=== PATIENT | female | born 1970 | race Caucasian/White ===

== ENCOUNTER → 2017-10-18 16:33 | Outpatient (CLI) | payer OTHER, SELFPAY ==
[2017-10-18 17:54] LABS: Absolute Lymphocyte Count 1.34 X10^3/ul (0.83-4.51); Absolute Neutrophil Count 4.6 X10^3/uL (2.0-7.7); Basophil# 0.02 X10^3/uL; Basophil% 0.3 % (0-1); Eosinophil# 0.04 X10^3/uL; Eosinophils% 0.6 % (0-5); Hematocrit 38.7 % (37-47); Hemoglobin 12.6 g/dl (12.0-15.0); Lymphocyte # 1.34 X10^3/ul (4.0); Lymphocyte % 19.9 % (19-41); Mean Corp Hgb Conc 32.6 g/gl (32-36); Mean Corpuscular Hgb 29.9 pg (27.0-32.0); Mean Corpuscular Volume 91.9 fL (81-99); Mean Platelet Vol. 10.9 fl (6.2-12.0); Monocyte# 0.73 X10^3/uL; Monocyte% 10.8 % (0-10); Neutrophil % 68.3 % (47-70); Platelet Count 289 K/mm3 (150-450); RBC Distribution Width CV 12.8 % (11.6-14.6); Red Blood Count 4.21 M/mm3 (4.2-5.4); White Blood Count 6.7 K/mm3 (4.4-11.0)
[2017-10-18 18:05] LABS: POSITIVE COUNT NO; POSITIVE DIFFERENTIAL NO; POSITIVE MORPHOLOGY NO
[2017-10-18 18:07] LABS: Vitamin B12 267 pg/mL (211-911); Vitamin D,25 Hydroxy 15.4 ng/mL (29.95-100.01)
[2017-10-18 18:17] LABS: Erythrocyte Sedimentation Rate 44 mm/hr (0-20)
[2017-10-18 18:44] LABS: AST(SGOT) 28 U/L (15-37); Alanine Aminotransfer ALT/SGPT 51 U/L (13-56); Albumin, Serum 3.3 g/dL (3.2-5.0); Alkaline Phosphatase 86 U/L (45-117); Anion Gap 13 (5-15); BUN 9 mg/dL (7-18); Calcium,Total 8.9 mg/dL (8.5-10.1); Chloride 106 mmol/L (98-107); EST Glomerular Filtration Rate 71 mL/min (>60); Est Glom Filt Rate - Afr Amer 85 mL/min (>60); Ferritin 88 ng/mL (8-252); Glucose 89 mg/dL (74-106); Iron 61 ug/dL (50-170); Iron Binding Capacity,Total 243 ug/dL (250-450); PERCENT IRON SATURATION 25.1 % (15.0-55.0); Potassium 3.9 mmol/L (3.5-5.1); Protein, Total 8.3 g/dL (6.4-8.2); Sodium Level 142 mmol/L (136-145); Thyroid Stim Hormone (TSH) 2.49 uIU/mL (0.358-3.74)
[2017-10-20 11:17] LABS: Transferrin 197 mg/dL (200-370)
== END ==
PROVIDERS: Family Provider Family Medicine; PCP Family Medicine
DX: D89.9 Disorder involving the immune mechanism, unspecified (principal); K50.818 Crohn's disease of both small and large intestine with other complication
CPT/HCPCS: 36415; 80048; 80076; 82306; 82607; 82728; 83540; 83550; 84443; 84466; 85025; 85652; 86140

== ENCOUNTER → 2017-10-19 16:37 | Outpatient (CLI) | payer OTHER, SELFPAY ==
[2017-10-27 11:08] LABS: Calprotectin, Stool 255 ug/g (0-120)
== END ==
PROVIDERS: Family Provider Family Medicine; PCP Family Medicine
DX: R19.7 Diarrhea, unspecified (principal)
CPT/HCPCS: 83993; 87493; 87506

== ENCOUNTER → 2018-01-18 16:02 | Outpatient (CLI) | payer OTHER, SELFPAY ==
--- NOTE | 2018-01-18 16:10 | BD_ITS ---
STUDY: DUAL ENERGY X-RAY ABSORPTIOMETRY / DXA REASON FOR EXAM: Female, 47 years old. History of Crohn's disease. He is on steroid medication. No loss of height. TECHNIQUE: Bone Mineral Density (BMD) measurements of lumbar spine and bilateral hips were obtained. COMPARISON: None. FINDINGS: Lumbar Spine (L1-L4): g/cm2 (1.001) / T-score (-1.5) / Z-score (-1.2) Findings are suggestive of osteopenia with a moderate fracture risk. Left Femur Total: g/cm2 (0.822) / T-score (-1.5) / Z-score (-1.0) Left Femoral Neck: g/cm2 (0.846) / T-score (-1.4) / Z-score (-0.6) Right Femur Total: g/cm2 (0.810) / T-score (-1.6) / Z-score (-1.1) Right Femoral Neck: g/cm2 (0.845) / T-score (-1.4) / Z-score (-0.6) BD/Dexa Bone Density Study IMPRESSION: The patient is considered osteopenic as outlined below according to World Daniel Organization (WHO) criteria with a moderate fracture risk. Reference Information: The T-score is the number of standard deviations above or below the standard which is normal for young adults at their peak bone mineral density. The World Health Organization (WHO) interprets the T-scores as follows: Above -1 Normal bone density Between -1 and -2.5 Osteopenia Equal to / or below -2.5 Osteoporosis As a practical clinical guideline, osteopenia may be graded as follows: Mild -1 through -1.5 Moderate -1.6 through -2.0 Severe -2.1 through -2.4 The Z-score is the number of standard deviations above or below age-matched controls. A Z-score of less than -1.5 would be considered abnormal. References: 1. NIH Osteoporosis and Related Bone Diseases http://www.osteo.org 2. International Society for Clinical Densitometry http://www.iscd.org 3. National Osteoporosis Foundation http://www.nof.org Electronically Signed: Andrae Sharif MD at 8:02 EST Tel [phone], Service support ,
== END ==
PROVIDERS: Family Provider Family Medicine; PCP Family Medicine
DX: K50.10 Crohn's disease of large intestine without complications (principal); M85.80 Other specified disorders of bone density and structure, unspecified site
CPT/HCPCS: 77080

== ENCOUNTER → 2018-05-31 16:35 | Outpatient (CLI) | payer OTHER, SELFPAY ==
[2018-05-26 15:12] VITALS: BMI 22.9
[2018-05-31 18:03] LABS: Ferritin 11 ng/mL (8-252); Iron 25 ug/dL (50-170); Iron Binding Capacity,Total 342 ug/dL (250-450); PERCENT IRON SATURATION 7.3 % (15.0-55.0)
[2018-06-03 05:07] LABS: QNTFERON TB Mitogen Value > 10.00 IU/mL (.); QNTFERON TB Nil Value 0.03 IU/mL (.); QNTFERON TB1+ Ag Value 0.02 IU/mL (.); QNTFERON TB2+ Ag Value 0.02 IU/mL (.)
[2018-06-03 12:23] LABS: QNTIFERON TB Positive Criteria Negative (Negative); Transferrin 276 mg/dL (200-370)
== END ==
PROVIDERS: Family Provider Family Medicine; PCP Family Medicine
DX: K50.80 Crohn's disease of both small and large intestine without complications (principal); R19.7 Diarrhea, unspecified
CPT/HCPCS: 36415; 82728; 83540; 83550; 84466; 86480

== ENCOUNTER → 2018-06-21 16:24 | Outpatient (CLI) | payer OTHER, SELFPAY ==
[2018-05-26 15:12] VITALS: BMI 22.9
--- NOTE | 2018-06-21 16:32 | BI_ITS ---
MAMMOGRAPHY - BILATERAL SCREENING 3-D TOMOSYNTHESIS REASON FOR EXAM: Female, 47 years old. Bilateral Screening 3-D tomosynthesis PERTINENT HISTORY: No significant family history. TECHNIQUE: 2-D mammograms and 3-D Tomosynthesis of the breast (s) were performed. CAD was performed. COMPARISON: March 23, 2017. FINDINGS: The breast composition is heterogeneously dense that can obscure small breast masses. Scattered benign calcifications are seen. No dense spiculated masses or suspicious microcalcifications are identified. No architectural distortion is identified. There is no skin thickening or retraction. There has been no significant change since the prior study. BI/SCREEN MAMM (CAD) W/SAHRA BILAT IMPRESSION: No mammographic signs of malignancy. Routine yearly mammograms recommended. ASSESSMENT CATEGORY: BIRADS Category 1: Negative. A letter regarding these results will be sent to the patient by the facility within 30 days. FOLLOW UP RECOMMENDATION: Yearly follow up mammogram recommended. (A) Approximately 10% of breast cancers are not detected by mammography. A normal mammogram should not delay biopsy of a clinically suspicious abnormality. Electronically Signed: Juan Carlos Swann MD at 7:59 EDT , Service support ,
== END ==
PROVIDERS: Family Provider Family Medicine; PCP Family Medicine; Referring Provider Nurse Practitioner Women's Health; Visit Provider Nurse Practitioner Women's Health
DX: Z12.31 Encounter for screening mammogram for malignant neoplasm of breast (principal)
CPT/HCPCS: 77063; 77067

== ENCOUNTER → 2018-08-10 16:44 | Outpatient (CLI) | payer OTHER, SELFPAY ==
[2018-05-26 15:12] VITALS: BMI 22.9
[2018-08-10 18:29] LABS: Absolute Lymphocyte Count 1.07 X10^3/ul (0.83-4.51); Absolute Neutrophil Count 6.6 X10^3/uL (2.0-7.7); Basophil# 0.02 X10^3/uL; Basophil% 0.2 % (0-1); Eosinophil# 0.07 X10^3/uL; Eosinophils% 0.8 % (0-5); Hemoglobin 10.4 g/dl (12.0-15.0); Lymphocyte # 1.07 X10^3/ul (4.0); Lymphocyte % 12.7 % (19-41); Mean Corp Hgb Conc 31.5 g/gl (32-36); Mean Corpuscular Hgb 25.9 pg (27.0-32.0); Mean Corpuscular Volume 82.3 fL (81-99); Mean Platelet Vol. 9.9 fl (6.2-12.0); Monocyte# 0.65 X10^3/uL; Monocyte% 7.7 % (0-10); Neutrophil % 78.4 % (47-70); Platelet Count 349 K/mm3 (150-450); RBC Distribution Width CV 14.6 % (11.6-14.6); RBC Distribution Width SD 44.2 fl (35.1-43.9); Red Blood Count 4.01 M/mm3 (4.2-5.4); White Blood Count 8.4 K/mm3 (4.4-11.0)
[2018-08-10 18:32] LABS: POSITIVE COUNT NO; POSITIVE DIFFERENTIAL NO; POSITIVE MORPHOLOGY NO
[2018-08-10 18:41] LABS: AST(SGOT) 34 U/L (15-37); Alanine Aminotransfer ALT/SGPT 61 U/L (13-56); Albumin, Serum 2.8 g/dL (3.2-5.0); Alkaline Phosphatase 188 U/L (45-117); Bilirubin, Direct 0.11 mg/dL (0.00-0.30); Globulin 5.9 g/dL (2.2-4.2); Protein, Total 8.7 g/dL (6.4-8.2)
[2018-08-10 18:50] LABS: Vitamin D,25 Hydroxy 68.8 ng/mL (29.95-100.01)
== END ==
PROVIDERS: Family Provider Family Medicine; PCP Family Medicine
DX: R53.83 Other fatigue (principal); E55.9 Vitamin D deficiency, unspecified; D50.0 Iron deficiency anemia secondary to blood loss (chronic)
CPT/HCPCS: 36415; 80076; 82306; 85025; 87385

== ENCOUNTER → 2018-10-06 16:43 | Outpatient (CLI) | payer OTHER, SELFPAY ==
[2018-05-26 15:12] VITALS: BMI 22.9
[2018-10-06 18:12] LABS: Thyroid Stim Hormone (TSH) 2.12 uIU/mL (0.358-3.74)
== END ==
PROVIDERS: Family Provider Family Medicine; PCP Family Medicine
DX: K50.819 Crohn's disease of both small and large intestine with unspecified complications (principal)
CPT/HCPCS: 36415; 84443; 86140

== ENCOUNTER → 2018-10-07 16:21 | Outpatient (CLI) | payer OTHER, SELFPAY ==
[2018-05-26 15:12] VITALS: BMI 22.9
== END ==
PROVIDERS: Family Provider Family Medicine; PCP Family Medicine
DX: K50.819 Crohn's disease of both small and large intestine with unspecified complications (principal)

== ENCOUNTER → 2018-10-18 16:45 | Outpatient (CLI) | payer OTHER, SELFPAY ==
[2018-05-26 15:12] VITALS: BMI 22.9
== END ==
PROVIDERS: Family Provider Family Medicine; PCP Family Medicine
DX: K50.012 Crohn's disease of small intestine with intestinal obstruction (principal)
CPT/HCPCS: 87493; 87506

== ENCOUNTER → 2019-01-13 13:28 | Outpatient (CLI) | payer OTHER, SELFPAY ==
[2018-11-08 06:03] VITALS: BMI 18.6
== END ==
PROVIDERS: Family Provider Family Medicine; PCP Family Medicine
DX: K50.80 Crohn's disease of both small and large intestine without complications (principal)
CPT/HCPCS: 36415

== ENCOUNTER → 2019-01-17 09:22 | Outpatient (CLI) | payer OTHER, SELFPAY ==
[2018-11-08 06:03] VITALS: BMI 18.6
[2019-01-17 09:30] VITALS: BP 107/70; PULSE 98; RESP 16; TEMP 37.3; O2SAT 99; BMI 16.5
[2019-01-17 10:19] VITALS: BP 101/57; PULSE 90; RESP 16; TEMP 37.3; O2SAT 99
[2019-01-17 10:45] VITALS: BP 108/66; PULSE 86; RESP 18; TEMP 37.4; O2SAT 99
[2019-01-17 15:22] LABS: Absolute Lymphocyte Count 0.13 X10^3/uL (0.83-4.51); Basophil# 0.04 X10^3/uL; Basophil% 0.4 % (0-1); Eosinophil# 0.01 X10^3/uL; Eosinophils% 0.1 % (0-5); Hemoglobin 9.3 g/dL (12.0-15.0); Lymphocyte # 0.13 X10^3/ul (4.0); Lymphocyte % 1.4 % (19-41); Mean Corpuscular Hgb 25.7 pg (27.0-32.0); Mean Corpuscular Volume 85.6 fL (81-99); Mean Platelet Vol. 8.8 fl (6.2-12.0); Monocyte# 0.08 X10^3/uL; Monocyte% 0.9 % (0-10); NRBC Flagged by Analyzer 0 % (0-5); Neutrophil # 8.95 X10^3/uL (2.7-7.7); Neutrophil % 96.8 % (47-70); POSITIVE DIFFERENTIAL YES; POSITIVE MORPHOLOGY YES; Platelet Count 333 K/mm3 (150-450); RBC Distribution Width CV 16.8 % (11.6-14.6); Red Blood Count 3.62 M/mm3 (4.2-5.4); White Blood Count 9.3 K/mm3 (4.4-11.0)
[2019-01-17 15:47] LABS: Differential Indicated SCAN CRITERIA MET
[2019-01-17 16:12] LABS: Differential Comment SCANNED
== END ==
PROVIDERS: Family Provider Family Medicine; PCP Family Medicine
DX: D50.0 Iron deficiency anemia secondary to blood loss (chronic) (principal)
CPT/HCPCS: 96365; 36415; 85025; J1756; J7050; A4216

== ENCOUNTER → 2019-01-24 09:26 | Outpatient (CLI) | payer OTHER, SELFPAY ==
[2019-01-17 09:30] VITALS: BMI 16.5
[2019-01-24 09:39] VITALS: BP 107/59; PULSE 93; RESP 18; TEMP 37.1; O2SAT 99; BMI 16.6
[2019-01-24] MEDS: Hydrocortisone Sod Succinate 100 MG/2 ML Vial 50 MG IV (09:41)
[2019-01-24] MEDS: DiphenhydrAMINE 50 MG/ML Syringe IV (09:41)
[2019-01-24 10:54] VITALS: BP 116/64; PULSE 89; RESP 16; TEMP 36.6; O2SAT 100
== END ==
PROVIDERS: Family Provider Family Medicine; PCP Family Medicine
DX: D50.0 Iron deficiency anemia secondary to blood loss (chronic) (principal)
CPT/HCPCS: 96365; J1756; J7050; A4216

== ENCOUNTER → 2019-01-30 13:42 | Outpatient (CLI) | payer OTHER, SELFPAY ==
[2019-01-24 09:39] VITALS: BMI 16.6
[2019-01-30 15:24] LABS: Absolute Lymphocyte Count 0.75 X10^3/uL (0.83-4.51); Absolute Neutrophil Count 4.5 X10^3/uL (2.0-7.7); Basophil# 0.03 X10^3/uL; Basophil% 0.5 % (0-1); Eosinophil# 0.02 X10^3/uL; Eosinophils% 0.3 % (0-5); Hematocrit 31.3 % (37-47); Hemoglobin 9.2 g/dL (12.0-15.0); Lymphocyte # 0.75 X10^3/ul (4.0); Lymphocyte % 12.6 % (19-41); Mean Corp Hgb Conc 29.4 g/dL (32-36); Mean Corpuscular Hgb 26.4 pg (27.0-32.0); Mean Corpuscular Volume 89.9 fL (81-99); Mean Platelet Vol. 8.8 fl (6.2-12.0); Monocyte# 0.61 X10^3/uL; Monocyte% 10.3 % (0-10); NRBC Flagged by Analyzer 0 % (0-5); Neutrophil # 4.46 X10^3/uL (2.7-7.7); Neutrophil % 75.3 % (47-70); Platelet Count 487 K/mm3 (150-450); RBC Distribution Width CV 19.3 % (11.6-14.6); RBC Distribution Width SD 61.6 fl (35.1-43.9); Red Blood Count 3.48 M/mm3 (4.2-5.4); White Blood Count 5.9 K/mm3 (4.4-11.0)
[2019-01-30 16:15] LABS: AST(SGOT) 21 U/L (15-37); Alanine Aminotransfer ALT/SGPT 20 U/L (13-56); Albumin, Serum 2.3 g/dL (3.2-5.0); Alkaline Phosphatase 197 U/L (45-117); Anion Gap 7 (5-15); BUN 10 mg/dL (7-18); BUN/Creat Ratio 16.6 RATIO (10-20); Bilirubin, Direct 0.07 mg/dL (0.00-0.30); Calcium,Total 8.4 mg/dL (8.5-10.1); Chloride 108 mmol/L (98-107); EST Glomerular Filtration Rate 112 mL/min (>60); Est Glom Filt Rate - Afr Amer 135 mL/min (>60); Globulin 3.7 g/dL (2.2-4.2); Glucose 78 mg/dL (74-106); Potassium 4.4 mmol/L (3.5-5.1); Sodium Level 143 mmol/L (136-145)
== END ==
PROVIDERS: Family Provider Family Medicine; PCP Family Medicine
DX: K50.012 Crohn's disease of small intestine with intestinal obstruction (principal)
CPT/HCPCS: 36415; 80048; 80076; 85025

== ENCOUNTER → 2019-01-31 09:25 | Outpatient (CLI) | payer OTHER, SELFPAY ==
[2019-01-17 09:30] VITALS: BMI 16.5
[2019-01-24 09:39] VITALS: BMI 16.6
[2019-01-31 09:40] VITALS: BP 103/62; PULSE 98; RESP 16; TEMP 36.7; O2SAT 96; BMI 16.5
== END ==
PROVIDERS: Family Provider Family Medicine; PCP Family Medicine
DX: D50.0 Iron deficiency anemia secondary to blood loss (chronic) (principal)
CPT/HCPCS: 96365; J1756; J7050; A4216

== ENCOUNTER → 2019-02-07 09:27 | Outpatient (CLI) | payer OTHER, SELFPAY ==
[2019-01-17 09:30] VITALS: BMI 16.5
[2019-01-31 09:40] VITALS: BMI 16.5
[2019-02-07 09:35] VITALS: BP 108/69; PULSE 94; RESP 16; TEMP 36.5; O2SAT 98; BMI 16.5
[2019-02-07 10:47] VITALS: BP 117/73; PULSE 89; RESP 18; TEMP 36.9; O2SAT 100
== END ==
PROVIDERS: Family Provider Family Medicine; PCP Family Medicine
DX: D50.0 Iron deficiency anemia secondary to blood loss (chronic) (principal)
CPT/HCPCS: 96365; J1756; J7050; A4216

== ENCOUNTER → 2019-02-14 09:25 | Outpatient (CLI) | payer OTHER, SELFPAY ==
[2019-01-17 09:30] VITALS: BMI 16.5
[2019-02-07 09:35] VITALS: BMI 16.5
[2019-02-14 09:38] VITALS: BP 113/68; PULSE 98; RESP 16; TEMP 36.8; BMI 16.8
[2019-02-14 10:56] VITALS: BP 127/68; PULSE 90; RESP 16; TEMP 36.9; O2SAT 100
[2019-02-14 11:15] VITALS: BP 117/58; PULSE 86; RESP 16; TEMP 36.7
== END ==
PROVIDERS: Family Provider Family Medicine; PCP Family Medicine
DX: D50.0 Iron deficiency anemia secondary to blood loss (chronic) (principal)
CPT/HCPCS: 96365; J1756; J7050

== ENCOUNTER → 2019-02-16 13:18 | Outpatient (CLI) | payer OTHER, SELFPAY ==
[2019-02-14 09:38] VITALS: BMI 16.8
[2019-02-18 13:29] LABS: Calprotectin, Stool 1179 ug/g (0-120)
== END ==
PROVIDERS: Family Provider Family Medicine; PCP Family Medicine
DX: K50.80 Crohn's disease of both small and large intestine without complications (principal)
CPT/HCPCS: 83993

== ENCOUNTER → 2019-04-20 13:58 | Outpatient (CLI) | payer OTHER, SELFPAY ==
[2019-04-04 13:35] VITALS: BMI 16.8
[2019-04-20] MEDS: Zoledronic Acid 5 MG 100 ML 300 MG IV (14:31)
[2019-04-20 14:32] VITALS: BP 125/57; PULSE 83; RESP 16; TEMP 36.6; O2SAT 100; BMI 19.2
== END ==
PROVIDERS: PCP Family Medicine; Referring Provider Internal Medicine Endocrinology, Diabetes & Metabolism; Visit Provider Internal Medicine Endocrinology, Diabetes & Metabolism
DX: M85.80 Other specified disorders of bone density and structure, unspecified site (principal)
CPT/HCPCS: 96365; J7050; A4216; J3489

== ENCOUNTER → 2019-06-21 09:07 | Outpatient (CLI) | payer OTHER, SELFPAY ==
[2019-04-20 14:32] VITALS: BMI 19.2
[2019-06-21 09:46] LABS: Hematocrit 36.4 % (37-47); Hemoglobin 11.3 g/dL (12.0-15.0); Mean Corpuscular Hgb 29.1 pg (27.0-32.0); Mean Corpuscular Volume 93.8 fL (81-99); Mean Platelet Vol. 8.8 fl (6.2-12.0); Platelet Count 335 K/mm3 (150-450); RBC Distribution Width CV 13.2 % (11.6-14.6); RBC Distribution Width SD 45.4 fl (35.1-43.9); Red Blood Count 3.88 M/mm3 (4.2-5.4); White Blood Count 5.4 K/mm3 (4.4-11.0)
[2019-06-21 09:57] LABS: Prothrombin Time (Protime)PT. 12.8 SECONDS (11.7-14.9)
[2019-06-21 10:02] LABS: AST(SGOT) 25 U/L (15-37); Alanine Aminotransfer ALT/SGPT 44 U/L (13-56); Albumin, Serum 2.9 g/dL (3.2-5.0); Alkaline Phosphatase 165 U/L (45-117); Anion Gap 6 (5-15); BUN 9 mg/dL (7-18); BUN/Creat Ratio 11.3 RATIO (10-20); Bilirubin, Direct 0.22 mg/dL (0.00-0.30); Chloride 108 mmol/L (98-107); Creatinine, Serum 0.79 mg/dL (0.55-1.02); EST Glomerular Filtration Rate 81 mL/min (>60); Est Glom Filt Rate - Afr Amer 98 mL/min (>60); Globulin 4.5 g/dL (2.2-4.2); Glucose 81 mg/dL (74-106); Potassium 4.6 mmol/L (3.5-5.1); Protein, Total 7.4 g/dL (6.4-8.2); Sodium Level 139 mmol/L (136-145)
[2019-06-23 01:21] LABS: Calprotectin, Stool 2795 ug/g (0-120)
[2019-06-23 20:06] LABS: QNTFERON TB Mitogen Value > 10.00 IU/mL (.); QNTFERON TB Nil Value 0.04 IU/mL (.); QNTFERON TB1+ Ag Value 0.11 IU/mL (.); QNTFERON TB2+ Ag Value 0.05 IU/mL (.)
[2019-06-24 00:52] LABS: QNTIFERON TB Positive Criteria Negative (Negative)
== END ==
PROVIDERS: PCP Family Medicine
DX: K50.80 Crohn's disease of both small and large intestine without complications (principal)
CPT/HCPCS: 36415; 80048; 80076; 83993; 85027; 85610; 85730; 86140; 86480

== ENCOUNTER → 2019-08-02 13:59 | Outpatient (CLI) | payer OTHER, SELFPAY ==
[2019-04-20 14:32] VITALS: BMI 19.2
--- NOTE | 2019-08-02 14:00 | BI_ITS ---
MAMMOGRAPHY - BILATERAL SCREENING REASON FOR EXAM: Female, 48 years old. Routine annual screening examination. PERTINENT HISTORY: Sister with breast cancer. Aunt with breast cancer. TECHNIQUE: Digital bilateral breast sahra (3D mammographic acquisition) in the CC and MLO projections. 2-D mediolateral oblique (MLO) and craniocaudad (CC) views of both breasts were obtained. CAD: Full Field Digital Mammography with Computer Added Detection was performed. COMPARISON: Comparison is made with prior study dated June 21, 2018 and March 23, 2017.. FINDINGS: Breast Composition: The breasts are heterogeneously dense, which may obscure small masses. There are no dominant masses or suspicious calcifications. No other significant abnormalities are identified. There has been no significant change since the prior study. BI/SCREEN MAMM (CAD) W/SAHRA BILAT IMPRESSION: Stable bilateral screening mammogram. Yearly follow-up mammogram recommended. (A) ASSESSMENT CATEGORY: BIRADS Category 1: Negative. A letter regarding these results will be sent to the patient by the facility within 30 days. Approximately 10% of breast cancers are not detected by mammography. A normal mammogram should not delay biopsy of a clinically suspicious abnormality. [id number] Electronically Signed: Andrae Sharif, at 14:55 EDT , Service support ,
== END ==
PROVIDERS: PCP Family Medicine; Referring Provider Nurse Practitioner Women's Health; Visit Provider Nurse Practitioner Women's Health
DX: Z12.31 Encounter for screening mammogram for malignant neoplasm of breast (principal); Z80.3 Family history of malignant neoplasm of breast
CPT/HCPCS: 77063; 77067

== ENCOUNTER → 2019-08-18 12:04 | Outpatient (CLI) | payer OTHER, SELFPAY ==
[2019-08-16 15:46] VITALS: BMI 19.2
[2019-08-18 12:25] LABS: Absolute Lymphocyte Count 0.64 X10^3/uL (0.83-4.51); Absolute Neutrophil Count 6.2 X10^3/uL (2.0-7.7); Basophil# 0.03 X10^3/uL; Basophil% 0.4 % (0-1); Eosinophil# 0.08 X10^3/uL; Hematocrit 32.3 % (37-47); Hemoglobin 9.9 g/dL (12.0-15.0); Lymphocyte # 0.64 X10^3/ul (4.0); Lymphocyte % 8.2 % (19-41); Mean Corp Hgb Conc 30.7 g/dL (32-36); Mean Corpuscular Hgb 28.5 pg (27.0-32.0); Mean Corpuscular Volume 93.1 fL (81-99); Mean Platelet Vol. 8.7 fl (6.2-12.0); Monocyte# 0.76 X10^3/uL; Monocyte% 9.8 % (0-10); NRBC Flagged by Analyzer 0 % (0-5); Neutrophil # 6.24 X10^3/uL (2.7-7.7); Neutrophil % 80.2 % (47-70); Platelet Count 402 K/mm3 (150-450); RBC Distribution Width CV 14.3 % (11.6-14.6); RBC Distribution Width SD 47.9 fl (35.1-43.9); Red Blood Count 3.47 M/mm3 (4.2-5.4); White Blood Count 7.8 K/mm3 (4.4-11.0)
[2019-08-25 00:42] LABS: Calprotectin, Stool 2138 ug/g (0-120)
== END ==
PROVIDERS: PCP Family Medicine
DX: K50.80 Crohn's disease of both small and large intestine without complications (principal)
CPT/HCPCS: 36415; 83993; 85025; 86140

== ENCOUNTER → 2019-09-15 11:18 | Outpatient (CLI) | payer OTHER, SELFPAY ==
[2019-08-16 15:46] VITALS: BMI 19.2
== END ==
PROVIDERS: PCP Family Medicine
DX: Z11.59 Encounter for screening for other viral diseases (principal)
CPT/HCPCS: 87635; G2023; U0003

== ENCOUNTER → 2020-01-23 09:47 | Outpatient (CLI) | payer OTHER, SELFPAY ==
[2019-08-16 15:46] VITALS: BMI 19.2
--- NOTE | 2020-01-23 09:57 | BD_ITS ---
STUDY: DUAL ENERGY X-RAY ABSORPTIOMETRY / DXA REASON FOR EXAM: Female, 49 years old. Patient is 94.5# and 62 and quot; a loss of .5 and quot; per pat. Has taken steroids off and on for Frohn''s. Takes Vit D. Reclast x 1. Exercises moderately. Mom has osteo. TECHNIQUE: Bone Mineral Density (BMD) measurements of lumbar spine and bilateral hips were obtained. COMPARISON: Comparison is made with prior study dated 01/18/2018. FINDINGS: Lumbar Spine (L1-L4): g/cm2 (0.939) / T-score (-2.0) / Z-score (-1.5) Findings are suggestive of osteopenia with a moderate fracture risk. Left Femur Total: g/cm2 (0.770) / T-score (-1.9) / Z-score (-1.4) Left Femoral Neck: g/cm2 (0.820) / T-score (-1.6) / Z-score (-0.7) Right Femur Total: g/cm2 (0.775) / T-score (-1.8) / Z-score (-1.3) Right Femoral Neck: g/cm2 (0.816) / T-score (-1.6) / Z-score (-0.8) The T-Scores on the most recent prior examination were: Lumbar Spine (L1-L4): There has been worsening of bone density since the previous examination. Left Femur Total: which represents a worsening of 6.3%. Right Femur Total: which represents a worsening of 4.3%. BD/Dexa Bone Density Study IMPRESSION: The patient is considered osteopenic as outlined below according to World Daniel Organization (WHO) criteria with a moderate fracture risk. There has been worsening of bone density since the previous examination. Reference Information: The T-score is the number of standard deviations above or below the standard which is normal for young adults at their peak bone mineral density. The World Health Organization (WHO) interprets the T-scores as follows: Above -1 Normal bone density Between -1 and -2.5 Osteopenia Equal to / or below -2.5 Osteoporosis As a practical clinical guideline, osteopenia may be graded as follows: Mild -1 through -1.5 Moderate -1.6 through -2.0 Severe -2.1 through -2.4 The Z-score is the number of standard deviations above or below age-matched controls. A Z-score of less than -1.5 would be considered abnormal. References: 1. NIH Osteoporosis and Related Bone Diseases www osteo.org 2. International Society for Clinical Densitometry www iscd.org 3. National Osteoporosis Foundation www nof.org Electronically Signed: Andrae Sharif, at 16:22 EST , Service support ,
== END ==
PROVIDERS: PCP Family Medicine
DX: K50.818 Crohn's disease of both small and large intestine with other complication (principal)
CPT/HCPCS: 77080

== ENCOUNTER → 2020-02-06 16:30 | Outpatient (CLI) | payer OTHER, SELFPAY ==
[2019-08-16 15:46] VITALS: BMI 19.2
== END ==
PROVIDERS: PCP Family Medicine; Referring Provider Colon & Rectal Surgery; Visit Provider Colon & Rectal Surgery
DX: Z01.818 Encounter for other preprocedural examination (principal)
CPT/HCPCS: 87635; C9803; U0003

== ENCOUNTER → 2020-04-10 09:34 | Outpatient (CLI) | payer OTHER, SELFPAY ==
[2019-08-16 15:46] VITALS: BMI 19.2
--- NOTE | 2020-04-10 10:39 | RAD_ITS ---
STUDY: X-RAY - LUMBAR SPINE REASON FOR EXAM: Female, 49 years old. BACK PAIN TECHNIQUE: 3 view(s) of the lumbar spine were obtained. COMPARISON: None FINDINGS: Normal lumbar lordosis. There is a mild levoscoliosis of the lumbar spine. There is a normal alignment of the vertebrae. Normal vertebral bodies and endplates. There is multi-level degenerative disc disease with multi-level disc space narrowing. Phleboliths are seen in the pelvis. There is a 2.7 cm x 0.5 cm metallic cylinder overlying the symphysis pubis. RAD/Lumbar Spine 2 or 3 Views IMPRESSION: Degenerative changes of the spine, as detailed above. Electronically Signed: Andrae Sharif MD at 14:58 EST , Service support ,
== END ==
PROVIDERS: PCP Family Medicine
DX: M53.3 Sacrococcygeal disorders, not elsewhere classified (principal)
CPT/HCPCS: 72100

== ENCOUNTER 2020-06-03 10:26 | Outpatient (CLI) | payer OTHER, SELFPAY ==
[2020-05-27 09:10] VITALS: BMI 19.0
[2020-06-03 10:35] VITALS: BP 103/43; PULSE 77; RESP 16; TEMP 35.8; O2SAT 100; BMI 18.9
[2020-06-03] MEDS: 0.9% NaCl Peripheral Flush Adult/Peds IV (10:48)
[2020-06-03] MEDS: Zoledronic Acid 5 MG 100 ML 300 MG IV (10:49)
[2020-06-03 11:15] VITALS: BP 124/67; PULSE 72
== END 2020-06-03 12:00 | disposition home or self-care (01) ==
LOC: MEDOUTP 10:26
PROVIDERS: PCP Family Medicine; Referring Provider Internal Medicine Endocrinology, Diabetes & Metabolism; Visit Provider Internal Medicine Endocrinology, Diabetes & Metabolism
DX: M85.80 Other specified disorders of bone density and structure, unspecified site (principal)
CPT/HCPCS: 96365; A4216; J3489

== ENCOUNTER → 2020-06-26 14:15 | Outpatient (CLI) | payer OTHER, SELFPAY ==
[2020-06-03 10:35] VITALS: BMI 18.9
== END ==
PROVIDERS: PCP Family Medicine; Referring Provider Colon & Rectal Surgery; Visit Provider Colon & Rectal Surgery
DX: Z01.818 Encounter for other preprocedural examination (principal)
CPT/HCPCS: 87635; C9803; U0002

== ENCOUNTER → 2020-08-14 15:58 | Outpatient (CLI) | payer OTHER, SELFPAY ==
[2019-08-16 15:46] VITALS: BMI 19.2
--- NOTE | 2020-08-14 16:00 | BI_ITS ---
MAMMOGRAPHY - BILATERAL SCREENING REASON FOR EXAM: Female, 49 years old. Routine annual screening examination. PERTINENT HISTORY: Sister with breast cancer. Aunt with breast cancer. TECHNIQUE: Digital bilateral breast sahra (3D mammographic acquisition) in the CC and MLO projections. 2-D mediolateral oblique (MLO) and craniocaudad (CC) views of both breasts were obtained. CAD: Full Field Digital Mammography with Computer Added Detection was performed. COMPARISON: Comparison is made with prior study dated 08/02/2019 and 06/21/2018. FINDINGS: Breast Composition: The breasts are heterogeneously dense, which may obscure small masses. There are no dominant masses or suspicious calcifications. No other significant abnormalities are identified. There has been no significant change since the prior study. BI/SCRN MAMM (CAD)W/SAHRA BILAT IMPRESSION: Stable bilateral screening mammogram. Yearly follow-up mammogram recommended. (A) ASSESSMENT CATEGORY: BIRADS Category 1: Negative. A letter regarding these results will be sent to the patient by the facility within 30 days. Approximately 10% of breast cancers are not detected by mammography. A normal mammogram should not delay biopsy of a clinically suspicious abnormality. [id number] Electronically Signed: Andrae Sharif MD at 8:38 EDT , Service support ,
== END ==
PROVIDERS: PCP Family Medicine; Referring Provider Nurse Practitioner Women's Health; Visit Provider Nurse Practitioner Women's Health
DX: Z12.31 Encounter for screening mammogram for malignant neoplasm of breast (principal); Z80.3 Family history of malignant neoplasm of breast
CPT/HCPCS: 77063; 77067

== ENCOUNTER → 2020-08-20 16:04 | Outpatient (CLI) | payer OTHER, SELFPAY ==
[2020-08-20 15:34] VITALS: BMI 18.9
[2020-08-20 18:08] LABS: Follicle Stimulating Hormone 65.6 mIU/mL
[2020-08-25 10:18] LABS: HPV APTIMA, High Risk Negative (Negative)
== END ==
PROVIDERS: PCP Family Medicine; Referring Provider Nurse Practitioner Women's Health; Visit Provider Nurse Practitioner Women's Health
DX: N91.2 Amenorrhea, unspecified (principal); Z12.4 Encounter for screening for malignant neoplasm of cervix
CPT/HCPCS: 36415; 83001; 87624; 88175; G0145

== ENCOUNTER 2021-06-04 16:41 | Outpatient (CLI) | payer OTHER, SELFPAY ==
[2021-06-04 18:03] LABS: AST(SGOT) 32 U/L (15-37); Alanine Aminotransfer ALT/SGPT 51 U/L (13-56); Albumin, Serum 3.6 g/dL (3.2-5.0); Alkaline Phosphatase 107 U/L (45-117); Anion Gap 4 (5-15); BUN 11 mg/dL (7-18); BUN/Creat Ratio 14.8 RATIO (10-20); Calcium,Total 8.6 mg/dL (8.5-10.1); Chloride 110 mmol/L (98-107); Creatinine, Serum 0.74 mg/dL (0.55-1.02); EST Glomerular Filtration Rate 87 mL/min (>60); Est Glom Filt Rate - Afr Amer 106 mL/min (>60); Globulin 3.6 g/dL (2.2-4.2); Glucose 97 mg/dL (74-106); Potassium 3.7 mmol/L (3.5-5.1); Protein, Total 7.2 g/dL (6.4-8.2); Sodium Level 141 mmol/L (136-145)
[2021-06-04 18:20] LABS: Vitamin D,25 Hydroxy 31.4 ng/mL
== END 2021-06-04 23:59 | disposition home or self-care (01) ==
LOC: MTLAB 16:42
PROVIDERS: PCP Family Medicine; Referring Provider Internal Medicine Endocrinology, Diabetes & Metabolism; Visit Provider Internal Medicine Endocrinology, Diabetes & Metabolism
DX: M85.80 Other specified disorders of bone density and structure, unspecified site (principal); E55.9 Vitamin D deficiency, unspecified
CPT/HCPCS: 36415; 80053; 82306

== ENCOUNTER → 2021-06-16 | Outpatient (CLI) | payer OTHER, SELFPAY ==
[2021-06-16 15:12] VITALS: BP 120/65; PULSE 89; RESP 16; TEMP 37.1; O2SAT 97; BMI 21.9
[2021-06-16] MEDS: Zoledronic Acid 5 MG 100 ML 300 MG IV (15:23)
[2021-06-16] MEDS: 0.9% NaCl Peripheral Flush Adult/Peds IV (15:24)
[2021-06-16 15:49] VITALS: BP 106/65; PULSE 78; RESP 16; TEMP 37; O2SAT 98
== END | disposition home or self-care (01) ==
LOC: MEDOUTP 15:05
PROVIDERS: PCP Family Medicine; Referring Provider Internal Medicine Endocrinology, Diabetes & Metabolism; Visit Provider Internal Medicine Endocrinology, Diabetes & Metabolism
DX: M85.80 Other specified disorders of bone density and structure, unspecified site (principal)
CPT/HCPCS: 96365; A4216; J3489

== ENCOUNTER → 2021-10-30 | Outpatient (CLI) | payer OTHER, SELFPAY ==
--- NOTE | 2021-10-30 16:42 | BI_ITS ---
MAMMOGRAPHY - BILATERAL SCREENING REASON FOR EXAM: Female, 50 years old. Routine annual screening examination. PERTINENT HISTORY: Sister with breast cancer. Aunt with breast cancer. TECHNIQUE: Digital bilateral breast sahra (3D mammographic acquisition) in the CC and MLO projections. 2-D mediolateral oblique (MLO) and craniocaudad (CC) views of both breasts were obtained. CAD: Full Field Digital Mammography with Computer Added Detection was performed. COMPARISON: Comparison is made with prior study dated 08/14/2020 and 08/02/2019. FINDINGS: Breast Composition: The breasts are heterogeneously dense, which may obscure small masses. There are no dominant masses or suspicious calcifications. No other significant abnormalities are identified. There has been no significant change since the prior study. BI/SCRN MAMM (CAD)W/SAHRA BILAT IMPRESSION: Stable bilateral screening mammogram. Yearly follow-up mammogram recommended. (A) ASSESSMENT CATEGORY: BIRADS Category 1: Negative. A letter regarding these results will be sent to the patient by the facility within 30 days. Approximately 10% of breast cancers are not detected by mammography. A normal mammogram should not delay biopsy of a clinically suspicious abnormality. [id number] Electronically Signed: Andrae Sharif MD at 8:26 EDT ,
== END | disposition home or self-care (01) ==
LOC: OPBI 10-31 09:00
PROVIDERS: PCP Family Medicine; Visit Provider Nurse Practitioner Women's Health
DX: Z12.31 Encounter for screening mammogram for malignant neoplasm of breast (principal); Z80.3 Family history of malignant neoplasm of breast
CPT/HCPCS: 77063; 77067

== ENCOUNTER → 2021-11-04 | Outpatient (CLI) | payer OTHER, SELFPAY ==
[2021-11-04 18:32] LABS: Erythrocyte Sedimentation Rate 15 mm/hr (0-30)
[2021-11-04 18:35] LABS: Absolute Lymphocyte Count 1.12 X10^3/uL (0.83-4.51); Absolute Neutrophil Count 5.2 X10^3/uL (2.0-7.7); Basophil# 0.04 X10^3/uL; Basophil% 0.6 % (0-1); Eosinophil# 0.05 X10^3/uL; Eosinophils% 0.7 % (0-5); Hematocrit 40.1 % (37-47); Hemoglobin 13.5 g/dL (12.0-15.0); Lymphocyte # 1.12 X10^3/ul (0.83-4.51); Lymphocyte % 16.3 % (19-41); Mean Corp Hgb Conc 33.7 g/dL (32-36); Mean Corpuscular Volume 92.2 fL (81-99); Mean Platelet Vol. 10.9 fl (6.2-12.0); Monocyte# 0.49 X10^3/uL; Monocyte% 7.1 % (0-10); NRBC Flagged by Analyzer 0 % (0-5); Neutrophil # 5.18 X10^3/uL (2.7-7.7); Neutrophil % 75.2 % (47-70); Platelet Count 229 K/mm3 (150-450); RBC Distribution Width CV 12.4 % (11.6-14.6); RBC Distribution Width SD 42.4 fl (35.1-43.9); Red Blood Count 4.35 M/mm3 (4.2-5.4); White Blood Count 6.9 K/mm3 (4.4-11.0)
[2021-11-04 20:19] LABS: AST(SGOT) 42 U/L (15-37); Alanine Aminotransfer ALT/SGPT 58 U/L (13-56); Alkaline Phosphatase 127 U/L (45-117); Bilirubin, Direct 0.08 mg/dL (0.00-0.30); CRP 5.08 mg/L (0.0-3.0); Rheumatoid Factor < 10.0 IU/mL (<15)
== END | disposition home or self-care (01) ==
LOC: MTLAB 16:47
PROVIDERS: PCP Family Medicine
DX: K50.119 Crohn's disease of large intestine with unspecified complications (principal); Z93.2 Ileostomy status; Z90.49 Acquired absence of other specified parts of digestive tract
CPT/HCPCS: 36415; 80076; 85025; 85652; 86140; 86431

== ENCOUNTER → 2021-12-01 | Outpatient (CLI) | payer OTHER, SELFPAY ==
[2021-12-01 15:19] LABS: T4 Free Direct 0.84 ng/dL (0.76-1.46); Thyroid Stim Hormone (TSH) 1.64 uIU/mL (0.358-3.74)
== END | disposition home or self-care (01) ==
LOC: PAVLAB 14:10
PROVIDERS: Family Medicine; PCP Family Medicine; Referring Provider Nurse Practitioner Women's Health; Visit Provider Nurse Practitioner Women's Health
DX: E04.9 Nontoxic goiter, unspecified (principal)
CPT/HCPCS: 36415; 84439; 84443

== ENCOUNTER → 2021-12-08 | Outpatient (CLI) | payer OTHER, SELFPAY ==
--- NOTE | 2021-12-08 17:05 | US_ITS ---
STUDY: THYROID ULTRASOUND REASON FOR EXAM: Female, 50 years old. enlarged thyroid TECHNIQUE: Ultrasound evaluation of the thyroid was performed with real-time and static peck-scale imaging. COMPARISON: None. FINDINGS: RIGHT LOBE: The right lobe of the thyroid gland measures 4.1 x 1.4 x 1.3 cm. There is a homogeneous echotexture. There are multiple tiny nodules. The largest nodules are a cyst measuring 3 x 4 x 2 mm and a complex cyst measuring 6 x 5 x 3 mm. LEFT LOBE: The left lobe of the thyroid gland measures 3.2 x 1.1 x 1.4 cm. There is a homogeneous echotexture. There are multiple tiny nodules the largest is a complex cyst measuring 5 x 3 x 3 mm and a cyst measuring 3 x 2 x 1 mm ISTHMUS: The isthmus measures 2.3 mm . The regional lymph nodes are normal. US/Thyroid IMPRESSION: Multiple subcentimeter nodules most likely adenomatous changes. Six-month follow-up study recommended for further assessment Electronically Signed: Grant Phillips MD at 17:55 EDT ,
== END | disposition home or self-care (01) ==
LOC: US 17:04
PROVIDERS: PCP Family Medicine; Referring Provider Nurse Practitioner Women's Health; Visit Provider Nurse Practitioner Women's Health
DX: E04.9 Nontoxic goiter, unspecified (principal)
CPT/HCPCS: 76536

== ENCOUNTER 2022-07-06 16:01 | Outpatient (CLI) | payer OTHER, SELFPAY ==
[2022-07-06] MEDS: Zoledronic Acid 5 MG 100 ML 300 MG IV (16:08)
[2022-07-06 16:11] VITALS: BP 127/63; PULSE 76; RESP 16; TEMP 36.4; O2SAT 100; BMI 21.2
[2022-07-06] MEDS: 0.9% NaCl Peripheral Flush Adult/Peds IV (16:11)
[2022-07-06 16:37] VITALS: BP 119/61; PULSE 70; RESP 16; TEMP 36.1; O2SAT 99
== END 2022-07-06 16:02 | disposition home or self-care (01) ==
LOC: MEDOUTP 16:01
PROVIDERS: PCP Family Medicine; Referring Provider Internal Medicine Endocrinology, Diabetes & Metabolism; Visit Provider Internal Medicine Endocrinology, Diabetes & Metabolism
DX: M85.80 Other specified disorders of bone density and structure, unspecified site (principal)
CPT/HCPCS: 96365; A4216; J3489

== ENCOUNTER → 2022-10-08 | Outpatient (CLI) | payer OTHER, SELFPAY ==
--- NOTE | 2022-10-08 16:06 | BD_ITS ---
STUDY: DUAL ENERGY X-RAY ABSORPTIOMETRY / DXA REASON FOR EXAM: Female, 51 years old. 733.90OsteopeniaBONE DENSITY REASON FOR EXAM TECHNIQUE: Bone Mineral Density (BMD) measurements of lumbar spine and bilateral hips were obtained. COMPARISON: Comparison is made with prior study January 23, 2020. FINDINGS: Lumbar Spine (L1-L4): g/cm2 (0.823) / T-score (-2.0) / Z-score (-1.1) Findings are suggestive of osteopenia with a moderate fracture risk. Left Femur Total: g/cm2 (0.725) / T-score (-1.8) / Z-score (-1.2) Left Femoral Neck: g/cm2 (0.656) / T-score (-1.7) / Z-score (-0.8) Right Femur Total: g/cm2 (0.715) / T-score (-1.9) / Z-score (-1.2) Right Femoral Neck: g/cm2 (0.668) / T-score (-1.6) / Z-score (-0.6) The T-Scores on the most recent prior examination were: Lumbar Spine (L1-L4): There has been worsening of bone density since the previous examination. Left Femur Total: which represents an improvement of 1.9%. Right Femur Total: which represents no significant change. . BD/Dexa Bone Density Study IMPRESSION: The patient is considered osteopenic as outlined below according to World Daniel Organization (WHO) criteria with a moderate fracture risk. There has been worsening of bone density since the previous examination. Reference Information: The T-score is the number of standard deviations above or below the standard which is normal for young adults at their peak bone mineral density. The World Health Organization (WHO) interprets the T-scores as follows: Above -1 Normal bone density Between -1 and -2.5 Osteopenia Equal to / or below -2.5 Osteoporosis As a practical clinical guideline, osteopenia may be graded as follows: Mild -1 through -1.5 Moderate -1.6 through -2.0 Severe -2.1 through -2.4 The Z-score is the number of standard deviations above or below age-matched controls. A Z-score of less than -1.5 would be considered abnormal. References: 1. NIH Osteoporosis and Related Bone Diseases www osteo.org 2. International Society for Clinical Densitometry www iscd.org 3. National Osteoporosis Foundation www nof.org Electronically Signed: Andrae Sharif MD at 9:48 EDT ,
== END | disposition home or self-care (01) ==
PROVIDERS: PCP Family Medicine; Referring Provider Family Medicine; Visit Provider Family Medicine
DX: M85.80 Other specified disorders of bone density and structure, unspecified site (principal)
CPT/HCPCS: 77080

== ENCOUNTER → 2022-11-05 | Outpatient (CLI) | payer OTHER, SELFPAY ==
--- NOTE | 2022-11-05 16:37 | BI_ITS ---
MAMMOGRAPHY - BILATERAL SCREENING REASON FOR EXAM: Female, 51 years old. Routine annual screening examination. PERTINENT HISTORY: Sister with breast cancer. Aunt with breast cancer. TECHNIQUE: Digital bilateral breast sahra (3D mammographic acquisition) in the CC and MLO projections. 2-D mediolateral oblique (MLO) and craniocaudad (CC) views of both breasts were obtained. CAD: Full Field Digital Mammography with Computer Added Detection was performed. COMPARISON: Comparison is made with prior study October 30, 2021 and August 14, 2020. FINDINGS: Breast Composition: The breasts are heterogeneously dense, which may obscure small masses. There are no dominant masses or suspicious calcifications. No other significant abnormalities are identified. There has been no significant change since the prior study. BI/SCRN MAMM (CAD)W/SAHRA BILAT IMPRESSION: Stable bilateral screening mammogram. Yearly follow-up mammogram recommended. (A) ASSESSMENT CATEGORY: BIRADS Category 1: Negative. A letter regarding these results will be sent to the patient by the facility within 30 days. Approximately 10% of breast cancers are not detected by mammography. A normal mammogram should not delay biopsy of a clinically suspicious abnormality. [id number] Electronically Signed: Andrae Sharif MD at 8:46 EDT ,
== END | disposition home or self-care (01) ==
LOC: OPBI 11-06 07:28
PROVIDERS: PCP Family Medicine; Referring Provider Nurse Practitioner Women's Health; Visit Provider Nurse Practitioner Women's Health
DX: Z12.31 Encounter for screening mammogram for malignant neoplasm of breast (principal); Z80.3 Family history of malignant neoplasm of breast
CPT/HCPCS: 77063; 77067

== ENCOUNTER → 2022-12-14 | Outpatient (CLI) | payer OTHER, SELFPAY ==
[2022-12-14 09:42] LABS: Absolute Lymphocyte Count 0.96 X10^3/uL (0.83-4.51); Absolute Neutrophil Count 4.3 X10^3/uL (2.0-7.7); Basophil# 0.04 X10^3/uL; Basophil% 0.7 % (0-1); Eosinophil# 0.06 X10^3/uL; Hematocrit 42.2 % (37-47); Hemoglobin 13.4 g/dL (12.0-15.0); Lymphocyte # 0.96 X10^3/ul (0.83-4.51); Lymphocyte % 16.6 % (19-41); Mean Corp Hgb Conc 31.8 g/dL (32-36); Mean Corpuscular Hgb 30.2 pg (27.0-32.0); Mean Corpuscular Volume 95.3 fL (81-99); Mean Platelet Vol. 10.7 fl (6.2-12.0); Monocyte# 0.38 X10^3/uL; Monocyte% 6.6 % (0-10); NRBC Flagged by Analyzer 0 % (0-5); Neutrophil # 4.33 X10^3/uL (2.7-7.7); Neutrophil % 74.9 % (47-70); Platelet Count 236 K/mm3 (150-450); RBC Distribution Width CV 12.7 % (11.6-14.6); RBC Distribution Width SD 44.9 fl (35.1-43.9); Red Blood Count 4.43 M/mm3 (4.2-5.4); White Blood Count 5.8 K/mm3 (4.4-11.0)
[2022-12-14 10:11] LABS: Vitamin D,25 Hydroxy 38.8 ng/mL
[2022-12-14 10:26] LABS: AST(SGOT) 36 U/L (15-37); Alanine Aminotransfer ALT/SGPT 65 U/L (13-56); Albumin, Serum 3.8 g/dL (3.2-5.0); Alkaline Phosphatase 104 U/L (45-117); Anion Gap 6 (5-15); BUN 13 mg/dL (7-18); BUN/Creat Ratio 15.8 RATIO (10-20); Calcium,Total 9.3 mg/dL (8.5-10.1); Chloride 108 mmol/L (98-107); Creatinine, Serum 0.82 mg/dL (0.55-1.02); EST Glomerular Filtration Rate 77 mL/min (>60); Est Glom Filt Rate - Afr Amer 93 mL/min (>60); Glucose 97 mg/dL (74-106); Potassium 3.8 mmol/L (3.5-5.1); Protein, Total 7.8 g/dL (6.4-8.2); Sodium Level 141 mmol/L (136-145); T4 Free Direct 0.87 ng/dL (0.76-1.46); Thyroid Stim Hormone (TSH) 2.26 uIU/mL (0.358-3.74)
[2022-12-15 06:08] LABS: Thyroid Peroxidase AB 15 IU/mL (0-34)
== END | disposition home or self-care (01) ==
PROVIDERS: PCP Family Medicine; Referring Provider Nurse Practitioner Women's Health; Visit Provider Nurse Practitioner Women's Health
DX: Z13.29 Encounter for screening for other suspected endocrine disorder (principal); E04.1 Nontoxic single thyroid nodule; R74.8 Abnormal levels of other serum enzymes; Z13.21 Encounter for screening for nutritional disorder
CPT/HCPCS: 36415; 80053; 82306; 84439; 84443; 85025; 86376

== ENCOUNTER → 2023-01-01 | Outpatient (CLI) | payer OTHER, SELFPAY ==
--- NOTE | 2023-01-01 15:17 | US_ITS ---
STUDY: THYROID ULTRASOUND REASON FOR EXAM: Female, 52 years old. Enlarged thyroid TECHNIQUE: Ultrasound evaluation of the thyroid was performed with real-time and static peck-scale imaging. COMPARISON: 12/08/2021 FINDINGS: RIGHT LOBE: The right lobe of the thyroid gland measures 4.5 x 1.1 x 1.5 cm. There is a homogeneous echotexture. There is a stable 0.8 cm solid/cystic nodule LEFT LOBE: The left lobe of the thyroid gland measures 3.6 x 1.0 x 1.2 cm. There is a homogeneous echotexture. 2 separate stable solid and cystic 0.5 and 0.3 cm nodules. ISTHMUS: The isthmus measures 2.1 mm. The regional lymph nodes are normal. US/Thyroid IMPRESSION: Stable homogeneous thyroid gland with stable complex solid and cystic subcentimeter nodules. Nodules are benign, and need no specific follow-up. Nodules are mixed cystic and solid, anechoic, [id number], smoothly marginated and contains no echogenic foci. TI-RADS points: 1. TI-RADS category: TR1. Nodules are benign and no FNA or follow-up is necessary. Electronically Signed: Ivan Garrett MD at 10:09 EST ,
--- NOTE | 2023-01-01 15:17 | US_ITS ---
STUDY: ULTRASOUND OF THE FEMALE PELVIS - COMPLETE REASON FOR EXAM: Female, 52 years old. PMB LMP: Unknown. TECHNIQUE: Transabdominal TECHNICAL QUALITY: Limited. Examination limited by bowel gas. COMPARISON: None. FINDINGS: The uterus is anteverted and is in a midline position. The uterus measures 6.2 x 3.2 x 3.0 cm. Normal uterine cervix. The endometrium measures 1.8 mm in thickness, and is hyperechoic. There is no demonstrated endometrial mass. There is no demonstrated myometrial mass. I.U.D. - The patient does not have an I.U.D. Neither ovary visualized There is no fluid in the cul-de-sac. The pre void volume of the bladder was 198.8 ml. The post void volume of the bladder was 0 ml. Polycystic ovary disease: No. US/Pelvic (Non ) IMPRESSION: No suspicious sonographic findings, study limited due to overlying bowel gas and performed only transabdominally Electronically Signed: Ivan Garrett MD at 10:01 EST ,
== END | disposition home or self-care (01) ==
LOC: US 15:16
PROVIDERS: PCP Family Medicine; Referring Provider Nurse Practitioner Women's Health; Visit Provider Nurse Practitioner Women's Health
DX: N95.0 Postmenopausal bleeding (principal); E04.1 Nontoxic single thyroid nodule
CPT/HCPCS: 76536; 76856

== ENCOUNTER → 2023-03-18 | Outpatient (CLI) | payer OTHER, SELFPAY ==
--- OUTSIDE RECORDS SUMMARY | 2023-03-18 16:46 | XMS RPT_ITS | CCD ---
Author Name Unknown Address [address] [place] [address] Organization [facility] Care Team Providers Care Advisory Software Engineer Name Role Phone Helen Guzman Primary Care Provider Nerissa Linton MD Primary Care Provider Helen Guzman MD Primary Care Provider Helen Guzman MD Primary Care Provider LI, NA Attending Unavailable HELEN GUZMAN S Referring Unavailable HELEN GUZMAN S Primary Care Unavailable LI, NA Attending Unavailable RASHAD HELEN S Primary Care Unavailable LI, NA Referring Unavailable RASHAD, HELEN S Primary Care Unavailable LI, NA Referring Unavailable LI, NA Attending Unavailable HELEN GUZMAN S Primary Care Unavailable RASHAD, HELEN S Primary Care Unavailable LI, NA Referring Unavailable LI, NA Attending Unavailable Allergies Allergy Classification Reported Allergen(s) Allergy Type Date of Onset Reaction(s) Facility (4 sources) ferumoxytol Drug Allergy 01-10-2019 [facility] Work Phone: Medications Current Medications Medication Drug Class(es) Dates Sig (Normalized) Sig (Original) calcium carbonate 500 mg oral tablet (4 sources) Start: 06-03-2020 calcium carbonate 1250 (500 Ca) MG tablet Take by mouth. 0 06/03/2020 Active Cholecalciferol (4 sources) Vitamin D Cholecalciferol (VITAMIN D3 PO) Take by mouth daily. 0 Active Completed/Discontinued Medications Medication Drug Class(es) Dates Sig (Normalized) Sig (Original) Barium Sulfate (VOLUMEN/NEULUMEX ) 0.1 % 1,350 mL (1 source) Start: 11-10-2021 End: 11-10-2021 Barium Sulfate (VOLUMEN/NEULUMEX) 0.1 % 1,350 mL calcium chloride 0.0014 meq/ml / potassium chloride 0.004 meq/ml / sodium chloride 0.103 meq/ml / sodium lactate 0.028 meq/ml injectable solution (2 sources) Start: 03-24-2022 End: 03-25-2022 Lactated ringers IV solution 1,000 mL DULoxetine 20 mg delayed release oral capsule (1 source) Serotonin and Norepinephrine Reuptake Inhibitor Start: 02-27-2021 End: 10-29-2021 DULox[address] Particles capsule DR 20mg/day for 2 weeks, 20mg every other day for 2 weeks, 20mg every 3 days for 2 weeks then stop. 30 capsule 0 02/27/2021 10/29/2021 Discontinued iohexol (OMNIPAQUE) 350 MG/ML injection 1-171 mL (1 source) Start: 11-10-2021 End: 11-10-2021 iohexol (OMNIPAQUE) 350 MG/ML injection 1-171 mL 10 ml sodium chloride 9 mg/ml injection (1 source) Start: 11-10-2021 End: 11-10-2021 sodium chloride (PF) 0.9 % injection 1-100 mL Problems Active Problems Problem Classification Problem Date Documented Da te Episodic/Chronic Other gastrointestinal disorders (3 sources) Ileostomy present; Translations: [Encounter for attention to ileostomy] Onset: 07-17-2008 07-17-2008 Chronic Other gastrointestinal disorders (2 sources) Ileostomy status; Translations: [Ileostomy status] Onset: 11-10-2021 Chronic Other gastrointestinal disorders (1 source) Constipation; Translations: [Constipation, unspecified] 07-31-2005 Episodic Other liver diseases (4 sources) Focal nodular hyperplasia of liver; Translations: [Other specified diseases of liver] Onset: 10-13-2019 10-13-2019 Chronic Other liver diseases (1 source) Elevated liver enzymes level; Translations: [Abnormal levels of other serum enzymes] Episodic Other screening for suspected conditions (not mental disorders or infectious disease) (4 sources) Abnormal cytological findings in specimens from other organs, systems and tissues; Translations: [Other abnormal Papanicolaou smear of cervix and cervical HPV] Onset: 06-17-2005 06-17-2005 Episodic Regional enteritis and ulcerative colitis (20 sources) Crohn's disease; Translations: [Crohn's disease, unspecified, without complications] Onset: 04-25-2007 Resolved: 01-17-2020 Chronic Residual codes; unclassified (1 source) History of liver excision; Translations: [Acquired absence of other specified parts of digestive tract] Episodic Past or Other Problems Problem Classification Problem Date Documented Date Episodic/Chronic Anal and rectal conditions (5 sources) Anal fissure; Translations: [Anal fissure, unspecified] Onset: 01-31-2008 01-31-2008 Episodic Deficiency and other anemia (16 sources) Iron deficiency anemia; Translations: [Iron deficiency anemia, unspecified] Onset: 05-14-2013 Resolved: 04-04-2020 01-05-2019 Episodic Other aftercare (4 sources) Patient encounter status; Translations: [Encounter for therapeutic drug level monitoring] Onset: 11-02-2013 11-02-2013 Episodic Other bone disease and musculoskeletal deformities (4 sources) Osteopenia; Translations: [Other specified disorders of bone density and structure, unspecified site] Onset: 10-27-2017 10-28-2017 Episodic Other female genital disorders (1 source) Cervical intraepithelial neoplasia grade 2; Translations: [Moderate cervical dysplasia] Onset: 11-03-2006 11-03-2006 Episodic Other liver diseases (4 sources) Alkaline phosphatase raised; Translations: [Abnormal levels of other serum enzymes] Onset: 10-13-2019 10-13-2019 Episodic Other liver diseases (2 sources) Abnormal levels of other serum enzymes; Translations: [Abnormal levels of other serum enzymes] Onset: 10-29-2021 Episodic Residual codes; unclassified (6 sources) History of total colectomy; Translations: [Acquired absence of other specified parts of digestive tract] Onset: 04-04-2020 Episodic Residual codes; unclassified (2 sources) Acquired absence of other specified parts of digestive tract; Translations: [Acquired absence of other specified parts of digestive tract] Onset: 11-10-2021 Episodic Results Test Name Value Interpretation Reference Range Facil ity Vital Signs Date Time Vital Sign Value Performing Clinician Calin teresa 11-10-2021 12:39-0400 Diastolic blood pressure 54 mm[Hg] Nataliia Rodriguez MD, PhD Work Phone: [facility] 11-10-2021 12:39-0400 Heart rate 75 /min Nataliia Rodriguez MD, PhD Work Phone: [facility] 11-10-2021 12:39-0400 Systolic blood pressure 110 mm[Hg] Nataliia Rodriguez MD, PhD Work Phone: [facility] 10-29-2021 16:00-0400 Body height 157.5 cm Nataliia Rodriguez MD, PhD Work Phone: [facility] 10-29-2021 16:00-0400 Body mass index (BMI) [Ratio] 21.29 kg/m2 Nataliia Rodriguez MD, PhD Work Phone: [facility] 10-29-2021 16:00-0400 Body temperature 97.2 [degF] Nataliia Rodriguez MD, PhD Work Phone: [facility] 10-29-2021 16:00-0400 Body weight 52.8 kg Nataliia Rodriguez MD, PhD Work Phone: [facility] 10-29-2021 16:00-0400 Diastolic blood pressure 52 mm[Hg] Nataliia Rodriguez MD, PhD Work Phone: [facility] 10-29-2021 16:00-0400 Heart rate 86 /min Nataliia Rodriguez MD, PhD Work Phone: [facility] 10-29-2021 16:00-0400 SaO2% (BldA) [Mass fraction] 98 % Nataliia Rodriguez MD, PhD Work Phone: [facility] 10-29-2021 16:00-0400 Systolic blood pressure 103 mm[Hg] Nataliia Rodriguez MD, PhD Work Phone: [facility] Encounters Encounter Date Encounter Type Care Provider Facility Start: 03-24-2022 ambulatory [facility] Facility: [facility] Start: 03-24-2022 End: 03-24-2022 Subsequent hospital visit by physician Nataliia Rodriguez MD, PhD Work Phone: [facility] Procedures Date Procedure Procedure Detail Performing Clinician Start: 03-24-2022 PUSH ENTEROSCOPY Nataliia Rodriguez MD, PhD Work Phone: Start: 03-24-2022 ILEOSCOPY Nataliia Rodriguez MD, PhD Work Phone: Start: 11-10-2021 Creatinine blood Nataliia Rodriguez MD, PhD Work Phone: Start: 03-10-2016 Mammography Marly Fabiola dumont Work Phone: Start: 04-20-2013 Lipid 1996 panel - S soledad or Plasma Nataliia Rodriguez MD, PhD Work Phone: Start: 10-26-2012 Colonoscopy Marly Fabiola dumont Work Phone: Plan of Treatment Date Care Activity Detail Author Start: 10-18-2024 Tetanus vaccination TETANUS [facility] Start: 12-19-2021 Zoster vaccine hzv live for subcutaneous use ZOSTER (SHINGLES) VACCINE (2 of 2) [facility] Start: 11-10-2021 Subsequent hospital visit by physician 11/10/2021 Hospital Encounter Computerized Tomography Scan Nataliia Rodriguez MD, PhD [address] [place] [address] [facility] Start: 10-30-2021 Influenza vaccination INFLUENZA VACCINE (#1) [facility] Start: 10-29-2021 End: 10-29-2022 C-reactive protein C REACTIVE PROTEIN Lab Routine Crohn's disease of large intestine with complication Ileostomy in place Status post total colectomy Expected: 10/29/2021, Expires: 10/29/2022 [facility] Immunizations Immunization Date Immunization Notes Care Provider Fa cility 10-24-2021 zoster vaccine, unspecified formulation Nataliia Rodriguez MD, PhD Work Phone: [facility] 11-29-2020 influenza virus vaccine, unspecified formulation Nataliia Rodriguez MD, PhD Work Phone: [facility] Payers Date Payer Category Payer Unknown [id number] 2020 Private Health Insurance [employer] JOE [id number] 2020-Present [address] [place] [id number] [id number] 2020 Private Health Insurance [id number] 2002 Unknown [employer] OW[employer] PPO [id number] 2002-2015 PPO [id number] 1968 Unknown [id number] 1968 Unknown [id number] 1968 Unknown [id number] 1968 Unknown [id number] 1968 Unknown [id number] Social History Date Type Detail Facility Start: 12-24-2005 End: 04-19-2013 Tobacco smoking status NHIS Never smoker [facility] Start: 12-24-2005 End: 03-24-2022 Alcohol intake Current drinker of alcohol (finding) [facility] Start: 1970 Sex Assigned At Not on file [facility] Start: 04-19-2013 Tobacco use and exposure Smokeless tobacco non-user [facility] Start: 10-29-2021 End: 03-24-2022 Alcohol intake [facility] Start: 06-07-2020 History SDOH Alcohol Comment once or twice a year per [facility] Start: 03-14-2022 End: 03-24-2022 Exposure to SARS-CoV-2 (event) Unable to assess [facility] Clinical Notes 06-22-2006 to 03-24-2022 Nursing Notes - Edenilson Reid RN - 03/24/2022 9:04 AM ESTNursing Notes - Edenilson Reid RN - 03/24/2022 9:04 AM Gregoria Rodriguez MD, PhD - 03/24/2022 8:45 AM EST06/22/2006 1:36 PM EDT Note Date & Type Note Facility 03-24-2022 Note Formatting of this n ote might be different from the original. Vital signs and patient assessments documented per anesthesia. [facility] 03-24-2022 Miscellaneous Notes Vital signs and patient assessments documented per anesthesia. documented in this encounter [facility] 03-24-2022 History and physical note ENDOSCOPIC PREPROCEDURE HISTORY AND PHYSICAL HISTORY OF PRESENT ILLNESS: Gabi Bustos is a 51 y.o. female seen in the pre-procedure area at [facility]. The indication for endoscopic evaluation includes: Abnormal CT scan, gastrointestinal tract Crohn's disease of both small and large intestine with other complication PAST MEDICAL HISTORY: Past Medical History: Diagnosis Date Anemia Crohn's disease Liver mass Skin tag of anus SURGICAL HISTORY: Past Surgical History: Procedure Laterality Date PROCTECTOMY PERINEAL APPROACH N/A 07/02/2020 Laterality: N/A; Surgeon: Steve Parikh MD; Location: [facility] MAIN OR COLECTOMY TOTAL W/ ILEOSTOMY OR ILEOPROCTOSTOMY LAPAROSCOPIC N/A 02/13/2020 Laterality: N/A; Surgeon: Steve Parikh MD; Location: [facility] MAIN OR COLECTOMY TOTAL W/ ILEOSTOMY OR ILEOPROCTOSTOMY LAPAROSCOPIC N/A 02/13/2020 Laterality: N/A; Surgeon: Steve Parikh MD; Location: [facility] MAIN OR COLONOSCOPY DIAGNOSTIC N/A 09/20/2019 Laterality: N/A; Surgeon: Alejandro Soria MD; Location: [facility] ENDOSCOPY COLONOSCOPY W/ DILATION N/A 12/05/2018 Laterality: N/A; Surgeon: Steve Parikh MD; Location: [facility] ENDOSCOPY RESECTION LIVER TOTAL RIGHT LOBE OPEN Right 03/14/2018 Laterality: Right; Surgeon: Wilfrido Earl MD; [facility]AGNOSTIC N/A 11/22/2017 Laterality: N/A; Surgeon: Nataliia Rodriguez MD, PhD; Location: [facility] [place] COLONOSCOPY DIAGNOSTIC N/A 12/21/2016 Laterality: N/A; Surgeon: Nataliia Rodriguez MD,PhD; Location: [facility] ENDOSCOPY COLONOSCOPY W/ BX N/A 10/16/2014 Laterality: N/A; Surgeon: NAI Aleman; Location: [facility] ENDOSCOPY COLONOSCOPY W/ ULTRASOUND N/A 10/16/2013 Laterality: N/A; Surgeon: Juan Henderson MD,PhD; Location: [facility] [place] REMOVAL COLON/ILEOSTOMY Right 2006 COLONOSCOPY widely patent ileocolonic anastomosis ILEOSTOMY OR JEJUNOSTOMY 05/2008 ileostomy 01/2009 reversal SMALL BOWEL RESECTION WISDOM TEETH EXTRACTION MEDICATIONS: Current Outpatient Medications Medication Instructions calcium carbonate 1250 (500 Ca) MG tablet Oral Cholecalciferol (VITAMIN D3 PO) Oral, DAILY Current Outpatient Medications: calcium carbonate 1250 (500 Ca) MG tablet, Take by mouth., Disp: , Rfl: Cholecalciferol (VITAMIN D3 PO), Take by mouth daily., Disp: , Rfl: Current Facility-Administered Medications: Lactated ringers IV solution, , Intravenous, Continuous, Nataliia Rodriguez MD, PhD, Last Rate: 20 mL/hr at 03/24/22 0817, New Bag at 03/24/22 0817 lidocaine 1% buffered in sodium bicarbonate 1-8.4 % injection SOSY 1 mL, 1 mL, Intradermal, PRN, Nataliia Rodriguez MD, PhD Facility-Administered Medications Ordered in Other Encounters: lidocaine 1% (PF) (XYLOCAINE MPF) 1 % injection, , , PRN, Grant Day MD, 3 mL at 02/13/20 0717 ALLERGIES: Allergies Allergen Reactions Ferumoxytol FOCUSED REVIEW OF SYSTEMS: Negative for nausea, vomiting, abdominal pain and diarrhea VITAL SIGNS: There were no vitals filed for this visit. PREPROCEDURE PHYSICAL EXAM: AIRWAY: normal, Mallampati: Class IV (soft palate is not visible at all) HEART: Regular and No murmur PULMONARY: Lungs clear to auscultation bilaterally ABDOMEN: Soft, nontender, nondistended ileostomy present ASSESSMENT: Gabi Bustos is a 51 y.o. female is ready for the planned procedure. ASA Class: ASA 2 - Patient with mild systemic disease with no functional limitations PLAN: Will plan to proceed with PUSH ENTEROSCOPY using Monitored Anesthesia Care. Nataliia Rodriguez MD, PhD [facility] 03-24-2022 History and physical note ENDOSCOPIC PREPROCEDURE HISTORY AND PHYSICAL HISTORY OF PRESENT ILLNESS: Gabi Bustos is a 51 y.o. female seen in the pre-procedure area at [facility]. The indication for endoscopic evaluation includes: Abnormal CT scan, gastrointestinal tract Crohn's disease of both small and large intestine with other complication PAST MEDICAL HISTORY: Past Medical History: Diagnosis Date Anemia Crohn's disease Liver mass Skin tag of anus SURGICAL HISTORY: Past Surgical History: Procedure Laterality Date PROCTECTOMY PERINEAL APPROACH N/A 07/02/2020 Laterality: N/A; Surgeon: Steve Parikh MD; Location: [facility] COLECTOMY TOTAL W/ ILEOSTOMY OR ILEOPROCTOSTOMY LAPAROSCOPIC N/A 02/13/2020 Laterality: N/A; Surgeon: Steve Parikh MD; Location: [facility] MAIN OR COLECTOMY TOTAL W/ ILEOSTOMY OR ILEOPROCTOSTOMY LAPAROSCOPIC N/A 02/13/2020 Laterality: N/A; Surgeon: Steve Parikh MD; Location: [facility] MA[facility] OR COLONOSCOPY DIAGNOSTIC N/A 09/20/2019 Laterality: N/A; Surgeon: Alejandro Soria MD; Location: [facility] COLONOSCOPY W/ DILATION N/A 12/05/2018 Laterality: N/A; Surgeon: Steve Parikh MD; Location: [facility] END[facility]COPY RESECTION LIVER TOTAL RIGHT LOBE OPEN Right 03/14/2018 Laterality: Right; Surgeon: Wilfrido Earl MD; [facility] COL[facility] DIAGNOSTIC N/A 11/22/2017 Laterality: N/A; Surgeon: Nataliia Rodriguez MD, PhD; Location: [facility] [place] COLONOSCOPY DIAGNOSTIC N/A 12/21/2016 Laterality: N/A; Surgeon: Nataliia Rodriguez MD,PhD; Location: [facility] END[facility]COPY COLONOSCOPY W/ BX N/A 10/16/2014 Laterality: N/A; Surgeon: NAI Aleman; Location: [facility] END[facility]COPY COLONOSCOPY W/ ULTRASOUND N/A 10/16/2013 Laterality: N/A; Surgeon: Juan Henedrson MD,PhD; Location: [facility] [place] REMOVAL COLON/ILEOSTOMY Right 2006 COLONOSCOPY widely patent ileocolonic anastomosis ILEOSTOMY OR JEJUNOSTOMY 05/2008 ileostomy 01/2009 reversal SMALL BOWEL RESECTION WISDOM TEETH EXTRACTION MEDICATIONS: Current Outpatient Medications Medication Instructions calcium carbonate 1250 (500 Ca) MG tablet Oral Cholecalciferol (VITAMIN D3 PO) Oral, DAILY Current Outpatient Medications: calcium carbonate 1250 (500 Ca) MG tablet, Take by mouth., Disp: , Rfl: Cholecalciferol (VITAMIN D3 PO), Take by mouth daily., Disp: , Rfl: Current Facility-Administered Medications: Lactated ringers IV solution, , Intravenous, Continuous, Nataliia Rodriguez MD, PhD, Last Rate: 20 mL/hr at 03/24/22 0817, New Bag at 03/24/22 0817 lidocaine 1% buffered in sodium bicarbonate 1-8.4 % injection SOSY 1 mL, 1 mL, Intradermal, PRN, Nataliia Rodriguez MD, PhD Facility-Administered Medications Ordered in Other Encounters: lidocaine 1% (PF) (XYLOCAINE MPF) 1 % injection, , , PRN, Grant Day MD, 3 mL at 02/13/20 0717 ALLERGIES: Allergies Allergen Reactions Ferumoxytol FOCUSED REVIEW OF SYSTEMS: Negative for nausea, vomiting, abdominal pain and diarrhea VITAL SIGNS: There were no vitals filed for this visit. PREPROCEDURE PHYSICAL EXAM: AIRWAY: normal, Mallampati: Class IV (soft palate is not visible at all) HEART: Regular and No murmur PULMONARY: Lungs clear to auscultation bilaterally ABDOMEN: Soft, nontender, nondistended ileostomy present ASSESSMENT: Gabi Bustos is a 51 y.o. female is ready for the planned procedure. ASA Class: ASA 2 - Patient with mild systemic disease with no functional limitations PLAN: Will plan to proceed with PUSH ENTEROSCOPY using Monitored Anesthesia Care. Nataliia Rodriguez MD, PhD documented in this encounter [facility] 03-24-2022 Nurse Note 1000- Notified Dr. Luz of hypotension. Dr. Luz will put In orders. 1020- Dr. Luz stated patient stable to go home with current vital signs. Vital signs stable. 1027 Discharge report given to and reviewed with patient and . All questions answered. Patient was alert x4 upon discharge. Patient denied needing assistance with getting dressed. Patient escorted to lobby where family assumed responsibility. documented in this encounter [facility] 03-24-2022 Nurse Surgical operation note 1000- Notified Dr. Luz of hypotension. Dr. Luz will put In orders. [facility] 03-24-2022 Nurse Surgical operation note 1020- Dr. Luz stated patient stable to go home with current vital signs. Vital signs stable. [facility] 03-24-2022 Nurse Surgical operation note 1027 Discharge report given to and reviewed with patient and . All questions answered. Patient was alert x4 upon discharge. Patient denied needing assistance with getting dressed. Patient escorted to lobby where family assumed responsibility. [facility] 10-29-2021 History of Present illness Narrative [facility] Division of Gastroenterology, Hepatology, and Nutrition Hepatology Clinic Patient Visit -Referring Provider for today's consult: Helen Guzman MD -Primary Care Provider: Helen Guzman HISTORY OF PRESENT ILLNESS: Gabi Bustos is a 50 y.o. female who presents to the [facility] today 10/29/2021 for follow up. she was last seen by me on 09/25/2020 for Crohn's disease. Since last visit, she was seen by Dr. Parikh on 02/13/2021 showed a nearly healed perineal wound. Denies any symptoms. Weight has been stable. She tolerates well with food. PAST MEDICAL, SURGICAL, FAMILY, SOCIAL HISTORY, & ALLERGIES: This has been updated in the patient's medical chart and I have personally reviewed it. MEDICATIONS: Current Outpatient Medications Medication Sig calcium carbonate 1250 (500 Ca) MG tablet Take by mouth. Cholecalciferol (VITAMIN D3 PO) Take by mouth daily. DULoxetine [address] Particles capsule DR 20mg/day for 2 weeks, 20mg every other day for 2 weeks, 20mg every 3 days for 2 weeks then stop. REVIEW OF SYSTEMS ROS See HPI PHYSICAL EXAM: BP 103/52 (BP Location: Left arm, BP Position: Sitting) Pulse 86 Temp 97.2 F (36.2 C) Ht 1.575 m (5' 2 ) Wt 52.8 kg (116 lb 6.4 oz) SpO2 98% BMI 21.29 kg/m Smoking Status Never Smoker Body mass index is 21.29 kg/m . General appearance: Alert, cooperative, no distress Head: Normocephalic without obvious abnormality Eyes: Conjunctivae/corneas clear. No evidence of jaundice Lungs: Clear to auscultation bilaterally Heart: Regular rate and rhythm Abdomen: Bowel sounds normal. Soft, non-tender. No masses, no organomegaly, + ostomy Extremities: No lower extremity edema, no cyanosis. No palmar erythema Skin: No lower extremity skin lesions. No spider angiomas or telangiectasias LABORATORY/IMAGING EVALUATION: I reviewed the following: Lab Results Component Value Date SODIUM 133 07/03/2020 POTASSIUM 5.2 (H) 07/03/2020 CHLORIDE 107 07/03/2020 CO2 21 (L) 07/03/2020 BUN 9 07/03/2020 CREATSERUM 0.69 07/03/2020 Lab Results Component Value Date WBC 10.15 07/03/2020 HGB 10.1 (L) 07/03/2020 HCT 31.9 (L) 07/03/2020 PLATELET 156 07/03/2020 MCV 91.4 07/03/2020 Lab Results Component Value Date ALT 55 (H) 06/07/2020 AST 40 06/07/2020 GGT 87 (H) 06/15/2018 ALKPHOS 255 (H) 06/07/2020 BILITOTAL 0.5 06/07/2020 BILIDIRECT 0.1 04/03/2020 Computed MELD-Na score unavailable. Necessary lab results were not found in the last year. Computed MELD score unavailable. Necessary lab results were not found in the last year. Computed FIB-4 Calculation unavailable. Necessary lab results were not found in the last year. ASSESSMENT AND PLAN: Gabi Bustos is a 50 y.o. female who was seen in the [facility] on 10/29/2021 for below medical conditions. Assessment: # Crohn's ileocolitis Dx 2000, S/p remote ileocectomy, S/p total proctocolectomy in 02/13/20 due to failed medical therapy, s/p proctectomy in 06/2020 History of anal stricture, s/p balloon dilation in 08/2019 (no symptomatic benefit) Current therapy: none Previous therapy: infliximab (2013, changed to inflectra in 06/2017, start to have recurrent symptoms, secondary failure and discontinued in 06/2018),Humira (secondary failure), Imuran (intolerant), budesonide, (minimally effective), ethotrexate 12.5mg/wk PO (12/2018, not tolerating well with hair loss), Stelera (06/2018-09/2019 primary failure despite Q4 weeks injection), vedolizumab (2 doses only in 09/2019 and decide for surgery) Last colonoscopy; 08/2019 active Crohn's colitis predominantly left colon and the rectum MR pelvis 08/2019: no definitive fistula or abscess, multiple sinus tracks extending to the perirectal fat Health maintenance DEXA 12/2019 (worsening osteopenia), vit D insufficiency supplements TB: negative 09/2019 HBV immune Skin exam [employer] exam: 07/2019 Vaccination: had pneumovax, no shingle vaccine # Hx of atypical FNH s/p partial hepatectomy in 2018 # Elevated alk phos since hepatectomy 148-210, GGT 87 # Iron deficiency anemia, improved S/p IV iron, Not able to tolerate oral iron Improved Hb 11.7, ferritin 39 # joint pain, right metaphalangeal joint Plan: - check CBC, LFT, ESR, CRP - check RF for joint pain, if persistent joint pain, may follow up with PCP or refer to rheumatology - CTE evaluate for small bowel Crohn's. Based on the results and clinical course, will decide on ileoscopy and VCE - continue observe off medications FOLLOW-UP Follow up in 12 months. Encourage to call me if any recurrent GI symptoms Nataliia Rodriguez MD, PhD Aircraft Assembler-Clinical Medicine Gastroenterology, Hepatology and Nutrition [facility] documented in this encounter [facility] 06-22-2006 History of Present illness Narrative Documentation of Informed Consent Patient referred by Dr. Yung Santoro M.D. for consideration for IRB #[id number], Crohn's Disease Database. The database was explained/reviewed with the patient and Mother. All risks, benefits and alternatives of the database were explained/reviewed with the patient. Database related follow-up was discussed. Patient was given a copy of the consent form to read. All the patient's study related questions were answered. The patient expressed understanding of database, and stated would like to participate. Patient signed consent form. A copy of the consent form was given to the patient. The original copy of the consent form will be kept on file in the Department of Colorectal Surgery. Database specific education was given, and this included: data collection of medical/surgical information and quality of surveys. The patient voiced understanding of all information. Marly Cordova Crohn's Database Clinical Research Administrative Assistantdocumented in this encounter [facility] Crohn's disease of large intestine with complication- Primary Regional enteritis of large intestine Ileostomy in place Ileostomy status Status post total colectomy Elevated liver enzymes Nonspecific elevation of levels of transaminase or lactic acid dehydrogenase (LDH) H/O resection of liver Personal history of surgery to other organs [facility] Crohn's disease of large intestine with complication Regional enteritis of large intestine Ileostomy in place Ileostomy status Status post total colectomy [facility] Diagnosis Abnormal CT scan, gastrointestinal tract Nonspecific (abnormal) findings on radiological and other examination of gastrointestinal tract Crohn's disease of both small and large intestine with other complication [facility] Diagnosis Crohn's disease of both small and large intestine with other complication documented in this encounter [facility] Advance Directives No Advanced Directives Records FoundDocuments on File Type Date Recorded Patient Survey Methodologist Expl anation Advance Directive(s) Documents on File Type Date Recorded Patient Survey Methodologist Expl anation HealthCare Power of Supervisor Inspection 03/14/2012 Advance Directives/Living Will 03/14/2012 12:00 AM Date Received = Date Executed Latest Code Status on File Code Status Date Activated Date Inactivated Comments Full Code 02/13/2020 7:29 PM Full Code 03/14/2018 5:33 PM 02/13/2020 7:29 PM Latest Code Status on File Code Status Date Activated Date Inactivated Comments Full Code 02/13/2020 7:29 PM Code Status History Code Status Date Activated Date Inactivated Comments Full Code 03/14/2018 5:33 PM 02/13/2020 7:29 PM Reason for Referral Specialty Diagnoses / Procedures Referred By Bj hernandez Referred To Contact Diagnoses Crohn's disease of large intestine with complication Ileostomy in place Status post total colectomy Procedures CT ENTEROGRAPHY CHG CT SCAN,ABDOMENT AND PELVIS,W CONTRAST Nataliia Rodriguez MD, PhD [address] [place] [address] [address] [place] [address] Referral ID Status Reason Start Date Expiration Date V isits Requested Visits Authorized [id number] New Request 10/29/2021 11/23/2022 1 1 Referral ID Status Reason Start Date Expiration Date Visits Re quested Visits Authorized [id number] Closed 10/29/2021 11/23/2022 1 1 Specialty Diagnoses / Procedures Referred By Bj t Referred To Contact Diagnoses Abnormal CT scan, gastrointestinal tract Crohn's disease of both small and large intestine with other complication Procedures PUSH ENTEROSCOPY AZ ENDOSCOPY UPPER SMALL INTESTINE Nataliia Rodriguez MD, PhD [address] [place] [address] Referral ID Status Reason Start Date Expiration Date Visits Re quested Visits Authorized [id number] Closed 11/14/2021 12/09/2022 1 1 Specialty Diagnoses / Procedures Referred By Contac t Referred To Contact Diagnoses Crohn's disease of both small and large intestine with other complication Procedures ILEOSCOPY AZ ENTEROSC >2ND PRTN W/ILEUM W/WO COLLJ SPEC SPX Nataliia Rodriguez MD, PhD [address] [place] [address] Referral ID Status Reason Start Date Expiration Date Visits Re quested Visits Authorized [id number] Closed 11/15/2021 2022 1 1 Summary Purpose Family History No Family History Records Found Additional Source Comments Source Comments (unrecognize d section and content) In the event this informatio n is protected by the Federal Confidentiality of Alcohol and Drug Abuse Patient Records regulations: The Federal rules restrict any use of the information to criminally investigate or prosecute any alcohol or drug abuse patient.[facility] Reason for Visit (unrecogniz ed section and content) Specialty Diagnoses / Procedures Referred By Bj hernandez Referred To Contact Diagnoses Crohn's disease of large intestine with complication Ileostomy in place Status post total colectomy Procedures CT ENTEROGRAPHY CHG CT SCAN,ABDOMENT AND PELVIS,W CONTRAST Nataliia Rodriguez MD, PhD [address] [place] [address] Referral ID Status Reason Start Date Expiration Date Visits Re quested Visits Authorized [id number] Closed 10/29/2021 11/23/2022 1 1 Specialty Diagnoses / Procedures Referred By Contac t Referred To Contact Diagnoses Abnormal CT scan, gastrointestinal tract Crohn's disease of both small and large intestine with other complication Procedures PUSH ENTEROSCOPY AZ ENDOSCOPY UPPER SMALL INTESTINE Nataliia Rodriguez MD, PhD [address] [place] [address] Referral ID Status Reason Start Date Expiration Date Visits Re quested Visits Authorized [id number] Closed 11/14/2021 12/09/2022 1 1 Specialty Diagnoses / Procedures Referred By Contac t Referred To Contact Diagnoses Crohn's disease of both small and large intestine with other complication Procedures ILEOSCOPY AZ ENTEROSC >2ND PRTN W/ILEUM W/WO COLLJ SPEC SPX Nataliia Rodriguez MD, PhD [address] [place] [address] Referral ID Status Reason Start Date Expiration Date Visits Re quested Visits Authorized [id number] Closed 11/15/2021 2022 1 1 Care Teams (unrecognized sec tion and content) Advisory Software Engineer Relationship Specialty Start Date End Date Helen Guzman MD [address] [place] [phone] PCP - General Family Medicine 04/12/13 Advisory Software Engineer Relationship Specialty Start Date End Date Helen Guzman MD [address] [place] [phone] PCP - General Family Medicine 04/12/13 Advisory Software Engineer Relationship Specialty Start Date End Date Helen Guzman MD [address] [place] [address] PCP - General Family Medicine 04/12/13 INFORMATION SOURCE (unrecogn ized section and content) FOR RECORDS PERTAINING TO PATIENTS WHO ARE OR HAVE BEEN ENROLLED IN A CHEMICAL DEPENDENCY/SUBSTANCEABUSE PROGRAM, SOME INFORMATION MAY BE OMITTED. This clinical summary was aggregated from multiple sources. Caution should be exercised in using it in the provision of clinical care. This summary normalizes information from multiple sources, and as a consequence, information in this document may materially change the coding, format and clinical context of patient data. In addition, data may be omitted in some cases. CLINICAL DECISIONS SHOULD BE BASED ON THE PRIMARY CLINICAL RECORDS. [employer] provides no warranty or guarantee of the accuracy or completeness of information in this document.
[2023-03-18 17:50] LABS: Absolute Lymphocyte Count 1.32 X10^3/uL (0.83-4.51); Basophil# 0.04 X10^3/uL; Basophil% 0.7 % (0-1); Eosinophil# 0.05 X10^3/uL; Eosinophils% 0.9 % (0-5); Hematocrit 40.7 % (37-47); Lymphocyte # 1.32 X10^3/ul (0.83-4.51); Lymphocyte % 22.7 % (19-41); Mean Corp Hgb Conc 31.9 g/dL (32-36); Mean Corpuscular Hgb 29.8 pg (27.0-32.0); Mean Corpuscular Volume 93.3 fL (81-99); Mean Platelet Vol. 11.3 fl (6.2-12.0); Monocyte# 0.42 X10^3/uL; Monocyte% 7.2 % (0-10); NRBC Flagged by Analyzer 0 % (0-5); Neutrophil # 3.96 X10^3/uL (2.7-7.7); Neutrophil % 68.2 % (47-70); Platelet Count 230 K/mm3 (150-450); RBC Distribution Width CV 12.7 % (11.6-14.6); RBC Distribution Width SD 43.8 fl (35.1-43.9); Red Blood Count 4.36 M/mm3 (4.2-5.4); White Blood Count 5.8 K/mm3 (4.4-11.0)
[2023-03-18 18:10] LABS: Erythrocyte Sedimentation Rate 3 mm/hr (0-30)
[2023-03-18 18:20] LABS: Vitamin B12 634 pg/mL (211-911)
[2023-03-18 18:36] LABS: AST(SGOT) 45 U/L (15-37); Alanine Aminotransfer ALT/SGPT 55 U/L (13-56); Alkaline Phosphatase 97 U/L (45-117); Bilirubin, Direct 0.12 mg/dL (0.00-0.30); CRP < 2.90 mg/L (0.0-3.0); Ferritin 56 ng/mL (8-252); Globulin 3.7 g/dL (2.2-4.2); Iron 86 ug/dL (50-170); Iron Binding Capacity,Total 348 ug/dL (250-450); PERCENT IRON SATURATION 24.7 % (15.0-55.0); Protein, Total 7.7 g/dL (6.4-8.2)
[2023-03-20 05:08] LABS: Transferrin 261 mg/dL (192-364)
== END | disposition home or self-care (01) ==
LOC: MTLAB 16:42
PROVIDERS: PCP Family Medicine
DX: K50.818 Crohn's disease of both small and large intestine with other complication (principal); R74.8 Abnormal levels of other serum enzymes
CPT/HCPCS: 36415; 80076; 82607; 82728; 83540; 83550; 84466; 85025; 85652; 86140

== ENCOUNTER 2023-07-22 16:01 | Outpatient (CLI) | payer OTHER, SELFPAY ==
[2023-07-22 16:08] VITALS: BP 95/58; PULSE 77; RESP 16; TEMP 36.3; O2SAT 97; BMI 21.0
[2023-07-22] MEDS: Zoledronic Acid 5 MG 100 ML 300 MG IV (16:18)
[2023-07-22 16:40] VITALS: BP 101/51; PULSE 71; RESP 16; TEMP 36.4; O2SAT 98
== END 2023-07-22 23:59 | disposition home or self-care (01) ==
LOC: MEDOUTP 16:01
PROVIDERS: PCP Family Medicine; Referring Provider Internal Medicine Endocrinology, Diabetes & Metabolism; Visit Provider Internal Medicine Endocrinology, Diabetes & Metabolism
DX: M85.80 Other specified disorders of bone density and structure, unspecified site (principal)
CPT/HCPCS: 96365; A4216; J3489

== ENCOUNTER 2023-10-02 12:28 | Emergency (ER) | payer OTHER, SELFPAY ==
[2023-10-02 12:29] VITALS: BP 132/61; PULSE 86; RESP 19; TEMP 36.3; O2SAT 99; BMI 21.8
--- NOTE | 2023-10-02 13:14 | CT_ITS ---
INDICATION: Trauma EXAMINATION: CT FACIAL BONES - CT Maxillofacial W/O Contrast Injection TECHNIQUE: Helically acquired images were obtained of the facial bones. A radiation dose optimization technique was used for this scan. The protocol utilizes one or more of the following dose reduction techniques: automated exposure control, adjustment of mA and/or kV according to patient size,and/or use of iterative reconstruction technique. IV Contrast dosage and agent: None. RADIATION DOSAGE (If Supplied By Facility): CTDIvol = ( 29.38 ) mGy, DLP = ( 554.80 ) mGycm COMPARISON: No relevant prior comparison study available FINDINGS: SOFT TISSUES: There is a 2.1 x 2.0 x 0.8 cm subcutaneous hematoma in the right cheek with adjacent soft tissue stranding. The left facial soft tissues are within normal limits. VISUALIZED PARANASAL SINUSES: Clear. VISUALIZED MASTOID AIR CELLS: Clear. FACIAL BONES, MANDIBLE AND TMJs: No displaced facial bone fracture. No lytic or blastic abnormality. VISUALIZED DENTITION: No periodontal osseous erosion. ORBITAL CONTENTS: Both globes, extraocular muscles and retrobulbar fat appear unremarkable. CT/Sinus/Facial Bone IMPRESSION: 2.1 x 2.0 x 0.8 cm subcutaneous hematoma in the right cheek with adjacent soft tissue stranding. No facial fracture. Clear sinuses. Electronically Signed: Silviano Rahman MD at 15:03 EDT ,
--- NOTE | 2023-10-02 13:15 | EX.ED.GENINJ ---
HPI History of Present Illness Chief Complaint: Head Injury Narrative Narrative: 52-year-old female who denies significant past medical history presents with injury to her right cheek and face that she sustained status post mechanical fall. She states prior to arrival she was walking along white papers, and fell forward. She hit her face on the cement. She was unable to catch her fall and denies other injury. Since then, she has had pain and swelling of her right cheek. She does not take any blood thinners. There was no loss of consciousness. She states she does not have a headache or see stars. No neck pain. She presents because of pain and swelling of her right cheek. [facility] Medical History Osteopenia determined by x-ray Crohns disease Home Medications ?Medication ?Instructions ?Recorded ?Last Taken ?Type cholecalciferol (vitamin D3) 50 50 mcg PO DAILY 06/16/21 Unknown History mcg (2,000 unit) capsule (Vitamin D3) calcium carbonate (Calcium 600) 600 mg PO BID 05/17/23 Unknown History zoledronic acid 5 mg/100 mL in 1 ea .Route ONCE #100 mL 05/17/23 Unknown Rx mannitol 5 %-water intravenous piggybck oxycodone 5 mg tablet 5 mg PO Q6H PRN pain 3 days #12 10/02/23 Unknown Rx tabs Allergy/AdvReac Type Severity Reaction Status Date / Time No Known Allergies Allergy Verified 10/02/23 12:29 Family History Father Heart disease Aunt Breast cancer, Onset Age: 60 Sister Breast cancer, Onset Age: 50 Grandmother Diabetes Surgical History History of resection of rectum History of creation of ostomy History of colectomy History of surgery of liver H/O LEEP H/O resection of large bowel Social History Smoking Status: Never smoker alcohol intake: current details: social substance use type: does not use caffeine: Yes what type of physical activity do you participate in: walking frequency: daily seatbelt use: always do you feel safe at home: Yes additional social history: [facility] Patient works at [employer] ROS Narrative HEENT: No sore throat. No neck pain. No loss of vision. No rhinorrhea. Positive swelling right cheek. Tenderness to palpation. Cardiovascular: No chest pain. No palpitations. No pedal edema. Respiratory: No cough, no shortness of breath. Abdominal: No abdominal pain. No nausea. No vomiting. Genitourinary: No dysuria. No hematuria. Musculoskeletal: No myalgias. No arthralgias. Neurologic: No headaches. No dizziness. No lightheadedness. No loss of consciousness. Skin: No rash. No change in color. Psychiatric: No depression. No anxiety. EXAM Physical Exam Narrative Exam Narrative: GCS 15. ABCs intact. HEENT examination shows PERRL, EOMI. No entrapment. Neck is soft and supple with no vertebral point tenderness or bony step-off. Full range of motion without pain. Positive tenderness and swelling of right cheek. No crepitance. Midface stable. No nasal septal hematoma. Airway patent. Small abrasion on side of right nares, no active bleeding. Cardiovascular examination regular rate and rhythm. Lungs are clear to auscultation bilaterally. Abdomen soft nontender with normoactive bowel sounds. Neurological examination shows her to be awake, alert, oriented x 3. Nonfocal, nonlateralizing. Moves all extremities. Const Vital Signs: 10/02/23 12:29 10/02/23 12:53 Temperature 97.3 F L Temperature Source Temporal Pulse Rate 86 Respiratory Rate 19 H Respiratory Effort Normal Blood Pressure 132/61 H Blood Pressure Mean 84 Pulse Ox 99 Oxygen Delivery Method Room Air MDM MDM MDM Narrative Medical decision making narrative: Concern and in the differential diagnosis, but not limited to is for right cheek hematoma versus facial fracture versus closed head injury. I do not feel that she needs a CT of the brain to look for intracranial hemorrhage based on her normal neurological examination and no loss of consciousness. She does not take blood thinners. Additionally, I do not feel that she needs imaging of her cervical spine as she has full range of motion without pain. However, to look for fracture CT of the facial bones will be obtained. She was given 5 mg of oxycodone for analgesia. She already has an ice pack. I reviewed the radiology report of the facial CT and there is a 2.1 x 2.0 x 0.8 cm subcutaneous hematoma in the right cheek with adjacent soft tissue stranding. There is no facial fracture and sinuses are clear. This point in time, upon repeat examination, she is starting to develop bruising under her right eye and ecchymosis. Regarding the small abrasion to her right nares externally, patient her tetanus immunization is up-to-date within the last 5 years. While she prefers tire-vcc-izllhgm medications I did write her a prescription for 12 oxycodone tablets. She can take for breakthrough pain. She was also given the number to the plastic surgeon because of the facial trauma although there is no fracture. I feel she can be discharged to follow-up. Return instructions to the emergency department were reviewed. Disposition is discharged home in stable condition. History & Record Review Discussion w/independent historian: Patient and Family Radiography Diagnostic Testing: Clinical Impression(s) from Imaging Studies Facial/Sinus 10/02/23 13:14 IMPRESSION: 2.1 x 2.0 x 0.8 cm subcutaneous hematoma in the right cheek with adjacent soft tissue stranding. No facial fracture. Clear sinuses. Electronically Signed: Silviano Rahman MD at 15:03 EDT Reading Location ID and State: [facility] [place] Tel , Service support , Discharge Plan Triage Chief Complaint: Head Injury ED Provider: Joseph Petty Dx/Rx/DC Orders Clinical Impression: Traumatic hematoma of face, Fall Instructions: ED Facial Contusion, ED Head Injury (Adult), ED Hematoma Prescriptions: New oxycodone 5 mg tablet 5 mg PO Q6H PRN (Reason: pain) 3 Days Qty: 12 0RF No Action calcium carbonate [Calcium 600] 600 mg calcium (1,500 mg) tablet 600 mg PO BID zoledronic vjzx-phxypywl-ymwet 5 mg/100 mL piggyback 1 ea .Route ONCE Qty: 100 0RF Rx Instructions: infuse over 20 minutes cholecalciferol (vitamin D3) [Vitamin D3] 50 mcg (2,000 unit) Capsule 50 mcg PO DAILY Primary Care Provider: Helen Guzman Referrals: Helen Guzman MD [Primary Care Provider] - 3-5 Days if not improving Jean Gan MD [Med Staff - Active Staff] - As Needed Print Language: Yakut Disposition Disposition: Home, Self Care
[2023-10-02] MEDS: oxyCODONE 5 MG Tablet PO (13:32)
[2023-10-02 15:42] VITALS: BP 113/66; PULSE 66; RESP 16; TEMP 36.6; O2SAT 99
== END 2023-10-02 15:43 | disposition home or self-care (01) ==
PROVIDERS: Emergency Provider Emergency Medicine; PCP Family Medicine; Visit Provider Emergency Medicine
DX: S00.83XA Contusion of other part of head, initial encounter (principal); S00.31XA Abrasion of nose, initial encounter; W19.XXXA Unspecified fall, initial encounter
CPT/HCPCS: 70486; 99282

== ENCOUNTER → 2023-12-21 | Outpatient (CLI) | payer OTHER, SELFPAY ==
--- NOTE | 2023-12-21 16:05 | BI_ITS ---
MAMMOGRAPHY - BILATERAL SCREENING REASON FOR EXAM: Female, 53 years old. Routine annual screening examination. PERTINENT HISTORY: Sister with breast cancer. Aunt with breast cancer. TECHNIQUE: Digital bilateral breast sahra (3D mammographic acquisition) in the CC and MLO projections. 2-D mediolateral oblique (MLO) and craniocaudad (CC) views of both breasts were obtained. CAD: Full Field Digital Mammography with Computer Added Detection was performed. COMPARISON: Comparison is made with prior study of November 05, 2022 and October 30, 2021. FINDINGS: Breast Composition: The breasts are heterogeneously dense, which may obscure small masses. There are no dominant masses or suspicious calcifications. No other significant abnormalities are identified. There has been no significant change since the prior study. BI/SCRN MAMM (CAD)W/SAHRA BILAT IMPRESSION: Stable bilateral screening mammogram. Yearly follow-up mammogram recommended. (A) ASSESSMENT CATEGORY: BIRADS Category 1: Negative. A letter regarding these results will be sent to the patient by the facility within 30 days. Approximately 10% of breast cancers are not detected by mammography. A normal mammogram should not delay biopsy of a clinically suspicious abnormality. [id number] Electronically Signed: Andrae Sharif MD at 10:14 EDT ,
== END | disposition home or self-care (01) ==
LOC: OPBI 16:05
PROVIDERS: PCP Family Medicine; Referring Provider Nurse Practitioner Women's Health; Visit Provider Nurse Practitioner Women's Health
DX: Z12.31 Encounter for screening mammogram for malignant neoplasm of breast (principal); Z80.3 Family history of malignant neoplasm of breast
CPT/HCPCS: 77063; 77067

== ENCOUNTER → 2024-01-19 | Outpatient (CLI) | payer OTHER, SELFPAY ==
[2024-01-19 17:14] LABS: Vitamin D,25 Hydroxy 26.1 ng/mL
== END | disposition home or self-care (01) ==
LOC: BWCLAB 16:08
PROVIDERS: PCP Family Medicine; Referring Provider Nurse Practitioner Women's Health; Visit Provider Nurse Practitioner Women's Health
DX: Z13.79 Encounter for other screening for genetic and chromosomal anomalies (principal); Z80.3 Family history of malignant neoplasm of breast
CPT/HCPCS: 36415; 82306

== ENCOUNTER → 2024-05-04 | Outpatient (CLI) | payer OTHER, SELFPAY ==
[2024-05-09 13:08] LABS: Vitamin D 1,25-Dihydroxy 21.7 pg/mL (24.8-81.5)
== END | disposition home or self-care (01) ==
LOC: LAB 14:33
PROVIDERS: PCP Family Medicine; Referring Provider Nurse Practitioner Women's Health; Visit Provider Nurse Practitioner Women's Health
DX: Z13.21 Encounter for screening for nutritional disorder (principal)
CPT/HCPCS: 36415; 82652

== ENCOUNTER → 2024-06-07 | Outpatient (CLI) | payer OTHER, SELFPAY ==
[2024-06-07 10:25] LABS: Hematocrit 42.8 % (37-47); Hemoglobin 13.7 g/dL (12.0-15.0); Mean Corpuscular Hgb 29.4 pg (27.0-32.0); Mean Corpuscular Volume 91.8 fL (81-99); Mean Platelet Vol. 11.5 fl (6.2-12.0); Platelet Count 172 K/mm3 (150-450); RBC Distribution Width CV 12.8 % (11.6-14.6); RBC Distribution Width SD 42.5 fl (35.1-43.9); Red Blood Count 4.66 M/mm3 (4.2-5.4)
[2024-06-07 16:23] LABS: AST(SGOT) 34 U/L (<=31); Alanine Aminotransfer ALT/SGPT 40 U/L (<=34); Albumin, Serum 4.4 g/dL (3.5-5.0); Alkaline Phosphatase 112 U/L (35-104); Anion Gap 13 (5-15); BUN 20 mg/dL (4-19); BUN/Creat Ratio 30.9 RATIO (10-20); Bilirubin, Direct 0.12 mg/dL (0.00-0.30); Calcium,Total 9.8 mg/dL (7.6-11.0); Carbon Dioxide 21.1 mmol/L (21.0-32.0); Chloride 107 mmol/L (98-108); Creatinine, Serum 0.66 mg/dL (0.70-1.20); EST Glomerular Filtration Rate 104 (>60); Ferritin 53 ng/mL (22-378); Globulin 3.1 g/dL (2.2-4.2); Glucose 80 mg/dL (70-99); Potassium 4.3 mmol/L (3.3-5.1); Protein, Total 7.4 g/dL (5.9-8.4); Sodium Level 141 mmol/L (133-145); Total Bilirubin 0.25 mg/dL (0.00-1.30); Vitamin B12 533 pg/mL (180-914)
[2024-06-07 16:53] LABS: CRP 3.79 mg/L (0.0-3.0)
[2024-06-07 17:06] LABS: Iron 66 ug/dL (50-170); Iron Binding Capacity,Total 294 ug/dL (250-450); Iron Binding Capacity,Unsat 228 ug/dL (228-428)
== END | disposition home or self-care (01) ==
LOC: MTLAB 07:13
PROVIDERS: PCP Family Medicine
DX: E55.9 Vitamin D deficiency, unspecified (principal); K50.818 Crohn's disease of both small and large intestine with other complication; Z90.49 Acquired absence of other specified parts of digestive tract
CPT/HCPCS: 36415; 80048; 80076; 82607; 82728; 83540; 83550; 84443; 85027; 86140

== ENCOUNTER → 2024-07-17 | Outpatient (CLI) | payer OTHER, SELFPAY ==
[2024-07-17 11:16] LABS: AST(SGOT) 30 U/L (<=31); Alanine Aminotransfer ALT/SGPT 30 U/L (<=34); Albumin, Serum 4.2 g/dL (3.5-5.0); Alkaline Phosphatase 112 U/L (35-104); Bilirubin, Direct 0.08 mg/dL (0.00-0.30); CRP 4.75 mg/L (0.0-3.0); Globulin 2.8 g/dL (2.2-4.2)
[2024-07-19 08:09] LABS: Calprotectin, Stool 53 ug/g (0-120)
== END | disposition home or self-care (01) ==
LOC: MTLAB 07:28
PROVIDERS: PCP Family Medicine
DX: K50.818 Crohn's disease of both small and large intestine with other complication (principal)
CPT/HCPCS: 80076; 83993; 86140

== ENCOUNTER → 2024-08-21 | Outpatient (CLI) | payer OTHER, SELFPAY ==
[2024-08-21 12:54] LABS: Hematocrit 41.6 % (37-47); Hemoglobin 13.9 g/dL (12.0-15.0); Mean Corp Hgb Conc 33.4 g/dL (32-36); Mean Corpuscular Hgb 30.5 pg (27.0-32.0); Mean Corpuscular Volume 91.4 fL (81-99); Mean Platelet Vol. 11.9 fl (6.2-12.0); Platelet Count 200 K/mm3 (150-450); RBC Distribution Width CV 12.4 % (11.6-14.6); RBC Distribution Width SD 41.4 fl (35.1-43.9); Red Blood Count 4.55 M/mm3 (4.2-5.4); White Blood Count 5.1 K/mm3 (4.4-11.0)
[2024-08-21 14:06] LABS: AST(SGOT) 37 U/L (<=31); Alanine Aminotransfer ALT/SGPT 32 U/L (<=34); Albumin, Serum 4.5 g/dL (3.5-5.0); Alkaline Phosphatase 93 U/L (35-104); Globulin 3.1 g/dL (2.2-4.2); Protein, Total 7.6 g/dL (5.9-8.4); Total Bilirubin 0.46 mg/dL (0.00-1.30)
[2024-08-21 14:18] LABS: CRP 8.99 mg/L (0.0-3.0)
[2024-08-21 14:34] LABS: Vitamin D,25 Hydroxy 49.1 ng/mL (30-100)
== END | disposition home or self-care (01) ==
LOC: MTLAB 10:58
PROVIDERS: PCP Internal Medicine
DX: K50.818 Crohn's disease of both small and large intestine with other complication (principal); R74.8 Abnormal levels of other serum enzymes; Z90.49 Acquired absence of other specified parts of digestive tract; R93.3 Abnormal findings on diagnostic imaging of other parts of digestive tract; R79.82 Elevated C-reactive protein (CRP); E55.9 Vitamin D deficiency, unspecified
CPT/HCPCS: 36415; 80076; 82306; 85027; 86140

== ENCOUNTER 2024-09-24 08:11 | Emergency (ER) | payer OTHER, SELFPAY ==
[2024-09-24 08:11] VITALS: BP 96/70; PULSE 90; RESP 18; TEMP 36.1; O2SAT 100; BMI 20.7
--- NOTE | 2024-09-24 09:17 | ED.VIS.GI ---
HPI HPI - GI History of Present Illness Chief Complaint: Abd Pain Informant: patient Abdominal Pain/Flank Pain Onset: Yesterday Context: Sudden Onset Timing: Continuous Quality: Aching, Cramping and Sharp Location: LLQ and - (Periumbilical) Worsened by: Nothing Relieved by: - (Bath) Nausea/Vomiting/Emesis GI Symptom: Positive for Nausea; Negative for Vomiting Diarrhea/Melena/Hematochezia GI Symptom: Negative for Diarrhea, Melena or Hematochezia Associated Symptoms Associated Symptoms: Negative for Dysuria, Frequency or Hematuria Narrative Narrative: Patient presents with possible bowel obstruction. Patient states she feels like her stoma may have a blockage. Patient states she started having some abdominal pain yesterday. Patient states it began rather suddenly. Patient describes her pain as cramping, aching, and sharp. Patient states it is worse of the left lower abdomen and periumbilical area. Patient admits to some nausea but denies any vomiting. Patient states she took a bath yesterday and it helped. Patient states it became worse later. Patient denies any diarrhea, melena, or hematochezia. Patient denies any dysuria, frequency, or hematuria. [facility] Medical History Osteopenia determined by x-ray Crohns disease Medical History no medical history Home Medications ?Medication ?Instructions ?Recorded ?Last Taken ?Type cholecalciferol (vitamin D3) 50 50 mcg PO DAILY 06/16/21 Unknown History mcg (2,000 unit) capsule (Vitamin D3) calcium carbonate (Calcium 600) 600 mg PO BID 05/17/23 Unknown History zoledronic acid 5 mg/100 mL in 1 ea .Route ONCE #100 mL 05/17/23 Unknown Rx mannitol 5 %-water intravenous piggybck clobetasol 0.05 % topical ointment 1 applic topical .COMPLEX #15 grams 12/21/23 Unknown Rx estradiol 0.01% (0.1 mg/gram) See Rx Instructions vaginal 01/19/24 Unknown Rx vaginal cream .COMPLEX #42.5 grams Allergy/AdvReac Type Severity Reaction Status Date / Time No Known Allergies Allergy Verified 09/24/24 08:11 Family History Father Heart disease Aunt Breast cancer, Onset Age: 60 Sister Breast cancer, Onset Age: 50 Grandmother Diabetes Surgical History History of resection of rectum History of creation of ostomy History of colectomy History of surgery of liver H/O LEEP H/O resection of large bowel Social History Smoking Status: Never smoker alcohol intake: current details: social substance use type: does not use caffeine: Yes what type of physical activity do you participate in: walking frequency: daily seatbelt use: always do you feel safe at home: Yes additional social history: [facility] Patient works at [employer] ED Constitutional Constitutional ED: Denies chills or fever(s) Eyes Eyes: Denies blurry vision or change in vision ENT ENT ED: Denies rhinorrhea or sore throat Cardiovascular Cardiovascular: Denies chest pain or palpitations Respiratory/Chest Respiratory/Chest: Denies cough or dyspnea Gastrointestinal Gastrointestinal: Reports abdominal pain and nausea; Denies diarrhea, melena or vomiting Genitourinary Genitourinary ED: Denies dysuria or hematuria Musculoskeletal Musculoskeletal: Reports back pain; Denies neck pain Integumentary Denies abscess or rash Neurologic Neurologic: Reports headache(s); Denies weakness Allergic/Immunologic Allergic/Immunologic ED: Denies mouth swelling or urticaria EXAM Physical Exam Const Vital Signs: 09/24/24 08:11 09/24/24 10:11 09/24/24 12:18 Temperature 97 F L Temperature Source Temporal Pulse Rate 90 78 Respiratory Rate 18 16 Blood Pressure 96/70 101/66 93/56 L Blood Pressure Mean 78 77 68 Pulse Ox 100 100 98 Oxygen Delivery Method Room Air Room Air 09/24/24 14:00 09/24/24 14:55 Temperature 97 F L Temperature Source Pulse Rate 77 86 Respiratory Rate 18 Blood Pressure 101/73 97/63 Blood Pressure Mean 82 74 Pulse Ox 100 98 Oxygen Delivery Method Room Air Positive well nourished and well developed Constitutional Narrative: BMI is 20.8. General Appearance ED: well developed and NAD HEENT Reports moist mucous membranes Neck supple and no JVD Resp normal respiratory effort and clear to auscultation bilaterally Cardio regular rate and regular rhythm GI Palpation: soft and tender LLQ, LUQ, periumbilical and suprapubic; Negative for guarding or rebound tenderness present Back/Spine no CVA tenderness Neuro CN's II-XII intact bilaterally, moves all extremities and no sensory deficits noted Sensorium / Orientation: alert Motor Exam: strength 5/5 throughout Psych mental status grossly normal MDM MDM MDM Narrative Medical decision making narrative: Differential diagnosis includes bowel obstruction, perforation, diverticulitis, colitis, electrolyte abnormality, urinary tract infection, pancreatitis, sepsis, and dehydration. CT scan of the abdomen and pelvis will be obtained to assess for bowel obstruction, perforation, diverticulitis, and colitis. CBC will be obtained to assess for leukocytosis and anemia. Comprehensive metabolic profile will be obtained to assess for hepatic function, renal function, and electrolyte abnormality. Lipase will be obtained to assess for pancreatitis. Serum lactate will be obtained to assess for sepsis. Urinalysis will be obtained to assess for urinary tract infection and hematuria. History & Record Review Additional record(s) reviewed:: Prior ED visit and Prior labs Lab Data Attestation: I reviewed the patient's lab results. Lab results narrative: CBC was reviewed and was essentially within normal limits. Comprehensive metabolic profile was reviewed. BUN was slightly elevated at 25. Anion gap is slightly elevated at 16. The remainder was essentially within normal limits. Lipase was reviewed and was normal at 63. Serum lactate was reviewed and was normal at 1.1. Urinalysis was reviewed. There is no evidence of urinary tract infection or hematuria. Labs: Laboratory Results - last 24 hr 09/24/24 09/24/24 09/24/24 08:35 10:13 12:35 WBC 7.0 RBC 5.09 Hgb 15.4 H Hct 45.3 MCV 89.0 MCH 30.3 MCHC 34.0 RDW Std Deviation 39.9 RDW Coeff of Hafsa 12.2 Plt Count 217 MPV 11.6 Immature Gran % (Auto) 0.300 Neut % (Auto) 85.2 H Lymph % (Auto) 8.5 L Wilcox % (Auto) 5.5 Eos % (Auto) 0.1 Baso % (Auto) 0.4 Absolute Neuts (auto) 5.9 Absolute Lymphs (auto) 0.59 L Nucleated RBC % 0 Sodium 136 Potassium 5.1 Chloride 99 Carbon Dioxide 20.4 L Anion Gap 16 H BUN 25 H Creatinine 0.97 Estim Creat Clear Calc 51.83 Est GFR (MDRD) Non-Af 69 BUN/Creatinine Ratio 26.1 H Glucose 108 H Lactic Acid 1.1 Calcium 10.5 Total Bilirubin 0.58 AST 40 H ALT 35 Alkaline Phosphatase 99 Total Protein 8.0 Albumin 4.8 Globulin 3.2 Albumin/Globulin Ratio 1.5 Lipase 63 Urine Color Straw Urine Clarity Clear Urine pH 6.0 Ur Specific Winston 1.010 Urine Protein 30 H Urine Glucose (UA) Normal Urine Ketones 5 H Urine Occult Blood Negative Urine Nitrite Negative Urine Bilirubin Negative Urine Urobilinogen Normal Ur Leukocyte Esterase Negative Urine RBC 0 SEEN Urine WBC 0 SEEN Ur Squamous Epith Cells 0 SEEN Urine Bacteria 0 SEEN Urine Mucus 0 SEEN Radiography Diagnostic Testing: Clinical Impression(s) from Imaging Studies Abdomen/Pelvis CT 09/24/24 09:48 IMPRESSION: Small-bowel obstruction. Reading Location: [facility] KUB X-Ray 09/24/24 14:40 IMPRESSION: Orogastric tube as above. Reading Location: [facility] CT scan of the abdomen pelvis was obtained. There is evidence of a small bowel obstruction with a transition point in the mid abdomen. There is no free air or free fluid. This was interpreted by the radiologist was also independently reviewed by myself. KUB was obtained. There is. On my independent interpretation, the orogastric tube is noted to be in the distal stomach. There is no pulmonary infiltrate. There are dilated loops of small bowel. Radiologist also interpreted the x-ray and agrees. Treatment and Re-Evaluation :: Patient was given IV fluids, morphine, and Zofran. Case was discussed with Dr. Washington from general surgery. She recommended placing NG tube. She recommended transferring the patient to a higher level of care due to her history of Crohn's and prior ostomy. Patient had her ostomy performed at [facility]. Patient preferred to go back there. Case was discussed with transfer line. Patient was accepted to be transferred to the emergency department. Patient will be transferred there. Patient and family understand and are agreeable with the plan. All questions were answered. Discharge Plan Triage Chief Complaint: Abd Pain ED Provider: Jared Page Dx/Rx/DC Orders Clinical Impression: Small bowel obstruction, Crohns disease, Nausea Prescriptions: No Action calcium carbonate [Calcium 600] 600 mg calcium (1,500 mg) tablet 600 mg PO BID zoledronic eyof-rvdqtzon-vjznd 5 mg/100 mL piggyback 1 ea .Route ONCE Qty: 100 0RF Rx Instructions: infuse over 20 minutes clobetasol 0.05 % ointment 1 applic topical .COMPLEX Qty: 15 2RF Rx Instructions: 1 applic topical apply bid X 2 weeks, daily X 2 weeks then prn. Small amount and massge in; estradiol 0.01 % (0.1 mg/gram) cream See Rx Instructions vaginal .COMPLEX Qty: 42.5 2RF Rx Instructions: small amount as directed vaginal every other day X 4 weeks then twice a week; cholecalciferol (vitamin D3) [Vitamin D3] 50 mcg (2,000 unit) Capsule 50 mcg PO DAILY Primary Care Provider: Brandi Boogie Referrals: Brandi Boogie MD [Primary Care Provider] - Print Language: Mosotho Disposition Disposition: Acute Care Hospital Discharge Location: [facility]
--- OUTSIDE RECORDS SUMMARY | 2024-09-24 09:32 | XMS RPT_ITS | CCD ---
Author Organization [facility]iniSy[facility] Care Team Providers Care Cryogenics Repairer Name Role Phone Helen Guzman Primary Care Provider Nerissa Linton MD Primary Care Provider Dr. Helen Guzman Primary Care Provider Dr. Helen Gzuman Referring Provider Dr. Alexandro Llanos Attending Provider Helen Guzman MD Primary Care Provider Dr. Helen Guzman Primary Care Provider Dr. Helen Guzman Referring Provider Marilia TAX COMPLIANCE MANAGER, TAX COMPLIANCE MANAGER-C Marilee Attending Provider Helen Guzman MD Primary Care Provider Dr. Helen Guzman Primary Care Provider Dr. Helen Guzman Referring Provider Dr. Alexandro Llanos Attending Provider Dr. Helen Guzman Primary Care Provider Dr. Helen Guzman Referring Provider Marilia TAX COMPLIANCE MANAGER, TAX COMPLIANCE MANAGER-C Marilee Attending Provider Dr. Helen Guzman Primary Care Provider Dr. Helen Guzman Referring Provider Marilia TAX COMPLIANCE MANAGER, TAX COMPLIANCE MANAGER-C Marilee Attending Provider Dr. Helen Guzman MD Primary Care Provider Jolliff MD, Dr. Helen S Referring Provider Marilia TAX COMPLIANCE MANAGER-C, Marilee Attending Provider [place] TAX COMPLIANCE MANAGER-C, Marilee Referring Provider Dr. Helen Guzman MD Primary Care Provider [place] TAX COMPLIANCE MANAGER-C, Marilee Attending Provider [place] TAX COMPLIANCE MANAGER-C, Marilee Referring Provider LI, NA Attending Provider [phone] LI, NA Referring Provider Helen Guzman MD Primary Care Provider LI, NA Referring Unavailable JOLLIFF, HELEN S Primary Care Unavailable LI, NA Attending Unavailable LI, NA Attending Unavailable SELF, SELF Referring Unavailable JOLLIFF, HELEN S Primary Care Unavailable Dr. Brandi Boogie MD Primary Care Provider [place] TAX COMPLIANCE MANAGER, Marilee Attending Unavailable Jolliff, Helen S Referring Unavailable Jolliff, Helen S Primary Care Unavailable Jolliff, Helen S Referring Unavailable Jolliff, Helen S Primary Care Unavailable [place] TAX COMPLIANCE MANAGER, Marilee Attending Unavailable Reodica, Joseph Attending Unavailable Jolliff, Helen S Primary Care Unavailable Jolliff, Helen S Primary Care Unavailable BACK, DIPTI Attending Unavailable BACK, DIPTI Referring Unavailable Jolliff, Helen S Primary Care Unavailable BACK, DIPTI Attending Unavailable BACK, DIPTI Referring Unavailable BACK, DIPTI Attending Unavailable BACK, DIPTI Referring Unavailable Brandi Boogie Primary Care Unavailable Marilia TAX COMPLIANCE MANAGER, Marilee Referring Unavailable Jolliff, Helen S Primary Care Unavailable Marilia TAX COMPLIANCE MANAGER, Marilee Attending Unavailable [place] TAX COMPLIANCE MANAGER, Marilee Referring Unavailable Jolliff, Helen S Primary Care Unavailable [place] TAX COMPLIANCE MANAGER, Marilee Attending Unavailable Marilia TAX COMPLIANCE MANAGER, Marilee Referring Unavailable Jolliff, Helen S Primary Care Unavailable [place] TAX COMPLIANCE MANAGER, Marilee Attending Unavailable Allergies Allergy Classification Reported Allergen(s) Allergy Type Date of Onset Reaction(s) Facility (4 sources) ferumoxytol Drug Allergy 01-10-[address] [facility] Work Phone: (1 source) ferumoxytol Drug Allergy 01-10-[address] [facility] Work Phone: Medications Current Medications Medication Drug Class(es) Dates Sig (Normalized) Sig (Original) calcium carbonate 1500 mg oral tablet (20 sources) Start: 05-17-2023 take 1 tablet by mouth twice daily Calcium Carbonate (Calcium 600) 600 mg calcium (1,500 mg) tablet Active 600 mg PO TWICE A DAY May 17, 2023 12:00am Start: 06-03-2020 calcium carbon ate 1250 (500 Ca) MG tablet Take by mouth. 06/03/2020 Active Start: 06-03-2020 End: 05-17-2023 take 1 tablet by mouth once daily Calcium Carbonate 500 MG tablet Discontinued 500 mg PO DAILY June 03, 2020 12:00am May 17, 2023 3:58pm cholecalciferol 0.05 mg oral capsule (19 sources) Vitamin D Start: 06-16-2021 take 1 capsule by mouth once daily Cholecalciferol (Vitamin D3) (Vitamin D3) 50 mcg (2,000 unit) Capsule Active 50 ug PO DAILY June 16, 2021 12:00am Start: 05-26-2018 take 53613 [IU] by m outh every week Cholecalciferol (Vitamin D3) Active 62335 UNIT PO EVERY WEEK May 26, 2018 3:10pm Cholecalciferol (VITAMIN D3 PO) Take by mouth daily. 0 Active Clobetasol (3 sources) Corticosteroid Start: 12-21-2023 Clobetasol 0.0 5 % ointment Active 1 NMA TOPICAL .COMPLEX 15 December 21, 2023 12:00am 1 applic topical apply bid X 2 weeks, daily X 2 weeks then prn. Small amount and massge in; Start: 12-21-2023 Clobetasol 0.0 5 % ointment Active 1 NMA TOPICAL .COMPLEX December 21, 2023 12:00am 1 applic topical apply bid X 2 weeks, daily X 2 weeks then prn. Small amount and massge in; ergocalciferol 1.25 mg oral capsule (1 source) Provitamin D2 Compound Start: 05-27-2024 take 1 capsule by mouth every week Ergocalciferol 1.25 MG (92263 UT) capsule Indications: Vitamin D insufficiency Take 1 capsule by mouth once a week. 12 capsule 05/27/2024 Active estradiol 0.1 mg/ml vaginal cream (3 sources) Estrogen Start: 01-19-2024 Estradiol 0.01 % (0.1 mg/gram) cream Active 0 VAGINAL .COMPLEX 42.5 2 January 19, 2024 1:00am small amount as directed vaginal every other day X 4 weeks then twice a week; Completed/Discontinued Medications Medication Drug Class(es) Dates Sig (Normalized) Sig (Original) Barium Sulfate (VOLUMEN/NEULUMEX ) 0.1 % 1,350 mL (1 source) Start: 11-10-2021 End: 11-10-2021 Barium Sulfate (VOLUMEN/NEULUMEX) 0.1 % 1,350 mL Breeza Beverage For Neutral Abdominal/Pelvic Imaging 1,500 mL (1 source) Start: 07-02-2024 End: 07-02-2024 take 1 dose by mouth once 1,500 mL, Oral, ONCE, 1 dose, On 07/02/24 at 0815, CT Procedure calcium chloride 0.0014 meq/ml / potassium chloride 0.004 meq/ml / sodium chloride 0.103 meq/ml / sodium lactate 0.028 meq/ml injectable solution (2 sources) Start: 03-24-2022 End: 03-25-2022 Lactated ringers IV solution 1,000 mL DULoxetine 20 mg delayed release oral capsule (2 sources) Serotonin and Norepinephrine Reuptake Inhibitor Start: 08-20-2020 End: 10-29-2021 DULoxetine [address] Particles capsule DR 20mg/day for 2 weeks, 20mg every other day for 2 weeks, 20mg every 3 days for 2 weeks then stop. 30 capsule 0 02/27/2021 10/29/2021 Discontinued Levonorgestrel-Et hinyl Estrad (20 sources) Progestin, Estrogen, Progestin-containing Intrauterine Device Start: 06-26-2019 End: 12-20-2019 take 1 tablet by mouth once daily Levonorgestrel-Eth inyl Estrad (Jolessa) 0.15 mg-30 mcg (91) tablets,dose pack,3 month Discontinued 1 {tbl} PO DAILY 91 June 26, 2019 3:11pm December 20, 2019 8:56am Start: 06-26-2019 End: 12-20-2019 take 1 tablet by mouth once daily Levonorgestrel-Ethinyl Estrad (Jolessa) 0.15 mg-30 mcg (91) tablets,dose pack,3 month Discontinued 1 {tbl} PO DAILY June 26, 2019 3:11pm December 20, 2019 8:56am Start: 06-26-2019 End: 12-20-2019 take 1 tablet by mouth once daily Levonorgestrel-Ethinyl Estrad (Jolessa) 0.15 mg-30 mcg (91) tablets,dose pack,3 month Discontinued 1 TABLET PO DAILY June 26, 2019 2:11pm December 20, 2019 7:56am Start: 06-26-2019 End: 12-20-2019 take 1 tablet by mouth once daily Levonorgestrel-Ethinyl Estrad (Jolessa) 0.15 mg-30 mcg (91) tablets,dose pack,3 month Discontinued 1 TABLET PO DAILY June 26, 2019 3:11pm December 20, 2019 8:56am Start: 11-08-2018 End: 06-26-2019 take 1 tablet by mouth once daily Levonorgestrel-Ethinyl Estrad (Jolessa) 0.15 mg-30 mcg (91) tablets,dose pack,3 month Discontinued 1 TABLET PO DAILY November 08, 2018 8:13am June 26, 2019 3:12pm Start: 11-08-2018 End: 06-26-2019 take 1 tablet by mouth once daily Levonorgestrel-Ethinyl Estrad (Jolessa) 0.15 mg-30 mcg (91) tablets,dose pack,3 month Discontinued 1 {tbl} PO DAILY November 08, 2018 12:00am June 26, 2019 3:12pm Start: 11-08-2018 End: 06-26-2019 take 1 tablet by mouth once daily Levonorgestrel-Ethinyl Estrad (Jolessa) 0.15 mg-30 mcg (91) tablets,dose pack,3 month Discontinued 1 TABLET PO DAILY November 07, 2018 11:00pm June 26, 2019 2:12pm Start: 11-08-2018 End: 06-26-2019 take 1 tablet by mouth once daily Levonorgestrel-Ethinyl Estrad (Jolessa) 0.15 mg-30 mcg (91) tablets,dose pack,3 month Discontinued 1 TABLET PO DAILY November 08, 2018 12:00am June 26, 2019 3:12pm Start: 05-26-2018 End: 11-08-2018 take 1 tablet by mouth once daily Levonorgestrel-Ethinyl Estrad (Introvale ) 0.15 mg-30 mcg (91) tablets,dose pack,3 month Discontinued 1 {tbl} PO daily 84 4 May 26, 2018 3:30pm November 08, 2018 8:12am Start: 05-26-2018 End: 11-08-2018 take 1 tablet by mouth once daily Levonorgestrel-Ethinyl Estrad (Introvale ) 0.15 mg-30 mcg (91) tablets,dose pack,3 month Discontinued 1 {tbl} PO daily 84 May 26, 2018 3:30pm November 08, 2018 8:12am Start: 05-26-2018 End: 11-08-2018 take 1 tablet by mouth once daily Levonorgestrel-Ethinyl Estrad (Introvale ) 0.15 mg-30 mcg (91) tablets,dose pack,3 month Discontinued 1 TABLET PO daily 84 May 26, 2018 2:30pm November 08, 2018 7:12am Start: 05-26-2018 End: 11-08-2018 take 1 tablet by mouth once daily Levonorgestrel-Ethinyl Estrad (Introvale ) 0.15 mg-30 mcg (91) tablets,dose pack,3 month Discontinued 1 TABLET PO daily 84 May 26, 2018 3:30pm November 08, 2018 8:12am Start: 04-13-2018 End: 05-26-2018 take 1 tablet by mouth once daily Levonorgestrel-Ethinyl Estrad (Introvale ) 0.15 mg-30 mcg tablets,dose pack,3 month Discontinued 1 {tbl} PO daily 84 4 April 13, 2018 1:05pm May 26, 2018 3:31pm Start: 04-13-2018 End: 05-26-2018 take 1 tablet by mouth once daily Levonorgestrel-Ethinyl Estrad (Introvale ) 0.15 mg-30 mcg tablets,dose pack,3 month Discontinued 1 {tbl} PO daily 84 April 13, 2018 1:05pm May 26, 2018 3:31pm Start: 04-13-2018 End: 05-26-2018 take 1 tablet by mouth once daily Levonorgestrel-Ethinyl Estrad (Introvale ) 0.15 mg-30 mcg tablets,dose pack,3 month Discontinued 1 TABLET PO daily April 13, 2018 12:05pm May 26, 2018 2:31pm Start: 04-13-2018 End: 05-26-2018 take 1 tablet by mouth once daily Levonorgestrel-Ethinyl Estrad (Introvale ) 0.15 mg-30 mcg tablets,dose pack,3 month Discontinued 1 TABLET PO daily April 13, 2018 1:05pm May 26, 2018 3:31pm Start: 03-17-2017 End: 04-13-2018 take 1 tablet by mouth once daily Levonorgestrel-Ethinyl Estrad (Introvale ) 0.15 mg-30 mcg tablets,dose pack,3 month Discontinued 1 TABLET PO daily March 17, 2017 4:52pm April 13, 2018 1:06pm Start: 03-17-2017 End: 04-13-2018 take 1 tablet by mouth once daily Levonorgestrel-Ethinyl Estrad (Introvale ) 0.15 mg-30 mcg tablets,dose pack,3 month Discontinued 1 {tbl} PO daily March 17, 2017 1:00am April 13, 2018 1:06pm Start: 03-17-2017 End: 04-13-2018 take 1 tablet by mouth once daily Levonorgestrel-Ethinyl Estrad (Introvale ) 0.15 mg-30 mcg tablets,dose pack,3 month Discontinued 1 {tbl} PO daily March 17, 2017 1:00am April 13, 2018 1:06pm Start: 03-17-2017 End: 04-13-2018 take 1 tablet by mouth once daily Levonorgestrel-Ethinyl Estrad (Introvale ) 0.15 mg-30 mcg tablets,dose pack,3 month Discontinued 1 TABLET PO daily March 17, 2017 12:00am April 13, 2018 12:06pm Start: 03-17-2017 End: 04-13-2018 take 1 tablet by mouth once daily Levonorgestrel-Ethinyl Estrad (Introvale ) 0.15 mg-30 mcg tablets,dose pack,3 month Discontinued 1 TABLET PO daily March 17, 2017 1:00am April 13, 2018 1:06pm fluconazole 150 mg oral tablet (16 sources) Azole Antifungal Start: 02-18-2021 End: 05-20-2021 Fluconazole 150 mg tablet Discontinued 150 mg PO .COMPLEX 2 0 February 18, 2021 1:00am May 20, 2021 2:42pm 150 mg PO take one po now and repeat in 3 days inFLIXimab 100 mg injection (15 sources) Tumor Necrosis Factor Mei Start: 06-19-2014 End: 11-08-2018 Infliximab 100 MG/10 ML recon soln Discontinued IV June 19, 2014 12:00am November 08, 2018 8:12am Start: 06-19-2014 End: 11-08-2018 Infliximab Discontinued IV A pri2014 11:00pm November 08, 2018 7:12am iohexol (OMNIPAQUE) 350 MG/M L injection 1-171 mL (2 sources) Start: 07-02-2024 End: 07-02-2024 1-171 mL, Intravenous, ONCE, 1 dose, On 07/02/24 at 0930, Extravasation Risk, CT Procedure Start: 11-10-2021 End: 11-10-2021 iohexol (OMNIPAQUE) 350 MG/M L injection 1-171 mL methotrexate 2.5 mg oral tablet (15 sources) Folate Analog Metabolic Inhibitor Start: 04-04-2019 End: 08-16-2019 take 5 tablets by mouth every week Methotrexate Sodium 2.5 mg tablet Discontinued 12.5 mg PO EVERY WEEK April 04, 2019 1:00am August 16, 2019 3:42pm Start: 04-04-2019 End: 08-16-2019 take 12.5 mg by mouth every week Methotrexate Sodium Discontinued 12.5 MG PO EVERY WEEK April 04, 2019 12:00am August 16, 2019 2:42pm nystatin 100 unt/mg topical ointment (20 sources) Polyene Antifungal Start: 09-20-2017 End: 05-26-2018 Nystatin 100,000 unit/gram ointment Discontinued 1 NMA TOPICAL TWICE A DAY 13 05September 20, 2017 12:00am May 26, 2018 3:10pm Start: 09-20-2017 End: 05-26-2018 Nystatin Discontinued 1 APPL IC TOPICAL TWICE A DAY September 19, 2017 11:00pm May 26, 2018 2:10pm Start: 03-17-2017 End: 09-20-2017 Nystatin 100,000 unit/gram c ream Discontinued 1 NMA TOPICAL TWICE A DAY as needed for yeast 15 March 17, 2017 1:00am September 20, 2017 8:08am Start: 03-17-2017 End: 09-20-2017 Nystatin Discontinued 1 APPL IC TOPICAL TWICE A DAY 15 March 17, 2017 12:00am September 20, 2017 7:08am oxyCODONE hydrochloride 5 mg oral tablet (3 sources) Opioid Agonist Start: 10-02-2023 End: 12-21-2023 take 1 tablet by mouth every six hours as needed for pain Oxycodone 5 mg tablet Discontinued 5 mg PO EVERY 6 HOURS as needed for pain 12 3 0 October 02, 2023 December 21, 2023 3:22pm Traumatic hematoma of face Contusion of other part of head, initial encounter 20 ml sodium chloride 9 mg/ml injection (2 sources) Start: 07-02-2024 End: 07-02-2024 1-100 mL, Intravenous, ONCE NEEDED, 1 dose, Starting on 07/02/24 at 0919, Until 07/02/24 at 0923, Flush, CT Procedure Start: 11-10-2021 End: 11-10-2021 sodium chloride (PF) 0.9 % i njection 1-100 mL traZODone hydrochloride 50 mg oral tablet (15 sources) Serotonin Reuptake Inhibitor Start: 05-27-2020 End: 08-20-2020 take 1 tablet by mouth once daily Trazodone 50 mg tablet Discontinued 50 mg PO DAILY May 27, 2020 12:00am August 20, 2020 3:35pm 0.5 ml ustekinumab 90 mg/ml injection (15 sources) Interleukin-12 Antagonist, Interleukin-23 Antagonist Start: 01-17-2019 End: 04-04-2019 Ustekinumab 45 MG/0.5 ML solution Discontinued 45 mg SQ January 17, 2019 1:00am April 04, 2019 2:02pm Q 6 WEEKS PT UNSURE OF DOSE 100 ml zoledronic acid 0.05 mg/ml injection (20 sources) Bisphosphonate Start: 05-27-2020 End: 05-17-2023 Zoledronic Voyb-Oaysrizq-Pxbf r 5 mg/100 mL piggyback Discontinued 1 NMA .Route ONCE 100 0 June 05, 2021 10:37am May 28, 2022 4:28pm infuse over 20 minutes Start: 04-06-2019 End: 08-16-2019 Zoledronic Obfh-Zpomluyj-Rmy er 5 mg/100 mL piggyback Discontinued 5 mg .Route ONCE 100 0 April 06, 2019 1:00am August 16, 2019 3:43pm infuse over 20 minutes Problems Active Problems Problem Classification Problem Date Documented Da te Episodic/Chronic E Codes: Fall (3 sources) Fall; Translations: [Unspecified fall, initial encounter] 10-10-2023 Episodic Menopausal disorders (20 sources) Atrophic vaginitis; Translations: [Postmenopausal atrophic vaginitis] Onset: 01-19-2024 12-14-2022 Chronic Comment on above: estradiol cream US, failed EMB due t o stenosis considering HRT Nutritional deficiencies (1 source) Vitamin D deficiency, unspecified; Translations: [Vitamin D deficiency, unspecified] Onset: 06-13-2024 Chronic Other bone disease and musculoskeletal deformities (9 sources) X-ray evidence of poor mineralization; Translations: [Other specified disorders of bone density and structure, unspecified site] 05-27-2020 Episodic Other bone disease and musculoskeletal deformities (3 sources) Other specified disorders of bone density and structure, unspecified site; Translations: [Disorder of bone and cartilage, unspecified] Episodic Other bone disease and musculoskeletal deformities (11 sources) Osteopenia; Translations: [Other specified disorders of bone density and structure, unspecified site] Onset: 10-27-2017 10-28-2017 Episodic Other female genital disorders (5 sources) Stenosis of cervix; Translations: [Stricture and stenosis of cervix uteri] 12-30-2022 Episodic Other female genital disorders (2 sources) Stricture and stenosis of cervix uteri; Translations: [Stricture and stenosis of cervix] 12-30-2022 Episodic Other gastrointestinal disorders (5 sources) Ileostomy present; Translations: [Encounter for attention to ileostomy] Onset: 07-17-2008 07-17-2008 Chronic Other gastrointestinal disorders (2 sources) Ileostomy status; Translations: [Ileostomy status] Onset: 07-02-2024 Chronic Other gastrointestinal disorders (1 source) Constipation; Translations: [Constipation, unspecified] 07-31-2005 Episodic Other liver diseases (5 sources) Focal nodular hyperplasia of liver; Translations: [Other specified diseases of liver] Onset: 10-13-2019 10-13-2019 Chronic Other liver diseases (3 sources) Elevated liver enzymes level; Translations: [Abnormal levels of other serum enzymes] Episodic Other liver diseases (7 sources) Alkaline phosphatase raised; Translations: [Abnormal levels of other serum enzymes] Onset: 10-13-2019 10-13-2019 Episodic Other liver diseases (5 sources) Abnormal levels of other serum enzymes; Translations: [Other nonspecific abnormal serum enzyme levels] Onset: 07-02-2024 12-14-2022 Episodic Other lower respiratory disease (15 sources) Chronic cough; Translations: [Chronic cough] 11-08-2018 Episodic Other skin disorders (5 sources) Lichen sclerosus et atrophicus; Translations: [Lichen sclerosus et atrophicus] Onset: 01-19-2024 12-21-2023 Chronic Comment on above: clobetesol Regional enteritis and ulcerative colitis (20 sources) Crohn's disease; Translations: [Crohn's disease, unspecified, without complications] Onset: 04-25-2007 Resolved: 03-18-2023 Chronic Residual codes; unclassified (15 sources) History of excision of intestinal structure; Translations: [Acquired absence of other specified parts of digestive tract] 11-08-2018 Episodic Comment on above: 3 total related to c rohns Residual codes; unclassified (15 sources) H/O: major abdominal surgery; Translations: [Other specified postprocedural states] 11-08-2018 Episodic Residual codes; unclassified (15 sources) History of loop electrosurgical excision procedure; Translations: [Other specified postprocedural states] 11-08-2018 Episodic Residual codes; unclassified (8 sources) History of total colectomy; Translations: [Acquired absence of other specified parts of digestive tract] Onset: 04-04-2020 Episodic Residual codes; unclassified (3 sources) History of liver excision; Translations: [Acquired absence of other specified parts of digestive tract] Episodic Residual codes; unclassified (4 sources) Family history of malignant neoplasm of breast in first degree relative; Translations: [Family history of malignant neoplasm of breast] 02-07-2024 Episodic Comment on above: age 58. Unknown gene tics. She will confirm with sister. Negative empower genetic screen but lifetime risk >20% and should do yrly mammogram and MRI alternating Residual codes; unclassified (2 sources) Acquired absence of other specified parts of digestive tract; Translations: [Acquired absence of other specified parts of digestive tract] Onset: 07-02-2024 Episodic Superficial injury; contusion (3 sources) Hematoma of face; Translations: [Contusion of other part of head, initial encounter] 10-10-2023 Episodic Thyroid disorders (20 sources) Goiter; Translations: [Nontoxic goiter, unspecified] Chronic Past or Other Problems Problem Classification Problem Date Documented Date Episodic/Chronic Anal and rectal conditions (6 sources) Anal fissure; Translations: [Anal fissure, unspecified] Onset: 01-31-2008 01-31-2008 Episodic Deficiency and other anemia (20 sources) Iron deficiency anemia; Translations: [Iron deficiency anemia, unspecified] Onset: 05-14-2013 Resolved: 04-04-2020 01-05-2019 Episodic Other aftercare (5 sources) Patient encounter status; Translations: [Encounter for therapeutic drug level monitoring] Onset: 11-02-2013 Resolved: 03-18-2023 11-02-2013 Episodic Other female genital disorders (1 source) Cervical intraepithelial neoplasia grade 2; Translations: [Moderate cervical dysplasia] Onset: 11-03-2006 11-03-2006 Episodic Other injuries and conditions due to external causes (1 source) Unspecified injury of head, initial encounter; Translations: [Unspecified injury of head, initial encounter] Onset: 10-20-2023 Episodic Other screening for suspected conditions (not mental disorders or infectious disease) (8 sources) Abnormal cytological findings in specimens from other organs, systems and tissues; Translations: [Other abnormal Papanicolaou smear of cervix and cervical HPV] Onset: 06-17-2005 06-17-2005 Episodic Residual codes; unclassified (1 source) Family history of malignant neoplasm of breast; Translations: [Family history of malignant neoplasm of breast] Onset: 02-17-2024 Episodic Unclassified (1 source) History of total colectomy 07-02-2024 Results Test Name Value Interpretation Reference Range Facility Bilirubin directon 5 Bilirubin.direct [Mass/Vol] 0.20 mg/dL 0.00-0.30 [facility] Bilirubin, totalon 5 Bilirubin [Mass/Vol] 0.46 mg/dL 0.00-1.30 [facility] CBC-Complete Blood Cnt No Di ffon 08-21-2024 Erythrocyte distribution width (RBC) [Ratio] 12.4 % Normal 11.6-14.6 [facility] Comment on above: Performed By: #### L 506.1001, L500.3400, L501.6710, L100.0500 #### [facility] [address] [place], [address] Hematocrit (Bld) [Volume fraction] 41.6 % Normal 37-47 [facility] Comment on above: Performed By: #### L 506.1001, L500.3400, L501.6710, L100.0500 #### [facility] [address] [place], [address] Hemoglobin (Bld) [Mass/Vol] 13.9 g/dL Normal 12.0-15.0 [facility] Comment on above: Performed By: #### L 506.1001, L500.3400, L501.6710, L100.0500 #### [facility] [address] [place], [address] MCH (RBC) [Entitic mass] 30.5 pg Normal 27.0-32.0 [facility] Comment on above: Performed By: #### L 506.1001, L500.3400, L501.6710, L100.0500 #### [facility] [address] [place], [address] MCHC (RBC) [Mass/Vol] 33.4 g/dL Normal 32-36 [facility] Comment on above: Performed By: #### L 506.1001, L500.3400, L501.6710, L100.0500 #### [facility] [address] [place], [address] MCV (RBC) [Entitic vol] 91.4 fL Normal 81-99 [facility] Comment on above: Performed By: #### L 506.1001, L500.3400, L501.6710, L100.0500 #### [facility] [address] [place], [address] Platelet mean volume (Bld) [Entitic vol] 11.9 fL Normal 6.2-12.0 [facility] Comment on above: Performed By: #### L 506.1001, L500.3400, L501.6710, L100.0500 #### [facility] [address] [place], [address] Platelets (Bld) [#/Vol] 200 10*3/uL Normal 150-450 [facility] Comment on above: Performed By: #### L 506.1001, L500.3400, L501.6710, L100.0500 #### [facility] [address] [place], [address] RBC (Bld) [#/Vol] 4.55 10*6/uL Normal 4.2-5.4 [facility] Comment on above: Performed By: #### L 506.1001, L500.3400, L501.6710, L100.0500 #### [facility] [address] [place], [address] RDW SD 41.4 fl Normal 35.1-43.9 [facility] Comment on above: Performed By: #### L 506.1001, L500.3400, L501.6710, L100.0500 #### [facility] [address] [place], [address] WBC (Bld) [#/Vol] 5.1 10*3/uL Normal 4.4-11.0 [facility] Comment on above: Performed By: #### L 506.1001, L500.3400, L501.6710, L100.0500 #### [facility] [address] [place], [address] CRPon 08-21-2024 C-REACTIVE PROT 8.99 mg/L High 0.0-3.0 [facility] Comment on above: Performed By: #### L 506.1001, L500.3400, L501.6710, L100.0500 #### [facility] [address] [place], [address] Erythrocyte distribution wid th ratioon 08-21-2024 Erythrocyte distribution width (RBC) [Ratio] 12.4 % 11.6-14.6 [facility] Erythrocyte distribution wid th standard deviationon 08-21-2024 Erythrocyte distribution width (RBC) [Ratio] 41.4 fl 35.1-43.9 [facility] Hematocrit Auto (Bld) [Volum e fraction]on 08-21-2024 Hematocrit (Bld) [Volume fraction] 41.6 % 37-47 [facility] Hemoglobin measurementon Hemoglobin (Bld) [Mass/Vol] 13.9 g/dL 12.0-15.0 [facility] Laboratory - Chemistry and C hemistry - challengeon 08-21-2024 AST [Catalytic activity/Vol] 37 U/L High <32 [facility] Liver Profileon 08-21-2024 Albumin [Mass/Vol] 4.5 g/dL Normal 3.5-5.0 [facility] Comment on above: Order Comment: CRP Performed By: #### L 506.1001, L500.3400, L501.6710, L100.0500 #### [facility] [address] [place], [address] ALK PHOS 93 U/L Normal 35-104 [facility] Comment on above: Order Comment: CRP Performed By: #### L 506.1001, L500.3400, L501.6710, L100.0500 #### [facility] [address] [place], [address] ALT [Catalytic activity/Vol] 32 U/L Normal <=34 [facility] Comment on above: Order Comment: CRP Performed By: #### L 506.1001, L500.3400, L501.6710, L100.0500 #### [facility] [address] [place], [address] AST [Catalytic activity/Vol] 37 U/L High <=31 [facility] Comment on above: Order Comment: CRP Performed By: #### L 506.1001, L500.3400, L501.6710, L100.0500 #### [facility] [address] [place], [address] Bilirubin [Mass/Vol] 0.46 mg/dL Normal 0.00-1.30 [facility] Comment on above: Order Comment: CRP Performed By: #### L 506.1001, L500.3400, L501.6710, L100.0500 #### [facility] [address] [place], [address] Bilirubin.direct [Mass/Vol] 0.20 mg/dL Normal 0.00-0.30 [facility] Comment on above: Order Comment: CRP Performed By: #### L 506.1001, L500.3400, L501.6710, L100.0500 #### [facility] [address] [place], [address] Globulin (S) [Mass/Vol] 3.1 g/dL Normal 2.2-4.2 [facility] Comment on above: Order Comment: CRP Performed By: #### L 506.1001, L500.3400, L501.6710, L100.0500 #### [facility] [address] [place], [address] T PROT 7.6 g/dL Normal 5.9-8.4 [facility] Comment on above: Order Comment: CRP Performed By: #### L 506.1001, L500.3400, L501.6710, L100.0500 #### [facility] [address] [place], [place], [id number] MCV (mean corpuscular volume ) determinationon 08-21-2024 MCV (RBC) [Entitic vol] 91.4 fL 81-99 [facility] Mean corpuscular hemoglobin (MCH) determinationon 08-21-2024 MCH (RBC) [Entitic mass] 30.5 pg 27.0-32.0 [facility] Mean corpuscular hemoglobin concentration (MCHC) determinationon 08-21-2024 MCHC (RBC) [Mass/Vol] 33.4 g/dL 32-36 [facility] Mean platelet volume determi nationon 08-21-2024 Platelet mean volume (Bld) [Entitic vol] 11.9 fL 6.2-12.0 [facility] Platelet counton 08-21-2024 Platelets (Bld) [#/Vol] 200 10*3/uL 150-450 [facility] RBC Auto (Bld) [#/Vol]on RBC (Bld) [#/Vol] 4.55 10*6/uL 4.2-5.4 [facility] Serum globulin measurementon 08-21-2024 Globulin (S) [Mass/Vol] 3.1 g/dL 2.2-4.2 [facility] Serum or plasma C reactive p rotein measurement (mass/volume)on 08-21-2024 CRP [Mass/Vol] 8.99 mg/L High 0.0-3.0 [facility] Serum or plasma alanine soares otransferase (ALT) measurementon 08-21-2024 ALT [Catalytic activity/Vol] 32 U/L <35 [facility] Serum or plasma albumin sandra urement (mass/volume)on 08-21-2024 Albumin [Mass/Vol] 4.5 g/dL 3.5-5.0 [facility] Serum or plasma alkaline yoli sphatase measurementon 08-21-2024 ALP [Catalytic activity/Vol] 93 U/L 35-104 [facility] Total proteinon 08-21-2024 Protein [Mass/Vol] 7.6 g/dL 5.9-8.4 [facility] Vitamin D,25 Hydroxyon 08-21 Vitamin D 25-OH 49.1 ng/mL Normal 30-100 [facility] Comment on above: Result Comment: Venus min D Status Deficiency: <20 ng/mL (50nmol/L) Insufficiency: 20-30 ng/mL (50-75 nmol/L) Sufficiency: 30-100 ng/mL (75-250 nmol/L) Toxicity: >100 ng/mL (>250 nmol/L) Performed By: #### L 506.1001, L500.3400, L501.6710, L100.0500 #### [facility] [address] [place], [place], [id number] White blood cell (WBC) count on 08-21-2024 WBC (Bld) [#/Vol] 5.1 10*3/uL 4.4-11.0 [facility] Calprotectin, Stoolon [address] 53 ug/g Normal 0-120 [facility] Comment on above: Result Comment: Conc entration Interpretation Follow-Up < 5 - 50 ug/g Normal None >50 -120 ug/g Borderline Re-evaluate in 4-6 weeks >120 ug/g Abnormal Repeat as clinically indicated Performed at: - [facility] [id number] Urban Planner: Christina Gaines MD, Phone: [phone] Performed By: #### L 500.3400, L7000.0700, L501.6710 ####[facility] [address] [place], [place], [id number] Bilirubin directon 5 Bilirubin.direct [Mass/Vol] 0.08 mg/dL 0.00-0.30 [facility] Bilirubin, totalon 5 Bilirubin [Mass/Vol] 0.20 mg/dL 0.00-1.30 [facility] CRPon 07-17-2024 C-REACTIVE PROT 4.75 mg/L High 0.0-3.0 [facility] Comment on above: Performed By: #### L 500.3400, L7000.0700, L501.6710 ####[facility] [address] [place], [address] Calprotectin stoolon 025 Calprotectin stool 53 ug/g 0-120 [facility] Comment on above: Concentration Interp retation Follow-Up< 5 - 50 ug/g Normal None>50 -120 ug/g Borderline Re-evaluate in 4-6 weeks >120 ug/g Abnormal Repeat as clinically indicatedPerformed at: - [facility] [address] [id number] Director: Christina Gaines MD, Phone: [phone] Laboratory - Chemistry and C hemistry - challengeon 07-17-2024 AST [Catalytic activity/Vol] 30 U/L <32 [facility] Liver Profileon 07-17-2024 Albumin [Mass/Vol] 4.2 g/dL Normal 3.5-5.0 [facility] Comment on above: Performed By: #### L 500.3400, L7000.0700, L501.6710 ####[facility] [address] [place], [address] ALK PHOS 112 U/L High 35-104 [facility] Comment on above: Performed By: #### L 500.3400, L7000.0700, L501.6710 ####[facility] [address] [place], [address] ALT [Catalytic activity/Vol] 30 U/L Normal <=34 [facility] Comment on above: Performed By: #### L 500.3400, L7000.0700, L501.6710 ####[facility] [address] [place], [address] AST [Catalytic activity/Vol] 30 U/L Normal <=31 [facility] Comment on above: Performed By: #### L 500.3400, L7000.0700, L501.6710 ####[facility] [address] [place], [address] Bilirubin [Mass/Vol] 0.20 mg/dL Normal 0.00-1.30 [facility] Comment on above: Performed By: #### L 500.3400, L7000.0700, L501.6710 ####[facility] [address] [place], [address] Bilirubin.direct [Mass/Vol] 0.08 mg/dL Normal 0.00-0.30 [facility] Comment on above: Performed By: #### L 500.3400, L7000.0700, L501.6710 ####[facility] [address] [place], [address] Globulin (S) [Mass/Vol] 2.8 g/dL Normal 2.2-4.2 [facility] Comment on above: Performed By: #### L 500.3400, L7000.0700, L501.6710 ####[facility] [address] [place], [address] T PROT 7.0 g/dL Normal 5.9-8.4 [facility] Comment on above: Performed By: #### L 500.3400, L7000.0700, L501.6710 ####[facility] [address] [place], [address] Serum globulin measurementon 07-17-2024 Globulin (S) [Mass/Vol] 2.8 g/dL 2.2-4.2 [facility] Serum or plasma C reactive p rotein measurement (mass/volume)on 07-17-2024 CRP [Mass/Vol] 4.75 mg/L High 0.0-3.0 [facility] Serum or plasma alanine soares otransferase (ALT) measurementon 07-17-2024 ALT [Catalytic activity/Vol] 30 U/L <35 [facility] Serum or plasma albumin sandra urement (mass/volume)on 07-17-2024 Albumin [Mass/Vol] 4.2 g/dL 3.5-5.0 [facility] Serum or plasma alkaline yoli sphatase measurementon 07-17-2024 ALP [Catalytic activity/Vol] 112 U/L High 35-104 [facility] Total proteinon 07-17-2024 Protein [Mass/Vol] 7.0 g/dL 5.9-8.4 [facility] [address] ENTEROGRAPHYon 07-06-2024 CT ENTEROGRAPHY EXAM: CT ENTEROGRAPH Y, (CT Abdomen/Pelvis with Contrast), 07/02/2024 09:32 AM COMPARISON: CT enterography dated November 10, 2021 CLINICAL INDICATIONS: history of Crohn's s/p colectomy and ileostomy, elevated CRP; hx of H s/p hepatectomy, elevated liver enzymes K50.818:Crohn's disease of both small and large intestine with other complication Z90.49:Status post total colectomy Z93.2:Ileostomy in place R74.8:Elevated alkaline phosphatase level R74.8:Elevated liver enzymes Z90.49:H/O resection of liver TECHNIQUE: CT Enterography was performed with intravenous contrast and negative oral contrast. CONTRAST: iohexol (OMNIPAQUE) 350 MG/ML injection 1-171 mL; Route of Administration: Intravenous; Dose: 70 mL. FINDINGS: Lung Bases: Visualized lung bases reveal no definite focal abnormalities in the lower lobes. Some atelectatic changes are seen. No pleural or pericardial effusion. Thickening along the GE junction and the distal esophagus. No hiatal hernia Liver: Liver is stable in size and morphology. Post right hepatectomy status. Compensatory hypertrophy of the left hepatic lobe.. Mild hepatic steatosis. No suspicious enhancing focal liver lesions. Portal vein and its branches are patent. No intrahepatic biliary ductal dilatation. No perihepatic ascites Gallbladder: Gallbladder is surgically absent Bile Ducts: Normal in caliber. Spleen: Spleen is normal in size and CT density. No suspicious focal splenic lesions. Splenic vascular pedicle is patent with no perisplenic fluid or collections. Pancreas: Pancreas shows no discrete focal lesions or ductal dilatation. There are no peripancreatic inflammatory changes or fluid collections. Adrenals: Both adrenal glands are unremarkable Kidneys: Kidneys show symmetric enhancement with no calculus or hydronephrosis. Extrarenal pelvises are seen bilaterally. There are no suspicious solid or cystic focal lesions noted within the kidneys. No perinephric or retroperitoneal fluid collections. The ureters are nondilated Gastrointestinal: Stomach is distended with negative contrast and shows no focal abnormalities. Thickening along the GE junction and the distal esophagus with no obvious hiatal hernia. Small bowel loops are nonobstructed. Interbowel adhesions between the small bowel loops in the central and lower abdomen likely postoperative. Post total proctocolectomy status with a right lower quadrant ileostomy. The bowel is normal in caliber with no wall thickening, abnormal mural enhancement, adjacent mesenteric fat stranding, or engorgement of the mesenteric vessels. No sinus tract, fistula, or fluid collection. No intraperitoneal collections or abscess Peritoneum/retroperito neum: No ascites. No loculated fluid collections in the abdomen or pelvis. Iliopsoas muscles are symmetric Lymph nodes: No enlarged or morphologically abnormal lymph nodes in the abdomen or pelvis.. Vasculature: The abdominal aorta is normal in course and caliber. Patent celiac and superior mesenteric arteries. Patent portal, splenic, and superior mesenteric veins. Renal veins and IVC are patent. Scattered atherosclerotic calcifications Bladder: Urinary bladder is distended with no gross mass or calculus. Bladder wall thickness is within normal limits. Distal ureters are nondilated. Pelvic Organs: Uterus shows no definite focal abnormalities. No adnexal mass lesions. No pelvic free fluid. Multiple punctate phleboliths in the pelvis. Air pockets in the vagina. Mild widening of the levator hiatus. No enlarged pelvic or inguinal nodes. Body Wall: Midline ventral wall scar is identified. Some peristomal hernia containing fat. Bones: Degenerative changes in the visualized spine and the pelvic bones. No aggressive lytic or sclerotic lesions IMPRESSION: 1. Post total proctocolectomy status with a right lower quadrant ileostomy. Bowel adhesions between the small bowel loops in the central and lower abdomen likely postoperative. No clear areas of wall thickening or abnormal mucosal enhancement to suggest active inflammation. 2. No intraperitoneal collections or abscess. No mesenteric inflammation 3. Prior right hepatectomy status with compensatory hypertrophy of the left lobe. Mild hepatic steatosis. No suspicious focal liver lesions. Portal vein is patent Normal [facility] Anion gap in Serum or Plasma on 06-07-2024 Anion gap [Moles/Vol] 13 mmol/L 5-15 [facility] BUN/creatinine ratioon 06-07 Urea nitrogen/Creatinine [Mass ratio] 30.9 mg/mg High 10-20 [facility] Basic Metabolic Profile (BMP )on 06-07-2024 BUN/CRE 30.9 RATIO High 10-20 [facility] Comment on above: Performed By: #### L 501.6710, L501.9520, L503.0106, L100.0500, L500.3400, L500.2500, L503.6550, L503.6030 #### [facility] [address] [place], [address] Calcium [Mass/Vol] 9.8 mg/dL Normal 7.6-11.0 [facility] Comment on above: Performed By: #### L 501.6710, L501.9520, L503.0106, L100.0500, L500.3400, L500.2500, L503.6550, L503.6030 #### [facility] [address] [place], [address] Chloride [Moles/Vol] 107 mmol/L Normal 98-108 [facility] Comment on above: Performed By: #### L 501.6710, L501.9520, L503.0106, L100.0500, L500.3400, L500.2500, L503.6550, L503.6030 #### [facility] [address] [place], [address] CO2 [Moles/Vol] 21.1 mmol/L Normal 21.0-32.0 [facility] Comment on above: Performed By: #### L 501.6710, L501.9520, L503.0106, L100.0500, L500.3400, L500.2500, L503.6550, L503.6030 #### [facility] [address] [place], [address] Creatinine [Mass/Vol] 0.66 mg/dL Low 0.70-1.20 [facility] Comment on above: Performed By: #### L 501.6710, L501.9520, L503.0106, L100.0500, L500.3400, L500.2500, L503.6550, L503.6030 #### [facility] [address] [place], [address] GAP 13 Normal 5-15 [facility] Comment on above: Performed By: #### L 501.6710, L501.9520, L503.0106, L100.0500, L500.3400, L500.2500, L503.6550, L503.6030 #### [facility] [address] [place], [address] GFR/1.73 sq M.predicted among non-blacks MDRD (S/P/Bld) [Vol rate/Area] 104 mL/min/{1.73_m2} Normal >60 [facility] Comment on above: Result Comment: mL/m in/1.73m2 CKD-EPI Creatinine Equation (2020) Performed By: #### L 501.6710, L501.9520, L503.0106, L100.0500, L500.3400, L500.2500, L503.6550, L503.6030 #### [facility] [address] [place], [address] Glucose [Mass/Vol] 80 mg/dL Normal 70-99 [facility] Comment on above: Performed By: #### L 501.6710, L501.9520, L503.0106, L100.0500, L500.3400, L500.2500, L503.6550, L503.6030 #### [facility] [address] [place], [address] Potassium [Moles/Vol] 4.3 mmol/L Normal 3.3-5.1 [facility] Comment on above: Performed By: #### L 501.6710, L501.9520, L503.0106, L100.0500, L500.3400, L500.2500, L503.6550, L503.6030 #### [facility] [address] [place], [address] Sodium [Moles/Vol] 141 mmol/L Normal 133-145 [facility] Comment on above: Performed By: #### L 501.6710, L501.9520, L503.0106, L100.0500, L500.3400, L500.2500, L503.6550, L503.6030 #### [facility] [address] [place], [address] Urea nitrogen [Mass/Vol] 20 mg/dL High 4-19 [facility] Comment on above: Performed By: #### L 501.6710, L501.9520, L503.0106, L100.0500, L500.3400, L500.2500, L503.6550, L503.6030 #### [facility] [address] [place], [address] Bilirubin directon 5 Bilirubin.direct [Mass/Vol] 0.12 mg/dL 0.00-0.30 [facility] Bilirubin, totalon 5 Bilirubin [Mass/Vol] 0.25 mg/dL 0.00-1.30 [facility] CBC-Complete Blood Cnt No Di ffon 06-07-2024 Erythrocyte distribution width (RBC) [Ratio] 12.8 % Normal 11.6-14.6 [facility] Comment on above: Performed By: #### L 501.6710, L501.9520, L503.0106, L100.0500, L500.3400, L500.2500, L503.6550, L503.6030 #### [facility] [address] [place], [address] Hematocrit (Bld) [Volume fraction] 42.8 % Normal 37-47 [facility] Comment on above: Performed By: #### L 501.6710, L501.9520, L503.0106, L100.0500, L500.3400, L500.2500, L503.6550, L503.6030 #### [facility] [address] [place], [address] Hemoglobin (Bld) [Mass/Vol] 13.7 g/dL Normal 12.0-15.0 [facility] Comment on above: Performed By: #### L 501.6710, L501.9520, L503.0106, L100.0500, L500.3400, L500.2500, L503.6550, L503.6030 #### [facility] [address] [place], [address] MCH (RBC) [Entitic mass] 29.4 pg Normal 27.0-32.0 [facility] Comment on above: Performed By: #### L 501.6710, L501.9520, L503.0106, L100.0500, L500.3400, L500.2500, L503.6550, L503.6030 #### [facility] [address] [place], [address] MCHC (RBC) [Mass/Vol] 32.0 g/dL Normal 32-36 [facility] Comment on above: Performed By: #### L 501.6710, L501.9520, L503.0106, L100.0500, L500.3400, L500.2500, L503.6550, L503.6030 #### [facility] [address] [place], [address] MCV (RBC) [Entitic vol] 91.8 fL Normal 81-99 [facility] Comment on above: Performed By: #### L 501.6710, L501.9520, L503.0106, L100.0500, L500.3400, L500.2500, L503.6550, L503.6030 #### [facility] [address] [place], [address] Platelet mean volume (Bld) [Entitic vol] 11.5 fL Normal 6.2-12.0 [facility] Comment on above: Performed By: #### L 501.6710, L501.9520, L503.0106, L100.0500, L500.3400, L500.2500, L503.6550, L503.6030 #### [facility] [address] [place], [address] Platelets (Bld) [#/Vol] 172 10*3/uL Normal 150-450 [facility] Comment on above: Performed By: #### L 501.6710, L501.9520, L503.0106, L100.0500, L500.3400, L500.2500, L503.6550, L503.6030 #### [facility] [address] [place], [address] RBC (Bld) [#/Vol] 4.66 10*6/uL Normal 4.2-5.4 [facility] Comment on above: Performed By: #### L 501.6710, L501.9520, L503.0106, L100.0500, L500.3400, L500.2500, L503.6550, L503.6030 #### [facility] [address] [place], [address] RDW SD 42.5 fl Normal 35.1-43.9 [facility] Comment on above: Performed By: #### L 501.6710, L501.9520, L503.0106, L100.0500, L500.3400, L500.2500, L503.6550, L503.6030 #### [facility] [address] [place], [place], [address] WBC (Bld) [#/Vol] 5.0 10*3/uL Normal 4.4-11.0 [facility] Comment on above: Performed By: #### L 501.6710, L501.9520, L503.0106, L100.0500, L500.3400, L500.2500, L503.6550, L503.6030 #### [facility] [address] [place], [address] CRPon 06-07-2024 C-REACTIVE PROT 3.79 mg/L High 0.0-3.0 [facility] Comment on above: Performed By: #### L 501.6710, L501.9520, L503.0106, L100.0500, L500.3400, L500.2500, L503.6550, L503.6030 ####[facility] [address] [place], [place], [id number] CRP [Mass/Vol]on 06-07-2024 C-Reactive Protein Extended Range 3.79 mg/L High 0.0-3.0 [facility] Calculated total iron bindin g capacityon 06-07-2024 Total Iron Binding Capacity 294 ug/dL 250-450 [facility] Carbon dioxide, total [Moles /volume] in Central venous bloodon 06-07-2024 CO2 [Moles/Vol] 21.1 mmol/L 21.0-32.0 [facility] Chloride assayon 06-07-2024 Chloride [Moles/Vol] 107 mmol/L 98-108 [facility] Erythrocyte distribution wid th (RBC) [Ratio]on 06-07-2024 Erythrocyte distribution width (RBC) [Entitic vol] 42.5 fL 35.1-43.9 [facility] Erythrocyte distribution wid th ratioon 06-07-2024 Erythrocyte distribution width (RBC) [Ratio] 12.8 % 11.6-14.6 [facility] Erythrocyte distribution wid th standard deviationon 06-07-2024 Erythrocyte distribution width (RBC) [Ratio] 42.5 fl 35.1-43.9 [facility] Ferritinon 06-07-2024 Ferritin [Mass/Vol] 53 ng/mL Normal 22-378 [facility] Comment on above: Performed By: #### L 501.6710, L501.9520, L503.0106, L100.0500, L500.3400, L500.2500, L503.6550, L503.6030 ####[facility] [address] [place], [address] GFR/1.73 sq M.predicted familia g non-blacks MDRD (S/P/Bld) [Vol rate/Area]on 06-07-2024 Estimated GFR (MDRD) Non-Af Amer 104 >60 [facility] Comment on above: mL/min/1.73m2 CKD-EP I Creatinine Equation (2020) Glomerular filtration rate ( GFR) estimation/1.73 sq m using serum, plasma, or whole bon 06-07-2024 GFR/1.73 sq M.predicted among non-blacks MDRD (S/P/Bld) [Vol rate/Area] 104 mL/min/{1.73_m2} >60 [facility] Comment on above: mL/min/1.73m2 CKD-EP I Creatinine Equation (2020) Hematocrit Auto (Bld) [Volum e fraction]on 06-07-2024 Hematocrit (Bld) [Volume fraction] 42.8 % 37-47 [facility] Hemoglobin measurementon Hemoglobin (Bld) [Mass/Vol] 13.7 g/dL 12.0-15.0 [facility] Iron (Unsp spec) [Mass/Mass] on 06-07-2024 Iron [Mass/Vol] 66 ug/dL 50-170 [facility] Iron measurement (mass/mass) on 06-07-2024 Iron (Unsp spec) [Mass/Mass] 66 ug/dL 50-170 [facility] Iron saturation [Mass fracti on]on 06-07-2024 Iron Saturation 23.0 % 13-59 [facility] Iron+Iron Binding Capacityon 06-07-2024 Iron [Mass/Vol] 66 ug/dL Normal 50-170 [facility] Comment on above: Performed By: #### L 501.6710, L501.9520, L503.0106, L100.0500, L500.3400, L500.2500, L503.6550, L503.6030 ####[facility] [address] [place], [address] IRON SATURATION 23.0 Normal 13-59 [facility] Comment on above: Performed By: #### L 501.6710, L501.9520, L503.0106, L100.0500, L500.3400, L500.2500, L503.6550, L503.6030 ####[facility] [address] [place], [address] TIBC 294 ug/dL Normal 250-450 [facility] Comment on above: Performed By: #### L 501.6710, L501.9520, L503.0106, L100.0500, L500.3400, L500.2500, L503.6550, L503.6030 ####[facility] [address] [place], [address] UIBC 228 ug/dL Normal 228-428 [facility] Comment on above: Performed By: #### L 501.6710, L501.9520, L503.0106, L100.0500, L500.3400, L500.2500, L503.6550, L503.6030 ####[facility] [address] [place], [address] Laboratory - Chemistry and C hemistry - challengeon 06-07-2024 AST [Catalytic activity/Vol] 34 U/L High <32 [facility] Liver Profileon 06-07-2024 Albumin [Mass/Vol] 4.4 g/dL Normal 3.5-5.0 [facility] Comment on above: Performed By: #### L 501.6710, L501.9520, L503.0106, L100.0500, L500.3400, L500.2500, L503.6550, L503.6030 ####[facility] [address] [place], [address] ALK PHOS 112 U/L High 35-104 [facility] Comment on above: Performed By: #### L 501.6710, L501.9520, L503.0106, L100.0500, L500.3400, L500.2500, L503.6550, L503.6030 ####[facility] [address] [place], [address] ALT [Catalytic activity/Vol] 40 U/L High <=34 [facility] Comment on above: Performed By: #### L 501.6710, L501.9520, L503.0106, L100.0500, L500.3400, L500.2500, L503.6550, L503.6030 ####[facility] [address] [place], [address] AST [Catalytic activity/Vol] 34 U/L High <=31 [facility] Comment on above: Performed By: #### L 501.6710, L501.9520, L503.0106, L100.0500, L500.3400, L500.2500, L503.6550, L503.6030 ####[facility] [address] [place], [address] Bilirubin [Mass/Vol] 0.25 mg/dL Normal 0.00-1.30 [facility] Comment on above: Performed By: #### L 501.6710, L501.9520, L503.0106, L100.0500, L500.3400, L500.2500, L503.6550, L503.6030 ####[facility] [address] [place], [address] Bilirubin.direct [Mass/Vol] 0.12 mg/dL Normal 0.00-0.30 [facility] Comment on above: Performed By: #### L 501.6710, L501.9520, L503.0106, L100.0500, L500.3400, L500.2500, L503.6550, L503.6030 ####[facility] [address] [place], [address] Globulin (S) [Mass/Vol] 3.1 g/dL Normal 2.2-4.2 [facility] Comment on above: Performed By: #### L 501.6710, L501.9520, L503.0106, L100.0500, L500.3400, L500.2500, L503.6550, L503.6030 ####[facility] [address] [place], [address] T PROT 7.4 g/dL Normal 5.9-8.4 [facility] Comment on above: Performed By: #### L 501.6710, L501.9520, L503.0106, L100.0500, L500.3400, L500.2500, L503.6550, L503.6030 ####[facility] [address] [place], [address] MCV (mean corpuscular volume ) determinationon 06-07-2024 MCV (RBC) [Entitic vol] 91.8 fL 81-99 [facility] Mean corpuscular hemoglobin (MCH) determinationon 06-07-2024 MCH (RBC) [Entitic mass] 29.4 pg 27.0-32.0 [facility] Mean corpuscular hemoglobin concentration (MCHC) determinationon 06-07-2024 MCHC (RBC) [Mass/Vol] 32.0 g/dL 32-36 [facility] Mean platelet volume determi nationon 06-07-2024 Platelet mean volume (Bld) [Entitic vol] 11.5 fL 6.2-12.0 [facility] No Panel Informationon 06-07 Unsaturated Iron Binding Capacity 228 ug/dL 228-428 [facility] Platelet counton 06-07-2024 Platelets (Bld) [#/Vol] 172 10*3/uL 150-450 [facility] Potassium (Unsp spec) [Mass/ Vol]on 06-07-2024 Potassium [Moles/Vol] 4.3 mmol/L 3.3-5.1 [facility] Potassium measurement (mass/ volume)on 06-07-2024 Potassium (Unsp spec) [Mass/Vol] 4.3 mmol/L 3.3-5.1 [facility] RBC Auto (Bld) [#/Vol]on RBC (Bld) [#/Vol] 4.66 10*6/uL 4.2-5.4 [facility] Serum creatinine measurement (mass/volume)on 06-07-2024 Creatinine [Mass/Vol] 0.66 mg/dL Low 0.70-1.20 [facility] Serum globulin measurementon 06-07-2024 Globulin (S) [Mass/Vol] 3.1 g/dL 2.2-4.2 [facility] Serum glucose measurement (m ass/volume)on 06-07-2024 Glucose [Mass/Vol] 80 mg/dL 70-99 [facility] Serum or plasma C reactive p rotein measurement (mass/volume)on 06-07-2024 CRP [Mass/Vol] 3.79 mg/L High 0.0-3.0 [facility] Serum or plasma alanine soares otransferase (ALT) measurementon 06-07-2024 ALT [Catalytic activity/Vol] 40 U/L High <35 [facility] Serum or plasma albumin sandra urement (mass/volume)on 06-07-2024 Albumin [Mass/Vol] 4.4 g/dL 3.5-5.0 [facility] Serum or plasma alkaline yoli sphatase measurementon 06-07-2024 ALP [Catalytic activity/Vol] 112 U/L High 35-104 [facility] Serum or plasma calcium sandra urement (mass/volume)on 06-07-2024 Calcium [Mass/Vol] 9.8 mg/dL 7.6-11.0 [facility] Serum or plasma ferritin melisa surement (mass/volume)on 06-07-2024 Ferritin [Mass/Vol] 53 ng/mL 22-378 [facility] Serum or plasma iron saturat ion measurement (mass fraction)on 06-07-2024 Iron saturation [Mass fraction] 23.0 % 13-59 [facility] Serum or plasma urea nitroge n measurement (mass/volume)on 06-07-2024 Urea nitrogen [Mass/Vol] 20 mg/dL High 4-19 [facility] Sodium levelon 06-07-2024 Sodium [Moles/Vol] 141 mmol/L 133-145 [facility] TSH DL <= 0.005 mIU/L Qnon 0 06-07-2024 Thyroid Stimulating Hormone (TSH) 2.700 uIU/mL 0.300-4.200 [facility] TSH Qn 2.700 uIU/mL 0.300-4.200 [facility] Thyroid Stim Hormone (TSH)on 06-07-2024 TSH 2.700 uIU/mL Normal 0.300-4.200 [facility] Comment on above: Performed By: #### L 501.6710, L501.9520, L503.0106, L100.0500, L500.3400, L500.2500, L503.6550, L503.6030 ####[facility] [address] [place], [place], [id number] Total proteinon 06-07-2024 Protein [Mass/Vol] 7.4 g/dL 5.9-8.4 [facility] Vitamin B12on 06-07-2024 Cobalamin (Vitamin B12) [Mass/Vol] 533 pg/mL Normal 180-914 [facility] Comment on above: Performed By: #### L 501.6710, L501.9520, L503.0106, L100.0500, L500.3400, L500.2500, L503.6550, L503.6030 ####[facility] [address] [place], [place], [phone] Vitamin B12 ser/plason 06-07 Cobalamin (Vitamin B12) [Mass/Vol] 533 pg/mL 180-914 [facility] White blood cell (WBC) count on 06-07-2024 WBC (Bld) [#/Vol] 5.0 10*3/uL 4.4-11.0 [facility] Vitamin D 1,25-Dihydroxyon 0 05-09-2024 VIT D 1,25 DIHY 21.7 pg/mL Abnormal 24.8-81.5 [facility] Comment on above: Order Comment: Comme nts: follow up from 12/2023 Result Comment: Perf ormed at: [employer] [facility] [address] [id number] Urban Planner: Christina Gaines MD, Phone: [phone] Performed By: #### L 3300.0960 #### [facility] [address] [place], [place], [address] 1,25-dihydroxyvitamin D3 [Ma ss/Vol]Ordered By: Marilee Capellan on 05-04-2024 Vitamin D 1,25-Dihydroxy 21.7 pg/mL Low 24.8-81.5 [facility] Comment on above: Performed at: [employer] [address] [id number] Director: Christina Gaines MD, Phone: [phone] Serum or plasma calcitriol m easurement (mass/volume)Ordered By: Marilee Capellan on 05-04-2024 1,25-dihydroxyvitamin D3 [Mass/Vol] 21.7 pg/mL Low 24.8-81.5 [facility] Comment on above: Performed at: [employer] [facility] [employer] [address] [id number] Director: Christina Gaines MD, Phone: [phone] [id number] DOrdered By: Janett Capellan on 01-19-2024 Vitamin D 25-Hydroxy 26.1 ng/mL [facility] Comment on above: Vitamin D 25(OH) Sta tus Range Deficiency <20 ng/mL (50nmol/L) Insufficiency 20 - 30 ng/mL (50 - 75 nmol/L) Sufficiency 30 - 100 ng/mL (75 - 250 nmol/L) Toxicity >100 ng/mL (>250 nmol/L) Miscellaneous procedureOrder ed By: Marilee Capellan on 01-19-2024 Miscellaneous Test Comment SEE SCANNED REPORT [facility] NATERAon 01-19-2024 NATURA SEE SCANNED REPORT Normal [facility] Comment on above: Order Comment: Comme nts: [facility] Performed By: #### L 900.0098, L506.1000 ####[facility] [address] 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 Chief Complaint: 4 Week Med check Migration Agent Required: No Is patient in pain?: No Allergies No Known Allergies Allergy (Verified 01/19/24 15:43) Medications ???Medication ???Instructions ???Recorded ???Confirmed ???Type cholecalciferol (vitamin D3) 50 50 mcg PO DAILY 06/16/21 01/19/24 History mcg (2,000 unit) capsule (Vitamin D3) calcium carbonate (Calcium 600) 600 mg PO BID 05/17/23 01/19/24 History zoledronic acid 5 mg/100 mL in 1 ea .Route ONCE #100 mL 05/17/23 01/19/24 Rx mannitol 5 %-water intravenous piggybck clobetasol 0.05 % topical ointment 1 applic topical .COMPLEX #15 grams 12/21/23 01/19/24 Rx estradiol 0.01% (0.1 mg/gram) See Rx Instructions vaginal 01/19/24 01/19/24 Rx vaginal cream .COMPLEX #42.5 grams Is last menstrual period known: No Post menopausal: Yes Patient : No : No PFSH Medical History Osteopenia determined by x-ray Crohns disease Surgical History History of resection of rectum History of creation of ostomy History of colectomy History of surgery of liver H/O LEEP H/O resection of large bowel Family History Father Heart disease Aunt Breast cancer, Onset Age: 60 Sister Breast cancer, Onset Age: 50 Grandmother Diabetes Social History Smoking Status: Never smoker alcohol intake: current details: social substance use type: does not use caffeine: Yes what type of physical activity do you participate in: walking frequency: daily seatbelt use: always do you feel safe at home: Yes additional social history: [facility] Patient works at [employer] Details: GABI MCNULTY is a 53 year old who presents for follow up start of clobetesol for lichen sclerosis. States no longer having itching. Still feels dry. She still is not sure she wants to try HRT for hot flashes. She does want to proceed with empower genetic test History 2 Elective abortions Hx Para 2 Spontaneous abortions Hx # Term Pregnancies Ectopic pregnancies Hx # Pregnancies Multiple births # of living children Past Pregnancies Del. Date Name GA/Weeks Outcome Route Bth Weight [facility] F[facility] 1990 [place] Unknown 1995 [facility] ROS Const Constitutional: Reports system reviewed and no additional complaints, except as documented Eyes Eyes: Reports system reviewed and no additional complaints, except as documented GI GI: Denies abdominal pain or change in bowel habits : Reports as per HPI Exam Const General: cooperative and no acute distress Nutritional Appearance: well nourished Orientation: oriented x3 External Female Exam: other (pale, regression of minora/clitoral sutherland. No silver whitening) Speculum Exam - Vagina: vagina atrophic Coding Level of Care Code Off vis,est,level 3 Diagnoses Lichen sclerosus L90.0 Atrophic vaginitis N95.2 Climacteric N95.1 Family history of breast cancer in sister Z80.3 Assessment and Plan Assessment and Plan (1) Lichen sclerosus: Status: Acute Comment: clobetesol (2) Atrophic vaginitis: Status: Acute Comment: estradiol cream (3) Climacteric: Status: Acute Comment: considering HRT (4) Family history of breast cancer in sister: Status: Acute Comment: age 58. Unknown genetics. She will confirm with sister. Pending empower genetic screen Orders: Orders Vitamin D,25 Hydroxy Today Z13.21 - Encounter for screening for nutritional disorder Medications: New estradiol 0.01%(0.1mg/gram) small amount as directed vaginal every other day X 4 weeks then twice a week; 42.5 grams 2RF Plan Continue small amount clobetesol daily X 2 weeks then prn for symptoms Estradiol cream as directed Empower genetic test Will call if wishes to proceed with HRT. 01/19/24 1601 Date Marilee Capellan NP TAX COMPLIANCE MANAGER-C Cosigner Signature: Date (if applicable) CC: Normal [facility] Vitamin D,25 Hydroxyon 01-18 Vitamin D 25-OH 26.1 ng/mL Normal [facility] Comment on above: Result Comment: Venus min D 25(OH) Status Range Deficiency <20 ng/mL (50nmol/L) Insufficiency 20 - 30 ng/mL (50 - 75 nmol/L) Sufficiency 30 - 100 ng/mL (75 - 250 nmol/L) Toxicity >100 ng/mL (>250 nmol/L) Performed By: #### L 900.0098, L506.1000 ####[facility] [address] [place], [address] [employer] Office Visit Reporton 12-21-2023 Soundscriber Mechanic Office Visit Report [facility] [address] [place] [address], [address] [place] [address] OFFICE VISIT Date of Service: 12/21/23 MR#: [id number] Acct: [id number] Name: GABI MCNULTY Rep #: [id number] : 1970 Provider: AWA rudolph Age/Sex: 53/F Location: [facility] Status: Signed with Addenda ADDENDUM by AWA Capellan on 12/21/23 at 1604 Assessment and Plan Assessment and Plan (1) Family history of breast cancer in sister: Status: Acute Comment: age 58. Unknown genetics. She will confirm with sister. Considering empower (2) Atrophic vaginitis: Status: Acute Comment: consider estradiol cream next visit (3) Lichen sclerosus: Status: Acute Comment: clobetesol (4) Climacteric: Status: Acute Comment: considering HRT Medications: New clobetasol 0.05% 1 applic topical apply bid X 2 weeks, daily X 2 weeks then prn. 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) Chief Complaint: Annual Migration Agent Required: No Is patient in pain?: No Allergies No Known Allergies Allergy (Verified 12/21/23 15:22) Medications ???Medication ???Instructions ???Recorded ???Confirmed ???Type cholecalciferol (vitamin D3) 50 50 mcg PO DAILY 06/16/21 12/21/23 History mcg (2,000 unit) capsule (Vitamin D3) calcium carbonate (Calcium 600) 600 mg PO BID 05/17/23 12/21/23 History zoledronic acid 5 mg/100 mL in 1 ea .Route ONCE #100 mL 05/17/23 12/21/23 Rx mannitol 5 %-water intravenous piggybck clobetasol 0.05 % topical ointment 1 applic topical .COMPLEX #15 grams 12/21/23 12/21/23 Rx Is last menstrual period known: No Post menopausal: Yes Patient : No : No PFSH Medical History Osteopenia determined by x-ray Crohns disease Surgical History History of resection of rectum History of creation of ostomy History of colectomy History of surgery of liver H/O LEEP H/O resection of large bowel Family History Father Heart disease Aunt Breast cancer, Onset Age: 60 Sister Breast cancer, Onset Age: 50 Grandmother Diabetes Social History Smoking Status: Never smoker alcohol intake: current details: social substance use type: does not use caffeine: Yes what type of physical activity do you participate in: walking frequency: daily seatbelt use: always do you feel safe at home: Yes additional social history: [facility] Patient works at [employer] History 2 Elective abortions Hx Para 2 Spontaneous abortions Hx # Term Pregnancies Ectopic pregnancies Hx # Pregnancies Multiple births # of living children Past Pregnancies Del. Date Name GA/Weeks Outcome Route Bth Weight Infant Gen Labor Lgth Anesthesia Del Locatn Provider FOB Unknown 1990 [place] Unknown 1995 [facility] Encounter for routine gynecological examination Details: GABI MCNULTY is a 53 year old who presents for annual exam. Off and on vaginal itching. Noting hot flashes and sleep disturbance. No vaginal bleeding. Last PAP: 2020 History of abnormal PAP: no Last mammogram: 10/2022 History of abnormal mammogram: no Colon cancer screening: na Other preventative health care screenings: Megan Female Reproductive History Questions: metorrhagia: No, sexually active: Yes, dyspareunia: Yes and PCB: No Menopausal Symptoms: Yes night sweats ROS Const Constitutional: Reports fatigue and night sweats; Denies weight gain or weight loss Cardio Card: Denies chest pain Resp Resp: Denies cough or dyspnea on exertion GI GI: Denies abdominal pain, bloating, change in stool character, constipation or vomiting : Reports as per HPI and vaginal pruritus; Denies difficulty voiding, pelvic pain, urinary frequency, urinary incontinence, urinary urgency or vaginal discharge Psych Psych: Reports as per HPI Exam Const General: cooperative, healthy appearing, no acute distress and well developed Orientation: alert, oriented to person and oriented to place HENWY Head: normal to inspection Neck Neck: normal visual inspection Thyroid: thyroid normal Lymphatic: no lymphadenopathy noted Chest Breast inspection: normal inspection of the breasts and normal inspection of the axillae Gina (more content not included)... Normal [facility] SCRN MAMM (CAD)W/SAHRA BILATo n 12-21-2023 SCRN MAMM (CAD)W/SAHRA BILAT [facility] Imaging Services [address] [place] [address] SCRN MAMM (CAD)W/SAHRA BILAT MR#: [id number] Acct: [id number] Name: GABI MCNULTY Rep #: [id number] : 1970 F 53 From: Andrae holt MD PCP: Dr. Helen Guzman MD Status: REG [facility] Study: SCRN MAMM (CAD)W/SAHRA BILAT Date of Exam: 11/30 04/24 Exam# [id number] Ordering Dr: Marilee Capellan TAX COMPLIANCE MANAGER TAX COMPLIANCE MANAGER -[id number] MAMMOGRAPHY - BILATERAL SCREENING REASON FOR EXAM: Female, 53 years old. Routine annual screening examination. PERTINENT HISTORY: Sister with breast cancer. Aunt with breast cancer. TECHNIQUE: Digital bilateral breast sahra (3D mammographic acquisition) in the CC and MLO projections. 2-D mediolateral oblique (MLO) and craniocaudad (CC) views of both breasts were obtained. CAD: Full Field Digital Mammography with Computer Added Detection was performed. COMPARISON: Comparison is made with prior study of November 05, 2022 and October 30, 2021. FINDINGS: Breast Composition: The breasts are heterogeneously dense, which may obscure small masses. There are no dominant masses or suspicious calcifications. No other significant abnormalities are identified. There has been no significant change since the prior study. BI/SCRN MAMM (CAD)W/SAHRA BILAT IMPRESSION: Stable bilateral screening mammogram. Yearly follow-up mammogram recommended. (A) ASSESSMENT CATEGORY: BIRADS Category 1: Negative. A letter regarding these results will be sent to the patient by the facility within 30 days. Approximately 10% of breast cancers are not detected by mammography. A normal mammogram should not delay biopsy of a clinically suspicious abnormality. [id number] Electronically Signed: Andrae Sharif MD at 10:14 EDT Reading Location ID and State: [facility] [place] , Service support , CC: AWA Capellan; Dr. Helen Guzman MD Supervisor Ovens: Signed Normal [facility] Emergency Department Summary on 10-02-2023 Emergency Department Summary [facility] Medical Records Department [address] [place] [address] Emergency Department Summary 10/02/23 MR#: [id number] Acct: [id number] Name: GABI MCNULTY Rep #: [id number] : 1970 52 From: Joseph Petty MD PCP: Dr. Helen Guzman MD Status:REG ER Location: ED HPI History of Present Illness Chief Complaint: Head Injury Narrative Narrative: 52-year-old female who denies significant past medical history presents with injury to her right cheek and face that she sustained status post mechanical fall. She states prior to arrival she was walking along white papers, and fell forward. She hit her face on the cement. She was unable to catch her fall and denies other injury. Since then, she has had pain and swelling of her right cheek. She does not take any blood thinners. There was no loss of consciousness. She states she does not have a headache or see stars. No neck pain. She presents because of pain and swelling of her right cheek. [facility] Medical History Osteopenia determined by x-ray Crohns disease Home Medications ???Medication ???Instructions ???Recorded ???Last Taken ???Type cholecalciferol (vitamin D3) 50 50 mcg PO DAILY 06/16/21 Unknown History mcg (2,000 unit) capsule (Vitamin D3) calcium carbonate (Calcium 600) 600 mg PO BID 05/17/23 Unknown History zoledronic acid 5 mg/100 mL in 1 ea .Route ONCE #100 mL 05/17/23 Unknown Rx mannitol 5 %-water intravenous piggybck oxycodone 5 mg tablet 5 mg PO Q6H PRN pain 3 days #12 10/02/23 Unknown Rx tabs Allergy/AdvReac Type Severity Reaction Status Date / Time No Known Allergies Allergy Verified 10/02/23 12:29 Family History Father Heart disease Aunt Breast cancer, Onset Age: 60 Sister Breast cancer, Onset Age: 50 Grandmother Diabetes Surgical History History of resection of rectum History of creation of ostomy History of colectomy History of surgery of liver H/O LEEP H/O resection of large bowel Social History Smoking Status: Never smoker alcohol intake: current details: social substance use type: does not use caffeine: Yes what type of physical activity do you participate in: walking frequency: daily seatbelt use: always do you feel safe at home: Yes additional social history: [facility] Patient works at [employer] ROS ED ROS Narrative HEENT: No sore throat. No neck pain. No loss of vision. No rhinorrhea. Positive swelling right cheek. Tenderness to palpation. Cardiovascular: No chest pain. No palpitations. No pedal edema. Respiratory: No cough, no shortness of breath. Abdominal: No abdominal pain. No nausea. No vomiting. Genitourinary: No dysuria. No hematuria. Musculoskeletal: No myalgias. No arthralgias. Neurologic: No headaches. No dizziness. No lightheadedness. No loss of consciousness. Skin: No rash. No change in color. Psychiatric: No depression. No anxiety. EXAM Physical Exam Narrative Exam Narrative: GCS 15. ABCs intact. HEENT examination shows PERRL, EOMI. No entrapment. Neck is soft and supple with no vertebral point tenderness or bony step-off. Full range of motion without pain. Positive tenderness and swelling of right cheek. No crepitance. Midface stable. No nasal septal hematoma. Airway patent. Small abrasion on side of right nares, no active bleeding. Cardiovascular examination regular rate and rhythm. Lungs are clear to auscultation bilaterally. Abdomen soft nontender with normoactive bowel sounds. Neurological examination shows her to be awake, alert, oriented x 3. Nonfocal, nonlateralizing. Moves all extremities. Const Vital Signs: 10/02/23 12:29 10/02/23 12:53 Temperature 97.3 F L Temperature Source Temporal Pulse Rate 86 Respiratory Rate 19 H Respiratory Effort Normal Blood Pressure 132/61 H Blood Pressure Mean 84 Pulse Ox 99 Oxygen Delivery Method Room Air MDM MDM MDM Narrative Medical decision making narrative: Concern and in the differential diagnosis, but not limited to is for right cheek hematoma versus facial fracture versus closed head injury. I do not feel that she needs a CT of the brain to look for intracranial hemorrhage based on her normal neurological examination and no loss of consciousness. She does not take blood thinners. Additionally, I do not feel that she needs imaging of her cervical spine as she has full range of motion without pain. However, to look for fracture CT of the facial bones will be obtained. She was given 5 mg of oxycodone for analgesia. She already has an ice pack. I reviewed the radiology report of the facial CT (more content not included)... Normal [facility] Sinus/Facial Boneon 10-02-19 Sinus/Facial Bone [facility] Imaging Services [address] [place], [place] [address] Sinus/Facial Bone MR#: [id number] Acct: [id number] Name: GABI MCNULTY Rep #: [id number] : 1970 F 52 From: Silviano Rahman MD PCP: Dr. Helen Guzman MD Status: REG Study: Sinus/Facial Bone Date of Exam: 10/02/23 Exam# [id number] Ordering Dr: Joseph Petty [place] [id number] INDICATION: Trauma EXAMINATION: CT FACIAL BONES - CT Maxillofacial W/O Contrast Injection TECHNIQUE: Helically acquired images were obtained of the facial bones. A radiation dose optimization technique was used for this scan. The protocol utilizes one or more of the following dose reduction techniques: automated exposure control, adjustment of mA and/or kV according to patient size,and/or use of iterative reconstruction technique. IV Contrast dosage and agent: None. RADIATION DOSAGE (If Supplied By Facility): CTDIvol = ( 29.38 ) mGy, DLP = ( 554.80 ) mGycm COMPARISON: No relevant prior comparison study available FINDINGS: SOFT TISSUES: There is a 2.1 x 2.0 x 0.8 cm subcutaneous hematoma in the right cheek with adjacent soft tissue stranding. The left facial soft tissues are within normal limits. VISUALIZED PARANASAL SINUSES: Clear. VISUALIZED MASTOID AIR CELLS: Clear. FACIAL BONES, MANDIBLE AND TMJs: No displaced facial bone fracture. No lytic or blastic abnormality. VISUALIZED DENTITION: No periodontal osseous erosion. ORBITAL CONTENTS: Both globes, extraocular muscles and retrobulbar fat appear unremarkable. CT/Sinus/Facial Bone IMPRESSION: 2.1 x 2.0 x 0.8 cm subcutaneous hematoma in the right cheek with adjacent soft tissue stranding. No facial fracture. Clear sinuses. Electronically Signed: Silviano Rahman MD at 15:03 EDT , CC: Dr. Joseph Petty MD; Dr. Helen Guzman MD Supervisor Ovens: Signed Normal [facility] Absolute lymphocyte counton 03-18-2023 Lymphocytes Auto (Unsp spec) [#/Vol] 1.32 10*3/uL 0.83-4.51 [facility] Automated lymphocyte count a s percentage of total leukocyteson 03-18-2023 Lymphocytes/100 WBC Auto (Unsp spec) 22.7 % 19-41 [facility] Basophil percentageon 2023 Basophils/100 WBC (Bld) 0.7 % 0-1 [facility] Bilirubin [Mass/Vol] 0.40 mg/dL 0.20-1.00 [facility] Comment on above: For patients on eltr ombopag therapy, use of Dimension [place] TBIL is not recommended. Eosinophils/100 WBC (Bld) 0.9 % 0-5 [facility] Hemoglobin (Bld) [Mass/Vol] 13.0 g/dL 12.0-15.0 [facility] Monocytes/100 WBC (Bld) 7.2 % 0-10 [facility] Neutrophils (Bld) [#/Vol] 4.0 10*3/uL 2.0-7.7 [facility] Neutrophils/100 WBC (Bld) 68.2 % 47-70 [facility] Protein [Mass/Vol] 7.7 g/dL 6.4-8.2 [facility] WBC (Bld) [#/Vol] 5.8 10*3/uL 4.4-11.0 [facility] Determination of erythrocyte mean corpuscular volume (MCV)on 03-18-2023 MCV (RBC) [Entitic vol] 93.3 fL 81-99 [facility] Direct bilirubinon Bilirubin.direct [Mass/Vol] 0.12 mg/dL 0.00-0.30 [facility] Erythrocyte distribution wid th ratioon 03-18-2023 Erythrocyte distribution width (RBC) [Ratio] 12.7 % 11.6-14.6 [facility] Erythrocyte distribution wid th standard deviationon 03-18-2023 Erythrocyte distribution width (RBC) [Entitic vol] 43.8 fL 35.1-43.9 [facility] Erythrocyte sedimentation ra dolores 03-18-2023 ESR (Bld) [Velocity] 3 mm/h 0-30 [facility] Hematocrit Auto (Bld) [Volum e fraction]on 03-18-2023 Hematocrit (Bld) [Volume fraction] 40.7 % 37-47 [facility] Immature granulocytes/100 WB C Auto (Bld)on 03-18-2023 Immature granulocytes/100 WBC (Bld) 0.300 % 0.0-0.9 [facility] Comment on above: IG% - Immature Granu locytes (promyelocytes, myelocytes and metamyelocytes) > 1% indicates that a LEFT SHIFT is Present. Iron measurement (mass/mass) on 03-18-2023 Iron (Unsp spec) [Mass/Mass] 86 ug/dL 50-170 [facility] Laboratory - Chemistry and C hemistry - challengeon 03-18-2023 ALP [Catalytic activity/Vol] 97 U/L 45-117 [facility] ALT [Catalytic activity/Vol] 55 U/L 13-56 [facility] Cobalamin (Vitamin B12) [Mass/Vol] 634 pg/mL 211-911 [facility] Ferritin [Mass/Vol] 56 ng/mL 8-252 [facility] Globulin (S) [Mass/Vol] 3.7 g/dL 2.2-4.2 [facility] Transferrin [Mass/Vol] 261 mg/dL 192-364 [facility] Comment on above: Performed at: [address] [id number] Director: Parker Ortiz PhD, Phone: [phone] Laboratory - Hematology and Cell countson 03-18-2023 MCH (RBC) [Entitic mass] 29.8 pg 27.0-32.0 [facility] MCHC (RBC) [Mass/Vol] 31.9 g/dL 32-36 [facility] Nucleated RBC/100 WBC (Bld) [Ratio] 0 % 0-5 [facility] Platelets (Bld) [#/Vol] 230 10*3/uL 150-450 [facility] No Panel Informationon 03-18 C-Reactive Protein Extended Range < 2.90 mg/L 0.0-3.0 [facility] Comment on above: C-Reactive Protein ( CRP) provides useful information for thediagnosis, therapy and monitoring of inflammatory processesand associated diseases. For the evaluation of Relative Riskfor Cardiovascular Disease, a High Sensitivity CRP (HSCRP)should be ordered. Total Iron Binding Capacity 348 ug/dL 250-450 [facility] Platelet mean volume Haroon-Ec ker (Bld) [Entitic vol]on 03-18-2023 Platelet mean volume (Bld) [Entitic vol] 11.3 fL 6.2-12.0 [facility] RBC Auto (Bld) [#/Vol]on RBC (Bld) [#/Vol] 4.36 10*6/uL 4.2-5.4 [facility] Serum or plasma iron saturat ion measurement (mass fraction)on 03-18-2023 Iron saturation [Mass fraction] 24.7 % 15.0-55.0 [facility] Thin prep Papanicolaou smear with manual screeningon 03-18-2023 Thin prep Papanicolaou smear with manual screening 4.0 g/dL 3.2-5.0 [facility] Thin prep Papanicolaou smear with manual screening 45 U/L 15-37 [facility] Absolute lymphocyte countOrd ered By: Marilee Capellan on 12-14-2022 Lymphocytes Auto (Unsp spec) [#/Vol] 0.96 10*3/uL 0.83-4.51 [facility] Basophil percentageOrdered B y: Marilee Capellan on 12-14-2022 Basophils/100 WBC (Bld) 0.7 % 0-1 [facility] Bilirubin [Mass/Vol] 0.40 mg/dL 0.20-1.00 [facility] Comment on above: For patients on eltr ombopag therapy, use of Dimension [place] TBIL is not recommended. Chloride [Moles/Vol] 108 mmol/L 98-107 [facility] Eosinophils/100 WBC (Bld) 1.0 % 0-5 [facility] Glucose [Mass/Vol] 97 mg/dL 74-106 [facility] Neutrophils (Bld) [#/Vol] 4.3 10*3/uL 2.0-7.7 [facility] Neutrophils/100 WBC (Bld) 74.9 % 47-70 [facility] Potassium [Moles/Vol] 3.8 mmol/L 3.5-5.1 [facility] Protein [Mass/Vol] 7.8 g/dL 6.4-8.2 [facility] Sodium [Moles/Vol] 141 mmol/L 136-145 [facility] WBC (Bld) [#/Vol] 5.8 10*3/uL 4.4-11.0 [facility] Blood erythrocytes count (nu mber/volume)Ordered By: Marilee Capellan on 12-14-2022 RBC (Bld) [#/Vol] 4.43 10*6/uL 4.2-5.4 [facility] Blood hemoglobin measurement (mass/volume)Ordered By: Marilee Capellan on 12-14-2022 Hemoglobin (Bld) [Mass/Vol] 13.4 g/dL 12.0-15.0 [facility] Blood lymphocytes/100 leukoc ytesOrdered By: Marilee Capellan on 12-14-2022 Lymphocytes/100 WBC (Bld) 16.6 % 19-41 [facility] Blood monocytes/100 leukocyt esOrdered By: Marilee Capellan on 12-14-2022 Monocytes/100 WBC (Bld) 6.6 % 0-10 [facility] Blood platelet mean volumeOr dered By: Marilee Capellan on 12-14-2022 Platelet mean volume (Bld) [Entitic vol] 10.7 fL 6.2-12.0 [facility] Determination of erythrocyte mean corpuscular volume (MCV)Ordered By: Marilee Capellan on 12-14-2022 MCV (RBC) [Entitic vol] 95.3 fL 81-99 [facility] Hematocrit Auto (Bld) [Volum e fraction]Ordered By: Marilee Capellan on 12-14-2022 Hematocrit (Bld) [Volume fraction] 42.2 % 37-47 [facility] Laboratory - Chemistry and C hemistry - challengeOrdered By: Marilee Capellan on 12-14-2022 ALP [Catalytic activity/Vol] 104 U/L 45-117 [facility] ALT [Catalytic activity/Vol] 65 U/L 13-56 [facility] CO2 [Moles/Vol] 27.0 mmol/L 21.0-32.0 [facility] Free T4 [Mass/Vol] 0.87 ng/dL 0.76-1.46 [facility] Globulin (S) [Mass/Vol] 4.0 g/dL 2.2-4.2 [facility] Urea nitrogen/Creatinine [Mass ratio] 15.8 mg/mg 10-20 [facility] Laboratory - Hematology and Cell countsOrdered By: Marilee Capellan on 12-14-2022 Erythrocyte distribution width (RBC) [Entitic vol] 44.9 fL 35.1-43.9 [facility] Erythrocyte distribution width (RBC) [Ratio] 12.7 % 11.6-14.6 [facility] Immature granulocytes/100 WBC (Bld) 0.200 % 0.0-0.9 [facility] Comment on above: IG% - Immature Granu locytes (promyelocytes, myelocytes and metamyelocytes) > 1% indicates that a LEFT SHIFT is Present. MCH (RBC) [Entitic mass] 30.2 pg 27.0-32.0 [facility] Nucleated RBC/100 WBC (Bld) [Ratio] 0 % 0-5 [facility] MCHC Auto (RBC) [Mass/Vol]Or dered By: Marilee Capellan on 12-14-2022 MCHC (RBC) [Mass/Vol] 31.8 g/dL 32-36 [facility] No Panel InformationOrdered By: Marilee Capellan on 12-14-2022 Estimated GFR (MDRD) Amer 93 mL/min >60 [facility] Comment on above: GFR Calc Estimated GFR (MDRD) Non-Af Amer 77 mL/min >60 [facility] Comment on above: Non- GFR Calc Thyroid Stimulating Hormone (TSH) 2.26 uIU/mL 0.358-3.74 [facility] Vitamin D 25-Hydroxy 38.8 ng/mL [facility] Comment on above: Vitamin D 25(OH) Sta tus Range Deficiency <20 ng/mL (50nmol/L) Insufficiency 20 - 30 ng/mL (50 - 75 nmol/L) Sufficiency 30 - 100 ng/mL (75 - 250 nmol/L) Toxicity >100 ng/mL (>250 nmol/L) Platelets bldOrdered By: Hazel Alaniss on 12-14-2022 Platelets (Bld) [#/Vol] 236 10*3/uL 150-450 [facility] Serum or plasma albumin sandra urement (mass/volume)Ordered By: Marilee Capellan on 12-14-2022 Albumin [Mass/Vol] 3.8 g/dL 3.2-5.0 [facility] Serum or plasma albumin/glob ulin mass ratioOrdered By: Marileerobbi Capellan on 12-14-2022 Albumin/Globulin [Mass ratio] 1.0 {ratio} 0.9-2.4 [facility] Serum or plasma calcium sandra urement (mass/volume)Ordered By: Marilee Capellan on 12-14-2022 Calcium [Mass/Vol] 9.3 mg/dL 8.5-10.1 [facility] Serum or plasma creatinine m easurement (mass/volume)Ordered By: Marilee Capellan on 12-14-2022 Creatinine [Mass/Vol] 0.82 mg/dL 0.55-1.02 [facility] Comment on above: The validity of the calculated GFR & GFRAA in patients over 70 years has not been determined. Clinical correlation is essential. Serum or plasma thyroperoxid ase antibody assay (units/volume)Ordered By: Marilee Capellan on 12-14-2022 TPO Ab Qn 15 [IU]/mL 0-34 [facility] Comment on above: Performed at: [address] [id number] Director: Parker Ortiz PhD, Phone: [phone] Serum or plasma urea nitroge n measurement (mass/volume)Ordered By: Marilee Capellan on 12-14-2022 Urea nitrogen [Mass/Vol] 13 mg/dL 7-18 [facility] Thin prep Papanicolaou smear with manual screeningOrdered By: Marilee Capellan on 12-14-2022 Thin prep Papanicolaou smear with manual screening 36 U/L 15-37 [facility] Thin prep Papanicolaou smear with manual screening 6 5-15 [facility] ILEOSCOPYon 03-24-2022 [facility] Patient Name: Gabi Mcnulty Procedure Date: 03/24/2022 9:07 AM Date of : 1970 Admit Type: Outpatient Age: 51 Room: Endo 2 Gender: Female Note Status: Finalized Attending MD: Nataliia Rodriguez MD, PhD, [id number] Procedure: Ileoscopy Attending Participation: I personally performed the entire procedure. Indications: History of total proctocolectomy, Inflammatory bowel disease Providers: Nataliia Rodriguez MD, PhD (Doctor), Bishop Reid RN (Nurse), Reba Francis, [employer] ([employer]) Referring MD: Nataliia Rodriguez MD, PhD Complications: No immediate complications. Medicines: Monitored Anesthesia Care Requesting Provider: Procedure: Pre-Anesthesia Assessment: - Prior to the procedure, a History and Physical was performed, and patient medications and allergies were reviewed. The patient's tolerance of previous anesthesia was also reviewed. The risks and benefits of the procedure and the sedation options and risks were discussed with the patient. All questions were answered, and informed consent was obtained. Prior Anticoagulants: The patient has taken no anticoagulant or antiplatelet agents. ASA Grade Assessment: II - A patient with mild systemic disease. After reviewing the risks and benefits, the patient was deemed in satisfactory condition to undergo the procedure. After I obtained informed consent, the scope was passed under direct vision. Throughout the procedure, the patient's blood pressure, pulse, and oxygen saturations were monitored continuously. The pediatric colonoscope was introduced through the ileostomy and advanced to 40 cm into the ileum. The ileoscopy was performed without difficulty. The patient tolerated the procedure well. The quality of the bowel preparation was good. 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 The terminal ileum contained a single 5 mm diverticulum. The remainder of the exam in the terminal ileum was normal. Biopsies were taken with a cold forceps in the distal ileum for histology. Impression: - Ileal diverticulum. - Biopsies were taken with a cold forceps for histology in the distal ileum. - No evidence of active Crohns' disease. Recommendation: - The patient will be observed post-procedure, until all discharge criteria are met. - Resume previous diet. - Continue present medications. - Await pathology results. - Return to my office as previously scheduled. - The findings and recommendations were discussed with the patient's family. 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 All rights reserved. The codes documented in this report are preliminary and upon recording clerk review may be revised to meet current compliance requirements. MD Nataliia Brower MD, PhD 03/24/2022 9:59:46 AM This report has been signed electronically. Number of Addenda: 0 Note Initiated On: 03/24/2022 9:07 AM Estimated Blood Loss: Estimated blood loss was minimal. LAB, [facility] Radiology Study observation (narrative) [facility] PUSH ENTEROSCOPYon 3 [facility] Patient Name: Gabi Mcnulty Procedure Date: 03/24/2022 9:09 AM Date of : 1970 Admit Type: Outpatient Age: 51 Room: Endo 2 Gender: Female Note Status: Finalized Attending MD: Nataliia Rodriguez MD, PhD, [id number] Procedure: Small bowel enteroscopy Attending Participation: I personally performed the entire procedure. Indications: Abnormal abdominal CT, Disease activity assessment of Crohn's disease of the small bowel and colon Providers: Nataliia Rodriguez MD, PhD (Doctor), Bishop Reid RN (Nurse), Reba Francis, [employer] ([employer]) Referring MD: Nataliia Rodriguez MD, PhD Medicines: Monitored Anesthesia Care Requesting Provider: Procedure: Pre-Anesthesia Assessment: - Prior to the procedure, a History and Physical was performed, and patient medications and allergies were reviewed. The patient's tolerance of previous anesthesia was also reviewed. The risks and benefits of the procedure and the sedation options and risks were discussed with the patient. All questions were answered, and informed consent was obtained. Prior Anticoagulants: The patient has taken no anticoagulant or antiplatelet agents. ASA Grade Assessment: II - A patient with mild systemic disease. After reviewing the risks and benefits, the patient was deemed in satisfactory condition to undergo the procedure. After obtaining informed consent, the endoscope was passed under direct vision. Throughout the procedure, the patient's blood pressure, pulse, and oxygen saturations were monitored continuously. The pediatric colonoscope was introduced through the mouth and advanced to the mid jejunum at least 50cm post pylorus. The small bowel enteroscopy was accomplished without difficulty. The patient tolerated the procedure well. Findings: There was no evidence of significant pathology in the mid-jejunum. Biopsies were taken with a cold forceps for histology. There was no evidence of significant pathology in the entire examined duodenum. Bilious fluid was found in the gastric body. Striped mildly erythematous mucosa was found in the gastric antrum. Biopsies were taken with a cold forceps for histology. Patulous pylorus was noted. The exam of the stomach was otherwise normal. The Z-line was regular and was found 40 cm from the incisors. The examined esophagus was normal. Impression: - The examined portion of the jejunum was normal. Biopsied. - Normal examined duodenum. - Bilious gastric fluid, possible bile reflux gastritis. - Erythematous mucosa in the antrum. Biopsied. - Z-line regular, 40 cm from the incisors. - Normal esophagus. - No evidence of active Crohn's disease. Recommendation: - The patient will be observed post-procedure, until all discharge criteria are met. - Resume previous diet. - Continue present medications. - Return to my office as previously scheduled. - The findings and recommendations were discussed with the patient's family. Procedure Code(s): --- Professional --- 16393, Small intestinal endoscopy, enteroscopy beyond second portion of duodenum, not including ileum; with biopsy, single or multiple Diagnosis Code(s): --- Professional --- K31.89, Other diseases of stomach and duodenum K50.80, Crohn's disease of both small and large intestine without complications R93.3, Abnormal findings on diagnostic imaging of other parts of digestive tract CPT copyright 2020 [employer]. All rights reserved. The codes documented in this report are preliminary and upon recording clerk review may be revised to meet current compliance requirements. MD Nataliia Brower MD, PhD 03/24/2022 9:56:10 AM This report has been signed electronically. Number of Addenda: 0 Note Initiated On: 1/ (more content not included)... LAB, [facility] Radiology Study observation (narrative) [facility] Laboratory - Chemistry and C hemistry - challengeon 12-01-2021 Free T4 [Mass/Vol] 0.84 ng/dL 0.76-1.46 [facility] Work Phone: No Panel Informationon 12-01 Thyroid Stimulating Hormone (TSH) 1.64 uIU/mL 0.358-3.74 [facility] Work Phone: CREAT/GFRon 11-10-2021 Creatinine [Mass/Vol] 0.62 mg/dL 0.50 - 1.20 mg/dL [facility] GFR/1.73 sq M.predicted among non-blacks MDRD (S/P/Bld) [Vol rate/Area] mL/min/{1.73_m2} >=60 mL/min/1.73m2 [facility] Comment on above: Reported eGFR equati on is based on the CKD-EPI 2009 equation. Interpretation and review of laboratory results Normal [facility] Test performed at address of the patient encounter. [facility] Absolute lymphocyte counton 11-04-2021 Lymphocytes Auto (Unsp spec) [#/Vol] 1.12 10*3/uL 0.83-4.51 [facility] Work Phone: Basophil percentageon 2021 Basophils/100 WBC (Bld) 0.6 % 0-1 [facility] Work Phone: Bilirubin [Mass/Vol] 0.50 mg/dL 0.20-1.00 [facility] Work Phone: Comment on above: For patients on eltr ombopag therapy, use of Dimension [place] TBIL is not recommended. Eosinophils/100 WBC (Bld) 0.7 % 0-5 [facility] Work Phone: Neutrophils (Bld) [#/Vol] 5.2 10*3/uL 2.0-7.7 [facility] Work Phone: Neutrophils/100 WBC (Bld) 75.2 % 47-70 [facility] Work Phone: Protein [Mass/Vol] 8.0 g/dL 6.4-8.2 [facility] Work Phone: WBC (Bld) [#/Vol] 6.9 10*3/uL 4.4-11.0 [facility] Work Phone: Blood erythrocytes count (nu mber/volume)on 11-04-2021 RBC (Bld) [#/Vol] 4.35 10*6/uL 4.2-5.4 [facility] Work Phone: Blood hemoglobin measurement (mass/volume)on 11-04-2021 Hemoglobin (Bld) [Mass/Vol] 13.5 g/dL 12.0-15.0 [facility] Work Phone: Blood lymphocytes/100 leukoc yteson 11-04-2021 Lymphocytes/100 WBC (Bld) 16.3 % 19-41 [facility] Work Phone: Blood monocytes/100 leukocyt eson 11-04-2021 Monocytes/100 WBC (Bld) 7.1 % 0-10 [facility] Work Phone: Blood platelet mean volumeon 11-04-2021 Platelet mean volume (Bld) [Entitic vol] 10.9 fL 6.2-12.0 [facility] Work Phone: Determination of erythrocyte mean corpuscular volume (MCV)on 11-04-2021 MCV (RBC) [Entitic vol] 92.2 fL 81-99 [facility] Work Phone: Direct bilirubinon 2 Bilirubin.direct [Mass/Vol] 0.08 mg/dL 0.00-0.30 [facility] Work Phone: Erythrocyte sedimentation ra dolores 11-04-2021 ESR (Bld) [Velocity] 15 mm/h 0-30 [facility] Work Phone: Hematocrit Auto (Bld) [Volum e fraction]on 11-04-2021 Hematocrit (Bld) [Volume fraction] 40.1 % 37-47 [facility] Work Phone: Laboratory - Chemistry and C hemistry - challengeon 11-04-2021 ALP [Catalytic activity/Vol] 127 U/L 45-117 [facility] Work Phone: ALT [Catalytic activity/Vol] 58 U/L 13-56 [facility] Work Phone: Globulin (S) [Mass/Vol] 4.0 g/dL 2.2-4.2 [facility] Work Phone: Laboratory - Hematology and Cell countson 11-04-2021 Erythrocyte distribution width (RBC) [Entitic vol] 42.4 fL 35.1-43.9 [facility] Work Phone: Erythrocyte distribution width (RBC) [Ratio] 12.4 % 11.6-14.6 [facility] Work Phone: Immature granulocytes/100 WBC (Bld) 0.100 % 0.0-0.9 [facility] Work Phone: Comment on above: IG% - Immature Granu locytes (promyelocytes, myelocytes and metamyelocytes) > 1% indicates that a LEFT SHIFT is Present. MCH (RBC) [Entitic mass] 31.0 pg 27.0-32.0 [facility] Work Phone: Nucleated RBC/100 WBC (Bld) [Ratio] 0 % 0-5 [facility] Work Phone: MCHC Auto (RBC) [Mass/Vol]on 11-04-2021 MCHC (RBC) [Mass/Vol] 33.7 g/dL 32-36 [facility] Work Phone: Platelets bldon 11-04-2021 Platelets (Bld) [#/Vol] 229 10*3/uL 150-450 [facility] Work Phone: Serum or plasma C reactive p rotein measurement (mass/volume)on 11-04-2021 CRP [Mass/Vol] 5.08 mg/L 0.0-3.0 [facility] Work Phone: Comment on above: C-Reactive Protein ( CRP) provides useful information for thediagnosis, therapy and monitoring of inflammatory processesand associated diseases. For the evaluation of Relative Riskfor Cardiovascular Disease, a High Sensitivity CRP (HSCRP)should be ordered. Serum or plasma albumin sandra urement (mass/volume)on 11-04-2021 Albumin [Mass/Vol] 4.0 g/dL 3.2-5.0 [facility] Work Phone: Serum rheumatoid factor dete ctionon 11-04-2021 Rheumatoid factor Ql (S) < 10.0 IU/mL <15 [facility] Work Phone: Thin prep Papanicolaou smear with manual screeningon 11-04-2021 Thin prep Papanicolaou smear with manual screening 42 U/L 15-37 [facility] Work Phone: Basophil percentageon 2021 Bilirubin [Mass/Vol] 0.30 mg/dL 0.20-1.00 [facility] Work Phone: Comment on above: For patients on eltr ombopag therapy, use of Dimension [place] TBIL is not recommended. Chloride [Moles/Vol] 110 mmol/L 98-107 [facility] Work Phone: Glucose [Mass/Vol] 97 mg/dL 74-106 [facility] Work Phone: Potassium [Moles/Vol] 3.7 mmol/L 3.5-5.1 [facility] Work Phone: Protein [Mass/Vol] 7.2 g/dL 6.4-8.2 [facility] Work Phone: Sodium [Moles/Vol] 141 mmol/L 136-145 [facility] Work Phone: Laboratory - Chemistry and C hemistry - challengeon 06-04-2021 ALP [Catalytic activity/Vol] 107 U/L 45-117 [facility] Work Phone: ALT [Catalytic activity/Vol] 51 U/L 13-56 [facility] Work Phone: CO2 [Moles/Vol] 27.0 mmol/L 21.0-32.0 [facility] Work Phone: Globulin (S) [Mass/Vol] 3.6 g/dL 2.2-4.2 [facility] Work Phone: Urea nitrogen/Creatinine [Mass ratio] 14.8 mg/mg 10-20 [facility] Work Phone: No Panel Informationon 06-04 Estimated GFR (MDRD) Amer 106 mL/min >60 [facility] Work Phone: Comment on above: GFR Calc Estimated GFR (MDRD) Non-Af Amer 87 mL/min >60 [facility] Work Phone: Comment on above: Non- GFR Calc Vitamin D 25-Hydroxy 31.4 ng/mL [facility] Work Phone: Comment on above: Vitamin D 25(OH) Sta tus Range Deficiency <20 ng/mL (50nmol/L) Insufficiency 20 - 30 ng/mL (50 - 75 nmol/L) Sufficiency 30 - 100 ng/mL (75 - 250 nmol/L) Toxicity >100 ng/mL (>250 nmol/L) Serum or plasma albumin sandra urement (mass/volume)on 06-04-2021 Albumin [Mass/Vol] 3.6 g/dL 3.2-5.0 [facility] Work Phone: Serum or plasma albumin/glob ulin mass ratioon 06-04-2021 Albumin/Globulin [Mass ratio] 1.0 {ratio} 0.9-2.4 [facility] Work Phone: Serum or plasma calcium sandra urement (mass/volume)on 06-04-2021 Calcium [Mass/Vol] 8.6 mg/dL 8.5-10.1 [facility] Work Phone: Serum or plasma creatinine m easurement (mass/volume)on 06-04-2021 Creatinine [Mass/Vol] 0.74 mg/dL 0.55-1.02 [facility] Work Phone: Comment on above: The validity of the calculated GFR & GFRAA in patients over 70 years has not been determined. Clinical correlation is essential. Serum or plasma urea nitroge n measurement (mass/volume)on 06-04-2021 Urea nitrogen [Mass/Vol] 11 mg/dL 7-18 [facility] Work Phone: Thin prep Papanicolaou smear with manual screeningon 06-04-2021 Thin prep Papanicolaou smear with manual screening 32 U/L 15-37 [facility] Work Phone: Thin prep Papanicolaou smear with manual screening 4 5-15 [facility] Work Phone: Vital Signs Date Time Vital Sign Value Performing Clinician Faci lity 07-02-2024 08:12-0400 Body height 157.5 cm Nataliia Rodriguez MD Work Phone: [facility] 07-02-2024 08:12-0400 Body mass index (BMI) [Ratio] 22.86 kg/m2 Nataliia Rodriguez MD Work Phone: [facility] 07-02-2024 08:12-0400 Body weight 56.7 kg Nataliia Rodriguez MD Work Phone: [facility] 07-02-2024 08:12-0400 Diastolic blood pressure 61 mm[Hg] Nataliia Rodriguez MD Work Phone: [facility] 07-02-2024 08:12-0400 Systolic blood pressure 112 mm[Hg] Natailia Rodirguez MD Work Phone: [facility] 01-19-2024 15:46-0500 Body height 157.[address] Helen Guzman MD Work Phone: 3(500)570-179216 [address] 01-19-2024 15:43-0500 Body mass index (BMI) [Ratio] 22.6 kg/m2 Dr. Helen Guzman MD Work Phone: 5(051)249-279508 [place] [address] 01-19-2024 15:43-0500 Body weight 56.[address] Helen Guzman MD Work Phone: 9(487)716-881725 [place] [address] 01-19-2024 15:43-0500 Diastolic blood pressure 71 mm[Hg] Dr. Helen Guzman MD Work Phone: 1(088)216-343616 [address] 01-19-2024 15:43-0500 Systolic blood pressure 107 mm[Hg] Dr. Helen Guzamn MD Work Phone: 2(810)224-831325 [place] [address] 12-30-2022 13:06-0400 Body height 157.[address] Helen Guzman Work Phone: 0(076)370-402216 [address] 12-30-2022 13:06-0400 Body mass index (BMI) [Ratio] 21.8 kg/m2 Dr. Helen Guzman Work Phone: 0(940)419-692116 [address] 12-30-2022 13:06-0400 Body weight 54.[address] Helen Guzman Work Phone: 4(468)583-658425 [place] [address] 12-30-2022 13:06-0400 Diastolic blood pressure 80 mm[Hg] Dr. Helen Guzman Work Phone: 9(444)085-933716 [address] 12-30-2022 13:06-0400 Systolic blood pressure 126 mm[Hg] Dr. Helen Guzman Work Phone: 7(095)358-795108 [place] [address] 12-14-2022 08:53-0400 Body height 157.[address] Helen Guzman Work Phone: 8(683)765-831325 [place] [address] 12-14-2022 08:48-0400 Body mass index (BMI) [Ratio] 22.1 kg/m2 Dr. Helen Guzman Work Phone: 5(458)924-941308 [place] [address] 12-14-2022 08:48-0400 Body weight 55.[address] Helen Guzman Work Phone: [facility] 12-14-2022 08:48-0400 Diastolic blood pressure 68 mm[Hg] Dr. Helen Guzman Work Phone: [facility] 12-14-2022 08:48-0400 Systolic blood pressure 110 mm[Hg] Dr. Helen Guzman Work Phone: [facility] 10-08-2022 16:04-0400 Body height 157.48 cm [facility] 07-06-2022 16:37-0400 Body temperature 97 [degF] Dr. Helen Guzman Work Phone: [facility] 07-06-2022 16:37-0400 Diastolic blood pressure 61 mm[Hg] Dr. Helen Guzman Work Phone: [facility] 07-06-2022 16:37-0400 Heart rate 70 /min Dr. Helen Guzman Work Phone: [facility] 07-06-2022 16:37-0400 Respiratory rate 16 /min Dr. Helen Guzman Work Phone: [facility] 07-06-2022 16:37-0400 SaO2% (BldA) [Mass fraction] 99 % Dr. Helen Guzman Work Phone: [facility] 07-06-2022 16:37-0400 Systolic blood pressure 119 mm[Hg] Dr. Helen Guzman Work Phone: [facility] 07-06-2022 16:11-0400 Body height 157.[address] Helen Guzman Work Phone: [facility] 07-06-2022 16:11-0400 Body mass index (BMI) [Ratio] 21.2 kg/m2 Dr. Helen Guzman Work Phone: [facility] 07-06-2022 16:11-0400 Body weight 52.[address] Helen Guzman Work Phone: [facility] 05-28-2022 16:04-0400 Body mass index (BMI) [Ratio] 21.2 kg/m2 Dr. Helen Guzman Work Phone: [facility] 05-28-2022 16:04-0400 Body temperature 98.2 [degF] Dr. Helen Guzman Work Phone: [facility] 05-28-2022 16:04-0400 Body weight 52.[address] Helen Guzman Work Phone: [facility] 05-28-2022 16:04-0400 Diastolic blood pressure 68 mm[Hg] Dr. Helen Guzman Work Phone: [facility] 05-28-2022 16:04-0400 Heart rate 71 /min Dr. Helen Guzman Work Phone: [facility] 05-28-2022 16:04-0400 Respiratory rate 18 /min Dr. Helen Guzman Work Phone: [facility] 05-28-2022 16:04-0400 SaO2% (BldA) [Mass fraction] 98 % Dr. Helen Guzman Work Phone: [facility] 05-28-2022 16:04-0400 Systolic blood pressure 106 mm[Hg] Dr. Helen Guzman Work Phone: [facility] 12-01-2021 13:43-0400 Body height 157.[address] Helen Guzman Work Phone: [facility] Work Phone: 12-01-2021 13:43-0400 Body mass index (BMI) [Ratio] 21.9 kg/m2 Dr. Helen Guzman Work Phone: [facility] Work Phone: 12-01-2021 13:43-0400 Body weight 54.[address] Helen Guzman Work Phone: [facility] Work Phone: 12-01-2021 13:43-0400 Diastolic blood pressure 77 mm[Hg] Dr. Helen Guzman Work Phone: [facility] Work Phone: 12-01-2021 13:43-0400 Systolic blood pressure 117 mm[Hg] Dr. Helen Guzman Work Phone: [facility] Work Phone: 11-10-2021 12:39-0400 Diastolic blood pressure 54 mm[Hg] Nataliia Rodriguez MD, PhD Work Phone: 5(375)675-453281 [place] [address] 11-10-2021 12:39-0400 Heart rate 75 /min Nataliia Rodriguez MD, PhD Work Phone: 8(870)417-469381 [place] [address] 11-10-2021 12:39-0400 Systolic blood pressure 110 mm[Hg] Nataliia Rodriguez MD, PhD Work Phone: 8(289)432-468981 [place] [address] 10-29-2021 16:00-0400 Body height 157.5 cm Nataliia Rodriguez MD, PhD Work Phone: 6(847)971-420081 [place] [address] 10-29-2021 16:00-0400 Body mass index (BMI) [Ratio] 21.29 kg/m2 Nataliia Rodriguez MD, PhD Work Phone: 1(701)252-133781 [place] [address] 10-29-2021 16:00-0400 Body temperature 97.2 [degF] Nataliia Rodriguez MD, PhD Work Phone: 6(940)819-613081 [place] [address] 10-29-2021 16:00-0400 Body weight 52.8 kg Nataliia Rodriguez MD, PhD Work Phone: 9(743)795-246581 [place] [address] 10-29-2021 16:00-0400 Diastolic blood pressure 52 mm[Hg] Nataliia Rodriguez MD, PhD Work Phone: 1(899)266-594781 [place] [address] 10-29-2021 16:00-0400 Heart rate 86 /min Nataliia Rodriguez MD, PhD Work Phone: 5(909)235-165181 [place] [address] 10-29-2021 16:00-0400 SaO2% (BldA) [Mass fraction] 98 % Nataliia Rodriguez MD, PhD Work Phone: [facility] 10-29-2021 16:00-0400 Systolic blood pressure 103 mm[Hg] Nataliia Rodriguez MD, PhD Work Phone: [facility] 06-16-2021 15:49-0400 Body temperature 98.6 [degF] Dr. Helen Guzman Work Phone: [facility] Work Phone: 06-16-2021 15:49-0400 Diastolic blood pressure 65 mm[Hg] Dr. Helen Guzman Work Phone: [facility] Work Phone: 06-16-2021 15:49-0400 Heart rate 78 /min Dr. Helen Guzman Work Phone: [facility] Work Phone: 06-16-2021 15:49-0400 Respiratory rate 16 /min Dr. Helen Guzman Work Phone: [facility] Work Phone: 06-16-2021 15:49-0400 SaO2% (BldA) [Mass fraction] 98 % Dr. Helen Guzman Work Phone: [facility] Work Phone: 06-16-2021 15:49-0400 Systolic blood pressure 106 mm[Hg] Dr. Helen Guzman Work Phone: [facility] Work Phone: 06-16-2021 15:12-0400 Body height 157.[address] Helen Guzman Work Phone: [facility] Work Phone: 06-16-2021 15:12-0400 Body mass index (BMI) [Ratio] 21.9 kg/m2 Dr. Helen Guzman Work Phone: [facility] Work Phone: 06-16-2021 15:12-0400 Body weight 54.[address] Helen Guzman Work Phone: [facility] Work Phone: 05-29-2021 16:07-0400 Body height 160.[address] Helen Guzman Work Phone: [facility] Work Phone: 05-29-2021 16:07-0400 Body mass index (BMI) [Ratio] 21.6 kg/m2 Dr. Helen Guzman Work Phone: [facility] Work Phone: 05-29-2021 16:07-0400 Body temperature 96.1 [degF] Dr. eHlen Guzman Work Phone: [facility] Work Phone: 05-29-2021 16:07-0400 Body weight 55.[address] Helen Guzman Work Phone: [facility] Work Phone: 05-29-2021 16:07-0400 Diastolic blood pressure 80 mm[Hg] Dr. Helen Guzman Work Phone: [facility] Work Phone: 05-29-2021 16:07-0400 Heart rate 65 /min Dr. Helen Guzman Work Phone: [facility] Work Phone: 05-29-2021 16:07-0400 Respiratory rate 16 /min Dr. Helen Guzman Work Phone: [facility] Work Phone: 05-29-2021 16:07-0400 SaO2% (BldA) [Mass fraction] 97 % Dr. Helen Guzman Work Phone: [facility] Work Phone: 05-29-2021 16:07-0400 Systolic blood pressure 112 mm[Hg] Dr. Helen Guzman Work Phone: [facility] Work Phone: Encounters Encounter Date Encounter Type Care Provider Facility Start: 08-21-2024 End: 08-21-[address] Helen Guzman MD Work Phone: -[facility] Start: 08-21-2024 End: 08-21-[address] Helen Guzman MD Work Phone: [facility] Work Phone: Start: 08-21-2024 End: 08-21-2024 ambulatory DIPTI BACK Facility:[facility] Start: 07-17-2024 End: 07-17-[address] Helen Guzman MD Work Phone: -[facility] Work Phone: Start: 07-17-2024 End: 07-17-2024 ambulatory Helen Guzman Facility:[facility] Start: 07-02-2024 ambulatory NA LI Facility:[facility] Start: 07-02-2024 End: 07-02-2024 Subsequent hospital visit by physician Nataliia Rodriguez MD Work Phone: [facility] [place] Comment on above: Arrived Start: 06-07-2024 End: 06-07-[address] Helen Guzman MD Work Phone: [facility] Work Phone: Start: 06-07-2024 End: 06-07-[address] Helen Guzman MD Work Phone: -[facility] Work Phone: Start: 06-07-2024 End: 06-07-2024 ambulatory Helen Guzman Facility:[facility] Start: 05-30-2024 ambulatory NA LI Facility:[facility] Start: 05-04-2024 End: 05-04-[address] Helen Guzman MD Work Phone: [facility] Work Phone: Start: 05-04-2024 End: 05-04-2024 Patient encounter procedure Marilee Capellan [employer]ANCE [employer]GER-C -Laboratory Work Phone: Start: 05-04-2024 End: 05-04-2024 ambulatory Marilee Marilia [employer] COMPLIANCE MANAGER Facility:[facility] Start: 01-19-2024 End: 01-19-2024 Patient encounter procedure Marilee Capellan [employer]PLIANCE MANAGER-C [facility] Work Phone: Start: 01-19-2024 End: 01-19-2024 ambulatory Helen Guzman Facility:[facility] Start: 01-19-2024 End: 01-19-2024 ambulatory Marilee Capellan TAX COMPLIANCE MANAGER Facility:[facility] Start: 12-21-2023 End: 12-21-2023 ambulatory Marilee [place] TAX COMPLIANCE MANAGER Facility:[facility] Start: 12-21-2023 End: 12-21-2023 ambulatory Marilee [place] TAX COMPLIANCE MANAGER Facility:[facility] Start: 10-02-2023 End: 10-02-2023 Emergency department patient visit Joseph Petty Facility:[facility] Start: 03-18-2023 End: 03-18-[address] Helen Guzman Work Phone: [facility] Work Phone: Start: 03-18-2023 End: 03-18-[address] Helen Guzman Work Phone: [facility] Work Phone: Start: 01-01-2023 End: 01-01-[address] Helen Guzman Work Phone: [facility] Work Phone: Start: 01-01-2023 End: 01-01-[address] Helen Guzman Work Phone: [facility] Work Phone: Start: 12-30-2022 End: 12-30-[address] Helen Guzman Work Phone: [facility] Work Phone: Start: 12-14-2022 End: 12-14-[address] Helen Guzman Work Phone: [facility] Work Phone: Start: 12-14-2022 End: 12-14-[address] Helen Guzman Work Phone: [facility] Work Phone: Start: 11-05-2022 End: 11-05-2022 ambulatory [facility] Work Phone: Start: 11-05-2022 End: 11-05-2022 Patient encounter procedure [facility]-Outpatient Breast Imaging Work Phone: Start: 10-08-2022 End: 10-08-2022 ambulatory [facility] Work Phone: Start: 10-08-2022 End: 10-08-2022 Patient encounter procedure [facility]-Outpatient Bone Densitometry Work Phone: Start: 07-06-2022 End: 07-06-[address] Helen Guzman Work Phone: [facility] Work Phone: Start: 07-06-2022 End: 07-06-[address] Helen Guzman Work Phone: [facility] Out Start: 05-28-2022 End: 05-28-[address] Helen Guzman Work Phone: [facility] Start: 03-24-2022 End: 03-24-2022 Subsequent hospital visit by physician Nataliia Rodrgiuez MD, PhD Work Phone: [facility] [place] Comment on above: Arrived Start: 12-08-2021 End: 12-08-[address] Helen Guzman Work Phone: [facility] Work Phone: Start: 12-08-2021 End: 12-08-[address] Helen Guzman Work Phone: [facility] Start: 12-01-2021 End: 12-01-[address] Helen Guzman Work Phone: [facility] Work Phone: Start: 12-01-2021 End: 12-01-[address] Helen Guzman Work Phone: [facility] Start: 11-10-2021 End: 11-10-2021 Subsequent hospital visit by physician Nataliia Rodriguez MD, PhD Work Phone: Imaging [facility] Outpatient [facility] Comment on above: Arrived Start: 11-04-2021 End: 11-04-2021 ambulatory [facility] Work Phone: Start: 11-04-2021 End: 11-04-2021 Patient encounter procedure [facility] Start: 10-30-2021 End: 10-30-2021 ambulatory [facility] Work Phone: Start: 10-30-2021 End: 10-30-2021 Patient encounter procedure [facility]-Outpatient Breast Imaging Start: 10-29-2021 End: 10-29-2021 Office outpatient visit 25 minutes aNtaliia Rodriguez MD, PhD Work Phone: Gastroenterology and Hepatology [facility] Comment on above: Crohn's disease of l arge intestine with complication (Primary Dx); Ileostomy in place; Status post total colectomy; Elevated liver enzymes; H/O resection of liver Start: 06-16-2021 End: 06-16-[address] Helen Guzman Work Phone: [facility] Start: 06-04-2021 End: 06-04-[address] Helen Guzman Work Phone: [facility] Start: 05-29-2021 End: 05-29-[address] Helen Guzman Work Phone: [facility] Start: 06-22-2006 End: 06-22-2006 Nursing evaluation of patient and report Marly ([facility]) ([facility] Work Phone: Colorectal Surgery Comment on above: REGIONAL ENTERITIS N OS (Primary Dx) Procedures Date Procedure Procedure Detail Performing Clinician Start: 08-21-2024 Vitamin D, 25-hydrox y measurement Dr. Helen Guzman MD Work Phone: Comment on above: Vitamin D StatusDefi ciency: <20 ng/mL (50nmol/L)Insufficiency: 20-30 ng/mL (50-75 nmol/L)Sufficiency: 30-100 ng/mL (75-250 nmol/L)Toxicity: >100 ng/mL (>250 nmol/L) Start: 06-07-2024 Total iron binding c apacity measurement Dr. Helen Guzman MD Work Phone: Start: 01-01-[address] [place] Guzman Work Phone: Start: 01-01-2023 US scan of thyroid Dr. Helen Guzman Work Phone: Start: 11-05-2022 Screening mammography Start: 10-08-2022 Dual energy X-ray absorptiometry Start: 03-24-2022 PUSH ENTEROSCOPY Nataliia Rodriguez MD, PhD Work Phone: Start: 03-24-2022 ILEOSCOPY Nataliia Rodriguez MD, PhD Work Phone: Start: 12-08-2021 US scan of thyroid Dr. Helen Guzman Work Phone: Start: 11-10-2021 Creatinine blood Nataliia Rodriguez MD, PhD Work Phone: Start: 10-30-2021 Screening mammography Start: 03-10-2016 Mammography Marly Hicks [facility]ini Work Phone: Start: 04-20-2013 Lipid 1996 panel - S soledad or Plasma Nataliia Rodriguez MD, PhD Work Phone: Start: 10-26-2012 Colonoscopy Marly dumont Work Phone: Plan of Treatment Date Care Activity Detail Author Start: 10-30-2024 Influenza vaccination INFLUENZ A VACCINE (Season Ended) [facility] Start: 10-18-2024 Tetanus vaccination TETANUS [facility] Start: 11-03-2023 Pneumococcal vaccination PNEUM OCOCCAL VACCINE SERIES (3 of 3 - PCV20 or PCV21) [facility] Start: 10-31-2023 COVID-19 VACCINE ( season) COVID-19 VACCINE ( season) [facility] Start: 07-06-2022 Iv infusion therapy/prophylaxis /dx 1st to 1 hr THER/PROPH/DIAG IV INF [facility] Start: 12-19-2021 Zoster vaccine hzv l fortunato for subcutaneous use ZOSTER (SHINGLES) VACCINE (2 of 2) [facility] Start: 11-10-2021 Subsequent hospital visit by physician 11/10/2021 Hospital Encounter Computerized Tomography Scan Nataliia Rodriguez MD, PhD [address] [facility] [address] [place] [address] Imaging [facility] Start: 10-30-2021 Influenza vaccination INFLUENZA VACC INE (#1) [facility] Start: 10-29-2021 End: 10-29-2022 C-reactive protein C REACTIVE PROTEIN Lab Routine Crohn's disease of large intestine with complication Ileostomy in place Status post total colectomy Expected: 10/29/2021, Expires: 10/29/[address] [facility] Comment on above: Expected: 10/29/2021 , Expires: 10/29/2022 Start: 10-29-2021 End: 10-29-2022 Complete blood count with white cell differential, automated CBC, EDIF, PLATELET Lab Routine Crohn's disease of large intestine with complication Ileostomy in place Status post total colectomy Expected: 10/29/2021, Expires: 10/29/[address] [facility] Comment on above: Expected: 10/29/2021 , Expires: 10/29/2022 Start: 10-29-2021 End: 10-29-[address] ENTEROGRAPHY Imaging Routine Crohn's disease of large intestine with complication Ileostomy in place Status post total colectomy Expected: 10/29/2021, Expires: 10/29/[address] [facility] Comment on above: Expected: 10/29/2021 , Expires: 10/29/2022 Start: 10-29-2021 End: 10-29-2022 Hepatic function 2000 panel - Serum or Plasma HEPATIC FUNCTION PANEL Lab Routine Crohn's disease of large intestine with complication Ileostomy in place Status post total colectomy Elevated liver enzymes H/O resection of liver Expected: 10/29/2021, Expires: 10/29/[address] [facility] Comment on above: Expected: 10/29/2021 , Expires: 10/29/2022 Start: 10-29-2021 End: 10-29-2022 RHEUMATOID FACTOR RHEUMATOID FACTOR Lab Routine Crohn's disease of large intestine with complication Ileostomy in place Status post total colectomy Expected: 10/29/2021, Expires: 10/29/[address] [facility] Comment on above: Expected: 10/29/2021 , Expires: 10/29/2022 Start: 10-29-2021 End: 10-29-2022 SEDIMENTATION RATE, AUTOMATED SEDIMENTATION RATE, AUTOMATED Lab Routine Crohn's disease of large intestine with complication Ileostomy in place Status post total colectomy Expected: 10/29/2021, Expires: 10/29/[address] [facility] Comment on above: Expected: 10/29/2021 , Expires: 10/29/2022 Start: 06-16-2021 Iv infusion therapy/prophylaxis /dx 1st to 1 hr [facility] Work [facility] Start: 01-22-2021 Screening for malign ant neoplasm of breast MAMMOGRAM SCREENING DISCUSSION [facility] Start: 01-22-2021 Screening mammography MAMMOGRA M SCREENING DISCUSSION [facility] Start: 10-30-2020 Influenza vaccination INFLUENZ A (Season Ended) [facility] Start: 09-19-2020 Colonoscopy COLORECTAL CAN CER SCREENING DISCUSSION [facility] Start: 09-19-2020 Screening for malign ant neoplasm of colon COLORECTAL CANCER SCREENING DISCUSSION [facility] Start: 01-23-2019 HPV TESTING HPV TESTING [facility] Start: 01-23-2019 PAP TESTING PAP TESTING [facility] Start: 2018 Screening for malign ant neoplasm of colon [facility] Start: 2018 SHINGRIX VACCINE (1 of 2) SHINGRIX VACCINE (1 of 2) [facility] Start: 2018 Zoster vaccine hzv l fortunato for subcutaneous use ZOSTER (SHINGLES) VACCINE (1 of 2) [facility] Start: 04-20-2018 Fasting lipid profile LIPID SCREENIN G [facility] Start: 04-20-2018 Lipid panel LIPID SCREENING [facility] Start: 03-10-2017 Mammography MAMMOGRAM [facility] Start: 12-15-2016 LIPID SCREEN LIPID SCREEN [facility] Start: 09-29-2015 DIABETES SCREEN DIABETES SCREEN [facility] Start: 1989 Screening for malign ant neoplasm of cervix CERVICAL CANCER SCREENING DISCUSSION [facility] Start: 12-11-1987 Third diphtheria, tetanus and acellular pertussis (DTaP) vaccination TDAP (ADULT) [facility] Start: 12-11-1987 Urine microalbumin profile DTAP,TDAP,TD (1 - Tdap) [facility] Start: 1986 HEPATITIS C SCREENING HEPATITIS C SC TONINING [facility] Start: 1986 HIV SCREENING HIV SCREENING [facility] Start: 1986 Tetanus vaccination TETANUS [facility] Start: 12-11-1983 HIV screening HIV SCREENING DISCUSSION [facility] Start: 1980 Adult depression screening assessment DEPRESSION SCREENING [facility] Start: 1980 COVID-19 VACCINE (1) COVID-19 VACCIN E (1) [facility] Start: 06-10-1969 COVID-19 VACCINE (#1) COVID-19 VACCI NE (#1) [facility] End: 11-10-2021 CT enterography [facility] Comment on above: 1 Occurrences starti ng 11/10/2021 until 11/10/2021 End: 07-02-2024 CT enterography [facility] Comment on above: 1 Occurrences starti ng 07/02/2024 until 07/02/2024 MG Breast - bilatera l Screening [facility] Work Phone: SURG PATH REQUEST [facility] Comment on above: Release Upon Orderin g for 1 Occurrences starting 03/24/2022, 1 completed US Thyroid gland [facility] Work Phone: US Thyroid gland [facility] Vitamin D, 25-hydrox y measurement [facility] Immunizations Immunization Date Immunization Notes Care Provider Delmer hernández 10-24-2021 zoster vaccine, unspecified formulation Nataliia Rodriguez MD, PhD Work Phone: [facility] 11-29-2020 influenza virus vaccine, unspecified formulation Nataliia Rodriguez MD, PhD Work Phone: [facility] Payers Date Payer Category Payer Self-pay [id number] 2020 Managed Care (unspecified) [employer] JOE [id number] 2020 Private Health Insurance AESANDIE JOE [id number] 2020-Present [address] [place] [address] [id number] 2020 Unknown [id number] 2015 Private Health Insurance [id number] 2002 Unknown BARBIE VILLANUEVA PPO [id number] 2002-2015 PPO [id number] 1968 Unknown [id number] 1968 Unknown [id number] Unknown [id number] Unknown [id number] Unknown [id number] Unknown [id number] .462 Unknown [id number] Unknown [id number] Unknown [id number] Unknown [id number] Unknown [id number] Social History Date Type Detail Facility Start: 12-24-2005 End: 10-02-2023 Tobacco smoking status NMIS Never smoker [facility] Start: 12-24-2005 End: 07-02-2024 Alcohol intake Current drinker of alcohol (finding) [facility] Start: 1970 Sex Assigned At Not on file [facility] Start: 05-29-2021 End: 12-14-2022 Tobacco smoking status NHIS Unknown if ever smoked [facility] Start: 1970 Sex Assigned At Female [facility] Start: 04-19-2013 Tobacco use and exposure Smokeless tobacco non-user [facility] Start: 10-29-2021 End: 05-30-2024 Alcohol intake [facility] Start: 06-07-2020 History SDOH Alcohol Comment once or twice a year per [facility] Start: 03-14-2022 End: 03-24-2022 Exposure to SARS-CoV-2 (event) Unable to assess [facility] Start: 02-07-2013 End: 05-18-2024 Sex Female (finding) [facility] Start: 05-30-2024 Tobacco use panel [facility] Gender identity Identifies as fe male gender (finding) [facility] Start: 05-30-2024 Sexual orientation Heterosexual (fin ding) [facility] Functional Status Date Assessment Result Facility 07-02-2020 Are you deaf, or do you have serious difficulty hearing No 07/02/2020 1:00 PM Jaleel Jc, RN No [facility] 07-02-2020 Are you blind, or do you have serious difficulty seeing, even when wearing glasses No 07/02/2020 1:00 PM Jaleel Jc, RN No [facility] 07-02-2020 Do you have serious difficulty walking or climbing stairs No 07/02/2020 1:00 PM Jaleel Jc, RN No [facility] 07-02-2020 Do you have difficul ty dressing or bathing No 07/02/2020 1:00 PM Jaleel Jc, RN No [facility] 07-02-2020 Because of a physica l, mental, or emotional condition, do you have difficulty doing errands alone such as visiting a physician's office or shopping No 07/02/2020 1:00 PM EDT Jaleel Cervantes, RN No [facility] Mental Status Date Assessment Result Facility 07-06-2022 Cognitive function Voice/Name [facility] Work Phone: 06-16-2021 Cognitive function Awake;Alert;A ppropriate; Follows Commands [facility] Work Phone: 07-02-2020 Because of a physica l, mental, or emotional condition, do you have serious difficulty concentrating, remembering, or making decisions No 07/02/2020 1:00 PM EDT Jaleel Cervantes, RN No [facility] Clinical Notes 06-22-2006 to 01-19-2024 Note Date & Type Note Facility 01-19-2024 Evaluation note Diagnosis Onset Date Resolution Atrophic vaginitis acute Novemb 2023 3:41pm Climacteric acute December 3:41pm Family history of breast cancer in sister acute January 19, 2024 3:41pm Lichen sclerosus acute January 19, 2024 3:41pm [facility] Work Phone: 1(538) 919-871401-24-2023 Note* Nursing Notes - Edenilson Reid RN - 03/24/2022 9:04 AM EST Vital signs and patient assessments documented per anesthesia. [facility]01-24-2023 Miscellaneous Notes* Nursing Notes - Edenilson Reid RN - 03/24/2022 9:04 AM EST Vital signs and patient assessments documented per anesthesia. documented [facility] History and physical note* Nataliia Rodriguez MD, PhD - 03/24/2022 8:45 AM EST ENDOSCOPIC PREPROCEDURE HISTORY AND PHYSICAL HISTORY OF PRESENT ILLNESS: Gabi Mcnulty is a 51 y.o. female seen in the pre-procedure area at [facility]. The indication for endoscopic evaluation [...] Laterality: Right; Surgeon: Wilfrido Earl MD; [facility] COL[facility] DIAGNOSTIC N/A 11/22/2017 Laterality: N/A; Surgeon: Nataliia Rodriguez MD, PhD; Location: [facility] COLONOSCOPY DIAGNOSTIC N/A 12/21/2016 Laterality: N/A; Surgeon: Nataliia Rodriguez MD,PhD; Location: [facility] COLONOSCOPY W/ BX N/A 10/16/2014 Laterality: N/A; Surgeon: NAI Aleman; Location: [facility] COLONOSCOPY W/ ULTRASOUND N/A 10/16/2013 Laterality: N/A; Surgeon: Juan Henderson MD,PhD; Location: [facility] REMOVAL COLON/ILEOSTOMY Right 2006 COLONOSCOPY widely patent [...] SOSY 1 mL, 1 mL, Intradermal, PRN, MD Dex, PhD Facility-Administered Medications Ordered in Other Encounters: [...] Soft, nontender, nondistended ileostomy present ASSESSMENT: Gabi Mcnulty is a 51 y.o. female is ready for the planned procedure. ASA Class: ASA 2 - Patient with mild systemic disease with no functional limitations PLAN: Will plan to proceed with PUSH ENTEROSCOPY using Monitored Anesthesia Care. Nataliia Rodriguez MD, PhD [facility]01-24-2023 History and physical note* Nataliia Rodriguez MD, PhD - 03/24/2022 8:45 AM EST ENDOSCOPIC PREPROCEDURE HISTORY AND PHYSICAL HISTORY OF PRESENT ILLNESS: Gabi Mcnulty is a 51 y.o. female seen in the pre-procedure area at [facility]. The indication for endoscopic evaluation [...] Laterality: Right; Surgeon: Wilfrido Earl MD; [facility] COLONOSCOPY DIAGNOSTIC N/A 11/22/2017 Laterality: N/A; Surgeon: Nataliia Rodriguez MD, PhD; Location: [facility] COLONOSCOPY DIAGNOSTIC N/A 12/21/2016 Laterality: N/A; Surgeon: Nataliia Rodriguez MD,PhD; Location: [facility] COLONOSCOPY W/ BX N/A 10/16/2014 Laterality: N/A; Surgeon: NAI Aleman; Location: [facility] COLONOSCOPY W/ ULTRASOUND N/A 10/16/2013 Laterality: N/A; Surgeon: Juan Henderson MD,PhD; Location: [facility] REMOVAL COLON/ILEOSTOMY Right 2006 COLONOSCOPY widely patent [...] SOSY 1 mL, 1 mL, Intradermal, PRN, MD Dex, PhD Facility-Administered Medications Ordered in Other Encounters: [...] Soft, nontender, nondistended ileostomy present ASSESSMENT: Gabi Mcnulty is a 51 y.o. female is ready for the planned procedure. ASA Class: ASA 2 - Patient with mild systemic disease with no functional limitations PLAN: Will plan to proceed with PUSH ENTEROSCOPY using Monitored Anesthesia Care. Nataliia Rodriguez MD, PhD documented [facility] Nurse Note* Gretel Mcdowell RN - 03/24/2022 8:45 AM EST 1000- Notified Dr. Luz of hypotension. Dr. Luz will put In orders. * Gretel Mcdowell RN - 03/24/2022 8:45 AM EST 1020- Dr. Luz stated patient stable to go home with current vital signs. Vital signs stable. * Gretel Mcdowell RN - 03/24/2022 8:45 AM EST 1027 Discharge report given to and reviewed with patient and . All questions answered. Patient was alert x4 upon discharge. Patient denied needing assistance with getting dressed. Patient escorted to lobby where family assumed responsibility. [facility] Nurse Surgical operation note* Gretel Mcdowell RN - 03/24/2022 8:45 AM EST 1000- Notified Dr. Luz of hypotension. Dr. Luz will put In orders. [facility]01-24-2023 Nurse Surgical operation note* Gretel Mcdowell RN - 03/24/2022 8:45 AM EST 1020- Dr. Luz stated patient stable to go home with current vital signs. Vital signs stable. [facility]01-24-2023 Nurse Surgical operation note* Gretel Mcdowell RN - 03/24/2022 8:45 AM EST 1027 Discharge report given to and reviewed with patient and . All questions answered. Patient was alert x4 upon discharge. Patient denied needing assistance with getting dressed. Patient escorted to lobby where family assumed responsibility. [facility]08-[facility] History of Present illness Narrative* Nataliia Rodriguez MD, PhD - 10/29/2021 4:00 PM EDT [facility] Division of Gastroenterology, Hepatology, and Nutrition Hepatology Clinic Patient Visit -Referring Provider for today's consult: Helen Guzman MD -Primary Care Provider: Helen Guzman HISTORY OF PRESENT ILLNESS: Gabi Mcnulty is a 50 y.o. female who presents to the [facility] today 10/29/2021 for follow up. [...] F (36.2 C) Ht 1.575 m (5' 2) Wt 52.8 kg (116 lb 6.4 oz) [...] the last year. ASSESSMENT AND PLAN: Gabi Mcnulty is a 50 y.o. 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 documented in this [facility]Mer[facility]04[facility] History of Present illness Narrative* 06/22/2006 1:36 PM EDT Documentation of Informed Consent Patient referred by [...] patient voiced understanding of all information. Marly Jacobsonjuan Crohn's Database Clinical Research Spiral Runner [facility]* Diagnosis Regional enteritis of unspecified site- Primary documented in this encounter [facility] note* Diagnosis Onset Date Resolution Status Osteopenia determined by x-ray chronic [facility] Work Phone: Evaluation note* Diagnosis Crohn's disease of large intestine with complication- Primary Regional enteritis of large intestine Ileostomy in place Ileostomy status Status post total colectomy Elevated liver enzymes Nonspecific elevation of levels of transaminase or lactic acid dehydrogenase (LDH) H/O resection of liver Personal history of surgery to other organs documented [facility] this [facility] note[facility] assessment information available [facility] Work Phone: Evaluation note* Diagnosis Crohn's disease of large intestine with complication Regional enteritis of large intestine Ileostomy in place Ileostomy status Status post total colectomy [facility] Diagnosis Onset Date Resolution Status Enlarged thyroid acute Encounter for routine gynecological examination noneactive [facility] Work Phone: Evaluation note* Diagnosis Abnormal CT scan, gastrointestinal tract Nonspecific (abnormal) findings on radiological and other examination of gastrointestinal tract Crohn's disease of both small and large intestine with other complication [facility] Diagnosis Crohn's disease of both small and large intestine with other complication [facility] Diagnosis Onset Date Resolution Status Thyroid nodule acute Osteopenia determined by x-ray chronic [facility] Work Phone: Evaluation note* Diagnosis Onset Date Resolution Status Atrophic vaginitis acute Postmenopausal bleeding acut e Thyroid nodule acute Encounter for routine gynecological examination noneactive Elevated liver enzymes nonea ctive [facility] Work Phone: Evaluation note* Diagnosis Onset Date Resolution Status Atrophic vaginitis acute Postmenopausal bleeding acut e Thyroid nodule acute Encounter for routine gynecological examination noneactive Elevated liver enzymes nonea ctive Atrophic vaginitis acute Postmenopausal bleeding acut e Stenosis, cervix acute [facility] Work Phone: Evaluation note* Diagnosis Crohn's disease of both small and large intestine with other complication Status post total colectomy Ileostomy in place Ileostomy status Elevated alkaline phosphatase level Other nonspecific abnormal serum enzyme levels Elevated liver enzymes Nonspecific elevation of levels of transaminase or lactic acid dehydrogenase (LDH) H/O resection of liver Personal history of surgery to other organs documented [facility] this encounter [facility] (narrative)No reason for referral information availableWWilson Health Work Phone: Reason for visit Narrative* MRI/CAT Scan (Routine) - Closed Specialty Diagnoses / Procedures Referred By Bj hernandez Referred To Contact Diagnoses Crohn's disease of both small and large intestine with other complication Status post total colectomy Ileostomy in place Elevated alkaline phosphatase level Elevated liver enzymes H/O resection of liver Procedures CT ENTEROGRAPHY CHG CT ABDOMEN & PELVIS W/CONTRAST MATERIAL Nataliia Rodriguez, [address] [place] [address] Phone: tel: fax: Referral ID Status Reason Start Date Expiration Date Visits Re quested Visits Authorized [id number] Closed 06/14/2024 07/09/2025 [address] 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 No October 02, 2023 12:53pm Date Activated Date Inactivated Comments 02/13/2020 7:29 PM Date Activated Date Inactivated Comments 03/14/2018 5:33 PM 02/13/2020 7:29 PM Chief Complaint and Reason for Visit Chief Complaint 1 Y FU- THYROID Reason for Visit Osteopenia determine d by x-ray Chief Complaint 1 Y FU- THYROID RECLAST Reason for Visit Osteopenia determine d by x-ray Chief Complaint SCREENING Chief Complaint SCREENING Annual (BLOWER MECHANIC) Reason for Visit Enlarged thyroid Encounter for routine gynecological examination Chief Complaint SCREENING Annual (BLOWER MECHANIC) ENLARGED THYROID Reason for Visit Enlarged thyroid Encounter for routine gynecological examination Chief Complaint 1 Y FU RECLAST Reason for Visit Thyroid nodule Osteopenia determined by x-ray Chief Complaint RECLAST SCREENING Chief Complaint SCREENING SCREENING Chief Complaint SCREENING SCREENING Annual (BLOWER MECHANIC) Reason for Visit Atrophic vaginitis Postmenopausal bleeding Thyroid nodule Encounter for routine gynecological examination Elevated liver enzymes Chief Complaint SCREENING SCREENING Annual (BLOWER MECHANIC) EMB PMB; ENLARGED THYROID Reason for Visit Atrophic vaginitis Postmenopausal bleeding Thyroid nodule Encounter for routine gynecological examination Elevated liver enzymes Atrophic vaginitis Postmenopausal bleeding Stenosis, cervix Chief Complaint Annual (BLOWER MECHANIC) EMB PMB; ENLARGED THYROID Reason for Visit Atrophic vaginitis Postmenopausal bleeding Thyroid nodule Encounter for routine gynecological examination Elevated liver enzymes Atrophic vaginitis Postmenopausal bleeding Stenosis, cervix Chief Complaint Admit Date 4wk med ck January 19, 2024 3:41pm Reason for Visit Admit Date Atrophic vaginitis January 19, 2024 3:41pm Climacteric January 19, 2024 3:41pm Family history of breast cancer in siste r January 19, 2024 3:41pm Lichen sclerosus January 19, 2024 3:41pm Family History No Family History Records Found Relationship Condition Age at Onset Recorded Date/T ayanna father Cardiac disease Unknown aunt Malignant neoplasm of breast 60 sister Malignant neoplasm of breast 50 grandmother Diabetes mellitus Unknown Reason for Referral Specialty Diagnoses / Procedures Referred By Bj hernandez Referred To Contact Diagnoses Crohn's disease of large intestine with complication Ileostomy in place Status post total colectomy Procedures CT ENTEROGRAPHY CHG CT SCAN,ABDOMENT AND PELVIS,W CONTRAST Nataliia Rodriguez MD, PhD [address] [place] [address] Referral ID Status Reason Start Date Expiration Date V isits Requested Visits Authorized [id number] New Request 10/29/2021 11/23/2022 1 1 Referral ID Status Reason Start Date Expiration Date Visits Re quested Visits Authorized [id number] Closed 10/29/2021 11/23/2022 1 1 Specialty Diagnoses / Procedures Referred By Bj hernandez Referred To Contact Diagnoses Abnormal CT scan, gastrointestinal tract Crohn's disease of both small and large intestine with other complication Procedures PUSH ENTEROSCOPY CO ENDOSCOPY UPPER SMALL INTESTINE Nataliia Rodriguez MD, PhD [address] [place] [address] Referral ID Status Reason Start Date Expiration Date Visits Re quested Visits Authorized [id number] Closed 11/14/2021 12/09/2022 1 1 Specialty Diagnoses / Procedures Referred By Bj hernandez Referred To Contact Diagnoses Crohn's disease of both small and large intestine with other complication Procedures ILEOSCOPY CO ENTEROSC >2ND PRTN W/ILEUM W/WO COLLJ SPEC SPX Nataliia Rodriguez MD, PhD [address] [place] [address] Referral ID Status Reason Start Date Expiration Date Visits Re quested Visits Authorized [id number] Closed 11/15/2021 2022 1 1 Summary Purpose Additional Source Comments Source Comments (unrecognize d section and content) In the event this informatio n is protected by the Federal Confidentiality of Alcohol and Drug Abuse Patient Records regulations: The Federal rules restrict any use of the information to criminally investigate or prosecute any alcohol or drug abuse patient.[facility] Goals (unrecognized section and content) Goals may be documented in a n alternate sectionGoals may be documented in an alternate sectionGoals may be documented in an alternate sectionGoals may be documented in an alternate sectionGoals may be documented in an alternate sectionGoals may be documented in an alternate sectionGoals may be documented in an alternate sectionGoals may be documented in an alternate sectionGoals may be documented in an alternate sectionGoals may be documented in an alternate sectionGoals may be documented in an alternate sectionGoals may be documented in an alternate sectionGoals may be documented in an alternate sectionGoals may be documented in an alternate sectionGoals may be documented in an alternate section Reason for Visit (unrecogniz ed section and content) Reason Comments Follow-up Crohn's Disease Specialty Diagnoses / Procedures Referred By Bj hernandez Referred To Contact Diagnoses Crohn's disease of large intestine with complication Ileostomy in place Status post total colectomy Procedures CT ENTEROGRAPHY CHG CT SCAN,ABDOMENT AND PELVIS,W CONTRAST Nataliia Rodriguez MD, PhD [address] [place] [address] Referral ID Status Reason Start Date Expiration Date Visits Re quested Visits Authorized [id number] Closed 10/29/2021 11/23/2022 1 1 Specialty Diagnoses / Procedures Referred By Contac t Referred To Contact Diagnoses Abnormal CT scan, gastrointestinal tract Crohn's disease of both small and large intestine with other complication Procedures PUSH ENTEROSCOPY CO ENDOSCOPY UPPER SMALL INTESTINE Nataliia Rodriguez MD, PhD [address] [place] [address] Referral ID Status Reason Start Date Expiration Date Visits Re quested Visits Authorized [id number] Closed 11/14/2021 12/09/2022 1 1 Specialty Diagnoses / Procedures Referred By Contac t Referred To Contact Diagnoses Crohn's disease of both small and large intestine with other complication Procedures ILEOSCOPY CO ENTEROSC >2ND PRTN W/ILEUM W/WO COLLJ SPEC SPX Nataliia Rodriguez MD, PhD [address] [place] [address] Referral ID Status Reason Start Date Expiration Date Visits Re quested Visits Authorized [id number] Closed 11/15/2021 2022 1 1 Care Teams (unrecognized sec tion and content) Cryogenics Repairer Relationship Specialty Start Date End Date Helen Guzman MD [address] [place] [phone] PCP - General Family Medicine 04/12/13 Cryogenics Repairer Relationship Specialty Start Date End Date Helen Guzman MD [address] [place] [address] PCP - General Family Medicine 04/12/13 Cryogenics Repairer Relationship Specialty Start Date End Date Helen Guzman MD [address] [place] [phone] PCP - General Family Medicine 04/12/13 Cryogenics Repairer Relationship Specialty Start Date End Date Helen Guzman MD [address] [place] [phone] PCP - General Family Medicine 04/12/13 Team Status: Active Member Role Status Dates Dr. Helen Guzman MD Family Provider Active Dr. Helen Guzman MD Primary Care Provider Active Team Status: Inactive Member Role Status Dates Dr. Helen Guzman MD Primary Care Provider, Referrin g Provider Active Dr. Alexandro Llanos MD Attending Provider Active Team Status: Inactive Member Role Status Dates Dr. Helen Guzman MD Primary Care Provider Active Dr. Alexandro Llanos MD Attending Provider, Referring Provi steve Active Team Status: Inactive Member Role Status Dates Dr. Helen Guzman MD Primary Care Provider Active Dr. Josr Sylvester MD Attending Provider, Referri ng Provider Active NATIRSO Other Provider Active Team Status: Inactive Member Role Status Dates Dr. Helen Guzman MD Primary Care Provider Active Marilee Capellan TAX COMPLIANCE MANAGER, TAX COMPLIANCE MANAGER-C Attending Provider, Referring Provider Active Team Status: Inactive Member Role Status Dates Dr. Helen Guzman MD Primary Care Provider, Referrin g Provider Active Marilee Capellan TAX COMPLIANCE MANAGER, TAX COMPLIANCE MANAGER-C Attending Provider Active Team Status: Inactive Member Role Status Dates Dr. Helen Guzman MD Primary Care Provider Active NATIRSO Attending Provider Active Team Status: Inactive Member Role Status Dates Dr. Helen Guzman MD Primary Care Provider Active Start: January 19, 2024 End: January 19, 2024 Dr. Helen Guzman MD Referring Provider Active Start: January 19, 2024 End: January 19, 2024 Marilee Capellan TAX COMPLIANCE MANAGER, TAX COMPLIANCE MANAGER-C Attending Provider Active Start: January 19, 2024 End: January 19, 2024 Team Status: Inactive Member Role Status Dates Dr. Helen Guzman MD Primary Care Provider Active Start: January 19, 2024 End: January 19, 2024 Marilee Capellan TAX COMPLIANCE MANAGER, TAX COMPLIANCE MANAGER-C Attending Provider Active Start: January 19, 2024 End: January 19, 2024 Marilee Capellan TAX COMPLIANCE MANAGER, TAX COMPLIANCE MANAGER-C Referring Provider Active Start: January 19, 2024 End: January 19, 2024 Team Status: Inactive Member Role Status Dates Dr. Helen Guzman MD Primary Care Provider Active Start: May 04, 2024 End: May 04, 2024 Marilee Capellan TAX COMPLIANCE MANAGER, TAX COMPLIANCE MANAGER-C Attending Provider Active Start: May 04, 2024 End: May 04, 2024 Marilee Capellan TAX COMPLIANCE MANAGER, TAX COMPLIANCE MANAGER-C Referring Provider Active Start: May 04, 2024 End: May 04, 2024 Team Status: Active Member Role Status Dates Dr. Helen Guzman MD Primary Care Provider Active Team Status: Inactive Member Role Status Dates Dr. Helen Guzman MD Primary Care Provider Active Start: June 07, 2024 End: June 07, 2024 NA, LI Attending Provider Active Start: Ap ril 2024 End: June 07, 2024 NA, LI Referring Provider Active Start: Ap ril 2024 End: June 07, 2024 Cryogenics Repairer Relationship Specialty Start Date End Date Helen Guzman MD PCP - General Family Medicine 04/12/13 Team Status: Active Member Role/Relationship Status Dates Dr. Brandi Boogie MD Primary Care Provider Active Team Status: Inactive Member Role/Relationship Status Dates Dr. Helen Guzman MD Primary Care Provider Active Start: May 04, 2024 End: May 04, 2024 Marilee Capellan TAX COMPLIANCE MANAGER, TAX COMPLIANCE MANAGER-C Attending Provider Active Start: May 04, 2024 End: May 04, 2024 Marilee Capellan TAX COMPLIANCE MANAGER, TAX COMPLIANCE MANAGER-C Referring Provider Active Start: May 04, 2024 End: May 04, 2024 Team Status: Inactive Member Role/Relationship Status Dates Dr. Helen Guzman MD Primary Care Provider Active Start: June 07, 2024 End: June 07, 2024 NA, LI Attending Provider Active Start: Ap ril 2024 End: June 07, 2024 NA, LI Referring Provider Active Start: Ap ril 2024 End: June 07, 2024 Team Status: Inactive Member Role/Relationship Status Dates Dr. Helen Guzman MD Primary Care Provider Active Start: July 17, 2024 End: July 17, 2024 NA, LI Attending Provider Active Start: Juana culp 2024 End: July 17, 2024 NA, LI Referring Provider Active Start: Juana culp 2024 End: July 17, 2024 Team Status: Inactive Member Role/Relationship Status Dates NATALIIA TIRSO Attending Provider Active Start: Lynne lopez 2024 End: August 21, 2024 TIRSO GOMEZ Referring Provider Active Start: Lynne lopez 2024 End: August 21, 2024 Dr. Brandi Boogie MD Primary Care Provider Active Start: August 21, 2024 End: August 21, 2024 INFORMATION SOURCE (unrecogn ized section and content) DATE CREATED AUTHOR 07/06/2024 [facility] DATE CREATED AUTHOR AUTHOR'S ORGANIZ ATION 08/27/2024 [facility] FOR RECORDS PERTAINING TO PATIENTS WHO ARE [...] BE BASED ON THE PRIMARY CLINICAL RECORDS. [employer] [facility]. provides no warranty or guarantee of the accuracy or completeness of information in this document.
--- NOTE | 2024-09-24 09:48 | CT_ITS ---
PROCEDURE: ABDOMEN/PELVIS W IV CONT ONLY 09/24/2024 REASON FOR EXAM: ABDOMINAL PAIN TECHNIQUE: ABDOMEN/PELVIS W IV CONT ONLY Coronal and Sagittal reconstruction series were provided. CONTRAST: Isovue 370 VOLUME: 96 mL One or more dose reduction techniques were used (e.g., Automated exposure control, adjustment of the mA and/or kV according to patient size, use of iterative reconstruction technique. RADIATION DOSE SUMMARY: CTDlvol: 53 mGy DLP: 315 mGycm COMPARISON: None. FINDINGS: Right lower quadrant ileostomy. Dilated loops of small bowel with a transition point in the mid abdomen indicating a bowel obstruction. Colectomy. No suspicious lymphadenopathy. The liver, spleen, adrenals are unremarkable. The gallbladder is not well visualized and may be absent. Symmetric enhancement of the bilateral kidneys. The uterus is unremarkable. CT/Abdomen/Pelvis W IV Cont ONLY IMPRESSION: Small-bowel obstruction. Reading Location: [id number]
[2024-09-24] MEDS: 0.9% Normal Saline (1000mL) 1,000 ML 999 ML IV (10:08)
[2024-09-24 10:11] VITALS: BP 101/66; PULSE 78; RESP 16; O2SAT 100
[2024-09-24 10:26] LABS: Hematocrit 45.3 % (37-47); Hemoglobin 15.4 g/dL (12.0-15.0); Immature Granulocytes Count 0.020 X10^3/uL (0.0-0.0); Mean Corp Hgb Conc 34.0 g/dL (32-36); Mean Corpuscular Volume 89.0 fL (81-99); Mean Platelet Vol. 11.6 fl (6.2-12.0); NRBC Flagged by Analyzer 0 % (0-5); POSITIVE DIFFERENTIAL YES; Platelet Count 217 K/mm3 (150-450); RBC Distribution Width CV 12.2 % (11.6-14.6); RBC Distribution Width SD 39.9 fl (35.1-43.9); Red Blood Count 5.09 M/mm3 (4.2-5.4); White Blood Count 7.0 K/mm3 (4.4-11.0)
[2024-09-24 10:39] LABS: AST(SGOT) 40 U/L (<=31); Alanine Aminotransfer ALT/SGPT 35 U/L (<=34); Albumin, Serum 4.8 g/dL (3.5-5.0); Alkaline Phosphatase 99 U/L (35-104); Anion Gap 16 (5-15); BUN 25 mg/dL (4-19); BUN/Creat Ratio 26.1 RATIO (10-20); Calcium,Total 10.5 mg/dL (7.6-11.0); Carbon Dioxide 20.4 mmol/L (21.0-32.0); Chloride 99 mmol/L (98-108); Estimated Creatinine Clearance 51.83 ml/min (50-250); Globulin 3.2 g/dL (2.2-4.2); Glucose 108 mg/dL (70-99); Lipase 63 U/L (13-75); Potassium 5.1 mmol/L (3.3-5.1)
[2024-09-24 12:18] VITALS: BP 93/56; O2SAT 98
[2024-09-24 12:43] LABS: Mucous, Urine 0 SEEN /hpf (<or=2+); Red Blood Cells-Urine 0 SEEN /hpf (0-5); Squamous Epithelial Cells - UA 0 SEEN /hpf (5-10)
[2024-09-24 12:44] LABS: Color, Urine Straw (Yellow); Glucose, Dipstick Normal (Normal); Ketone-Dipstick 5 mg/dl (Negative); Leukocyte Esterase-Dipstick Negative /ul (Negative); Nitrite-Dipstick Negative (Negative); Occult Blood-Urine Negative /ul (Negative); Protein-Dipstick 30 mg/dl (Negative); Specific Gravity, Urine 1.010 (1.002-1.030); Urine Bilirubin Dipstick Negative (Negative)
[2024-09-24 14:00] VITALS: BP 101/73; PULSE 77; O2SAT 100
[2024-09-24] MEDS: Oxymetazoline 0.05% 1 SPRAY SPRAY.BTL 2 SPRAY NASAL (14:27)
--- NOTE | 2024-09-24 14:40 | RAD_ITS ---
PROCEDURE: ABDOMEN SINGLE VIEW (PORTABLE) 09/24/2024 REASON FOR EXAM: NG INSERTION TECHNIQUE: ABDOMEN SINGLE VIEW (PORTABLE) COMPARISON: Same day CT. FINDINGS: Orogastric tube terminates within the distal stomach which is patulous. Partially visualized dilated loops of small bowel. The lungs are clear. RAD/Abdomen Single View (Portable) IMPRESSION: Orogastric tube as above. Reading Location: [id number]
[2024-09-24 14:55] VITALS: BP 97/63; PULSE 86; RESP 18; TEMP 36.1; O2SAT 98
--- NOTE | 2024-09-24 15:43 | PCA ---
THIS SENIOR DIRECTOR MARKETING SET UP A RIDE FOR PT TO GO TO [facility], THROUGH PHYSICIANS. THEY GAVE AN ETA OF 30 MINUTES, PUTTING ARRIVAL TIME AT 1515. THIS SENIOR DIRECTOR MARKETING CALLED PHYSICIANS AT 1530 FOR AN UPDATE ON HOW FAR OUT THE SQUAD WAS TO FILM BOOKER THE PT. AND LUIS ANTONIO HAD ME ON HOLD FOR OVER 12 MINUTES TRYING TO FIND WHERE THE RIDE WAS ON THIER BOARD AND TO SEE WHAT THE ETA IS. LATER HE ANSWERED ME AND SAID THAT THE RIDE CHANGED TO A DIFFERENT CREW AND THIS NEW CREW IS COMING FROM [place]. SO THAT THE ETA FOR ARRIVAL IS NOT FOR ANOTHER HOUR (1645). THIS SENIOR DIRECTOR MARKETING STRESSED THE IMPORTANT OF UPDATING US FOR PATIENTS SAKE, PATIENTS FAMILY'S SAKE, AND NURSING STAFF SAKE. THEN ASKED THAT IF ANYTHING CHANGES, THAT WE WOULD BE NOTIFIED.
[2024-09-24 16:00] VITALS: BP 96/51; PULSE 82; RESP 16; O2SAT 93
--- NOTE | 2024-09-24 16:20 | CM.ED ---
Social Work Date of referral: 09/24/24 Reason for referral: No Advanced Care Directives (ACD's) on file Referred by: Social Work identification Patient provided consent for social work visit. Irrigation Equipment Remover requested a copy of ACD's which patient agreed to bring in. Kelsy Man, CHIEF MEDICAL DIRECTOR, FOREIGN EXCHANGE TRADER
--- NOTE | 2024-09-24 16:45 | ED.RN ---
Per husbands previous request- was called and updated on Pt currently being picked up my [facility] ambulance.
== END 2024-09-24 16:52 | disposition short-term general hospital (02) ==
PROVIDERS: Emergency Provider Emergency Medicine; PCP Internal Medicine; Visit Provider Emergency Medicine
DX: K56.609 Unspecified intestinal obstruction, unspecified as to partial versus complete obstruction (principal); K50.90 Crohn's disease, unspecified, without complications; R51.9 Headache, unspecified; R11.0 Nausea
CPT/HCPCS: 74018; 74177; 80053; 81001; 83605; 83690; 85025; 96361; 96374; 96375; 96376; 99285; Q9967; A4216; C1887; J2405

== ENCOUNTER → 2024-11-24 | Outpatient (CLI) | payer OTHER, SELFPAY ==
--- OUTSIDE RECORDS SUMMARY | 2024-11-24 07:28 | XMS RPT_ITS | CCD ---
Author Organization [facility] [employer] Care Team Providers Care Sewer Separation Designer Name Role Phone Helen Tay Primary Care Provider Nerissa Linton MD Primary Care Provider Dr. Helen Tay Primary Care Provider Dr. Helen Tay Referring Provider Dr. Alexandro Llanos Attending Provider Helen Tay MD Primary Care Provider Dr. Helen Tay Primary Care Provider Dr. Helen Tay Referring Provider Marilia DEPLOYMENT TECHNICIAN, DEPLOYMENT TECHNICIAN-C Marilee Attending Provider Helen Tay MD Primary Care Provider Dr. Helen Tay Primary Care Provider Dr. Helen Tay Referring Provider Dr. Alexandro Llanos Attending Provider Dr. Helen Tay Primary Care Provider Dr. Helen Tay Referring Provider Marilia DEPLOYMENT TECHNICIAN, DEPLOYMENT TECHNICIAN-C Marilee Attending Provider Dr. Helen Tay Primary Care Provider Dr. Helen Tay Referring Provider Marilia DEPLOYMENT TECHNICIAN, DEPLOYMENT TECHNICIAN-C Marilee Attending Provider Dr. Helen Tay MD Primary Care Provider Jolliff MD, Dr. Helen S Referring Provider Irving DEPLOYMENT TECHNICIAN-C, Marilee Attending Provider Irving DEPLOYMENT TECHNICIAN-C, Marilee Referring Provider Dr. Helen Tay MD Primary Care Provider Irving DEPLOYMENT TECHNICIAN-C, Marilee Attending Provider Irving DEPLOYMENT TECHNICIAN-C, Marilee Referring Provider LI, NA Attending Provider LI, NA Referring Provider Megan ALEXIS, Helen Fierro Primary Care Provider Dr. Brandi Boogie MD Primary Care Provider Dr. Helen Tay MD Primary Care Provider Dr. Peyman Sheikh DO Emergency Provider SELF, SELF Referring Unavailable JOLLIFF, HELEN S Primary Care Unavailable LI, NA Attending Unavailable JOLLIFF, HELEN S Primary Care Unavailable LI, NA Attending Unavailable LI, NA Referring Unavailable JOLLIFF, HELEN S Primary Care Unavailable PEYMAN SHEIKH Referring Unavailable CONSULT, GASTROENTEROLOGY Consulting Unaishai SULMA Amanda Admitting Unavailable COLIN DAVISON Attending Unavailable Dr. Helen Tay MD Primary Care Provider LI, NA Attending Provider LI, NA Referring Provider Dr. Peyman Sheikh DO Attending Provider Dr. Helen Tay MD Referring Provider Dr. Brandi Boogie MD Attending Provider Marilia DEPLOYMENT TECHNICIAN, Marilee Referring Unavailable Jolliff, Helen S Primary Care Unavailable Irving DEPLOYMENT TECHNICIAN, Marilee Attending Unavailable KAMERON PALOMO Attending Unavailable KAMERON PALOMO Referring Unavailable Brandi Boogie Primary Care Unavailable Jolliff, Helen S Primary Care Unavailable KAMERON PALOMO Attending Unavailable KAMERON PALOMO Referring Unavailable Jolliff, Helen S Primary Care Unavailable KAMERON PALOMO Attending Unavailable KAMERON PALOMO Referring Unavailable Marilia DEPLOYMENT TECHNICIAN, Marilee Referring Unavailable Jolliff, Helen S Primary Care Unavailable Irving DEPLOYMENT TECHNICIAN, Marilee Attending Unavailable Marilia DEPLOYMENT TECHNICIAN, Marilee Referring Unavailable Jolliff, Helen S Primary Care Unavailable Marilia DEPLOYMENT TECHNICIAN, Marilee Attending Unavailable Keagan, Brandi Primary Care Unavailable Grant, Brandi Attending Unavailable Keagan, Brandi Referring Unavailable Jolliff, Helen S Referring Unavailable Jolliff, Helen S Primary Care Unavailable Marilia DEPLOYMENT TECHNICIAN, Marilee Attending Unavailable Irving DEPLOYMENT TECHNICIAN, Marilee Attending Unavailable Jolliff, Helen S Referring Unavailable Jolliff, Helen S Primary Care Unavailable Jolliff, Helen S Referring Unavailable Grant, Brandi Primary Care Unavailable Keagan, Brandi Attending Unavailable Peyman Sheikh Attending Unavailable Keagan, Brandi Primary Care Unavailable Allergies Allergy Classification Reported Allergen(s) Allergy Type Date of Onset Reaction(s) Facility (4 sources) ferumoxytol Drug Allergy 01-10-2019 [facility] Work Phone: (2 sources) ferumoxytol Drug Allergy 01-10-2019 [facility] Work Phone: Medications Current Medications Medication Drug Class(es) Dates Sig (Normalized) Sig (Original) calcium carbonate 1500 mg oral tablet (20 sources) Start: 11-06-2024 take 1 tablet by mouth once daily Calcium Carbonate (Calcium 600) 600 mg calcium (1,500 mg) tablet Active 600 mg PO daily November 06, 2024 2:05pm Start: 05-17-2023 End: 11-06-2024 take 1 tablet by mouth twice daily Calcium Carbonate (Calcium 600) 600 mg calcium (1,500 mg) tablet Discontinued 600 mg PO TWICE A DAY May 17, 2023 12:00am November 06, 2024 2:06pm Start: 06-03-2020 calcium carbon ate 1250 (500 Ca) MG tablet Take by mouth. 06/03/2020 Active Start: 06-03-2020 End: 05-17-2023 take 1 tablet by mouth once daily Calcium Carbonate 500 MG tablet Discontinued 500 mg PO DAILY June 03, 2020 12:00am May 17, 2023 3:58pm cholecalciferol 0.05 mg oral capsule (20 sources) Vitamin D Start: 06-16-2021 take 1 capsule by mouth once daily Cholecalciferol (Vitamin D3) (Vitamin D3) 50 mcg (2,000 unit) Capsule Active 50 ug PO DAILY June 16, 2021 12:00am Start: 05-26-2018 take 29671 [IU] by m outh every week Cholecalciferol (Vitamin D3) Active 22021 UNIT PO EVERY WEEK May 26, 2018 3:10pm Cholecalciferol (VITAMIN D3 PO) Take by mouth daily. 0 Active ergocalciferol 1.25 mg oral capsule (2 sources) Provitamin D2 Compound Start: 05-27-2024 take 1 capsule by mouth every week Ergocalciferol 1.25 MG (49745 UT) capsule Indications: Vitamin D insufficiency Take 1 capsule by mouth once a week. 12 capsule 05/27/2024 Active Magnesium (1 source) Start: 11-06-2024 take 1 tablet by mouth once daily Magnesium 250 mg tablet Active 250 mg PO daily November 06, 2024 12:00am magnesium oxide 250 mg oral tablet (1 source) take 1 tablet by mouth once daily Magnesium Oxide 250 MG tablet Take 1 tablet by mouth daily. Active melatonin 3 mg oral capsule (3 sources) Start: 11-06-2024 take 1 capsule by mouth at bedtime Melatonin 3 mg capsule Active 3 mg PO AT BEDTIME November 06, 2024 12:00am Start: 09-28-2024 End: 10-08-2024 take 1 tablet by mouth at bedtime as needed Melatonin 3 MG tablet Take 1 tablet by mouth at bedtime as needed for Insomnia for up to 10 days. 10 tablet 09/28/2024 10/08/2024 Active Start: 09-24-2024 End: 09-28-2024 take 6 mg by mouth once daily at bedtime as needed 6 mg, Oral, DAILY AT BEDTIME NEEDED, Starting on 09/24/24 at 2028, Until Marianna 09/28/24 at 1706, Insomnia pantoprazole 40 mg delayed release oral tablet (2 sources) Proton Pump Inhibitor Start: 09-29-2024 End: 09-28-2024 take 40 mg by mouth once daily 40 mg, Oral, DAILY, First dose on Wed09/29/24 at 0900, Until Discontinued, Swallow whole; do not crush or chew., Indications: Inpt Stress Ulcer Prophylaxis Start: 09-27-2024 End: 09-28-2024 40 mg, Intravenous, DAILY, F irst dose on Wed09/27/24 at 0900, Until Discontinued, Dilute each 40 mg vial with 10 mL of NS. All bolus doses, whether 40 mg or 80 mg, should be administered over at least two minutes., Indications: Inpt Stress Ulcer Prophylaxis predniSONE 5 mg oral tablet (3 sources) Start: 11-06-2024 Prednisone 5 m g tablet Active 15 mg PO November 06, 2024 2:06pm Start: 11-06-2024 End: 11-06-2024 Prednisone 5 mg tablet Disco ntinued mg PO November 06, 2024 12:00am November 06, 2024 2:06pm Start: 09-28-2024 End: 11-23-2024 take 8 tablets by mouth once daily, then take 7 tablets by mouth once daily, then take 6 tablets by mouth once daily, then take 5 tablets by mouth once daily, then take 4 tablets by mouth once daily, then take 3 tablets by mouth once daily, then take 2 tablets by mouth once daily, then take 1 tablet by mouth once daily predniSONE 5 MG tablet Take 8 tablets by mouth daily for 7 days, THEN 7 tablets daily for 7 days, THEN 6 tablets daily for 7 days, THEN 5 tablets daily for 7 days, THEN 4 tablets daily for 7 days, THEN 3 tablets daily for 7 days, THEN 2 tablets daily for 7 days, THEN 1 tablet daily for 7 days. 56 tablet 09/28/2024 11/23/2024 Active Completed/Discontinued Medications Medication Drug Class(es) Dates Sig (Normalized) Sig (Original) acetaminophen 325 mg oral tablet (1 source) Start: 09-25-2024 End: 09-28-2024 650 mg, Oral, 3 TIMES DAILY, First dose (after last modification) on Wed09/25/24 at 0430, Until Discontinued, Maximum dose of acetaminophen is 4000 mg from all sources in 24 hours. Barium Sulfate (VOLUMEN/NEULUMEX) 0.1 % 1,350 mL (1 source) Start: 11-10-2021 End: 11-10-2021 Barium Sulfate (VOLUMEN/NEULUMEX) 0.1 % 1,350 mL Breeza Beverage For Neutral Abdominal/Pelvic Imaging 1,500 mL (1 source) Start: 07-02-2024 End: 07-02-2024 take 1 dose by mouth once 1,500 mL, Oral, ONCE, 1 dose, On Wed07/02/24 at 0815, CT Procedure calcium chloride 0.001 meq/ml / glucose 50 mg/ml / potassium chloride 0.004 meq/ml / sodium chloride 0.103 meq/ml / sodium lactate 0.028 meq/ml injectable solution (1 source) Start: 09-25-2024 End: 09-27-2024 Intravenous, at 75 mL/hr, CONTINUOUS, Starting on Wed09/25/24 at 0400, Until Wed09/27/24 at 1404 calcium chloride 0.0014 meq/ml / potassium chloride 0.004 meq/ml / sodium chloride 0.103 meq/ml / sodium lactate 0.028 meq/ml injectable solution (7 sources) Start: 09-24-2024 End: 09-25-2024 Intravenous, at 125 mL/hr, CONTINUOUS, Starting on Wed09/24/24 at 2030, Until Wed09/25/24 at 0349 Start: 09-24-2024 End: 09-25-2024 500 mL, Intravenous, Adminis ter over 2 Hours, ONCE, 1 dose, On Wed09/25/24 at 1530, Fluid Bolus Start: 03-24-2022 End: 03-25-2022 Lactated ringers IV solution 1,000 mL Clobetasol (5 sources) Corticosteroid Start: 12-21-2023 End: 11-06-2024 Clobetasol 0.05 % ointment Discontinued 1 NMA TOPICAL .COMPLEX 15 04December 21, 2023 12:00am November 06, 2024 1:59pm 1 applic topical apply bid X 2 weeks, daily X 2 weeks then prn. Small amount and massge in; Start: 12-21-2023 Clobetasol 0.0 5 % ointment Active 1 NMA TOPICAL .COMPLEX 15 04December 21, 2023 12:00am 1 applic topical apply bid X 2 weeks, daily X 2 weeks then prn. Small amount and massge in; Start: 12-21-2023 Clobetasol 0.0 5 % ointment Active 1 NMA TOPICAL .COMPLEX December 21, 2023 12:00am 1 applic topical apply bid X 2 weeks, daily X 2 weeks then prn. Small amount and massge in; diatrizoate meglumine-sodium (GASTROGRAFIN) 66-10 % oral solution (Small Bowel Obstruction) 120 mL (1 source) Start: 09-25-2024 End: 09-25-2024 120 mL, Per NG tube, ONCE, 1 dose, On Wed09/25/24 at 0900, This patient is undergoing Gastrografin Challenge for adhesive small bowel disease. Place NGT to suction immediately after insertion. Do not use for medication administration until KUB confirmation. 1. NGT to low intermittent suction for 2 hours. 2. Nursing: Administer Gastrografin 120mL via NGT. 3. Clamp for 2 hours. 4. Return NGT to intermittent suction. If patient develops nausea/vomiting, before 2 hours return to suction and page surgical team. Serial KUBs will assess for progress. Protocol available via attached reference link. DULoxetine 20 mg delayed release oral capsule (2 sources) Serotonin and Norepinephrine Reuptake Inhibitor Start: 08-20-2020 End: 10-29-2021 DULoxetine [address] Particles capsule DR 20mg/day for 2 weeks, 20mg every other day for 2 weeks, 20mg every 3 days for 2 weeks then stop. 30 capsule 0 02/27/2021 10/29/2021 Discontinued 0.4 ml enoxaparin sodium 100 mg/ml prefilled syringe (1 source) Low Molecular Weight Heparin Start: 09-24-2024 End: 09-28-2024 inject 40 mg by subcutaneous injection every twenty-four hours 40 mg, Subcutaneous, EVERY 24 HOURS, First dose on Wed09/24/24 at 2230, Until Discontinued, For SUBCUTANEOUS route ONLY: alternate injection sites between left and right abdominal wall, pinching location and avoiding area around navel. If unable to use abdominal sites, may use the front or side of thighs., Indications: DVT/PE prophylaxis estradiol 0.1 mg/ml vaginal cream (5 sources) Estrogen Start: 01-19-2024 End: 11-06-2024 Estradiol 0.01 % (0.1 mg/gram) cream Discontinued 0 VAGINAL .COMPLEX 42.5 2 January 19, 2024 1:00am November 06, 2024 1:59pm small amount as directed vaginal every other day X 4 weeks then twice a week; Levonorgestrel-Ethin yl Estrad (20 sources) Progestin, Estrogen, Progestin-containi ng Intrauterine Device Start: 06-26-2019 End: 12-20-2019 take 1 tablet by mouth once daily Levonorgestrel-Ethi nyl Estrad (Jolessa) 0.15 mg-30 mcg (91) tablets,dose [...] pack,3 month Discontinued 1 TABLET PO daily May 26, 2018 3:30pm November 08, 2018 [...] month Discontinued 1 TABLET PO daily 84 April 13, 2018 12:05pm May 26, 2018 2:31pm Start: 04-13-2018 End: 05-26-2018 take 1 tablet by mouth once daily Levonorgestrel-Ethinyl Estrad (Introvale ) 0.15 mg-30 mcg tablets,dose pack,3 month Discontinued 1 TABLET PO daily 84 April 13, 2018 1:05pm [...] 2018 1:06pm fluconazole 150 mg oral tablet (18 sources) Azole Antifungal Start: 02-18-2021 End: 05-20-2021 Fluconazole 150 mg tablet Discontinued 150 mg PO .COMPLEX 2 0 February 18, 2021 1:00am May 20, 2021 2:42pm 150 mg PO take one po now and repeat in 3 days HYDROmorphone (DILAUDID) injection 0.2 mg (1 source) Start: 09-24-2024 End: 09-28-2024 take 0.2 mg intravenously every three hours as needed HYDROmorphone (DILAUDID) injection 0.2 mg inFLIXimab 100 mg injection (17 sources) Tumor Necrosis Factor Mei Start: 06-19-2014 [...] (OMNIPAQUE) 350 MG/M L injection 1-171 mL 50 ml magnesium sulfate 80 mg/ml injection (1 source) Start: 09-27-2024 End: 09-27-2024 4 g, Intravenous, Administer over 4 Hours, ONCE, 1 dose, On Wed09/27/24 at 0515 methotrexate 2.5 mg oral tablet (17 sources) Folate Analog Metabolic Inhibitor Start: 04-04-2019 End: 08-16-2019 take 5 tablets by mouth every week Methotrexate Sodium 2.5 mg tablet Discontinued 12.5 mg PO EVERY WEEK April 04, 2019 1:00am August 16, 2019 3:42pm Start: 04-04-2019 End: 08-16-2019 take 12.5 mg by mouth every week Methotrexate Sodium Discontinued 12.5 MG PO EVERY WEEK April 04, 2019 12:00am August 16, 2019 2:42pm methylPREDNISolone 40 mg injection (1 source) Corticosteroid Start: 09-26-2024 End: 09-28-2024 40 mg, Intravenous, DAILY, First dose on Wed09/26/24 at 0900, Until Discontinued nystatin 100 unt/mg topical ointment (20 sources) Polyene Antifungal Start: 09-20-2017 End: 05-26-2018 Nystatin 100,000 unit/gram ointment Discontinued 1 NMA TOPICAL TWICE A DAY 15 September 20, 2017 12:00am May 26, 2018 3:10pm [...] 1 APPL IC TOPICAL TWICE A DAY March 17, 2017 12:00am September 20, 2017 7:08am Ondansetron (1 source) Serotonin-3 Receptor Antagonist Start: 09-24-2024 End: 09-28-2024 take 1 tablet by mouth every six hours as needed Ondansetron (ZOFRAN) tablet 4 mg oxyCODONE hydrochloride 5 mg oral tablet (5 sources) Opioid Agonist Start: 10-02-2023 End: 12-21-2023 take 1 tablet by mouth every six hours as needed for pain Oxycodone 5 mg tablet Discontinued 5 mg PO EVERY 6 HOURS as needed for pain 12 3 0 October 02, 2023 December 21, 2023 3:22pm Traumatic hematoma of face Contusion of other part of head, initial encounter phenol 14 mg/ml mucosal spray (1 source) Start: 09-24-2024 End: 09-28-2024 1 spray, Mouth/Throat, NEEDED, Starting on Wed09/24/24 at 2026, Until Wed09/28/24 at 1707, Sore Throat, Patient may self-administer. microencapsulated potassium chloride 20 meq extended release oral tablet (1 source) Start: 09-27-2024 End: 09-27-2024 take 1 dose by mouth once 40 mEq, Oral, ONCE, 1 dose, On Wed09/27/24 at 0515 Potassium phosphates 15 mmol in Sodium chloride 0.9%, with overfill 280 mL (total volume) IVPB (2 sources) Start: 09-28-2024 End: 09-28-2024 15 mmol, Intravenous, Administer over 2 Hours, ONCE, 1 dose, On Wed09/28/24 at 0600 Start: 09-26-2024 End: 09-26-2024 15 mmol, Intravenous, Admini ster over 2 Hours, EVERY 2 HOURS, 2 doses, First dose on Wed09/26/24 at 0900, Last dose on Wed09/26/24 at 1100 Prochlorperazine (1 source) Phenothiazine Start: 09-24-2024 End: 09-28-2024 take 1 tablet by mouth every six hours as needed Prochlorperazine (COMPAZINE) tablet 5 mg 250 ml sodium chloride 9 mg/ml injection (3 sources) Start: 09-24-2024 End: 09-28-2024 Intravenous, at 20 mL/hr, NEEDED, Starting on Wed09/24/24 at 2026, Until Wed09/28/24 at 1707, Carrier Fluid - See Admin. Inst, 250mL 0.9NS to be used as carrier fluid for intermittent small volume or piggyback medication administration as needed. Infusion rate of the carrier fluid should be set at 20 mL/hr unless the rate as the intermittent medication is less than 20 mL/hr. For intermittent medications with a rate less than 20 mL/hr set the carrier fluid at that rate of the intermittent or piggy back medication. Start: 07-02-2024 End: 07-02-2024 1-100 mL, Intravenous, ONCE NEEDED, 1 dose, Starting on 07/02/24 at 0919, Until 07/02/24 at 0923, Flush, CT Procedure Start: 11-10-2021 End: 11-10-2021 sodium chloride (PF) 0.9 % i njection 1-100 mL traZODone hydrochloride 50 mg oral tablet (17 sources) Serotonin Reuptake Inhibitor Start: 05-27-2020 End: 08-20-2020 take 1 tablet by mouth once daily Trazodone 50 mg tablet Discontinued 50 mg PO DAILY May 27, 2020 12:00am August 20, 2020 3:35pm 0.5 ml ustekinumab 90 mg/ml injection (17 sources) Interleukin-12 Antagonist, Interleukin-23 Antagonist Start: 01-17-2019 End: 04-04-2019 Ustekinumab 45 MG/0.5 ML solution Discontinued 45 mg SQ January 17, 2019 1:00am April 04, 2019 2:02pm Q 6 WEEKS PT UNSURE OF DOSE 100 ml zoledronic acid 0.05 mg/ml injection (20 sources) Bisphosphonate Start: 05-27-2020 End: 11-06-2024 Zoledronic Hxjd-Trukysvp-Pnsj r 5 mg/100 mL piggyback Discontinued 1 NMA .Route ONCE 100 0 June 05, 2021 10:37am May 28, 2022 4:28pm infuse over 20 minutes Start: 04-06-2019 End: 08-16-2019 Zoledronic Ytox-Yqvnbrwc-Pbe er 5 mg/100 mL piggyback Discontinued 5 mg .Route ONCE 100 0 April 06, 2019 1:00am August 16, 2019 3:43pm infuse over 20 minutes Problems Active Problems Problem Classification Problem Date Documented Da te Episodic/Chronic Abdominal pain (1 source) Unspecified abdominal pain; Translations: [Unspecified abdominal pain] Onset: 09-28-2024 Episodic Administrative/social admission (1 source) First encounter by subject; Translations: [Persons encountering health services in other specified circumstances] 11-06-2024 Episodic E Codes: Fall (5 sources) Fall; Translations: [Unspecified fall, initial encounter] 10-10-2023 Episodic Intestinal obstruction without hernia (7 sources) Small bowel obstruction; Translations: [Unspecified intestinal obstruction, unspecified as to partial versus complete obstruction] Onset: 09-24-2024 09-24-2024 Episodic Menopausal disorders (20 sources) Atrophic vaginitis; Translations: [Postmenopausal atrophic vaginitis] Onset: 01-19-2024 12-14-2022 Chronic Comment on above: estradiol cream US, failed EMB due t o stenosis considering HRT Nausea and vomiting (2 sources) Nausea; Translations: [Nausea] 09-24-2024 Episodic Nutritional deficiencies (1 source) Vitamin D deficiency, [...] Episodic Other bone disease and musculoskeletal deformities (14 sources) Osteopenia; Translations: [Other specified disorders of bone density and structure, unspecified site] Onset: 10-27-2017 10-28-2017 Episodic Other female genital disorders (7 sources) Stenosis of cervix; Translations: [Stricture and [...] [Constipation, unspecified] 07-31-2005 Episodic Other liver diseases (6 sources) Focal nodular hyperplasia of liver; Translations: [Other specified diseases of liver] Onset: 10-13-2019 10-13-2019 Chronic Other liver diseases (3 sources) Elevated liver enzymes level; Translations: [Abnormal levels of other serum enzymes] Episodic Other lower respiratory disease (17 sources) Chronic cough; Translations: [Chronic cough] 11-08-2018 Episodic Other skin disorders (7 sources) Lichen sclerosus et atrophicus; Translations: [Lichen sclerosus et atrophicus] Onset: 01-19-2024 12-21-2023 Chronic Comment on above: clobetesol Regional enteritis and ulcerative colitis (20 sources) Crohn's disease; Translations: [Crohn's disease, unspecified, without complications] Onset: 04-25-2007 Resolved: 03-18-2023 Chronic Residual codes; unclassified (17 sources) History of excision of intestinal structure; Translations: [Acquired absence of other specified parts of digestive tract] 11-08-2018 Episodic Comment on above: 3 total related to c rohns Residual codes; unclassified (17 sources) H/O: major abdominal surgery; Translations: [Other specified postprocedural states] 11-08-2018 Episodic Residual codes; unclassified (17 sources) History of loop electrosurgical excision procedure; Translations: [Other specified postprocedural states] 11-08-2018 Episodic Residual codes; unclassified (3 sources) History of liver excision; Translations: [Acquired absence of other specified parts of digestive tract] Episodic Residual codes; unclassified (6 sources) Family history of malignant neoplasm of breast in first degree relative; Translations: [Family history of malignant neoplasm of breast] 02-07-2024 Episodic Comment on above: age 58. Unknown gene tics. She will confirm with sister. Negative empower genetic screen but lifetime risk >20% and should do yrly mammogram and MRI alternating Residual codes; unclassified (1 source) Asymptomatic menopausal state; Translations: [Asymptomatic menopausal state] Onset: 11-10-2024 Episodic Superficial injury; contusion (5 sources) Hematoma of face; Translations: [Contusion of other part of head, initial encounter] 10-10-2023 Episodic Thyroid disorders (20 sources) Goiter; Translations: [Nontoxic goiter, unspecified] Chronic Past or Other Problems Problem Classification Problem Date Documented Date Episodic/Chronic Anal and rectal conditions (7 sources) Anal fissure; Translations: [Anal fissure, unspecified] Onset: 01-31-2008 01-31-2008 Episodic Deficiency and other anemia (20 sources) Iron deficiency anemia; Translations: [Iron deficiency anemia, unspecified] Onset: 05-14-2013 Resolved: 04-04-2020 01-05-2019 Episodic Other aftercare (6 sources) Patient encounter status; Translations: [Encounter for therapeutic drug level monitoring] Onset: 11-02-2013 Resolved: 03-18-2023 11-02-2013 Episodic Other female genital disorders (1 source) Cervical intraepithelial neoplasia grade 2; Translations: [Moderate cervical dysplasia] Onset: 11-03-2006 11-03-2006 Episodic Other liver diseases (8 sources) Alkaline phosphatase raised; Translations: [Abnormal levels of other serum enzymes] Onset: 10-13-2019 10-13-2019 Episodic Other liver diseases (5 sources) Abnormal levels of other serum enzymes; Translations: [Other nonspecific abnormal serum enzyme levels] Onset: 07-02-2024 12-14-2022 Episodic Other screening for suspected conditions (not mental disorders or infectious disease) (8 sources) Abnormal cytological findings in specimens from other organs, systems and tissues; Translations: [Other abnormal Papanicolaou smear of cervix and cervical HPV] Onset: 06-17-2005 06-17-2005 Episodic Residual codes; unclassified (9 sources) History of total colectomy; Translations: [Acquired absence of other specified parts of digestive tract] Onset: 04-04-2020 Episodic Residual codes; unclassified (2 sources) Acquired absence of other specified parts of digestive tract; Translations: [Acquired absence of other specified parts of digestive tract] Onset: 07-02-2024 Episodic Residual codes; unclassified (1 source) Family history of malignant neoplasm of breast; Translations: [Family history of malignant neoplasm of breast] Onset: 02-17-2024 Episodic Unclassified (1 source) History of total colectomy 07-02-2024 Results Test Name Value Interpretation Reference Range Facility Internal Medicine Office Vis ito 11-03-2024 Internal Medicine Office Visit [facility] [address] [place] [address] [place] [address] OFFICE VISIT Date of Service: 11/06/24 MR#: [id number] Acct: [id number] Name: GABI MCNULTY Rep #: [id number] : 1970 Provider: Dr. Brandi schwarz MD Age/Sex: 53/F Location: [facility] [place] Status: Signed Intake Vital Signs 01/19/24 15:46 09/24/24 08:11 11/06/24 14:16 Height 5 ft 2 in 5 ft 2 in 5 ft 2 in Weight: 115 lb BMI 21.0 BP 122/72 H Blood Pressure Location Lt brachial Position Sitting Respiration 16 Pulse 93 Pulse Source Monitor Temp 98.6 F Temp Source Temporal Pulse Oximetry (%) 99 Oxygen Delivery Method room air Intake Visit Reasons: EST CARE Land Title Examiner Required: No Is patient in pain?: No Allergies No Known Allergies Allergy (Verified 11/06/24 13:58) Medications ???Medication ???Instructions ???Recorded ???Confirmed ???Type cholecalciferol (vitamin D3) 50 50 mcg PO DAILY 06/16/21 11/06/24 History mcg (2,000 unit) capsule (Vitamin D3) calcium carbonate (Calcium 600) 600 mg PO QDAY 11/06/24 11/06/24 H istory magnesium 250 mg tablet 250 mg PO QDAY 11/06/24 11/06/24 H istory melatonin 3 mg capsule 3 mg PO QHS 11/06/24 11/06/24 Hist ory prednisone 5 mg tablet 15 mg PO 11/06/24 11/06/24 History Nurse's Note: Pt states that she sees dr. Navarro for gastroenterology, does not have a follow up until 04/2025. Previous pcp Dr. tay. Has work form needing filled out. 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 Pt wanting vitamin levels drawn to make sure she takes the right dose of vitamins. Pt states that the roof of her mouth has had a burning feeling like she ate pizza and it burnt the roof of her mouth. Pt states it's constant and has been ongoing for about a year. Pt read it could be menopause related , states that hot flashed have gotten better. Wants suggestions to help w/ osteopenia. Not due for bone denisty until 2025. Has been feeling not good on prednisone, as she has weak legs, and they ache. [facility] Medical History (Updated 11/06/24 @ 19:[address] Brandi Boogie MD) Vitamin D deficiency Anemia Family history of breast cancer in sister Osteopenia determined by x-ray Crohns disease Surgical History Hx of resection of liver History of resection of rectum History of creation of ostomy History of colectomy H/O LEEP H/O resection of large bowel Family History Father Heart disease Afib Cardiomegaly Aunt Breast cancer, Onset Age: 60 Sister Breast cancer, Onset Age: 50 Maternal Grandmother Diabetes Arthritis CVA (cerebral vascular accident) Maternal Grandfather Colon cancer Uncle Cancer of spine Brain cancer Social History (Updated 11/06/24 @ 14:[address] 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 < 3 in 1 sitting substance use type: does not use diet: other well-balanced diet: daily or most days caffeine: Yes (2qd) Type: coffee eating out: rarely or never during the past year weight has: remained stable what type of physical activity do you participate in: walking frequency: daily duration: 15-30 minutes/day seatbelt use: always do you feel safe at home: Yes additional social history: [facility] Patient works at [employer] Questionnaire PQH-9 BMS Over the last 2 weeks, how often have you been bothered by any of the following problems? 1. Little interest or pleasure in doing things: not at all 2. Feeling down, depressed, or hopeless: several days 3. Trouble falling or staying asleep, or sleeping too much: several days 4. Feeling tired or having little energy: more than half the days 5. Poor appetite or overeating: not at all 6. Feeling bad about yourself - or that you are a failure or have let yourself and your family down: not at all 7. Trouble concentrating on things, such as reading the newspaper or watching television: several days 8. Moving or speaking so slowly that other people could have noticed? - Or the opposite - being so fidgety or restless that you have been moving around a lot more than usual: several days 9. Thoughts that you would be better off or of hurting yourself in some way: not at all Total score: 6 If you checked off any problems, how difficult have these problems made it for you to do your work, take care of things at home, or get along with (more content not included)... Normal [facility] C REACTIVE PROTEINon 025 CRP High sensitivity method [Mass/Vol] 9.86 mg/L NINF - 10.00 mg/L [facility] CRP [Mass/Vol] 9.86 mg/L Normal <10.00 [facility] Comment on above: Performed By: #### I PB, MGO, CHM7, CRP #### [facility] (DEFAULT) [address] [place] [address] 04450 CBC,PLATELETSon 09-28-2024 Erythrocyte distribution width (RBC) [Ratio] 12.6 % 10.8 - 14.9 % [facility] Hematocrit (Bld) [Volume fraction] 35.9 % 34.9 - 44.3 % [facility] Hemoglobin (Bld) [Mass/Vol] 11.7 g/dL 11.4 - 15.2 g/dL [facility] Interpretation and review of laboratory results Normal [facility] MCH (RBC) [Entitic mass] 29.4 pg 25. 9 - 33.9 pg [facility] MCHC (RBC) [Mass/Vol] 32.6 g/dL 31.4 - 35.9 g/dL [facility] MCV (RBC) [Entitic vol] 90.2 fL 79.6 - 97.7 fL [facility] Platelet mean volume (Bld) [Entitic vol] 11.4 fL 8.5 - 12.2 fL [facility] Platelets (Bld) [#/Vol] 156 10*3/uL 150 - 393 K/uL [facility] RBC (Bld) [#/Vol] 3.98 10*6/uL [facility] WBC (Bld) [#/Vol] 4.79 10*3/uL 3.99 - 11. 19 K/uL [facility] Hematocrit (Bld) [Volume fraction] 35.9 % Normal 34.9-44.3 [facility] Comment on above: Performed By: #### I PB, CHM7, MGO #### [facility] (DEFAULT) [address] [place] [address] 16159 Hemoglobin (Bld) [Mass/Vol] 11.7 g/dL Normal 11.4-15.2 [facility] Comment on above: Performed By: #### I PB, CHM7, MGO #### [facility] (DEFAULT) [address] [place] [address] 04825 MCV (RBC) [Entitic vol] 90.2 fL Normal 79.6-97.7 [facility] Comment on above: Performed By: #### I PB, CHM7, MGO #### [facility] (DEFAULT) [address] [place] [address] 29583 Mean Cell Hgb 29.4 pg Normal 25.9-33.9 [facility] Comment on above: Performed By: #### I PB, CHM7, MGO #### [facility] (DEFAULT) [address] [place] [address] 98982 Mean Cell Hgb Conc 32.6 g/dL Normal 31.4-35.[address] [facility] Comment on above: Performed By: #### I PB, CHM7, MGO #### [facility] (DEFAULT) [address] [place] [address] 33631 Platelet mean volume (Bld) [Entitic vol] 11.4 fL Normal 8.5-12.2 [facility] Comment on above: Performed By: #### I PB, CHM7, MGO #### [facility] (DEFAULT) [address] [place] [address] 87181 Platelets (Bld) [#/Vol] 156 10*3/uL Normal 150-393 [facility] Comment on above: Performed By: #### I PB, CHM7, MGO #### [facility] (DEFAULT) [address] [place] [address] 06468 RBC (Bld) [#/Vol] 3.98 10*6/uL Normal 3.91-5.04 [facility] Comment on above: Performed By: #### I PB, CHM7, MGO #### [facility] (DEFAULT) [address] [place] [address] 84570 RBC Distribution 12.6 % Normal 10.8-14.9 [facility] Comment on above: Performed By: #### I PB, CHM7, MGO #### [facility] (DEFAULT) [address] [place] [address] 18977 WBC (Bld) [#/Vol] 4.79 10*3/uL Normal 3.99-11.19 [facility] Comment on above: Performed By: #### I PB, CHM7, MGO #### [facility] (DEFAULT) [address] [place] [address] 10147 CHEM 7 (LYTES,BUN,CREA,GLUC) on 09-28-2024 Anion gap [Moles/Vol] 10 mmol/L 7 - 17 mmol/L [facility] Chloride [Moles/Vol] 107 mmol/L 98 - 10 8 mmol/L [facility] CO2 [Moles/Vol] 28 mmol/L 21 - 31 mmol/L [facility] Creatinine [Mass/Vol] 0.67 mg/dL 0.50 - 1.20 mg/dL [facility] eGFR, CKD-EPI, Female - PINF [facility] Comment on above: Reported eGFR is bas ed on the CKD-EPI 2020 equation using creatinine, age, and sex. Glucose [Mass/Vol] 83 mg/dL 70 - 179 mg/dL [facility] Osmolality Calc [Osmolality] 291 [facility] Potassium [Moles/Vol] 3.9 mmol/L 3.5 - 5.0 mmol/L [facility] Sodium [Moles/Vol] 141 mmol/L 135 - 145 mmol/L [facility] Urea nitrogen [Mass/Vol] 7 mg/dL 7 - 25 mg/d L [facility] Urea nitrogen/Creatinine [Mass ratio] 10 mg/mg [facility] Anion gap [Moles/Vol] 10 mmol/L Normal 7-17 [facility] Comment on above: Performed By: #### P TPTT #### [facility] (DEFAULT) [address] [place] [address] 86488 Chloride [Moles/Vol] 107 mmol/L Normal 98-108 [facility] Comment on above: Performed By: #### P TPTT #### [facility] (DEFAULT) [address] [place] [address] 02293 CO2 [Moles/Vol] 28 mmol/L Normal 21-31 [facility] Comment on above: Performed By: #### P TPTT #### [facility] (DEFAULT) [address] [place] [address] 41456 Creatinine [Mass/Vol] 0.67 mg/dL Normal 0.50-1.20 [facility] Comment on above: Performed By: #### P TPTT #### [facility] (DEFAULT) [address] [place] [address] 95911 eGFR, CKD-EPI, Female > Normal >=60 [facility] Comment on above: Result Comment: Repo rted eGFR is based on the CKD-EPI 2020 equation using creatinine, age, and sex. Performed By: #### P TPTT #### [facility] (DEFAULT) [address] [place] [address] 19738 Glucose [Mass/Vol] 83 mg/dL Normal Nonfastin -179 mg/dL; Fastin-99 [facility] Comment on above: Performed By: #### P TPTT #### [facility] (DEFAULT) [address] [place] [address] 45101 Osmolality [Osmolality] 291 mosm/kg Normal 278-305 [facility] Comment on above: Performed By: #### P TPTT #### [facility] (DEFAULT) [address] [place] [address] 66092 Potassium [Moles/Vol] 3.9 mmol/L Normal 3.5-5.0 [facility] Comment on above: Performed By: #### P TPTT #### [facility] (DEFAULT) [address] [place] [address] 76171 Sodium [Moles/Vol] 141 mmol/L Normal 135-[address] [facility] Comment on above: Performed By: #### P TPTT #### [facility] (DEFAULT) [address] [place] [address] 61654 Urea nitrogen [Mass/Vol] 7 mg/dL Normal 7-25 [facility] Comment on above: Performed By: #### P TPTT #### [facility] (DEFAULT) [address] [place] [address] 30606 Urea nitrogen/Creatinine [Mass ratio] 10 mg/mg Normal [facility] Comment on above: Performed By: #### P TPTT #### [facility] (DEFAULT) [address] [place] [address] 93478 MAGNESIUMon 09-28-2024 Magnesium [Mass/Vol] 2.5 mg/dL 1.6 - 2 .6 mg/dL [facility] Magnesium [Mass/Vol] 2.5 mg/dL Normal 1.6-2.6 [facility] Comment on above: Performed By: #### P TPTT #### [facility] (DEFAULT) [address] [place] [address] 94445 No Panel Informationon 09-28 Interpretation and review of laboratory results Normal [facility] ABO/RH(D) TYPE Positive [facility] BLOOD COMPONENT TYPE Red Cells, Leukoreduced [facility] EXPIRATION DATE [id number] [facility] Product ABO/RH(D) Positive [facility] Product ABO/RH(D) NUMBER [id number] [facility] UNIT STATUS released [facility] PHOSPHATE, INORGANICon 09-28 Phosphate [Mass/Vol] 2.8 mg/dL 2.2 - 4 .6 mg/dL [facility] Phosphorous 2.8 mg/dL Normal 2.2-4.6 [facility] Comment on above: Performed By: #### P TPTT #### [facility] (DEFAULT) [address] [place] [address] PREPARE TO TRANSFUSE RED BLO OD CELLSon 09-28-2024 PRODUCT CODE [id number] [facility] PRODUCT CODE [id number] [facility] UNIT NUMBER [id number] [facility] UNIT NUMBER [id number] [facility] CBC,PLATELETSon 09-27-2024 Erythrocyte distribution width (RBC) [Ratio] 12.6 % 10.8 - 14.9 % [facility] Hematocrit (Bld) [Volume fraction] 32.4 % Low 34.9 - 44.3 % [facility] Hemoglobin (Bld) [Mass/Vol] 10.5 g/dL Low 11.4 - 15.2 g/dL [facility] Interpretation and review of laboratory results Abnormal [facility] MCH (RBC) [Entitic mass] 29.2 pg 25. 9 - 33.9 pg [facility] MCHC (RBC) [Mass/Vol] 32.4 g/dL 31.4 - 35.9 g/dL [facility] MCV (RBC) [Entitic vol] 90 fL 79.6 - 97.7 fL [facility] Platelet mean volume (Bld) [Entitic vol] 11.3 fL 8.5 - 12.2 fL [facility] Platelets (Bld) [#/Vol] 151 10*3/uL 150 - 393 K/uL [facility] RBC (Bld) [#/Vol] 3.6 10*6/uL Low [facility] WBC (Bld) [#/Vol] 3.41 10*3/uL Low 3.99 - 11. 19 K/uL [facility] Hematocrit (Bld) [Volume fraction] 32.4 % Low 34.9-44.3 [facility] Comment on above: Performed By: #### H EMOGC #### [facility] (DEFAULT) [address] [address] Hemoglobin (Bld) [Mass/Vol] 10.5 g/dL Low 11.4-15.2 [facility] Comment on above: Performed By: #### H EMOGC #### [facility] (DEFAULT) [address] [address] MCV (RBC) [Entitic vol] 90.0 fL Normal 79.6-97.7 [facility] Comment on above: Performed By: #### H EMOGC #### [facility] (DEFAULT) [address] [address] Mean Cell Hgb 29.2 pg Normal 25.9-33.9 [facility] Comment on above: Performed By: #### H EMOGC #### [facility] (DEFAULT) [address] [address] Mean Cell Hgb Conc 32.4 g/dL Normal 31.4-35.[address] [facility] Comment on above: Performed By: #### H EMOGC #### [facility] (DEFAULT) [address] [address] Platelet mean volume (Bld) [Entitic vol] 11.3 fL Normal 8.5-12.2 [facility] Comment on above: Performed By: #### H EMOGC #### [facility] (DEFAULT) [address] [address] Platelets (Bld) [#/Vol] 151 10*3/uL Normal 150-393 [facility] Comment on above: Performed By: #### H EMOGC #### [facility] (DEFAULT) [address] [place] [address] RBC (Bld) [#/Vol] 3.60 10*6/uL Low 3.91-5.04 [facility] Comment on above: Performed By: #### H [facility] #### [facility] (DEFAULT) [address] [place] [address] RBC Distribution 12.6 % Normal 10.8-14.9 [facility] Comment on above: Performed By: #### [facility] #### [facility] (DEFAULT) [address] [place] [address] 22977 WBC (Bld) [#/Vol] 3.41 10*3/uL Low 3.99-11.19 [facility] Comment on above: Performed By: #### [facility] #### [facility] (DEFAULT) [address] [place] [address] 45472 CHEM 7 (LYTES,BUN,CREA,GLUC) on 09-27-2024 Anion gap [Moles/Vol] 14 mmol/L 7 - 17 mmol/L [facility] Chloride [Moles/Vol] 106 mmol/L 98 - 10 8 mmol/L [facility] CO2 [Moles/Vol] 27 mmol/L 21 - 31 mmol/L [facility] Creatinine [Mass/Vol] 0.58 mg/dL 0.50 - 1.20 mg/dL [facility] eGFR, CKD-EPI, Female - PINF [facility] Comment on above: Reported eGFR is bas ed on the CKD-EPI 2020 equation using creatinine, age, and sex. Glucose [Mass/Vol] 116 mg/dL 70 - 179 mg/dL [facility] Osmolality Calc [Osmolality] 296 [facility] Potassium [Moles/Vol] 3.7 mmol/L 3.5 - 5.0 mmol/L [facility] Sodium [Moles/Vol] 143 mmol/L 135 - 145 mmol/L [facility] Urea nitrogen [Mass/Vol] 6 mg/dL Low 7 - 25 mg/d L [facility] Urea nitrogen/Creatinine [Mass ratio] 10 mg/mg [facility] Anion gap [Moles/Vol] 14 mmol/L Normal 7-17 [facility] Comment on above: Performed By: #### I PB, CHM7, MGO #### [facility] (DEFAULT) [address] [place] [address] 81824 Chloride [Moles/Vol] 106 mmol/L Normal 98-108 [facility] Comment on above: Performed By: #### I PB, CHM7, MGO #### [facility] (DEFAULT) [address] [place] [address] 39988 CO2 [Moles/Vol] 27 mmol/L Normal 21-31 [facility] Comment on above: Performed By: #### I PB, CHM7, MGO #### [facility] (DEFAULT) [address] [place] [address] 98004 Creatinine [Mass/Vol] 0.58 mg/dL Normal 0.50-1.20 [facility] Comment on above: Performed By: #### I PB, CHM7, MGO #### [facility] (DEFAULT) [address] [place] [address] 25794 eGFR, CKD-EPI, Female > Normal >=60 [facility] Comment on above: Result Comment: Repo rted eGFR is based on the CKD-EPI 2020 equation using creatinine, age, and sex. Performed By: #### I PB, CHM7, MGO #### [facility] (DEFAULT) [address] [place] [address] 59281 Glucose [Mass/Vol] 116 mg/dL Normal Nonfastin -179 mg/dL; Fastin-99 [facility] Comment on above: Performed By: #### I PB, CHM7, MGO #### [facility] (DEFAULT) [address] [place] [address] 56663 Osmolality [Osmolality] 296 mosm/kg Normal 278-305 [facility] Comment on above: Performed By: #### I PB, CHM7, MGO #### [facility] (DEFAULT) [address] [place] [address] 86461 Potassium [Moles/Vol] 3.7 mmol/L Normal 3.5-5.0 [facility] Comment on above: Performed By: #### I PB, CHM7, MGO #### [facility] (DEFAULT) [address] [place] [address] 70483 Sodium [Moles/Vol] 143 mmol/L Normal 135-[address] [facility] Comment on above: Performed By: #### I PB, CHM7, MGO #### [facility] (DEFAULT) [address] [place] [address] 09457 Urea nitrogen [Mass/Vol] 6 mg/dL Low 7-25 [facility] Comment on above: Performed By: #### I PB, CHM7, MGO #### [facility] (DEFAULT) [address] [place] [address] 70299 Urea nitrogen/Creatinine [Mass ratio] 10 mg/mg Normal [facility] Comment on above: Performed By: #### I PB, CHM7, MGO #### [facility] (DEFAULT) [address] [place] [address] 43829 MAGNESIUMon 09-27-2024 Magnesium [Mass/Vol] 1.5 mg/dL Low 1.6 - 2 .6 mg/dL [facility] Magnesium [Mass/Vol] 1.5 mg/dL Low 1.6-2.6 [facility] Comment on above: Performed By: #### I PB, CHM7, MGO #### [facility] (DEFAULT) [address] [place] [address] 20410 No Panel Informationon 09-27 Interpretation and review of laboratory results Abnormal [facility] PHOSPHATE, INORGANICOrdered By: Abdiaziz Calderon on 09-27-2024 Interpretation and review of laboratory results Normal [facility] Phosphate [Mass/Vol] 3.7 mg/dL 2.2 - 4 .6 mg/dL [facility] PHOSPHATE, INORGANICon 09-27 Phosphorous 3.7 mg/dL Normal 2.2-4.6 [facility] Comment on above: Performed By: #### I PB, CHM7, MGO #### [facility] (DEFAULT) [address] [place] [address] C REACTIVE PROTEINon 025 CRP High sensitivity method [Mass/Vol] 26.37 mg/L High NINF - 10.00 mg/L [facility] Interpretation and review of laboratory results Abnormal [facility] CRP [Mass/Vol] 26.37 mg/L High <10.00 [facility] Comment on above: Order Comment: Ok antonio r add on Performed By: #### I PB, CHM7, MGO #### [facility] (DEFAULT) [address] [place] [address] 49248 CBC,PLATELETSon 09-26-2024 Erythrocyte distribution width (RBC) [Ratio] 12.7 % 10.8 - 14.9 % [facility] Hematocrit (Bld) [Volume fraction] 36.3 % 34.9 - 44.3 % [facility] Hemoglobin (Bld) [Mass/Vol] 11.9 g/dL 11.4 - 15.2 g/dL [facility] Interpretation and review of laboratory results Abnormal [facility] MCH (RBC) [Entitic mass] 30.1 pg 25. 9 - 33.9 pg [facility] MCHC (RBC) [Mass/Vol] 32.8 g/dL 31.4 - 35.9 g/dL [facility] MCV (RBC) [Entitic vol] 91.7 fL 79.6 - 97.7 fL [facility] Platelet mean volume (Bld) [Entitic vol] 11.2 fL 8.5 - 12.2 fL [facility] Platelets (Bld) [#/Vol] 150 10*3/uL 150 - 393 K/uL [facility] RBC (Bld) [#/Vol] 3.96 10*6/uL [facility] WBC (Bld) [#/Vol] 2.8 10*3/uL Low 3.99 - 11. 19 K/uL [facility] Hematocrit (Bld) [Volume fraction] 36.3 % Normal 34.9-44.3 [facility] Comment on above: Performed By: #### H EMOGC #### [facility] (DEFAULT) [address] [place] [address] 54726 Hemoglobin (Bld) [Mass/Vol] 11.9 g/dL Normal 11.4-15.2 [facility] Comment on above: Performed By: #### H EMOGC #### [facility] (DEFAULT) [address] [place] [address] 37235 MCV (RBC) [Entitic vol] 91.7 fL Normal 79.6-97.7 [facility] Comment on above: Performed By: #### H EMOGC #### [facility] (DEFAULT) [address] [place] [address] 55484 Mean Cell Hgb 30.1 pg Normal 25.9-33.9 [facility] Comment on above: Performed By: #### H EMOGC #### [facility] (DEFAULT) [address] [place] [address] 70481 Mean Cell Hgb Conc 32.8 g/dL Normal 31.4-35.[address] [facility] Comment on above: Performed By: #### H EMOGC #### [facility] (DEFAULT) [address] [place] [address] 15555 Platelet mean volume (Bld) [Entitic vol] 11.2 fL Normal 8.5-12.2 [facility] Comment on above: Performed By: #### H EMOGC #### [facility] (DEFAULT) [address] [place] [address] 15862 Platelets (Bld) [#/Vol] 150 10*3/uL Normal 150-393 [facility] Comment on above: Performed By: #### [facility] #### [facility] (DEFAULT) [address] [place] [address] 76314 RBC (Bld) [#/Vol] 3.96 10*6/uL Normal 3.91-5.04 [facility] Comment on above: Performed By: #### [facility] #### [facility] (DEFAULT) [address] [place] [address] 55912 RBC Distribution 12.7 % Normal 10.8-14.9 [facility] Comment on above: Performed By: #### [facility] #### [facility] (DEFAULT) [address] [place] [address] 69284 WBC (Bld) [#/Vol] 2.80 10*3/uL Low 3.99-11.19 [facility] Comment on above: Performed By: #### [facility] #### [facility] (DEFAULT) [address] [place] [address] 43147 CHEM 7 (LYTES,BUN,CREA,GLUC) on 09-26-2024 Anion gap [Moles/Vol] 15 mmol/L 7 - 17 mmol/L [facility] Chloride [Moles/Vol] 104 mmol/L 98 - 10 8 mmol/L [facility] CO2 [Moles/Vol] 30 mmol/L 21 - 31 mmol/L [facility] Creatinine [Mass/Vol] 0.48 mg/dL Low 0.50 - 1.20 mg/dL [facility] eGFR, CKD-EPI, Female - PINF [facility] Comment on above: Reported eGFR is bas ed on the CKD-EPI 2020 equation using creatinine, age, and sex. Glucose [Mass/Vol] 151 mg/dL 70 - 179 mg/dL [facility] Interpretation and review of laboratory results Abnormal [facility] Osmolality Calc [Osmolality] 302 [facility] Potassium [Moles/Vol] 4.5 mmol/L 3.5 - 5.0 mmol/L [facility] Sodium [Moles/Vol] 144 mmol/L 135 - 145 mmol/L [facility] Urea nitrogen [Mass/Vol] 6 mg/dL Low 7 - 25 mg/d L [facility] Urea nitrogen/Creatinine [Mass ratio] 13 mg/mg [facility] Anion gap [Moles/Vol] 15 mmol/L Normal 7-17 [facility] Comment on above: Performed By: #### C HM7 #### [facility] (DEFAULT) [address] [place] [address] 41477 Chloride [Moles/Vol] 104 mmol/L Normal 98-108 [facility] Comment on above: Performed By: #### C HM7 #### [facility] (DEFAULT) [address] [place] [address] 70474 CO2 [Moles/Vol] 30 mmol/L Normal 21-31 [facility] Comment on above: Performed By: #### C HM7 #### [facility] (DEFAULT) [address] [place] [address] 45940 Creatinine [Mass/Vol] 0.48 mg/dL Low 0.50-1.20 [facility] Comment on above: Performed By: #### C HM7 #### [facility] (DEFAULT) [address] [place] [address] 62365 eGFR, CKD-EPI, Female > Normal >=60 [facility] Comment on above: Result Comment: Repo rted eGFR is based on the CKD-EPI 2020 equation using creatinine, age, and sex. Performed By: #### C HM7 #### [facility] (DEFAULT) [address] [place] [address] 23494 Glucose [Mass/Vol] 151 mg/dL Normal Nonfastin -179 mg/dL; Fastin-99 [facility] Comment on above: Performed By: #### C HM7 #### [facility] (DEFAULT) [address] [place] [address] 10957 Osmolality [Osmolality] 302 mosm/kg Normal 278-305 [facility] Comment on above: Performed By: #### C HM7 #### [facility] (DEFAULT) [address] [place] [address] 72168 Potassium [Moles/Vol] 4.5 mmol/L Normal 3.5-5.0 [facility] Comment on above: Performed By: #### C HM7 #### [facility] (DEFAULT) [address] [place] [address] 00880 Sodium [Moles/Vol] 144 mmol/L Normal 135-[address] [facility] Comment on above: Performed By: #### C HM7 #### [facility] (DEFAULT) [address] [place] [address] 77316 Urea nitrogen [Mass/Vol] 6 mg/dL Low 7-25 [facility] Comment on above: Performed By: #### C HM7 #### [facility] (DEFAULT) [address] [place] [address] 93565 Urea nitrogen/Creatinine [Mass ratio] 13 mg/mg Normal [facility] Comment on above: Performed By: #### C HM7 #### [facility] (DEFAULT) [address] [place] [address] 90385 Anion gap [Moles/Vol] 11 mmol/L Normal 7-17 [facility] Comment on above: Performed By: #### I PB, CHM7, MGO #### [facility] (DEFAULT) [address] [place] [address] 86557 Chloride [Moles/Vol] 107 mmol/L Normal 98-108 [facility] Comment on above: Performed By: #### I PB, CHM7, MGO #### [facility] (DEFAULT) [address] [place] [address] 66869 CO2 [Moles/Vol] 31 mmol/L Normal 21-31 [facility] Comment on above: Performed By: #### I PB, CHM7, MGO #### [facility] (DEFAULT) [address] [place] [address] 41940 Creatinine [Mass/Vol] 0.57 mg/dL Normal 0.50-1.20 [facility] Comment on above: Performed By: #### I PB CHM7, MGO #### [facility] (DEFAULT) [address] [place] [address] 77181 eGFR, CKD-EPI, Female > Normal >=60 [facility] Comment on above: Result Comment: Repo rted eGFR is based on the CKD-EPI 2020 equation using creatinine, age, and sex. Performed By: #### I JESSENIA DIASM7, MGO #### [facility] (DEFAULT) [address] [place] [address] 20047 Glucose [Mass/Vol] 112 mg/dL Normal Nonfastin -179 mg/dL; Fastin-99 [facility] Comment on above: Performed By: #### I LARISSA CHM7, MGO #### [facility] (DEFAULT) [address] [place] [address] 62601 Osmolality [Osmolality] 300 mosm/kg Normal 278-305 [facility] Comment on above: Performed By: #### I PB CHM7, MGO #### [facility] (DEFAULT) [address] [place] [address] 81651 Potassium [Moles/Vol] 3.7 mmol/L Normal 3.5-5.0 [facility] Comment on above: Performed By: #### I PB, CHM7, MGO #### [facility] (DEFAULT) [address] [place] [address] 87145 Sodium [Moles/Vol] 145 mmol/L Normal 135-[address] [facility] Comment on above: Performed By: #### I PB, CHM7, MGO #### [facility] (DEFAULT) [address] [place] [address] 49276 Urea nitrogen [Mass/Vol] 7 mg/dL Normal 7-25 [facility] Comment on above: Performed By: #### I PB, CHM7, MGO #### [facility] (DEFAULT) [address] [place] [address] Urea nitrogen/Creatinine [Mass ratio] 12 mg/mg Normal [facility] Comment on above: Performed By: #### I PB, CHM7, MGO #### [facility] (DEFAULT) [address] [place] [address] CHEM 7 (LYTES,BUN,CREA,GLUC) Ordered By: Boby Luis on 09-26-2024 Anion gap [Moles/Vol] 11 mmol/L 7 - 17 mmol/L [facility] Chloride [Moles/Vol] 107 mmol/L 98 - 10 8 mmol/L [facility] CO2 [Moles/Vol] 31 mmol/L 21 - 31 mmol/L [facility] Creatinine [Mass/Vol] 0.57 mg/dL 0.50 - 1.20 mg/dL [facility] eGFR, CKD-EPI, Female - PINF [facility] Comment on above: Reported eGFR is bas ed on the CKD-EPI 2020 equation using creatinine, age, and sex. Glucose [Mass/Vol] 112 mg/dL 70 - 179 mg/dL [facility] Osmolality Calc [Osmolality] 300 [facility] Potassium [Moles/Vol] 3.7 mmol/L 3.5 - 5.0 mmol/L [facility] Sodium [Moles/Vol] 145 mmol/L 135 - 145 mmol/L [facility] Urea nitrogen [Mass/Vol] 7 mg/dL 7 - 25 mg/d L [facility] Urea nitrogen/Creatinine [Mass ratio] 12 mg/mg [facility] MAGNESIUMon 09-26-2024 Interpretation and review of laboratory results Normal [facility] Magnesium [Mass/Vol] 1.8 mg/dL 1.6 - 2 .6 mg/dL [facility] Magnesium [Mass/Vol] 1.8 mg/dL Normal 1.6-2.6 [facility] Comment on above: Performed By: #### I LARISSA, JESSENIAM7, MGO #### [facility] (DEFAULT) [address] [place] [address] No Panel Informationon 09-26 [facility] PHOSPHATE, INORGANICon 09-26 Interpretation and review of laboratory results Abnormal [facility] Phosphate [Mass/Vol] 1.3 mg/dL Low 2.2 - 4 .6 mg/dL [facility] Phosphorous 1.3 mg/dL Low 2.2-4.6 [facility] Comment on above: Performed By: #### I JESSENIA DIASM7, MGO #### [facility] (DEFAULT) [address] [place] [address] 33595 XR ABDOMEN 1 VIEW PORTABLEon 09-26-2024 XR ABDOMEN 1 VIEW PORTABLE EXAM: XR ABDOMEN 1 VIEW PORTABLE, 09/26/2024 07:45 AM COMPARISON: XR Abdomen 1 View Portable, September 25, 2024 at 1943 hours. CLINICAL INDICATIONS: 24-hour post gastrograffin test with some stomach ache again. FINDINGS: Tubes: Nasogastric tube loops in the gastric fundus/body with the tip and side-port extending toward the antrum. This is similar to the previous exam. The contrast seen within the gastrointestinal tract on the prior exam is no longer present. Nonobstructive bowel gas pattern. Numerous surgical clips overlying the hepatic silhouette from prior partial hepatectomy. IMPRESSION: 1. Nasogastric tube is within the stomach. 2. Nonobstructive bowel gas pattern. 3. Previous gastrointestinal contrast has cleared. Normal [facility] XR Abdomen Single viewon IMPRESSION: 1. Nasogastric tube is within the stomach. 2. Nonobstructive bowel gas pattern. 3. Previous gastrointestinal contrast has cleared. OLOGY EXAM: XR ABDOMEN 1 VIEW PORTABLE, 09/26/2024 07:45 AM COMPARISON: XR Abdomen 1 View Portable, September 25, 2024 at 1943 hours. CLINICAL INDICATIONS: 24-hour post gastrograffin test with some stomach ache again. FINDINGS: Tubes: Nasogastric tube loops in the gastric fundus/body with the tip and side-port extending toward the antrum. This is similar to the previous exam. The contrast seen within the gastrointestinal tract on the prior exam is no longer present. Nonobstructive bowel gas pattern. Numerous surgical clips overlying the hepatic silhouette from prior partial hepatectomy. RADIOLOGY Deejay Mcdaniels MD - 09/26/2024 EXAM: XR ABDOMEN 1 VIEW PORTABLE, 09/26/2024 07:45 AM COMPARISON: XR Abdomen 1 View Portable, September 25, 2024 at 1943 hours. CLINICAL INDICATIONS: 24-hour post gastrograffin test with some stomach ache again. FINDINGS: Tubes: Nasogastric tube loops in the gastric fundus/body with the tip and side-port extending toward the antrum. This is similar to the previous exam. The contrast seen within the gastrointestinal tract on the prior exam is no longer present. Nonobstructive bowel gas pattern. Numerous surgical clips overlying the hepatic silhouette from prior partial hepatectomy. IMPRESSION IMPRESSION: 1. Nasogastric tube is within the stomach. 2. Nonobstructive bowel gas pattern. 3. Previous gastrointestinal contrast has cleared. [facility] Radiology Study [facility]narrative) [facility] Single viewOrdere d By: Deejay Mcdaniels on 09-26-2024 [facility] Work Phone: CBC,PLATELETSon 09-25-2024 Erythrocyte distribution width (RBC) [Ratio] 12.7 % 10.8 - 14.9 % [facility] Hematocrit (Bld) [Volume fraction] 38.6 % 34.9 - 44.3 % [facility] Hemoglobin (Bld) [Mass/Vol] 12.4 g/dL 11.4 - 15.2 g/dL [facility] Interpretation and review of laboratory results Normal [facility] MCH (RBC) [Entitic mass] 29.7 pg 25. 9 - 33.9 pg [facility] MCHC (RBC) [Mass/Vol] 32.1 g/dL 31.4 - 35.9 g/dL [facility] MCV (RBC) [Entitic vol] 92.3 fL 79.6 - 97.7 fL [facility] Platelet mean volume (Bld) [Entitic vol] 11.2 fL 8.5 - 12.2 fL [facility] Platelets (Bld) [#/Vol] 177 10*3/uL 150 - 393 K/uL [facility] RBC (Bld) [#/Vol] 4.18 10*6/uL [facility] WBC (Bld) [#/Vol] 7.2 10*3/uL 3.99 - 11. 19 K/uL [facility] Hematocrit (Bld) [Volume fraction] 38.6 % Normal 34.9-44.3 [facility] Comment on above: Performed By: #### P TPTT #### [facility] (DEFAULT) [address] [place] [address] 65608 Hemoglobin (Bld) [Mass/Vol] 12.4 g/dL Normal 11.4-15.2 [facility] Comment on above: Performed By: #### P TPTT #### [facility] (DEFAULT) [address] [place] [address] 03346 MCV (RBC) [Entitic vol] 92.3 fL Normal 79.6-97.7 [facility] Comment on above: Performed By: #### P TPTT #### [facility] (DEFAULT) [address] [place] [address] 72247 Mean Cell Hgb 29.7 pg Normal 25.9-33.9 [facility] Comment on above: Performed By: #### P TPTT #### [facility] (DEFAULT) [address] [place] [address] 02156 Mean Cell Hgb Conc 32.1 g/dL Normal 31.4-35.[address] [facility] Comment on above: Performed By: #### P TPTT #### [facility] (DEFAULT) [address] [place] [address] 69588 Platelet mean volume (Bld) [Entitic vol] 11.2 fL Normal 8.5-12.2 [facility] Comment on above: Performed By: #### P TPTT #### [facility] (DEFAULT) [address] [place] [address] 83479 Platelets (Bld) [#/Vol] 177 10*3/uL Normal 150-393 [facility] Comment on above: Performed By: #### P TPTT #### [facility] (DEFAULT) [address] [place] [address] 58959 RBC (Bld) [#/Vol] 4.18 10*6/uL Normal 3.91-5.04 [facility] Comment on above: Performed By: #### P TPTT #### [facility] (DEFAULT) [address] [place] [address] 46426 RBC Distribution 12.7 % Normal 10.8-14.9 [facility] Comment on above: Performed By: #### P TPTT #### [facility] (DEFAULT) [address] [place] [address] 66728 WBC (Bld) [#/Vol] 7.20 10*3/uL Normal 3.99-11.19 [facility] Comment on above: Performed By: #### P TPTT #### [facility] (DEFAULT) [address] [place] [address] 73974 CHEM 7 (LYTES,BUN,CREA,GLUC) on 09-25-2024 Anion gap [Moles/Vol] 16 mmol/L 7 - 17 mmol/L [facility] Chloride [Moles/Vol] 108 mmol/L 98 - 10 8 mmol/L [facility] CO2 [Moles/Vol] 20 mmol/L Low 21 - 31 mmol/L [facility] Creatinine [Mass/Vol] 0.9 mg/dL 0.50 - 1.20 mg/dL [facility] eGFR, CKD-EPI, Female 73 - PINF [facility] Comment on above: Reported eGFR is bas ed on the CKD-EPI 2020 equation using creatinine, age, and sex. Glucose [Mass/Vol] 68 mg/dL Low 70 - 179 mg/dL [facility] Osmolality Calc [Osmolality] 293 [facility] Potassium [Moles/Vol] 5 mmol/L 3.5 - 5.0 mmol/L [facility] Sodium [Moles/Vol] 139 mmol/L 135 - 145 mmol/L [facility] Urea nitrogen [Mass/Vol] 20 mg/dL 7 - 25 mg/d L [facility] Urea nitrogen/Creatinine [Mass ratio] 22 mg/mg [facility] Anion gap [Moles/Vol] 16 mmol/L Normal 7-17 [facility] Comment on above: Performed By: #### I LARISSA CHM7, MGO #### [facility] (DEFAULT) [address] [place] [address] 46096 Chloride [Moles/Vol] 108 mmol/L Normal 98-108 [facility] Comment on above: Performed By: #### Carly DIAS CHM7, MGO #### [facility] (DEFAULT) [address] [place] [address] 55051 CO2 [Moles/Vol] 20 mmol/L Low 21-31 [facility] Comment on above: Performed By: #### Carly PB CHM7, MGO #### [facility] (DEFAULT) [address] [place] [address] 03476 Creatinine [Mass/Vol] 0.90 mg/dL Normal 0.50-1.20 [facility] Comment on above: Performed By: #### Carly PB CHM7, MGO #### [facility] (DEFAULT) [address] [place] [address] 66646 GFR/1.73 sq M.predicted among non-blacks MDRD (S/P/Bld) [Vol rate/Area] 75 mL/min/{1.73_m2} Normal >=60 [facility] Comment on above: Result Comment: Repo rted eGFR is based on the CKD-EPI 2020 equation using creatinine, age, and sex. Performed By: #### I PB, CHM7, MGO #### [facility] (DEFAULT) [address] [place] [address] 31376 Glucose [Mass/Vol] 68 mg/dL Low Nonfastin -179 mg/dL; Fastin-99 [facility] Comment on above: Performed By: #### I PB, CHM7, MGO #### [facility] (DEFAULT) [address] [place] [address] 79097 Osmolality [Osmolality] 293 mosm/kg Normal 278-305 [facility] Comment on above: Performed By: #### I PB, CHM7, MGO #### [facility] (DEFAULT) [address] [place] [address] 66744 Potassium [Moles/Vol] 5.0 mmol/L Normal 3.5-5.0 [facility] Comment on above: Performed By: #### I PB, CHM7, MGO #### [facility] (DEFAULT) [address] [place] [address] 25811 Sodium [Moles/Vol] 139 mmol/L Normal 135-[address] [facility] Comment on above: Performed By: #### I PB, CHM7, MGO #### [facility] (DEFAULT) [address] [place] [address] 12794 Urea nitrogen [Mass/Vol] 20 mg/dL Normal 7-25 [facility] Comment on above: Performed By: #### I PB, CHM7, MGO #### [facility] (DEFAULT) [address] [place] [address] 55986 Urea nitrogen/Creatinine [Mass ratio] 22 mg/mg Normal [facility] Comment on above: Performed By: #### I PB, CHM7, MGO #### [facility] (DEFAULT) [address] [place] [address] 57865 MAGNESIUMon 07-28-2025 Interpretation and review of laboratory results Normal [facility] Magnesium [Mass/Vol] 2.1 mg/dL 1.6 - 2 .6 mg/dL [facility] Magnesium [Mass/Vol] 2.1 mg/dL Normal 1.6-2.6 [facility] Comment on above: Performed By: #### I PINEDA DIAS, MGO #### [facility] (DEFAULT) [address] [place] [address] 67493 No Panel Informationon 09-25 Interpretation and review of laboratory results Abnormal [facility] PHOSPHATE, INORGANICon 09-25 Phosphate [Mass/Vol] 4.9 mg/dL High 2.2 - 4 .6 mg/dL [facility] Phosphorous 4.9 mg/dL High 2.2-4.6 [facility] Comment on above: Performed By: #### I PINEDA DIAS, MGO #### [facility] (DEFAULT) [address] [place] [address] 60579 PT,INR,PTTon 09-25-2024 aPTT Coag (PPP) [Time] 31.6 s [facility] INR Coag (Bld) [Relative time] 1.1 {INR} 0.9 - 1.1 [facility] Interpretation and review of laboratory results Normal [facility] PT Coag (PPP) [Time] 14.1 s [facility] aPTT Coag (Bld) [Time] 31.6 s Normal 24.0-34.3 [facility] Comment on above: Performed By: #### P TPTT #### [facility] (DEFAULT) [address] [place] [address] 24717 INR Coag (PPP) [Relative time] 1.1 {INR} Normal 0.9-1.1 [facility] Comment on above: Performed By: #### P TPTT #### [facility] (DEFAULT) [address] [place] [address] 45236 PT Coag (PPP) [Time] 14.1 s Normal 11.9-14.2 [facility] Comment on above: Performed By: #### P TPTT #### [facility] (DEFAULT) [address] [place] [address] 79093 XR ABDOMEN 1 VIEWon 09-26-19 XR ABDOMEN 1 VIEW EXAM: XR ABDOMEN 1 VIEW, 09/25/2024 08:20 AM COMPARISON: XR ABDOMEN 1 VIEW PORTABLE September 24, 2024 CLINICAL INDICATIONS: s/p gastric tube placement. FINDINGS: Tubes: NG tube is seen looping in the proximal stomach with its tip and sidehole in the region of the gastric body Bowel gas pattern: Dilated loops of small bowel in the right mid abdomen partially imaged on this exam. No visible free air. Abnormal calcifications/Radiop acities: None. Bones: Osseous structures reveal mild degenerative changes in the visualized spine Other findings: Multiple surgical clips in the right upper quadrant IMPRESSION: NG tube is seen looping in the proximal stomach with its tip and sidehole in the region of the gastric body Normal [facility] XR ABDOMEN 1 VIEW PORTABLEon 09-25-2024 XR ABDOMEN 1 VIEW PORTABLE EXAM: XR ABDOMEN 1 VIEW PORTABLE, 09/25/2024 19:48 PM COMPARISON: XR ABDOMEN 1 VIEW PORTABLE September 25, 2024 CLINICAL INDICATIONS: 8 hour post gastrograffin with complaints of stomach pain FINDINGS: Tubes: Stable gastric tube looped in the proximal stomach and terminating in the gastric body. Bowel gas pattern: Stable to slightly improved gaseous dilation of small bowel in the central abdomen. Small bowel contrast has become less visible likely due to dilution. No clear contrast seen within the collapsed distal small bowel present on CT. Decreased contrast within the stomach. No visible free air. Abnormal calcifications/Radiop acities: None. Bones: No acute abnormality. Other findings: None. IMPRESSION: 1. Enteric contrast has become more dilute and difficult to see. No visible contrast within distal small bowel. 2. Stable to slightly improved small bowel dilation. Normal [facility] XR ABDOMEN 1 VIEW PORTABLE EXAM: XR ABDOMEN 1 VIEW PORTABLE, 09/25/2024 12:37 PM COMPARISON: XR ABDOMEN 1 VIEW September 25, 2024, CT ABDOMEN (OUTSIDE IMAGE) September 24, 2024 CLINICAL INDICATIONS: s/p Gastrograffin challenge, had some emesis. FINDINGS: Tubes: Enteric tube is looped in the proximal stomach. Tip and side-port are both in the gastric body. Bowel gas pattern: Multiple dilated loops of small bowel in the midabdomen, similar in caliber to the prior CT. Oral contrast is seen within the stomach and small bowel loops, but not yet seen to the level of the ileostomy. Known total proctocolectomy. No visible free air. Abnormal calcifications/Radiop acities: None. Bones: No acute abnormality. Other findings: Right upper quadrant surgical clips. IMPRESSION: 1. Multiple dilated loops of small bowel, consistent with known small bowel obstruction. The caliber appears similar to prior. 2. Oral contrast is seen within the stomach and small bowel loops, not yet to the level of the ostomy. Progression can be assessed with serial radiographs. Normal [facility] XR Abdomen Single viewon IMPRESSION: 1. Enteric contrast has become more dilute and difficult to see. No visible contrast within distal small bowel. 2. Stable to slightly improved small bowel dilation. OLOGY EXAM: XR ABDOMEN 1 VIEW PORTABLE, 09/25/2024 19:48 PM COMPARISON: XR ABDOMEN 1 VIEW PORTABLE September 25, 2024 CLINICAL INDICATIONS: 8 hour post gastrograffin with complaints of stomach pain FINDINGS: Tubes: Stable gastric tube looped in the proximal stomach and terminating in the gastric body. Bowel gas pattern: Stable to slightly improved gaseous dilation of small bowel in the central abdomen. Small bowel contrast has become less visible likely due to dilution. No clear contrast seen within the collapsed distal small bowel present on CT. Decreased contrast within the stomach. No visible free air. Abnormal calcifications/Radiop acities: None. Bones: No acute abnormality. Other findings: None. RADIOLOGY Grant Posey MD - 09/25/2024 EXAM: XR ABDOMEN 1 VIEW PORTABLE, 09/25/2024 19:48 PM COMPARISON: XR ABDOMEN 1 VIEW PORTABLE September 25, 2024 CLINICAL INDICATIONS: 8 hour post gastrograffin with complaints of stomach pain FINDINGS: Tubes: Stable gastric tube looped in the proximal stomach and terminating in the gastric body. Bowel gas pattern: Stable to slightly improved gaseous dilation of small bowel in the central abdomen. Small bowel contrast has become less visible likely due to dilution. No clear contrast seen within the collapsed distal small bowel present on CT. Decreased contrast within the stomach. No visible free air. Abnormal calcifications/Radiop acities: None. Bones: No acute abnormality. Other findings: None. IMPRESSION IMPRESSION: 1. Enteric contrast has become more dilute and difficult to see. No visible contrast within distal small bowel. 2. Stable to slightly improved small bowel dilation. [facility] Radiology Study observation (narrative) [facility] IMPRESSION: 1. Multiple dilated loops of small bowel, consistent with known small bowel obstruction. The caliber appears similar to prior. 2. Oral contrast is seen within the stomach and small bowel loops, not yet to the level of the ostomy. Progression can be assessed with serial radiographs. OLOGY EXAM: XR ABDOMEN 1 VIEW PORTABLE, 09/25/2024 12:37 PM COMPARISON: XR ABDOMEN 1 VIEW September 25, 2024, CT ABDOMEN (OUTSIDE IMAGE) September 24, 2024 CLINICAL INDICATIONS: s/p Gastrograffin challenge, had some emesis. FINDINGS: Tubes: Enteric tube is looped in the proximal stomach. Tip and side-port are both in the gastric body. Bowel gas pattern: Multiple dilated loops of small bowel in the midabdomen, similar in caliber to the prior CT. Oral contrast is seen within the stomach and small bowel loops, but not yet seen to the level of the ileostomy. Known total proctocolectomy. No visible free air. Abnormal calcifications/Radiop acities: None. Bones: No acute abnormality. Other findings: Right upper quadrant surgical clips. RADIOLOGY Lc Fernandes M D - 09/25/2024 EXAM: XR ABDOMEN 1 VIEW PORTABLE, 09/25/2024 12:37 PM COMPARISON: XR ABDOMEN 1 VIEW September 25, 2024, CT ABDOMEN (OUTSIDE IMAGE) September 24, 2024 CLINICAL INDICATIONS: s/p Gastrograffin challenge, had some emesis. FINDINGS: Tubes: Enteric tube is looped in the proximal stomach. Tip and side-port are both in the gastric body. Bowel gas pattern: Multiple dilated loops of small bowel in the midabdomen, similar in caliber to the prior CT. Oral contrast is seen within the stomach and small bowel loops, but not yet seen to the level of the ileostomy. Known total proctocolectomy. No visible free air. Abnormal calcifications/Radiop acities: None. Bones: No acute abnormality. Other findings: Right upper quadrant surgical clips. IMPRESSION IMPRESSION: 1. Multiple dilated loops of small bowel, consistent with known small bowel obstruction. The caliber appears similar to prior. 2. Oral contrast is seen within the stomach and small bowel loops, not yet to the level of the ostomy. Progression can be assessed with serial radiographs. [facility] Radiology Study observation (narrative) [facility] IMPRESSION: NG tube is seen looping in the proximal stomach with its tip and sidehole in the region of the gastric body OLOGY EXAM: XR ABDOMEN 1 VIEW, 09/25/2024 08:20 AM COMPARISON: XR ABDOMEN 1 VIEW PORTABLE September 24, 2024 CLINICAL INDICATIONS: s/p gastric tube placement. FINDINGS: Tubes: NG tube is seen looping in the proximal stomach with its tip and sidehole in the region of the gastric body Bowel gas pattern: Dilated loops of small bowel in the right mid abdomen partially imaged on this exam. No visible free air. Abnormal calcifications/Radiop acities: None. Bones: Osseous structures reveal mild degenerative changes in the visualized spine Other findings: Multiple surgical clips in the right upper quadrant RADIOLOGY Gabe Be MBBS - 09/25/2024 EXAM: XR ABDOMEN 1 VIEW, 09/25/2024 08:20 AM COMPARISON: XR ABDOMEN 1 VIEW PORTABLE September 24, 2024 CLINICAL INDICATIONS: s/p gastric tube placement. FINDINGS: Tubes: NG tube is seen looping in the proximal stomach with its tip and sidehole in the region of the gastric body Bowel gas pattern: Dilated loops of small bowel in the right mid abdomen partially imaged on this exam. No visible free air. Abnormal calcifications/Radiop acities: None. Bones: Osseous structures reveal mild degenerative changes in the visualized spine Other findings: Multiple surgical clips in the right upper quadrant IMPRESSION IMPRESSION: NG tube is seen looping in the proximal stomach with its tip and sidehole in the region of the gastric body [facility] Radiology Study observation (narrative) [facility] XR Abdomen Single viewOrdere d By: Grant Posey on 09-25-2024 [facility] XR Abdomen Single viewOrdere d By: Lc Fernandes on 09-25-2024 [facility] Work Phone: XR Abdomen Single viewOrdere d By: Gabe Be on 09-25-2024 [facility] Work Phone: Abdomen Single View (Portabl e)on 09-24-2024 Abdomen Single View (Portable) [facility] Imaging Services [address] [place] [id number] Abdomen Single View (Portable) MR#: [id number] Acct: [id number] Name: GABI MCNULTY Rep #: [id number] : 1970 F 53 From: Haider Chowdhury MD PCP: Dr. Brandi Boogie MD Status: [facility] ER Study: Abdomen Single View (Portable) Date of Exam: 0 09/24/24 Exam# [id number] Ordering Dr: Peyman Sheikh DO PROCEDURE: ABDOMEN SINGLE VIEW (PORTABLE) 09/24/2024 REASON FOR EXAM: NG INSERTION TECHNIQUE: ABDOMEN SINGLE VIEW (PORTABLE) COMPARISON: Same day CT. FINDINGS: Orogastric tube terminates within the distal stomach which is patulous. Partially visualized dilated loops of small bowel. The lungs are clear. RAD/Abdomen Single View (Portable) IMPRESSION: Orogastric tube as above. Reading Location: [facility] CC: Dr. Brandi Boogie MD; Dr. Peyman Sheikh DO In Service Educator: Signed Normal [facility] Abdomen/Pelvis W IV Cont ONL Yon 09-24-2024 Abdomen/Pelvis W IV Cont ONLY [facility] Imaging Services [address] [place] [address] Abdomen/Pelvis W IV Cont ONLY MR#: [id number] Acct: [id number] Name: GABI MCNULTY Rep #: [id number] : 1970 F 53 From: Haider Chowdhury MD PCP: Dr. Brandi Boogie MD Status: [facility] ER Study: Abdomen/Pelvis W IV Cont ONLY Date of Exam: Exam# [id number] Ordering Dr: Peyman Sheikh DO PROCEDURE: ABDOMEN/PELVIS W IV CONT ONLY 09/24/2024 REASON FOR EXAM: ABDOMINAL PAIN TECHNIQUE: ABDOMEN/PELVIS W IV CONT ONLY Coronal and Sagittal reconstruction series were provided. CONTRAST: Isovue 370 VOLUME: 96 mL One or more dose reduction techniques were used (e.g., Automated exposure control, adjustment of the mA and/or kV according to patient size, use of iterative reconstruction technique. RADIATION DOSE SUMMARY: CTDlvol: 53 mGy DLP: 315 mGycm COMPARISON: None. FINDINGS: Right lower quadrant ileostomy. Dilated loops of small bowel with a transition point in the mid abdomen indicating a bowel obstruction. Colectomy. No suspicious lymphadenopathy. The liver, spleen, adrenals are unremarkable. The gallbladder is not well visualized and may be absent. Symmetric enhancement of the bilateral kidneys. The uterus is unremarkable. CT/Abdomen/Pelvis W IV Cont ONLY IMPRESSION: Small-bowel obstruction. Reading Location: [facility] CC: Dr. Brandi Boogie MD; Dr. Peyman Sheikh DO In Service Educator: Signed Normal [facility] Absolute lymphocyte countOrd ered By: Peyman Sheikh on 09-24-2024 Lymphocytes Auto (Unsp spec) [#/Vol] 0.59 10*3/uL Low 0.83-4.51 [facility] Absolute neutrophil countOrd ered By: Peyman Sheikh on 09-24-2024 Neutrophils (Bld) [#/Vol] 5.9 10*3/uL 2.0-7.7 [facility] Anion gap in Serum or Plasma Ordered By: Peyman Sheikh on 09-24-2024 Anion gap [Moles/Vol] 16 mmol/L High 5-15 [facility] Automated lymphocyte count a s percentage of total leukocytesOrdered By: Peyman Sheikh on 09-24-2024 Lymphocytes/100 WBC Auto (Unsp spec) 8.5 % Low 19-41 [facility] BUN/creatinine ratioOrdered By: Peyman Sheikh on 09-24-2024 Urea nitrogen/Creatinine [Mass ratio] 26.1 mg/mg High 10-20 [facility] Basophil percentageOrdered B y: Peyman Sheikh on 09-24-2024 Basophils/100 WBC (Bld) 0.4 % 0-1 [facility] Bilirubin Test strip Ql (U)O rdered By: Peyman Sheikh on 09-24-2024 Bilirubin Ql (U) Negative Negative [facility] Bilirubin, totalOrdered By: Peyman Sheikh on 09-24-2024 Bilirubin [Mass/Vol] 0.58 mg/dL 0.00-1.30 [facility] CBC AND ELECTRONIC DIFFon Basophils (Bld) [#/Vol] K/uL 0.00 - 0.15 K/uL [facility] Basophils/100 WBC (Bld) 0.2 % O [facility] Differential cell count method Nom (Bld) Electronic Differential [facility] Eosinophils (Bld) [#/Vol] K/uL 0.00 - 0.42 K/uL [facility] Eosinophils/100 WBC (Bld) 0 % [facility] Erythrocyte distribution width (RBC) [Ratio] 12.4 % 10.8 - 14.9 % [facility] Hematocrit (Bld) [Volume fraction] 42.1 % 34.9 - 44.3 % [facility] Hemoglobin (Bld) [Mass/Vol] 13.9 g/dL 11.4 - 15.2 g/dL [facility] Immature granulocytes (Bld) [#/Vol] K/uL NINF - 0.08 K/uL [facility] Immature granulocytes/100 WBC (Bld) 0.2 % [facility] Interpretation and review of laboratory results Abnormal [facility] Lymphocytes (Bld) [#/Vol] 0.25 10*3/uL Low 1.16 - 3.51 K/uL [facility] Lymphocytes/100 WBC (Bld) 2.1 % [facility] MCH (RBC) [Entitic mass] 29.8 pg 25. 9 - 33.9 pg [facility] MCHC (RBC) [Mass/Vol] 33 g/dL 31.4 - 35.9 g/dL [facility] MCV (RBC) [Entitic vol] 90.1 fL 79.6 - 97.7 fL [facility] Monocytes (Bld) [#/Vol] 0.31 10*3/uL 0.22 - 0.87 K/uL [facility] Monocytes/100 WBC (Bld) 2.6 % [facility] Neutrophils (Bld) [#/Vol] 11.43 10*3/uL High 1.64 - 7.28 K/uL [facility] Nucleated RBC/100 WBC (Bld) [Ratio] 0 % BANNERF [facility] Platelet mean volume (Bld) [Entitic vol] 11.2 fL 8.5 - 12.2 fL [facility] Platelets (Bld) [#/Vol] 198 10*3/uL 150 - 393 K/uL [facility] RBC (Bld) [#/Vol] 4.67 10*6/uL [facility] Segmented neutrophils/100 WBC (Bld) 94.9 % [facility] WBC (Bld) [#/Vol] 12.04 10*3/uL High 3.99 - 11 .19 K/uL [facility] Abs Baso Auto < Normal 0.00-0.15 [facility] Comment on above: Performed By: #### I PB, CHM7, MGO #### [facility] (DEFAULT) [address] [place] [address] Abs Eos Auto < Normal 0.00-0.42 [facility] Comment on above: Performed By: #### I PB, CHM7, MGO #### [facility] (DEFAULT) [address] [place] [address] 69554 Basophils/100 WBC (Bld) 0.2 % Normal [facility] Comment on above: Performed By: #### I PB, CHM7, MGO #### [facility] (DEFAULT) [address] [place] [address] 90234 DIFF STATUS Electronic Differential Normal [facility] Comment on above: Performed By: #### I PB, CHM7, MGO #### [facility] (DEFAULT) [address] [place] [address] 32534 Eosinophils/100 WBC (Bld) 0.0 % Normal [facility] Comment on above: Performed By: #### I PB, CHM7, MGO #### [facility] (DEFAULT) [address] [place] [address]32 Hematocrit (Bld) [Volume fraction] 42.1 % Normal 34.9-44.3 [facility] Comment on above: Performed By: #### I PB, CHM7, MGO #### [facility] (DEFAULT) [address] [place] [address] 93006 Hemoglobin (Bld) [Mass/Vol] 13.9 g/dL Normal 11.4-15.2 [facility] Comment on above: Performed By: #### I PB, CHM7, MGO #### [facility] (DEFAULT) [address] [place] [address] 14617 Immature Grans % 0.2 % Normal [facility] Comment on above: Performed By: #### I PB, CHM7, MGO #### U [facility] (DEFAULT) [address] [place] [address] 19181 Immature Grans Absolute < Normal <=0.08 [facility] Comment on above: Performed By: #### I PB, CHM7, MGO #### U [facility] (DEFAULT) [address] [place] [address] 77196 Lymphocytes (Bld) [#/Vol] 0.25 10*3/uL Low 1.16-3.51 [facility] Comment on above: Performed By: #### I PB, CHM7, MGO #### U [facility] (DEFAULT) [address] [place] [address] 84362 Lymphocytes/100 WBC (Bld) 2.1 % Normal [facility] Comment on above: Performed By: #### I PB, CHM7, MGO #### [facility] (DEFAULT) [address] [place] [address] 61007 MCV (RBC) [Entitic vol] 90.1 fL Normal 79.6-97.7 [facility] Comment on above: Performed By: #### I PB, CHM7, MGO #### [facility] (DEFAULT) [address] [place] [address] 95697 Mean Cell Hgb 29.8 pg Normal 25.9-33.9 [facility] Comment on above: Performed By: #### I PB, CHM7, MGO #### U [facility] (DEFAULT) [address] [place] [address] 39491 Mean Cell Hgb Conc 33.0 g/dL Normal 31.4-35.[address] [facility] Comment on above: Performed By: #### I PB, CHM7, MGO #### U [facility] (DEFAULT) [address] [place] [address] 29626 Monocytes (Bld) [#/Vol] 0.31 10*3/uL Normal 0.22-0.87 [facility] Comment on above: Performed By: #### I PB, CHM7, MGO #### [facility] (DEFAULT) [address] [place] [address] 42068 Monocytes/100 WBC (Bld) 2.6 % Normal [facility] Comment on above: Performed By: #### I PB, CHM7, MGO #### [facility] (DEFAULT) [address] [place] [address] 79003 Nucleated RBC 0.0 /100 WBC Normal <=0.2 [facility] Comment on above: Performed By: #### I PB, CHM7, MGO #### U [facility] (DEFAULT) [address] [place] [address] 24859 Platelet mean volume (Bld) [Entitic vol] 11.2 fL Normal 8.5-12.2 [facility] Comment on above: Performed By: #### I PB, CHM7, MGO #### [facility] (DEFAULT) [address] [place] [address] 93075 Platelets (Bld) [#/Vol] 198 10*3/uL Normal 150-393 [facility] Comment on above: Performed By: #### I PB, CHM7, MGO #### [facility] (DEFAULT) [address] [place] [address] 93657 RBC (Bld) [#/Vol] 4.67 10*6/uL Normal 3.91-5.04 [facility] Comment on above: Performed By: #### I PB, CHM7, MGO #### [facility] (DEFAULT) [address] [place] [address] 21474 RBC Distribution 12.4 % Normal 10.8-14.9 [facility] Comment on above: Performed By: #### I PB, CHM7, MGO #### [facility] (DEFAULT) [address] [place] [address] 84971 Segs + Bands Auto 94.9 % Normal [facility] Comment on above: Performed By: #### I PBJESSENIAM7, MGO #### [facility] (DEFAULT) [address] [place] [address] 73097 Segs + Bands,Absolute Auto 11.43 K/uL High 1.64-7.28 [facility] Comment on above: Performed By: #### I PB, CHM7, MGO #### [facility] (DEFAULT) [address] [place] [address] 53051 WBC (Bld) [#/Vol] 12.04 10*3/uL High 3.99-11.19 [facility] Comment on above: Performed By: #### I PB, JESSENIAM7, MGO #### [facility] (DEFAULT) [address] [place] [address] 28258 CBC W/Diff, Automatedon 08-30 Absolute Lymph 0.59 X10 3/uL Low 0.83-4.51 [facility] Comment on above: Performed By: #### L 501.2450, L100.0100, L500.4050, L503.6005 ####[facility] [address] [place], [address] Absolute Neut 5.9 X10 3/uL Normal 2.0-7.7 [facility] Comment on above: Performed By: #### L 501.2450, L100.0100, L500.4050, L503.6005 ####[facility] [address] [place], [address] Basophils/100 WBC (Bld) 0.4 % Normal 0-1 [facility] Comment on above: Performed By: #### L 501.2450, L100.0100, L500.4050, L503.6005 ####[facility] [address] [place], [address] Eosinophils/100 WBC (Bld) 0.1 % Normal 0-5 [facility] Comment on above: Performed By: #### L 501.2450, L100.0100, L500.4050, L503.6005 ####[facility] [address] [place], [address] Erythrocyte distribution width (RBC) [Ratio] 12.2 % Normal 11.6-14.6 [facility] Comment on above: Performed By: #### L 501.2450, L100.0100, L500.4050, L503.6005 ####[facility] [address] [place], [address] Hematocrit (Bld) [Volume fraction] 45.3 % Normal 37-47 [facility] Comment on above: Performed By: #### L 501.2450, L100.0100, L500.4050, L503.6005 ####[facility] [address] [place], [address] Hemoglobin (Bld) [Mass/Vol] 15.4 g/dL High 12.0-15.0 [facility] Comment on above: Performed By: #### L 501.2450, L100.0100, L500.4050, L503.6005 ####[facility] [address] [place], [address] IG% 0.300 Normal 0.0-0.9 [facility] Comment on above: Result Comment: IG% - Immature Granulocytes (promyelocytes, myelocytes and metamyelocytes) > 1% indicates that a LEFT SHIFT is Present. Performed By: #### L 501.2450, L100.0100, L500.4050, L503.6005 ####[facility] [address] [place], [address] Lymphocytes/100 WBC (Bld) 8.5 % Low 19-41 [facility] Comment on above: Performed By: #### L 501.2450, L100.0100, L500.4050, L503.6005 ####[facility] [address] [place], [address] MCH (RBC) [Entitic mass] 30.3 pg Normal 27.0-32.0 [facility] Comment on above: Performed By: #### L 501.2450, L100.0100, L500.4050, L503.6005 ####[facility] [address] [place], [address] MCHC (RBC) [Mass/Vol] 34.0 g/dL Normal 32-36 [facility] Comment on above: Performed By: #### L 501.2450, L100.0100, L500.4050, L503.6005 ####[facility] [address] [place], [address] MCV (RBC) [Entitic vol] 89.0 fL Normal 81-99 [facility] Comment on above: Performed By: #### L 501.2450, L100.0100, L500.4050, L503.6005 ####[facility] [address] [place], [address] Monocytes/100 WBC (Bld) 5.5 % Normal 0-10 [facility] Comment on above: Performed By: #### L 501.2450, L100.0100, L500.4050, L503.6005 ####[facility] [address] [place], [address] Neutrophils/100 WBC (Bld) 85.2 % High 47-70 [facility] Comment on above: Performed By: #### L 501.2450, L100.0100, L500.4050, L503.6005 ####[facility] [address] [place], [address] Nucleated RBC (Bld) [#/Vol] 0 10*3/uL Normal 0-5 [facility] Comment on above: Performed By: #### L 501.2450, L100.0100, L500.4050, L503.6005 ####[facility] [address] [place], [address] Platelet mean volume (Bld) [Entitic vol] 11.6 fL Normal 6.2-12.0 [facility] Comment on above: Performed By: #### L 501.2450, L100.0100, L500.4050, L503.6005 ####[facility] [address] [place], [address] Platelets (Bld) [#/Vol] 217 10*3/uL Normal 150-450 [facility] Comment on above: Performed By: #### L 501.2450, L100.0100, L500.4050, L503.6005 ####[facility] [address] [place], [address] RBC (Bld) [#/Vol] 5.09 10*6/uL Normal 4.2-5.4 [facility] Comment on above: Performed By: #### L 501.2450, L100.0100, L500.4050, L503.6005 ####[facility] [address] [place], [address] RDW SD 39.9 fl Normal 35.1-43.9 [facility] Comment on above: Performed By: #### L 501.2450, L100.0100, L500.4050, L503.6005 ####[facility] [address] [place], [address] WBC (Bld) [#/Vol] 7.0 10*3/uL Normal 4.4-11.0 [facility] Comment on above: Performed By: #### L 501.2450, L100.0100, L500.4050, L503.6005 ####[facility] [address] [place], [address] CHEM 6 (LYTES, BUN CREA)on 0 09-24-2024 Anion gap [Moles/Vol] 15 mmol/L 7 - 17 mmol/L [facility] Chloride [Moles/Vol] 106 mmol/L 98 - 10 8 mmol/L [facility] CO2 [Moles/Vol] 19 mmol/L Low 21 - 31 mmol/L [facility] Creatinine [Mass/Vol] 0.9 mg/dL 0.50 - 1.20 mg/dL [facility] eGFR, CKD-EPI, Female 75 - PINF [facility] Comment on above: Reported eGFR is bas ed on the CKD-EPI 2020 equation using creatinine, age, and sex. Interpretation and review of laboratory results Abnormal [facility] Potassium [Moles/Vol] 4.8 mmol/L 3.5 - 5.0 mmol/L [facility] Sodium [Moles/Vol] 135 mmol/L 135 - 145 mmol/L [facility] Urea nitrogen [Mass/Vol] 23 mg/dL 7 - 25 mg/d L [facility] Urea nitrogen/Creatinine [Mass ratio] 26 mg/mg [facility] Anion gap [Moles/Vol] 15 mmol/L Normal 7-17 [facility] Comment on above: Performed By: #### I JESSENIA DIASMRoger, MGO #### [facility] (DEFAULT) [address] [address] Chloride [Moles/Vol] 106 mmol/L Normal 98-108 [facility] Comment on above: Performed By: #### I JESSENIA DIASM7, MGO #### [facility] (DEFAULT) [address] [address] CO2 [Moles/Vol] 19 mmol/L Low 21-31 [facility] Comment on above: Performed By: #### I LARISSA CHM7, MGO #### [facility] (DEFAULT) [address] [place] [address] Creatinine [Mass/Vol] 0.90 mg/dL Normal 0.50-1.20 [facility] Comment on above: Performed By: #### I PB, CHM7, MGO #### [facility] (DEFAULT) [address] [place] [address] 08176 GFR/1.73 sq M.predicted among non-blacks MDRD (S/P/Bld) [Vol rate/Area] 75 mL/min/{1.73_m2} Normal >=60 [facility] Comment on above: Result Comment: Repo rted eGFR is based on the CKD-EPI 2020 equation using creatinine, age, and sex. Performed By: #### I PB, CHM7, MGO #### [facility] (DEFAULT) [address] [place] [address] 31523 Potassium [Moles/Vol] 4.8 mmol/L Normal 3.5-5.0 [facility] Comment on above: Performed By: #### I PB, CHM7, MGO #### [facility] (DEFAULT) [address] [place] [address] 84486 Sodium [Moles/Vol] 135 mmol/L Normal 135-[address] [facility] Comment on above: Performed By: #### I PB, CHM7, MGO #### [facility] (DEFAULT) [address] [place] [address] 34684 Urea nitrogen [Mass/Vol] 23 mg/dL Normal 7-25 [facility] Comment on above: Performed By: #### I PB, CHM7, MGO #### [facility] (DEFAULT) [address] [place] [address] 05278 Urea nitrogen/Creatinine [Mass ratio] 26 mg/mg Normal [facility] Comment on above: Performed By: #### I PB, CHM7, MGO #### [facility] (DEFAULT) [address] [place] [address] 07875 Carbon dioxide, total [Moles /volume] in Central venous bloodOrdered By: Peyman Sheikh on 09-24-2024 CO2 [Moles/Vol] 20.4 mmol/L Low 21.0-32.0 [facility] Chloride assayOrdered By: Arnaud Sheikh on 09-24-2024 Chloride [Moles/Vol] 99 mmol/L 98-108 [facility] Comprehensive Metabolic Prof ilon 09-24-2024 Albumin [Mass/Vol] 4.8 g/dL Normal 3.5-5.0 [facility] Comment on above: Performed By: #### L 501.2450, L100.0100, L500.4050, L503.6005 ####[facility] [address] [place], [address] Albumin/Globulin [Mass ratio] 1.5 {ratio} Normal 0.9-2.4 [facility] Comment on above: Performed By: #### L 501.2450, L100.0100, L500.4050, L503.6005 ####[facility] [address] [place], [address] ALK PHOS 99 U/L Normal 35-104 [facility] Comment on above: Performed By: #### L 501.2450, L100.0100, L500.4050, L503.6005 ####[facility] [address] [place], [address] ALT [Catalytic activity/Vol] 35 U/L Normal <=34 [facility] Comment on above: Performed By: #### L 501.2450, L100.0100, L500.4050, L503.6005 ####[facility] [address] [place], [address] AST [Catalytic activity/Vol] 40 U/L High <=31 [facility] Comment on above: Performed By: #### L 501.2450, L100.0100, L500.4050, L503.6005 ####[facility] [address] [place], [address] Bilirubin [Mass/Vol] 0.58 mg/dL Normal 0.00-1.30 [facility] Comment on above: Performed By: #### L 501.2450, L100.0100, L500.4050, L503.6005 ####[facility] [address] [place], [address] BUN/CRE 26.1 RATIO High 10-20 [facility] Comment on above: Performed By: #### L 501.2450, L100.0100, L500.4050, L503.6005 ####[facility] [address] [place], [address] Calcium [Mass/Vol] 10.5 mg/dL Normal 7.6-11.0 [facility] Comment on above: Performed By: #### L 501.2450, L100.0100, L500.4050, L503.6005 ####[facility] [address] [place], [address] Chloride [Moles/Vol] 99 mmol/L Normal 98-108 [facility] Comment on above: Performed By: #### L 501.2450, L100.0100, L500.4050, L503.6005 ####[facility] [address] [place], [address] CO2 [Moles/Vol] 20.4 mmol/L Low 21.0-32.0 [facility] Comment on above: Performed By: #### L 501.2450, L100.0100, L500.4050, L503.6005 ####[facility] [address] [place], [address] Creatinine [Mass/Vol] 0.97 mg/dL Normal 0.70-1.20 [facility] Comment on above: Performed By: #### L 501.2450, L100.0100, L500.4050, L503.6005 ####[facility] [address] [place], [address] ECRCL 51.83 ml/min Normal 50-250 [facility] Comment on above: Performed By: #### L 501.2450, L100.0100, L500.4050, L503.6005 ####[facility] [address] [place], [address] GAP 16 High 5-15 [facility] Comment on above: Performed By: #### L 501.2450, L100.0100, L500.4050, L503.6005 ####[facility] [address] [place], [address] GFR/1.73 sq M.predicted among non-blacks MDRD (S/P/Bld) [Vol rate/Area] 69 mL/min/{1.73_m2} Normal >60 [facility] Comment on above: Result Comment: mL/m in/1.73m2 CKD-EPI Creatinine Equation (2020) Performed By: #### L 501.2450, L100.0100, L500.4050, L503.6005 ####[facility] [address] [place], [address] Globulin (S) [Mass/Vol] 3.2 g/dL Normal 2.2-4.2 [facility] Comment on above: Performed By: #### L 501.2450, L100.0100, L500.4050, L503.6005 ####[facility] [address] [place], [address] Glucose [Mass/Vol] 108 mg/dL High 70-99 [facility] Comment on above: Performed By: #### L 501.2450, L100.0100, L500.4050, L503.6005 ####[facility] [address] [place], [address] Potassium [Moles/Vol] 5.1 mmol/L Normal 3.3-5.1 [facility] Comment on above: Performed By: #### L 501.2450, L100.0100, L500.4050, L503.6005 ####[facility] [address] [place], [address] Sodium [Moles/Vol] 136 mmol/L Normal 133-145 [facility] Comment on above: Performed By: #### L 501.2450, L100.0100, L500.4050, L503.6005 ####[facility] [address] [place], [address] T PROT 8.0 g/dL Normal 5.9-8.4 [facility] Comment on above: Performed By: #### L 501.2450, L100.0100, L500.4050, L503.6005 ####[facility] [address] [place], [address] Urea nitrogen [Mass/Vol] 25 mg/dL High 4-19 [facility] Comment on above: Performed By: #### L 501.2450, L100.0100, L500.4050, L503.6005 ####[facility] [address] [place], [address] Emergency Department Summary on 09-24-2024 Emergency Department Summary [facility] Medical Records Department [address] [place] [address] Emergency Department Summary 09/24/24 MR#: [id number] Acct: [id number] Name: GABI MCNULTY Rep #: [id number] : 1970 53 From: Peyman Sheikh DO PCP: Dr. Brandi Boogie MD Status:DEP ER Location: ED HPI HPI - GI History of Present Illness Chief Complaint: Abd Pain Informant: patient Abdominal Pain/Flank Pain Onset: Yesterday Context: Sudden Onset Timing: Continuous Quality: Aching, Cramping and Sharp Location: LLQ and - (Periumbilical) Worsened by: Nothing Relieved by: - (Bath) Nausea/Vomiting/Emesi s GI Symptom: Positive for Nausea; Negative for Vomiting Diarrhea/Melena/Hemat ochezia GI Symptom: Negative for Diarrhea, Melena or Hematochezia Associated Symptoms Associated Symptoms: Negative for Dysuria, Frequency or Hematuria Narrative Narrative: Patient presents with possible bowel obstruction. Patient states she feels like her stoma may have a blockage. Patient states she started having some abdominal pain yesterday. Patient states it began rather suddenly. Patient describes her pain as cramping, aching, and sharp. Patient states it is worse of the left lower abdomen and periumbilical area. Patient admits to some nausea but denies any vomiting. Patient states she took a bath yesterday and it helped. Patient states it became worse later. Patient denies any diarrhea, melena, or hematochezia. Patient denies any dysuria, frequency, or hematuria. [facility] Medical History Osteopenia determined by x-ray Crohns disease Medical History no medical history Home Medications ???Medication ???Instructions ???Recorded ???Last Taken ???Type cholecalciferol (vitamin D3) 50 50 mcg PO DAILY 06/16/21 Unknown H istory mcg (2,000 unit) capsule (Vitamin D3) calcium carbonate (Calcium 600) 600 mg PO BID 05/17/23 Unknown His tory zoledronic acid 5 mg/100 mL in 1 ea .Route ONCE #100 mL 05/17/23 Unknown Rx mannitol 5 %-water intravenous piggybck clobetasol 0.05 % topical ointment 1 applic topical .COMPLEX #15 gr ams 12/21/23 Unknown Rx estradiol 0.01% (0.1 mg/gram) See Rx Instructions vaginal Unknown Rx vaginal cream .COMPLEX #42.5 grams Allergy/AdvReac Type Severity Reaction Status Date / Time No Known Allergies Allergy Verified 09/24/24 08:11 Family History Father Heart disease Aunt Breast [...] safe at home: Yes additional social history: [facility] Patient works at [employer] ED Constitutional Constitutional ED: Denies chills or fever(s) Eyes Eyes: Denies blurry vision or change in vision ENT ENT ED: Denies rhinorrhea or sore throat Cardiovascular Cardiovascular: Denies chest pain or palpitations Respiratory/Chest Respiratory/Chest: Denies cough or dyspnea Gastrointestinal Gastrointestinal: Reports abdominal pain and nausea; Denies diarrhea, melena or vomiting Genitourinary Genitourinary ED: Denies dysuria or hematuria Musculoskeletal Musculoskeletal: Reports back pain; Denies neck pain Integumentary Denies abscess or rash Neurologic Neurologic: Reports headache(s); Denies weakness Allergic/Immunologic Allergic/Immunologic ED: Denies mouth swelling or urticaria EXAM Physical Exam Const Vital Signs: 09/24/24 08:11 09/24/24 10:11 09/24/24 12:18 Temperature 97 F L Temperature Source Temporal Pulse Rate 90 78 Respiratory Rate 18 16 Blood Pressure 96/70 101/66 93/56 L Blood Pressure Mean 78 77 68 Pulse Ox 100 100 98 Oxygen Delivery Method Room Air Room Air 09/24/24 14:00 09/24/24 14:55 Temperature 97 F L Temperature Source Pulse Rate 77 86 Respiratory Rate 18 Blood Pressure 101/73 97/63 Blood Pressure Mean 82 74 Pulse Ox 100 98 Oxygen Delivery Method Room Air Positive well nourished and well developed Constitutional Narrative: BMI is 20.8. General Appearance ED: well developed and NAD HEENT Reports moist mucous membranes Neck supple and no JVD Resp normal respiratory effort and clear to au (more content not included)... Normal [facility] Eosinophil percentageOrdered By: Peyman Sheikh on 09-24-2024 Eosinophils/100 WBC (Bld) 0.1 % 0-5 [facility] Erythrocyte distribution wid th ratioOrdered By: Peyman Sheikh on 09-24-2024 Erythrocyte distribution width (RBC) [Ratio] 12.2 % 11.6-14.6 [facility] Erythrocyte distribution wid th standard deviationOrdered By: Peyman Sheikh on 09-24-2024 Erythrocyte distribution width (RBC) [Ratio] 39.9 fl 35.1-43.9 [facility] GLUCOSEon 09-24-2024 Glucose [Mass/Vol] 81 mg/dL 70 - 179 mg/dL [facility] Glucose [Mass/Vol] 81 mg/dL Normal Nonfastin -179 mg/dL; Fastin-99 [facility] Comment on above: Performed By: #### I PB, CHM7, MGO #### [facility] (DEFAULT) [address] [place] [address] Glomerular filtration rate ( GFR) estimation/1.73 sq m using serum, plasma, or whole bOrdered By: Peyman Sheikh on 09-24-2024 GFR/1.73 sq M.predicted among non-blacks MDRD (S/P/Bld) [Vol rate/Area] 69 mL/min/{1.73_m2} >60 [facility] Comment on above: mL/min/1.73m2 CKD-EP I Creatinine Equation (2020) HEPATIC FUNCTION PANELon Albumin [Mass/Vol] 4.3 g/dL 3.5 - 5.0 g/dL [facility] ALP [Catalytic activity/Vol] 76 U/L 32 - 126 U/L [facility] ALT [Catalytic activity/Vol] 23 U/L 9 - 48 U/L [facility] AST [Catalytic activity/Vol] 30 U/L 10 - 39 U/L [facility] Bilirubin [Mass/Vol] 0.5 mg/dL NINF - 1.5 mg/dL [facility] Bilirubin.direct [Mass/Vol] 0.1 mg/dL NINF - 0.3 mg/dL [facility] Protein [Mass/Vol] 7.2 g/dL 6.4 - 8.3 g/dL [facility] Albumin [Mass/Vol] 4.3 g/dL Normal 3.5-5.[address] [facility] Comment on above: Performed By: #### I PB, CHM7, MGO #### [facility] (DEFAULT) [address] [place] [address] ALP [Catalytic activity/Vol] 76 U/L Normal 32-126 [facility] Comment on above: Performed By: #### I PB, CHM7, MGO #### [facility] (DEFAULT) [address] [place] [address] ALT [Catalytic activity/Vol] 23 U/L Normal 9-48 [facility] Comment on above: Performed By: #### I PB, CHM7, MGO #### [facility] (DEFAULT) [address] [place] [address] AST [Catalytic activity/Vol] 30 U/L Normal 10-39 [facility] Comment on above: Performed By: #### I PB, CHM7, MGO #### [facility] (DEFAULT) [address] [place] [address] Bilirubin [Mass/Vol] 0.5 mg/dL Normal <1.5 [facility] Comment on above: Performed By: #### I PB, CHM7, MGO #### [facility] (DEFAULT) [address] [place] [address] Bilirubin.indirect [Mass/Vol] 0.1 mg/dL Normal <0.3 [facility] Comment on above: Performed By: #### I PB, CHM7, MGO #### [facility] (DEFAULT) [address] [place] [address] Protein [Mass/Vol] 7.2 g/dL Normal 6.4-8.[address] [facility] Comment on above: Performed By: #### I PB, CHM7, MGO #### [facility] (DEFAULT) [address] [address] Hematocrit Auto (Bld) [Volum e fraction]Ordered By: Peyman Sheikh on 09-24-2024 Hematocrit (Bld) [Volume fraction] 45.3 % 37-47 [facility] Hemoglobin measurementOrdere d By: Peyman Sheikh on 09-24-2024 Hemoglobin (Bld) [Mass/Vol] 15.4 g/dL High 12.0-15.0 [facility] Immature granulocytes/100 WB C Auto (Bld)Ordered By: Peyman Sheikh on 09-24-2024 Immature granulocytes/100 WBC (Bld) 0.300 % 0.0-0.9 [facility] Comment on above: IG% - Immature Granu locytes (promyelocytes, myelocytes and metamyelocytes) > 1% indicates that a LEFT SHIFT is Present. Ketones Test strip Ql (U)Ord ered By: Peyman Sheikh on 09-24-2024 Ketones Ql (U) 5 mg/dl High Negative [facility] LACTATE, WHOLE BLOODon 09-24 Interpretation and review of laboratory results Normal [facility] Lactate [Moles/Vol] 1.2 mmol/L 0.5 - 1. 6 mmol/L [facility] Lactate, Whole Blood 1.2 mmol/L Normal 0.5-1.6 [facility] Comment on above: Performed By: #### B GLACT #### [facility] (DEFAULT) [address] [address] LIPASEon 09-24-2024 Lipase [Catalytic activity/Vol] 34 U/L 11 - 82 U/L [facility] Lipase [Catalytic activity/Vol] 34 U/L Normal 11-82 [facility] Comment on above: Performed By: #### I PB, CHM7, MGO #### [facility] (DEFAULT) [address] [address] Laboratory - Chemistry and C hemistry - challengeOrdered By: Peyman Sheikh on 09-24-2024 AST [Catalytic activity/Vol] 40 U/L High <32 [facility] Lactic Acidon 09-24-2024 Lactate [Moles/Vol] 1.1 mmol/L Normal 0.0-2.0 [facility] Comment on above: Order Comment: Y Performed By: #### L 501.2450, L100.0100, L500.4050, L503.6005 ####[facility] [address] [place], [place], [address] Lactic acid measurementOrder ed By: Peyman Sheikh on 09-24-2024 Lactate [Moles/Vol] 1.1 mmol/L 0.0-2.0 [facility] Lipaseon 09-24-2024 Lipase [Catalytic activity/Vol] 63 U/L Normal 13-75 [facility] Comment on above: Result Comment: Jessy krishnan note: LIPASE revised reference range effective 22. New Lipase methodology. Expected to produce lower values than the previous assay method. NEW Reference Range: 13 - 75 U/L Performed By: #### L 501.2450, L100.0100, L500.4050, L503.6005 ####[facility] [address] [place], [place], [id number] Lipase measurementOrdered By : Peyman Sheikh on 09-24-2024 Lipase [Catalytic activity/Vol] 63 U/L 13-75 [facility] Comment on above: Please note:LIPASE r evised reference range effective 22. New Lipase methodology. Expected to produce lower values than the previous assay method. NEW Reference Range: 13 - 75 U/L MCV (mean corpuscular volume ) determinationOrdered By: Peyman Sheikh on 09-24-2024 MCV (RBC) [Entitic vol] 89.0 fL 81-99 [facility] Mean corpuscular hemoglobin (MCH) determinationOrdered By: Peyman Sheikh on 09-24-2024 MCH (RBC) [Entitic mass] 30.3 pg 27.0-32.0 [facility] Mean corpuscular hemoglobin concentration (MCHC) determinationOrdered By: Peyman Sheikh on 09-24-2024 MCHC (RBC) [Mass/Vol] 34.0 g/dL 32-36 [facility] Mean platelet volume determi nationOrdered By: Peyman Sheikh on 09-24-2024 Platelet mean volume (Bld) [Entitic vol] 11.6 fL 6.2-12.0 [facility] Microscopic analysis of urin e for red blood cells (RBC)Ordered By: Peyman Sheikh on 09-24-2024 Microscopic analysis of urine for red blood cells (RBC) 0 SEEN /hpf 0-5 [facility] Monocyte percentageOrdered B y: Peyman Sheikh on 09-24-2024 Monocytes/100 WBC (Bld) 5.5 % 0-10 [facility] Mucus LM Ql (Urine sed)Order ed By: Peyman Sheikh on 09-24-2024 Mucus Ql (Urine sed) 0 SEEN /hpf [facility] Neutrophil percentageOrdered By: Peyman Sheikh on 09-24-2024 Neutrophils/100 WBC (Bld) 85.2 % High 47-70 [facility] Nitrite Test strip Ql (U)Ord ered By: Peyman Sheikh on 09-24-2024 Nitrite Ql (U) Negative Negative [facility] No Panel Informationon 09-24 [facility] Interpretation and review of laboratory results Normal [facility] Nucleated red blood cell per centageOrdered By: Peyman Sheikh on 09-24-2024 Nucleated RBC/100 WBC (Bld) [Ratio] 0 % 0-5 [facility] Platelet countOrdered By: Arnaud Sheikh on 09-24-2024 Platelets (Bld) [#/Vol] 217 10*3/uL 150-450 [facility] Potassium measurement (mass/ volume)Ordered By: Peyman Sheikh on 09-24-2024 Potassium (Unsp spec) [Mass/Vol] 5.1 mmol/L 3.3-5.1 [facility] Protein Test strip Ql (U)Ord ered By: Peyman Sheikh on 09-24-2024 Protein Ql (U) 30 mg/dl High Negative [facility] RBC Auto (Bld) [#/Vol]Ordere d By: Peyman Sheikh on 07-27-2025 RBC (Bld) [#/Vol] 5.09 10*6/uL 4.2-5.4 [facility] Serum creatinine measurement (mass/volume)Ordered By: Peyman Sheikh on 09-24-2024 Creatinine [Mass/Vol] 0.97 mg/dL 0.70-1.20 [facility] Serum globulin measurementOr dered By: Peyman Sheikh on 09-24-2024 Globulin (S) [Mass/Vol] 3.2 g/dL 2.2-4.2 [facility] Serum glucose measurement (m ass/volume)Ordered By: Peyman Sheikh on 09-24-2024 Glucose [Mass/Vol] 108 mg/dL High 70-99 [facility] Serum or plasma alanine soares otransferase (ALT) measurementOrdered By: Peyman Sheikh on 09-24-2024 ALT [Catalytic activity/Vol] 35 U/L <35 [facility] Serum or plasma albumin sandra urement (mass/volume)Ordered By: Peyman Sheikh on 09-24-2024 Albumin [Mass/Vol] 4.8 g/dL 3.5-5.0 [facility] Serum or plasma albumin/glob ulin mass ratioOrdered By: Peyman Sheikh 09-24-2024 Albumin/Globulin [Mass ratio] 1.5 {ratio} 0.9-2.4 [facility] Serum or plasma alkaline yoli sphatase measurementOrdered By: Peyman Sheikh 09-24-2024 ALP [Catalytic activity/Vol] 99 U/L 35-104 [facility] Serum or plasma calcium sandra urement (mass/volume)Ordered By: Peyman Sheikh on 09-24-2024 Calcium [Mass/Vol] 10.5 mg/dL 7.6-11.0 [facility] Serum or plasma urea nitroge n measurement (mass/volume)Ordered By: Peyman Sheikh 09-24-2024 Urea nitrogen [Mass/Vol] 25 mg/dL High 4-19 [facility] Sodium levelOrdered By: Peyman Sheikh on 09-24-2024 Sodium [Moles/Vol] 136 mmol/L 133-145 [facility] Squamous epithelial cells de tection in urine sediment by light microscopyOrdered By: Peyman Sheikh on 09-24-2024 Epithelial cells.squamous LM Ql (Urine sed) 0 SEEN /hpf 5-10 [facility] TYPE AND SCREENon 09-24-2024 ABO/RH(D) TYPE Positive [facility] Specimen Expiration 09/27/2024 23:59 [facility] ABO/RH(D) TYPE Positive Normal [facility] Comment on above: Performed By: #### P TPTT #### [facility] (DEFAULT) [address] [place] [address] Specimen Expiration 09/27/2024 23:59 Normal [facility] Comment on above: Performed By: #### P TPTT #### [facility] (DEFAULT) [address] [place] [address] Total proteinOrdered By: Marisela Sheikh on 09-24-2024 Protein [Mass/Vol] 8.0 g/dL 5.9-8.4 [facility] Urinalysis, Completeon 09-24 BACTERIA 0 SEEN Normal None Seen [facility] Comment on above: Order Comment: CLEAN CATCH Performed By: #### L 400.0001 ####[facility] [address] [place], [address] EPI,SQUAMOUS 0 SEEN Normal 5-10 [facility] Comment on above: Order Comment: CLEAN CATCH Performed By: #### L 400.0001 ####[facility] [address] [place], [address] Mucus Ql (Urine sed) 0 SEEN Normal [facility] Comment on above: Order Comment: CLEAN CATCH Performed By: #### L 400.0001 ####[facility] [address] [place], [address] RBC 0 SEEN Normal 0-5 [facility] Comment on above: Order Comment: CLEAN CATCH Performed By: #### L 400.0001 ####[facility] [address] [place], [address] WBC 0 SEEN Normal 0-5 [facility] Comment on above: Order Comment: CLEAN CATCH Performed By: #### L 400.0001 ####[facility] [address] [place], [address] Urine clarityOrdered By: Marisela Sheikh on 09-24-2024 Clarity (U) Clear Clear [facility] Urine color determinationOrd ered By: Peyman Sheikh on 09-24-2024 Color (U) Straw Yellow [facility] Urine glucose detectionOrder ed By: Peyman Sheikh on 09-24-2024 Glucose Ql (U) Normal mg/dl Normal [facility] Urine leukocyte esterase det ection by dipstickOrdered By: Peyman Sheikh on 09-24-2024 Leukocyte esterase Test strip Ql (U) Negative Negative [facility] Urine pHOrdered By: Peyman nam on 09-24-2024 pH (U) 6.0 [pH] 5.0 - 8.0 [facility] Urine sediment bacteria coun t by microscopy (number/high power field)Ordered By: Peyman Sheikh on 09-24-2024 Bacteria LM.HPF (Urine sed) [#/Area] 0 /[HPF] None Seen [facility] Urine specific gravity measu rementOrdered By: Peyman Sheikh on 09-24-2024 Specific gravity (U) [Rel density] 1.010 1.002-1.030 [facility] Urine urobilinogen measureme ntOrdered By: Peyman Sheikh on 09-24-2024 Urobilinogen Ql (U) Normal mg/dl Normal [facility] White blood cell (WBC) count Ordered By: Peyman Sheikh on 09-24-2024 WBC (Bld) [#/Vol] 7.0 10*3/uL 4.4-11.0 [facility] White blood cell countOrdere d By: Peyman Sheikh on 09-24-2024 White blood cell count 0 SEEN /hpf 0-5 [facility] XR ABDOMEN 1 VIEW PORTABLEon 09-24-2024 XR ABDOMEN 1 VIEW PORTABLE EXAM: XR ABDOMEN 1 VIEW PORTABLE, 09/24/2024 23:14 PM COMPARISON: XR ABDOMEN 1 VIEW February 17, 2020; CT enterography dated 07/02/2024 CLINICAL INDICATIONS: confirm ng tube palcement FINDINGS: Tubes: Enteric tube loops in the region of the gastric fundus and extends distally with tip in the distal gastric body. Bowel gas pattern: Normal. No visible free air. Abnormal calcifications/Radiop acities: None. Bones: No acute abnormality. Other findings: None. IMPRESSION: Enteric tube within the stomach as described. Normal [facility] XR Abdomen Single viewon IMPRESSION: Enteric tube within the stomach as described. OLOGY EXAM: XR ABDOMEN 1 VIEW PORTABLE, 09/24/2024 23:14 PM COMPARISON: XR ABDOMEN 1 VIEW February 17, 2020; CT enterography dated 07/02/2024 CLINICAL INDICATIONS: confirm ng tube palcement FINDINGS: Tubes: Enteric tube loops in the region of the gastric fundus and extends distally with tip in the distal gastric body. Bowel gas pattern: Normal. No visible free air. Abnormal calcifications/Radiop acities: None. Bones: No acute abnormality. Other findings: None. RADIOLOGY Yung Chu M D - 09/24/2024 EXAM: XR ABDOMEN 1 VIEW PORTABLE, 09/24/2024 23:14 PM COMPARISON: XR ABDOMEN 1 VIEW February 17, 2020; CT enterography dated 07/02/2024 CLINICAL INDICATIONS: confirm ng tube palcement FINDINGS: Tubes: Enteric tube loops in the region of the gastric fundus and extends distally with tip in the distal gastric body. Bowel gas pattern: Normal. No visible free air. Abnormal calcifications/Radiop acities: None. Bones: No acute abnormality. Other findings: None. IMPRESSION IMPRESSION: Enteric tube within the stomach as described. [facility] Radiology Study observation (narrative) [facility] XR Abdomen Single viewOrdere d By: Yung Chu on 09-24-2024 [facility] Work Phone: Bilirubin directon 5 Bilirubin.direct [Mass/Vol] 0.20 mg/dL 0.00-0.30 [facility] Bilirubin, totalon 5 Bilirubin [Mass/Vol] 0.46 mg/dL 0.00-1.30 [facility] CBC-Complete Blood Cnt No Di ffon 08-21-2024 Erythrocyte distribution width (RBC) [Ratio] 12.4 % Normal 11.6-14.6 [facility] Comment on above: Performed By: #### L 506.1001, L500.3400, L501.6710, L100.0500 #### [facility] [address] [place], [address] Hematocrit (Bld) [Volume fraction] 41.6 % Normal 37-47 [facility] Comment on above: Performed By: #### L 506.1001, L500.3400, L501.6710, L100.0500 #### [facility] [address] [place], [address] Hemoglobin (Bld) [Mass/Vol] 13.9 g/dL Normal 12.0-15.0 [facility] Comment on above: Performed By: #### L 506.1001, L500.3400, L501.6710, L100.0500 #### [facility] [address] [place], [address] MCH (RBC) [Entitic mass] 30.5 pg Normal 27.0-32.0 [facility] Comment on above: Performed By: #### L 506.1001, L500.3400, L501.6710, L100.0500 #### [facility] [address] [place], [address] MCHC (RBC) [Mass/Vol] 33.4 g/dL Normal 32-36 [facility] Comment on above: Performed By: #### L 506.1001, L500.3400, L501.6710, L100.0500 #### [facility] [address] [place], [address] MCV (RBC) [Entitic vol] 91.4 fL Normal 81-99 [facility] Comment on above: Performed By: #### L 506.1001, L500.3400, L501.6710, L100.0500 #### [facility] [address] [place], [address] Platelet mean volume (Bld) [Entitic vol] 11.9 fL Normal 6.2-12.0 [facility] Comment on above: Performed By: #### L 506.1001, L500.3400, L501.6710, L100.0500 #### [facility] [address] [place], [address] Platelets (Bld) [#/Vol] 200 10*3/uL Normal 150-450 [facility] Comment on above: Performed By: #### L 506.1001, L500.3400, L501.6710, L100.0500 #### [facility] [address] [place], [address] RBC (Bld) [#/Vol] 4.55 10*6/uL Normal 4.2-5.4 [facility] Comment on above: Performed By: #### L 506.1001, L500.3400, L501.6710, L100.0500 #### [facility] [address] [place], [address] RDW SD 41.4 fl Normal 35.1-43.9 [facility] Comment on above: Performed By: #### L 506.1001, L500.3400, L501.6710, L100.0500 #### [facility] [address] [place], [address] WBC (Bld) [#/Vol] 5.1 10*3/uL Normal 4.4-11.0 [facility] Comment on above: Performed By: #### L 506.1001, L500.3400, L501.6710, L100.0500 #### [facility] [address] [place], [address] CRPon 08-21-2024 C-REACTIVE PROT 8.99 mg/L High 0.0-3.0 [facility] Comment on above: Performed By: #### L 506.1001, L500.3400, L501.6710, L100.0500 #### [facility] [address] [place], [address] Erythrocyte distribution wid th ratioon 08-21-2024 Erythrocyte distribution width (RBC) [Ratio] 12.4 % 11.6-14.6 [facility] Erythrocyte distribution wid th standard deviationon 08-21-2024 Erythrocyte distribution width (RBC) [Ratio] 41.4 fl 35.1-43.9 [facility] Hematocrit Auto (Bld) [Volum e fraction]on 08-21-2024 Hematocrit (Bld) [Volume fraction] 41.6 % 37-47 [facility] Hemoglobin measurementon Hemoglobin (Bld) [Mass/Vol] 13.9 g/dL 12.0-15.0 [facility] - Chemistry and C hemistry - challengeon 08-21-2024 AST [Catalytic activity/Vol] 37 U/L High <32 [facility] Liver Profileon 08-21-2024 Albumin [Mass/Vol] 4.5 g/dL Normal 3.5-5.0 [facility] Comment on above: Order Comment: CRP Performed By: #### L 506.1001, L500.3400, L501.6710, L100.0500 #### [facility] [address] [place], [address] ALK PHOS 93 U/L Normal 35-104 [facility] Comment on above: Order Comment: CRP Performed By: #### L 506.1001, L500.3400, L501.6710, L100.0500 #### [facility] [address] [place], [address] ALT [Catalytic activity/Vol] 32 U/L Normal <=34 [facility] Comment on above: Order Comment: CRP Performed By: #### L 506.1001, L500.3400, L501.6710, L100.0500 #### [facility] [address] [place], [address] AST [Catalytic activity/Vol] 37 U/L High <=31 [facility] Comment on above: Order Comment: CRP Performed By: #### L 506.1001, L500.3400, L501.6710, L100.0500 #### [facility] [address] [place], [address] Bilirubin [Mass/Vol] 0.46 mg/dL Normal 0.00-1.30 [facility] Comment on above: Order Comment: CRP Performed By: #### L 506.1001, L500.3400, L501.6710, L100.0500 #### [facility] [address] [place], [address] Bilirubin.direct [Mass/Vol] 0.20 mg/dL Normal 0.00-0.30 [facility] Comment on above: Order Comment: CRP Performed By: #### L 506.1001, L500.3400, L501.6710, L100.0500 #### [facility] [address] [place], [address] Globulin (S) [Mass/Vol] 3.1 g/dL Normal 2.2-4.2 [facility] Comment on above: Order Comment: CRP Performed By: #### L 506.1001, L500.3400, L501.6710, L100.0500 #### [facility] [address] [place], [address] T PROT 7.6 g/dL Normal 5.9-8.4 [facility] Comment on above: Order Comment: CRP Performed By: #### L 506.1008, L500.3400, L501.6780, L100.0500 #### [facility] [address] [place], [address] MCV (mean corpuscular volume ) determinationon 08-21-2024 MCV (RBC) [Entitic vol] 91.4 fL 81-99 [facility] Mean corpuscular hemoglobin (MCH) determinationon 08-21-2024 MCH (RBC) [Entitic mass] 30.5 pg 27.0-32.0 [facility] Mean corpuscular hemoglobin concentration (MCHC) determinationon 08-21-2024 MCHC (RBC) [Mass/Vol] 33.4 g/dL 32-36 [facility] Mean platelet volume determi nationon 08-21-2024 Platelet mean volume (Bld) [Entitic vol] 11.9 fL 6.2-12.0 [facility] Platelet counton 08-21-2024 Platelets (Bld) [#/Vol] 200 10*3/uL 150-450 [facility] RBC Auto (Bld) [#/Vol]on RBC (Bld) [#/Vol] 4.55 10*6/uL 4.2-5.4 [facility] Serum globulin measurementon 08-21-2024 Globulin (S) [Mass/Vol] 3.1 g/dL 2.2-4.2 [facility] Serum or plasma C reactive p rotein measurement (mass/volume)on 08-21-2024 CRP [Mass/Vol] 8.99 mg/L High 0.0-3.0 [facility] Serum or plasma alanine soares otransferase (ALT) measurementon 08-21-2024 ALT [Catalytic activity/Vol] 32 U/L <35 [facility] Serum or plasma albumin sandra urement (mass/volume)on 08-21-2024 Albumin [Mass/Vol] 4.5 g/dL 3.5-5.0 [facility] Serum or plasma alkaline yoli sphatase measurementon 08-21-2024 ALP [Catalytic activity/Vol] 93 U/L 35-104 [facility] Total proteinon 08-21-2024 Protein [Mass/Vol] 7.6 g/dL 5.9-8.4 [facility] Vitamin D,25 Hydroxyon 08-21 Vitamin D 25-OH 49.1 ng/mL Normal 30-100 [facility] Comment on above: Result Comment: Venus min D Status Deficiency: <20 ng/mL (50nmol/L) Insufficiency: 20-30 ng/mL (50-75 nmol/L) Sufficiency: 30-100 ng/mL (75-250 nmol/L) Toxicity: >100 ng/mL (>250 nmol/L) Performed By: #### L 506.1001, L500.3400, L501.6710, L100.0500 #### [facility] [address] [place], [place], [id number] White blood cell (WBC) count on 08-21-2024 WBC (Bld) [#/Vol] 5.1 10*3/uL 4.4-11.0 [facility] Calprotectin, Stoolon [address] 53 ug/g Normal 0-120 [facility] Comment on above: Result Comment: Conc entration Interpretation Follow-Up < 5 - 50 ug/g Normal None >50 -120 ug/g Borderline Re-evaluate in 4-6 weeks >120 ug/g Abnormal Repeat as clinically indicated Performed at: - [address] [id number] Telephone Station Installer: Christina Gaines MD, Phone: [phone] Performed By: #### L 500.3400, L7000.0700, L501.6710 ####[facility] [address] [place], [place], [id number] Bilirubin directon 5 Bilirubin.direct [Mass/Vol] 0.08 mg/dL 0.00-0.30 [facility] Bilirubin, totalon 5 Bilirubin [Mass/Vol] 0.20 mg/dL 0.00-1.30 [facility] CRPon 07-17-2024 C-REACTIVE PROT 4.75 mg/L High 0.0-3.0 [facility] Comment on above: Performed By: #### L 500.3400, L7000.0700, L501.6710 ####[facility] [address] [place], [address] Calprotectin stoolon 025 Calprotectin stool 53 ug/g 0-120 [facility] Comment on above: Concentration Interp retation Follow-Up< 5 - 50 ug/g Normal None>50 -120 ug/g Borderline Re-evaluate in 4-6 weeks >120 ug/g Abnormal Repeat as clinically indicatedPerformed at: - [facility] [address] [id number] Director: Christina Gaines MD, Phone: [phone] Laboratory - Chemistry and C hemistry - challengeon 07-17-2024 AST [Catalytic activity/Vol] 30 U/L <32 [facility] Liver Profileon 07-17-2024 Albumin [Mass/Vol] 4.2 g/dL Normal 3.5-5.0 [facility] Comment on above: Performed By: #### L 500.3400, L7000.0700, L501.6710 ####[facility] [address] [place], [address] ALK PHOS 112 U/L High 35-104 [facility] Comment on above: Performed By: #### L 500.3400, L7000.0700, L501.6710 ####[facility] [address] [place], [address] ALT [Catalytic activity/Vol] 30 U/L Normal <=34 [facility] Comment on above: Performed By: #### L 500.3400, L7000.0700, L501.6710 ####[facility] [address] [place], [address] AST [Catalytic activity/Vol] 30 U/L Normal <=31 [facility] Comment on above: Performed By: #### L 500.3400, L7000.0700, L501.6710 ####[facility] [address] [place], [address] Bilirubin [Mass/Vol] 0.20 mg/dL Normal 0.00-1.30 [facility] Comment on above: Performed By: #### L 500.3400, L7000.0700, L501.6710 ####[facility] [address] [place], [address] Bilirubin.direct [Mass/Vol] 0.08 mg/dL Normal 0.00-0.30 [facility] Comment on above: Performed By: #### L 500.3400, L7000.0700, L501.6710 ####[facility] [address] [place], [address] Globulin (S) [Mass/Vol] 2.8 g/dL Normal 2.2-4.2 [facility] Comment on above: Performed By: #### L 500.3400, L7000.0700, L501.6710 ####[facility] [address] [place], [address] T PROT 7.0 g/dL Normal 5.9-8.4 [facility] Comment on above: Performed By: #### L 500.3400, L7000.0700, L501.6710 ####[facility] [address] [place], [address] Serum globulin measurementon 07-17-2024 Globulin (S) [Mass/Vol] 2.8 g/dL 2.2-4.2 [facility] Serum or plasma C reactive p rotein measurement (mass/volume)on 07-17-2024 CRP [Mass/Vol] 4.75 mg/L High 0.0-3.0 [facility] Serum or plasma alanine soares otransferase (ALT) measurementon 07-17-2024 ALT [Catalytic activity/Vol] 30 U/L <35 [facility] Serum or plasma albumin sandra urement (mass/volume)on 07-17-2024 Albumin [Mass/Vol] 4.2 g/dL 3.5-5.0 [facility] Serum or plasma alkaline yoli sphatase measurementon 07-17-2024 ALP [Catalytic activity/Vol] 112 U/L High 35-104 [facility] Total proteinon 07-17-2024 Protein [Mass/Vol] 7.0 g/dL 5.9-8.[address] [facility] [address] ENTEROGRAPHYon 07-06-2024 CT ENTEROGRAPHY EXAM: CT ENTEROGRAPHY, (CT Abdomen/Pelvis with Contrast), 07/02/2024 09:32 AM [...] fluid collection. No intraperitoneal collections or abscess Peritoneum/retroperit oneum: No ascites. No loculated fluid collections in [...] liver lesions. Portal vein is patent Normal [facility] Anion gap in Serum or Plasma on 06-07-2024 Anion gap [Moles/Vol] 13 mmol/L 5-15 [facility] BUN/creatinine ratioon 06-07 Urea nitrogen/Creatinine [Mass ratio] 30.9 mg/mg High - [facility] Basic Metabolic Profile (BMP )on 06-07-2024 BUN/CRE 30.9 RATIO High - [facility] Comment on above: Performed By: #### L 503.6030, L501.6710, L501.9520, L503.0106, L100.0500, L500.3400, L500.2500, L503.6550 ####[facility] [address] [place], [address] Calcium [Mass/Vol] 9.8 mg/dL Normal 7.6-11.0 [facility] Comment on above: Performed By: #### L 503.6030, L501.6710, L501.9520, L503.0106, L100.0500, L500.3400, L500.2500, L503.6550 ####[facility] [address] [place], [address] Chloride [Moles/Vol] 107 mmol/L Normal 98-108 [facility] Comment on above: Performed By: #### L 503.6030, L501.6710, L501.9520, L503.0106, L100.0500, L500.3400, L500.2500, L503.6550 ####[facility] [address] [place], [address] CO2 [Moles/Vol] 21.1 mmol/L Normal 21.0-32.0 [facility] Comment on above: Performed By: #### L 503.6030, L501.6710, L501.9520, L503.0106, L100.0500, L500.3400, L500.2500, L503.6550 ####[facility] [address] [place], [address] Creatinine [Mass/Vol] 0.66 mg/dL Low 0.70-1.20 [facility] Comment on above: Performed By: #### L 503.6030, L501.6710, L501.9520, L503.0106, L100.0500, L500.3400, L500.2500, L503.6550 ####[facility] [address] [place], [address] GAP 13 Normal 5-15 [facility] Comment on above: Performed By: #### L 503.6030, L501.6710, L501.9520, L503.0106, L100.0500, L500.3400, L500.2500, L503.6550 ####[facility] [address] [place], [address] GFR/1.73 sq M.predicted among non-blacks MDRD (S/P/Bld) [Vol rate/Area] 104 mL/min/{1.73_m2} Normal >60 [facility] Comment on above: Result Comment: mL/m in/1.73m2 CKD-EPI Creatinine Equation (2020) Performed By: #### L 503.6030, L501.6710, L501.9520, L503.0106, L100.0500, L500.3400, L500.2500, L503.6550 ####[facility] [address] [place], [address] Glucose [Mass/Vol] 80 mg/dL Normal 70-99 [facility] Comment on above: Performed By: #### L 503.6030, L501.6710, L501.9520, L503.0106, L100.0500, L500.3400, L500.2500, L503.6550 ####[facility] [address] [place], [address] Potassium [Moles/Vol] 4.3 mmol/L Normal 3.3-5.1 [facility] Comment on above: Performed By: #### L 503.6030, L501.6710, L501.9520, L503.0106, L100.0500, L500.3400, L500.2500, L503.6550 ####[facility] [address] [place], [address] Sodium [Moles/Vol] 141 mmol/L Normal 133-145 [facility] Comment on above: Performed By: #### L 503.6030, L501.6710, L501.9520, L503.0106, L100.0500, L500.3400, L500.2500, L503.6550 ####[facility] [address] [place], [address] Urea nitrogen [Mass/Vol] 20 mg/dL High 4-19 [facility] Comment on above: Performed By: #### L 503.6030, L501.6710, L501.9520, L503.0106, L100.0500, L500.3400, L500.2500, L503.6550 ####[facility] [address] [place], [address] Bilirubin directon 5 Bilirubin.direct [Mass/Vol] 0.12 mg/dL 0.00-0.30 [facility] Bilirubin, totalon 5 Bilirubin [Mass/Vol] 0.25 mg/dL 0.00-1.30 [facility] CBC-Complete Blood Cnt No Di ffon 06-07-2024 Erythrocyte distribution width (RBC) [Ratio] 12.8 % Normal 11.6-14.6 [facility] Comment on above: Performed By: #### L 503.6030, L501.6710, L501.9520, L503.0106, L100.0500, L500.3400, L500.2500, L503.6550 ####[facility] [address] [place], [address] Hematocrit (Bld) [Volume fraction] 42.8 % Normal 37-47 [facility] Comment on above: Performed By: #### L 503.6030, L501.6710, L501.9520, L503.0106, L100.0500, L500.3400, L500.2500, L503.6550 ####[facility] [address] [place], [address] Hemoglobin (Bld) [Mass/Vol] 13.7 g/dL Normal 12.0-15.0 [facility] Comment on above: Performed By: #### L 503.6030, L501.6710, L501.9520, L503.0106, L100.0500, L500.3400, L500.2500, L503.6550 ####[facility] [address] [place], [address] MCH (RBC) [Entitic mass] 29.4 pg Normal 27.0-32.0 [facility] Comment on above: Performed By: #### L 503.6030, L501.6710, L501.9520, L503.0106, L100.0500, L500.3400, L500.2500, L503.6550 ####[facility] [address] [place], [address] MCHC (RBC) [Mass/Vol] 32.0 g/dL Normal 32-36 [facility] Comment on above: Performed By: #### L 503.6030, L501.6710, L501.9520, L503.0106, L100.0500, L500.3400, L500.2500, L503.6550 ####[facility] [address] [place], [address] MCV (RBC) [Entitic vol] 91.8 fL Normal 81-99 [facility] Comment on above: Performed By: #### L 503.6030, L501.6710, L501.9520, L503.0106, L100.0500, L500.3400, L500.2500, L503.6550 ####[facility] [address] [place], [address] Platelet mean volume (Bld) [Entitic vol] 11.5 fL Normal 6.2-12.0 [facility] Comment on above: Performed By: #### L 503.6030, L501.6710, L501.9520, L503.0106, L100.0500, L500.3400, L500.2500, L503.6550 ####[facility] [address] [place], [address] Platelets (Bld) [#/Vol] 172 10*3/uL Normal 150-450 [facility] Comment on above: Performed By: #### L 503.6030, L501.6710, L501.9520, L503.0106, L100.0500, L500.3400, L500.2500, L503.6550 ####[facility] [address] [place], [address] RBC (Bld) [#/Vol] 4.66 10*6/uL Normal 4.2-5.4 [facility] Comment on above: Performed By: #### L 503.6030, L501.6710, L501.9520, L503.0106, L100.0500, L500.3400, L500.2500, L503.6550 ####[facility] [address] [place], [address] RDW SD 42.5 fl Normal 35.1-43.9 [facility] Comment on above: Performed By: #### L 503.6030, L501.6710, L501.9520, L503.0106, L100.0500, L500.3400, L500.2500, L503.6550 ####[facility] [address] [facility] [place], [address] WBC (Bld) [#/Vol] 5.0 10*3/uL Normal 4.4-11.0 [facility] Comment on above: Performed By: #### L 503.6030, L501.6710, L501.9520, L503.0106, L100.0500, L500.3400, L500.2500, L503.6550 ####[facility] [address] [place], [place], [id number] CRPon 06-07-2024 C-REACTIVE PROT 3.79 mg/L High 0.0-3.0 [facility] Comment on above: Performed By: #### L 503.6030, L501.6710, L501.9520, L503.0106, L100.0500, L500.3400, L500.2500, L503.6550 ####[facility] [address] [facility] [place], [place], [id number] CRP [Mass/Vol]on 06-07-2024 C-Reactive Protein Extended Range 3.79 mg/L High 0.0-3.0 [facility] Calculated total iron bindin g capacityon 06-07-2024 Total Iron Binding Capacity 294 ug/dL 250-450 [facility] Carbon dioxide, total [Moles /volume] in Central venous bloodon 06-07-2024 CO2 [Moles/Vol] 21.1 mmol/L 21.0-32.0 [facility] Chloride assayon 06-07-2024 Chloride [Moles/Vol] 107 mmol/L 98-108 [facility] Erythrocyte distribution wid th (RBC) [Ratio]on 06-07-2024 Erythrocyte distribution width (RBC) [Entitic vol] 42.5 fL 35.1-43.9 [facility] Erythrocyte distribution wid th ratioon 06-07-2024 Erythrocyte distribution width (RBC) [Ratio] 12.8 % 11.6-14.6 [facility] Erythrocyte distribution wid th standard deviationon 06-07-2024 Erythrocyte distribution width (RBC) [Ratio] 42.5 fl 35.1-43.9 [facility] Ferritinon 06-07-2024 Ferritin [Mass/Vol] 53 ng/mL Normal 22-378 [facility] Comment on above: Performed By: #### L 503.6030, L501.6710, L501.9520, L503.0106, L100.0500, L500.3400, L500.2500, L503.6550 ####[facility] [address] [place], [place], [id number] GFR/1.73 sq M.predicted familia g non-blacks MDRD (S/P/Bld) [Vol rate/Area]on 06-07-2024 Estimated GFR (MDRD) Non-Af Amer 104 >60 [facility] Comment on above: mL/min/1.73m2 CKD-EP I Creatinine Equation (2020) Glomerular filtration rate ( GFR) estimation/1.73 sq m using serum, plasma, or whole bon 06-07-2024 GFR/1.73 sq M.predicted among non-blacks MDRD (S/P/Bld) [Vol rate/Area] 104 mL/min/{1.73_m2} >60 [facility] Comment on above: mL/min/1.73m2 CKD-EP I Creatinine Equation (2020) Hematocrit Auto (Bld) [Volum e fraction]on 06-07-2024 Hematocrit (Bld) [Volume fraction] 42.8 % 37-47 [facility] Hemoglobin measurementon Hemoglobin (Bld) [Mass/Vol] 13.7 g/dL 12.0-15.0 [facility] Iron (Unsp spec) [Mass/Mass] on 06-07-2024 Iron [Mass/Vol] 66 ug/dL 50-170 [facility] Iron measurement (mass/mass) on 06-07-2024 Iron (Unsp spec) [Mass/Mass] 66 ug/dL 50-170 [facility] Iron saturation [Mass fracti on]on 06-07-2024 Iron Saturation 23.0 % 13-59 [facility] Iron+Iron Binding Capacityon 06-07-2024 Iron [Mass/Vol] 66 ug/dL Normal 50-170 [facility] Comment on above: Performed By: #### L 503.6030, L501.6710, L501.9520, L503.0106, L100.0500, L500.3400, L500.2500, L503.6550 ####[facility] [address] [place], [address] IRON SATURATION 23.0 Normal 13-59 [facility] Comment on above: Performed By: #### L 503.6030, L501.6710, L501.9520, L503.0106, L100.0500, L500.3400, L500.2500, L503.6550 ####[facility] [address] [place], [address] TIBC 294 ug/dL Normal 250-450 [facility] Comment on above: Performed By: #### L 503.6030, L501.6710, L501.9520, L503.0106, L100.0500, L500.3400, L500.2500, L503.6550 ####[facility] [address] [place], [address] UIBC 228 ug/dL Normal 228-428 [facility] Comment on above: Performed By: #### L 503.6030, L501.6710, L501.9520, L503.0106, L100.0500, L500.3400, L500.2500, L503.6550 ####[facility] [address] [place], [address] Laboratory - Chemistry and C hemistry - challengeon 06-07-2024 AST [Catalytic activity/Vol] 34 U/L High <32 [facility] Liver Profileon 06-07-2024 Albumin [Mass/Vol] 4.4 g/dL Normal 3.5-5.0 [facility] Comment on above: Performed By: #### L 503.6030, L501.6710, L501.9520, L503.0106, L100.0500, L500.3400, L500.2500, L503.6550 ####[facility] [address] [place], [address] ALK PHOS 112 U/L High 35-104 [facility] Comment on above: Performed By: #### L 503.6030, L501.6710, L501.9520, L503.0106, L100.0500, L500.3400, L500.2500, L503.6550 ####[facility] [address] [place], [address] ALT [Catalytic activity/Vol] 40 U/L High <=34 [facility] Comment on above: Performed By: #### L 503.6030, L501.6710, L501.9520, L503.0106, L100.0500, L500.3400, L500.2500, L503.6550 ####[facility] [address] [place], [address] AST [Catalytic activity/Vol] 34 U/L High <=31 [facility] Comment on above: Performed By: #### L 503.6030, L501.6710, L501.9520, L503.0106, L100.0500, L500.3400, L500.2500, L503.6550 ####[facility] [address] [place], [address] Bilirubin [Mass/Vol] 0.25 mg/dL Normal 0.00-1.30 [facility] Comment on above: Performed By: #### L 503.6030, L501.6710, L501.9520, L503.0106, L100.0500, L500.3400, L500.2500, L503.6550 ####[facility] [address] [place], [address] Bilirubin.direct [Mass/Vol] 0.12 mg/dL Normal 0.00-0.30 [facility] Comment on above: Performed By: #### L 503.6030, L501.6710, L501.9520, L503.0106, L100.0500, L500.3400, L500.2500, L503.6550 ####[facility] [address] [place], [address] Globulin (S) [Mass/Vol] 3.1 g/dL Normal 2.2-4.2 [facility] Comment on above: Performed By: #### L 503.6030, L501.6710, L501.9520, L503.0106, L100.0500, L500.3400, L500.2500, L503.6550 ####[facility] [address] [place], [address] T PROT 7.4 g/dL Normal 5.9-8.4 [facility] Comment on above: Performed By: #### L 503.6030, L501.6710, L501.9520, L503.0106, L100.0500, L500.3400, L500.2500, L503.6550 ####[facility] [address] [place], [address] MCV (mean corpuscular volume ) determinationon 06-07-2024 MCV (RBC) [Entitic vol] 91.8 fL 81-99 [facility] Mean corpuscular hemoglobin (MCH) determinationon 06-07-2024 MCH (RBC) [Entitic mass] 29.4 pg 27.0-32.0 [facility] Mean corpuscular hemoglobin concentration (MCHC) determinationon 06-07-2024 MCHC (RBC) [Mass/Vol] 32.0 g/dL 32-36 [facility] Mean platelet volume determi nationon 06-07-2024 Platelet mean volume (Bld) [Entitic vol] 11.5 fL 6.2-12.0 [facility] No Panel Informationon 06-07 Unsaturated Iron Binding Capacity 228 ug/dL 228-428 [facility] Platelet counton 06-07-2024 Platelets (Bld) [#/Vol] 172 10*3/uL 150-450 [facility] Potassium (Unsp spec) [Mass/ Vol]on 06-07-2024 Potassium [Moles/Vol] 4.3 mmol/L 3.3-5.1 [facility] Potassium measurement (mass/ volume)on 06-07-2024 Potassium (Unsp spec) [Mass/Vol] 4.3 mmol/L 3.3-5.1 [facility] RBC Auto (Bld) [#/Vol]on RBC (Bld) [#/Vol] 4.66 10*6/uL 4.2-5.4 [facility] Serum creatinine measurement (mass/volume)on 06-07-2024 Creatinine [Mass/Vol] 0.66 mg/dL Low 0.70-1.20 [facility] Serum globulin measurementon 06-07-2024 Globulin (S) [Mass/Vol] 3.1 g/dL 2.2-4.2 [facility] Serum glucose measurement (m ass/volume)on 06-07-2024 Glucose [Mass/Vol] 80 mg/dL 70-99 [facility] Serum or plasma C reactive p rotein measurement (mass/volume)on 06-07-2024 CRP [Mass/Vol] 3.79 mg/L High 0.0-3.0 [facility] Serum or plasma alanine soares otransferase (ALT) measurementon 06-07-2024 ALT [Catalytic activity/Vol] 40 U/L High <35 [facility] Serum or plasma albumin sandra urement (mass/volume)on 06-07-2024 Albumin [Mass/Vol] 4.4 g/dL 3.5-5.0 [facility] Serum or plasma alkaline yoli sphatase measurementon 06-07-2024 ALP [Catalytic activity/Vol] 112 U/L High 35-104 [facility] Serum or plasma calcium sandra urement (mass/volume)on 06-07-2024 Calcium [Mass/Vol] 9.8 mg/dL 7.6-11.0 [facility] Serum or plasma ferritin melisa surement (mass/volume)on 06-07-2024 Ferritin [Mass/Vol] 53 ng/mL 22-378 [facility] Serum or plasma iron saturat ion measurement (mass fraction)on 06-07-2024 Iron saturation [Mass fraction] 23.0 % 13-59 [facility] Serum or plasma urea nitroge n measurement (mass/volume)on 06-07-2024 Urea nitrogen [Mass/Vol] 20 mg/dL High 4-19 [facility] Sodium levelon 06-07-2024 Sodium [Moles/Vol] 141 mmol/L 133-145 [facility] TSH DL <= 0.005 mIU/L Qnon 0 06-07-2024 Thyroid Stimulating Hormone (TSH) 2.700 uIU/mL 0.300-4.200 [facility] TSH Qn 2.700 uIU/mL 0.300-4.200 [facility] Thyroid Stim Hormone (TSH)on 06-07-2024 TSH 2.700 uIU/mL Normal 0.300-4.200 [facility] Comment on above: Performed By: #### L 503.6030, L501.6710, L501.9520, L503.0106, L100.0500, L500.3400, L500.2500, L503.6550 ####[facility] [address] [place], [address] Total proteinon 06-07-2024 Protein [Mass/Vol] 7.4 g/dL 5.9-8.4 [facility] Vitamin B12on 06-07-2024 Cobalamin (Vitamin B12) [Mass/Vol] 533 pg/mL Normal 180-914 [facility] Comment on above: Performed By: #### L 503.6030, L501.6710, L501.9520, L503.0106, L100.0500, L500.3400, L500.2500, L503.6550 ####[facility] [address] [place], [place], [address] Vitamin B12 ser/plason 06-07 Cobalamin (Vitamin B12) [Mass/Vol] 533 pg/mL 180-914 [facility] White blood cell (WBC) count on 06-07-2024 WBC (Bld) [#/Vol] 5.0 10*3/uL 4.4-11.0 [facility] Vitamin D 1,25-Dihydroxyon 0 05-09-2024 VIT D 1,25 DIHY 21.7 pg/mL Abnormal 24.8-81.5 [facility] Comment on above: Order Comment: Comme nts: follow up from 12/2023 Result Comment: Perf ormed at: [employer] [facility] [address] [id number] Telephone Station Installer: Christina Gaines MD, Phone: [phone] Performed By: #### L 3300.0960 #### [facility] [address] [place], [address] 1,25-dihydroxyvitamin D3 [Ma ss/Vol]Ordered By: Marilee Capellan on 05-04-2024 Vitamin D 1,25-Dihydroxy 21.7 pg/mL Low 24.8-81.5 [facility] Comment on above: Performed at: [facility] [address] [id number] Director: Christina Gaines MD, Phone: [phone] Serum or plasma calcitriol m easurement (mass/volume)Ordered By: Marilee Capellan on 05-04-2024 1,25-dihydroxyvitamin D3 [Mass/Vol] 21.7 pg/mL Low 24.8-81.5 [facility] Comment on above: Performed at: [employer] [facility] [email or web address] [address] [id number] Director: Christina Gaines MD, Phone: [phone] [id number] DOrdered By: Janett Capellan on 01-19-2024 Vitamin D 25-Hydroxy 26.1 ng/mL [facility] Comment on above: Vitamin D 25(OH) Sta tus Range Deficiency <20 ng/mL (50nmol/L) Insufficiency 20 - 30 ng/mL (50 - 75 nmol/L) Sufficiency 30 - 100 ng/mL (75 - 250 nmol/L) Toxicity >100 ng/mL (>250 nmol/L) Miscellaneous procedureOrder ed By: Marilee Capellan on 01-19-2024 Miscellaneous Test Comment SEE SCANNED REPORT [facility] NATERAon 01-19-2024 NATURA SEE SCANNED REPORT Normal [facility] Comment on above: Order Comment: Comme nts: Empower Performed By: #### L 900.0098, L506.1000 #### [facility] [address] 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 She will confirm with sister. Pending [employer] genetic screen Orders: Orders Vitamin D,25 Hydroxy [...] with HRT. 01/19/24 1601 Date Marilee Capellan NP, NP-C Cosigner Signature: Date (if applicable) CC: Normal [facility] Vitamin D,25 Hydroxyon 01-18 Vitamin D 25-OH 26.1 ng/mL Normal [facility] Comment on above: Result Comment: Venus min D 25(OH) Status Range Deficiency <20 ng/mL (50nmol/L) Insufficiency 20 - 30 ng/mL (50 - 75 nmol/L) Sufficiency 30 - 100 ng/mL (75 - 250 nmol/L) Toxicity >100 ng/mL (>250 nmol/L) Performed By: #### L 900.0098, L506.1000 ####[facility] [address] [place], [address] [employer] [facility] Visit Reporton 12-21-2023 [employer] Office Visit Report [facility] [address], [address] [place] [address] OFFICE VISIT Date of Service: 12/21/23 MR#: [id number] Acct: [id number] Name: GABI MCNULTY Rep #: [id number] : 1970 Provider: AWA rudolph Age/Sex: 53/F [place] [facility] [place]: Signed with Addenda ADDENDUM by AWA [...] 22.1 BP 98/64 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 Date Name GA/Weeks Outcome Route Bth Weight Gen Labor Lgth Anesthesia Del Locatn Provider FOB Unknown 1990 [place] Unknown 1995 [facility] Encounter for routine gynecological examination Details: AGBI MCNULTY is a 53 year old who [...] oriented to person and oriented to place HENNM Head: normal to inspection Neck Neck: normal visual inspection Thyroid: thyroid normal Lymphatic: no lymphadenopathy noted Chest Breast inspection: normal inspection of the breasts and normal inspection of the axillae Gina (more content not included)... Normal [facility] SCRN MAMM (CAD)W/SAHRA BILATo n 12-21-2023 SCRN MAMM (CAD)W/SAHRA BILAT [facility] Imaging Services [address] [place] [address] SCRN MAMM (CAD)W/SAHRA BILAT MR#: [id number] Acct: [id number] Name: GABI MCNULTY Rep #: [id number] : 1970 F 53 From: Andrae holt MD PCP: Dr. Helen Tay MD Status: [facility] Study: SCRN MAMM (CAD)W/SAHRA BILAT Date of Exam: 11/30 04/24 Exam# [id number] Ordering Dr: Marilee Capellan DEPLOYMENT TECHNICIAN DEPLOYMENT TECHNICIAN -C [id number] MAMMOGRAPHY - BILATERAL SCREENING REASON FOR EXAM: [...] delay biopsy of a clinically suspicious abnormality. [id number] Electronically Signed: Andrae Sharif MD at 10:14 EDT Reading Location ID and State: [facility] / OR , Service support , CC: AWA Capellan; Dr. Helen Tay MD In Service Educator: Signed Normal [facility] Absolute lymphocyte counton 03-18-2023 Lymphocytes Auto (Unsp spec) [#/Vol] 1.32 10*3/uL 0.83-4.51 [facility] Automated lymphocyte count a s percentage of total leukocyteson 03-18-2023 Lymphocytes/100 WBC Auto (Unsp spec) 22.7 % 19-41 [facility] Basophil percentageon 2023 Basophils/100 WBC (Bld) 0.7 % 0-1 [facility] Bilirubin [Mass/Vol] 0.40 mg/dL 0.20-1.00 [facility] Comment on above: For patients on eltr ombopag therapy, use of Dimension [place] TBIL is not recommended. Eosinophils/100 WBC (Bld) 0.9 % 0-5 [facility] Hemoglobin (Bld) [Mass/Vol] 13.0 g/dL 12.0-15.0 [facility] Monocytes/100 WBC (Bld) 7.2 % 0-10 [facility] Neutrophils (Bld) [#/Vol] 4.0 10*3/uL 2.0-7.7 [facility] Neutrophils/100 WBC (Bld) 68.2 % 47-70 [facility] Protein [Mass/Vol] 7.7 g/dL 6.4-8.2 [facility] WBC (Bld) [#/Vol] 5.8 10*3/uL 4.4-11.0 [facility] Determination of erythrocyte mean corpuscular volume (MCV)on 03-18-2023 MCV (RBC) [Entitic vol] 93.3 fL 81-99 [facility] Direct bilirubinon 4 Bilirubin.direct [Mass/Vol] 0.12 mg/dL 0.00-0.30 [facility] Erythrocyte distribution wid th ratioon 03-18-2023 Erythrocyte distribution width (RBC) [Ratio] 12.7 % 11.6-14.6 [facility] Erythrocyte distribution wid th standard deviationon 03-18-2023 Erythrocyte distribution width (RBC) [Entitic vol] 43.8 fL 35.1-43.9 [facility] Erythrocyte sedimentation ra dolores 03-18-2023 ESR (Bld) [Velocity] 3 mm/h 0-30 [facility] Hematocrit Auto (Bld) [Volum e fraction]on 03-18-2023 Hematocrit (Bld) [Volume fraction] 40.7 % 37-47 [facility] Immature granulocytes/100 WB C Auto (Bld)on 03-18-2023 Immature granulocytes/100 WBC (Bld) 0.300 % 0.0-0.9 [facility] Comment on above: IG% - Immature Granu locytes (promyelocytes, myelocytes and metamyelocytes) > 1% indicates that a LEFT SHIFT is Present. Iron measurement (mass/mass) on 03-18-2023 Iron (Unsp spec) [Mass/Mass] 86 ug/dL 50-170 [facility] - Chemistry and C hemistry - challengeon 03-18-2023 ALP [Catalytic activity/Vol] 97 U/L 45-117 [facility] ALT [Catalytic activity/Vol] 55 U/L 13-56 [facility] Cobalamin (Vitamin B12) [Mass/Vol] 634 pg/mL 211-911 [facility] Ferritin [Mass/Vol] 56 ng/mL 8-252 [facility] Globulin (S) [Mass/Vol] 3.7 g/dL 2.2-4.2 [facility] Transferrin [Mass/Vol] 261 mg/dL 192-364 [facility] Comment on above: Performed at: [address] [id number] Director: Parker Ortiz PhD, Phone: [phone] Laboratory - Hematology and Cell countson 03-18-2023 MCH (RBC) [Entitic mass] 29.8 pg 27.0-32.0 [facility] MCHC (RBC) [Mass/Vol] 31.9 g/dL 32-36 [facility] Nucleated RBC/100 WBC (Bld) [Ratio] 0 % 0-5 [facility] Platelets (Bld) [#/Vol] 230 10*3/uL 150-450 [facility] No Panel Informationon 03-18 C-Reactive Protein Extended Range < 2.90 mg/L 0.0-3.0 [facility] Comment on above: C-Reactive Protein ( CRP) provides useful information for thediagnosis, therapy and monitoring of inflammatory processesand associated diseases. For the evaluation of Relative Riskfor Cardiovascular Disease, a High Sensitivity CRP (HSCRP)should be ordered. Total Iron Binding Capacity 348 ug/dL 250-450 [facility] Platelet mean volume Haroon-Ec ker (Bld) [Entitic vol]on 03-18-2023 Platelet mean volume (Bld) [Entitic vol] 11.3 fL 6.2-12.0 [facility] RBC Auto (Bld) [#/Vol]on RBC (Bld) [#/Vol] 4.36 10*6/uL 4.2-5.4 [facility] Serum or plasma iron saturat ion measurement (mass fraction)on 03-18-2023 Iron saturation [Mass fraction] 24.7 % 15.0-55.0 [facility] Thin prep Papanicolaou smear with manual screeningon 03-18-2023 Thin prep Papanicolaou smear with manual screening 4.0 g/dL 3.2-5.0 [facility] Thin prep Papanicolaou smear with manual screening 45 U/L 15-37 [facility] Absolute lymphocyte countOrd ered By: Marilee Capellan on 12-14-2022 Lymphocytes Auto (Unsp spec) [#/Vol] 0.96 10*3/uL 0.83-4.51 [facility] Basophil percentageOrdered B y: Marilee Capellan on 12-14-2022 Basophils/100 WBC (Bld) 0.7 % 0-1 [facility] Bilirubin [Mass/Vol] 0.40 mg/dL 0.20-1.00 [facility] Comment on above: For patients on eltr ombopag therapy, use of Dimension [place] TBIL is not recommended. Chloride [Moles/Vol] 108 mmol/L 98-107 [facility] Eosinophils/100 WBC (Bld) 1.0 % 0-5 [facility] Glucose [Mass/Vol] 97 mg/dL 74-106 [facility] Neutrophils (Bld) [#/Vol] 4.3 10*3/uL 2.0-7.7 [facility] Neutrophils/100 WBC (Bld) 74.9 % 47-70 [facility] Potassium [Moles/Vol] 3.8 mmol/L 3.5-5.1 [facility] Protein [Mass/Vol] 7.8 g/dL 6.4-8.2 [facility] Sodium [Moles/Vol] 141 mmol/L 136-145 [facility] WBC (Bld) [#/Vol] 5.8 10*3/uL 4.4-11.0 [facility] Blood erythrocytes count (nu mber/volume)Ordered By: Marilee Capellan on 12-14-2022 RBC (Bld) [#/Vol] 4.43 10*6/uL 4.2-5.4 [facility] Blood hemoglobin measurement (mass/volume)Ordered By: Marilee Capellan on 12-14-2022 Hemoglobin (Bld) [Mass/Vol] 13.4 g/dL 12.0-15.0 [facility] Blood lymphocytes/100 leukoc ytesOrdered By: Marilee Capellan on 12-14-2022 Lymphocytes/100 WBC (Bld) 16.6 % 19-41 [facility] Blood monocytes/100 leukocyt esOrdered By: Marilee Capellan on 12-14-2022 Monocytes/100 WBC (Bld) 6.6 % 0-10 [facility] Blood platelet mean volumeOr dered By: Marilee Capellan on 12-14-2022 Platelet mean volume (Bld) [Entitic vol] 10.7 fL 6.2-12.0 [facility] Determination of erythrocyte mean corpuscular volume (MCV)Ordered By: Marilee Capellan on 12-14-2022 MCV (RBC) [Entitic vol] 95.3 fL 81-99 [facility] Hematocrit Auto (Bld) [Volum e fraction]Ordered By: Marilee Capellan on 12-14-2022 Hematocrit (Bld) [Volume fraction] 42.2 % 37-47 [facility] - Chemistry and C hemistry - challengeOrdered By: Marilee Capellan on 12-14-2022 ALP [Catalytic activity/Vol] 104 U/L 45-117 [facility] ALT [Catalytic activity/Vol] 65 U/L 13-56 [facility] CO2 [Moles/Vol] 27.0 mmol/L 21.0-32.0 [facility] Free T4 [Mass/Vol] 0.87 ng/dL 0.76-1.46 [facility] Globulin (S) [Mass/Vol] 4.0 g/dL 2.2-4.2 [facility] Urea nitrogen/Creatinine [Mass ratio] 15.8 mg/mg 10-20 [facility] Laboratory - Hematology and Cell countsOrdered By: Marilee Capellan on 12-14-2022 Erythrocyte distribution width (RBC) [Entitic vol] 44.9 fL 35.1-43.9 [facility] Erythrocyte distribution width (RBC) [Ratio] 12.7 % 11.6-14.6 [facility] Immature granulocytes/100 WBC (Bld) 0.200 % 0.0-0.9 [facility] Comment on above: IG% - Immature Granu locytes (promyelocytes, myelocytes and metamyelocytes) > 1% indicates that a LEFT SHIFT is Present. MCH (RBC) [Entitic mass] 30.2 pg 27.0-32.0 [facility] Nucleated RBC/100 WBC (Bld) [Ratio] 0 % 0-5 [facility] MCHC Auto (RBC) [Mass/Vol]Or dered By: Marilee Capellan on 12-14-2022 MCHC (RBC) [Mass/Vol] 31.8 g/dL 32-36 [facility] No Panel InformationOrdered By: Marilee Capellan on 12-14-2022 Estimated GFR (MDRD) Amer 93 mL/min >60 [facility] Comment on above: GFR Calc Estimated GFR (MDRD) Non-Af Amer 77 mL/min >60 [facility] Comment on above: Non- GFR Calc Thyroid Stimulating Hormone (TSH) 2.26 uIU/mL 0.358-3.74 [facility] Vitamin D 25-Hydroxy 38.8 ng/mL [facility] Comment on above: Vitamin D 25(OH) Sta tus Range Deficiency <20 ng/mL (50nmol/L) Insufficiency 20 - 30 ng/mL (50 - 75 nmol/L) Sufficiency 30 - 100 ng/mL (75 - 250 nmol/L) Toxicity >100 ng/mL (>250 nmol/L) Platelets bldOrdered By: Hazel Capellan on 12-14-2022 Platelets (Bld) [#/Vol] 236 10*3/uL 150-450 [facility] Serum or plasma albumin sandra urement (mass/volume)Ordered By: Marilee Capellan on 12-14-2022 Albumin [Mass/Vol] 3.8 g/dL 3.2-5.0 [facility] Serum or plasma albumin/glob ulin mass ratioOrdered By: Marilee Capellan on 10-16-2023 Albumin/Globulin [Mass ratio] 1.0 {ratio} 0.9-2.4 [facility] Serum or plasma calcium sandra urement (mass/volume)Ordered By: Marilee Capellan on 12-14-2022 Calcium [Mass/Vol] 9.3 mg/dL 8.5-10.1 [facility] Serum or plasma creatinine m easurement (mass/volume)Ordered By: Marileerobbi Capellan on 12-14-2022 Creatinine [Mass/Vol] 0.82 mg/dL 0.55-1.02 [facility] Comment on above: The validity of the calculated GFR & GFRAA in patients over 70 years has not been determined. Clinical correlation is essential. Serum or plasma thyroperoxid ase antibody assay (units/volume)Ordered By: Marileerobbi Capellan on 12-14-2022 TPO Ab Qn 15 [IU]/mL 0-34 [facility] Comment on above: Performed at: [address] Director: Parker Ortiz PhD, Phone: [phone] Serum or plasma urea nitroge n measurement (mass/volume)Ordered By: Marilee Capellan on 12-14-2022 Urea nitrogen [Mass/Vol] 13 mg/dL 7-18 [facility] Thin prep Papanicolaou smear with manual screeningOrdered By: Marilee Marilia on 12-14-2022 Thin prep Papanicolaou smear with manual screening 36 U/L 15-37 [facility] Thin prep Papanicolaou smear with manual screening 6 5-15 [facility] ILEOSCOPYon 03-24-2022 [facility] Patient Name: Gabi Mcnulty Procedure Date: 03/24/2022 9:07 AM Date of : 1970 Admit Type: Outpatient Age: 51 Room: Endo 2 Gender: Female Note Status: Finalized Attending MD: Nataliia Rodriguez MD, PhD, [id number] Procedure: Ileoscopy Attending Participation: I personally performed the entire procedure. Indications: History of total proctocolectomy, Inflammatory bowel disease Providers: Nataliia Rodriguez MD, PhD (Doctor), Bishop Reid RN (Nurse), Reba Francis Oyster Fisherman (Oyster Fisherman) Referring MD: Nataliia Rodriguez MD, PhD Complications: [...] patient's family. 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 All rights reserved. The codes documented in this report are preliminary and upon fountain operator review may be revised to meet current compliance requirements. MD Nataliia Brower MD, PhD 03/24/2022 9:59:46 AM This report has been signed electronically. Number of Addenda: 0 Note Initiated On: 03/24/2022 9:07 AM Estimated Blood Loss: Estimated blood loss was minimal. LAB, [facility] Radiology Study observation (narrative) [facility] PUSH ENTEROSCOPYon 3 [facility] Patient Name: Gabi Mcnulty Procedure Date: 03/24/2022 9:09 AM Date of : 1970 Admit Type: Outpatient Age: 51 Room: Endo 2 Gender: Female Note Status: Finalized Attending MD: Nataliia Rodriguez MD, PhD, [id number] Procedure: Small bowel enteroscopy Attending Participation: I personally performed the entire procedure. Indications: Abnormal abdominal CT, Disease activity assessment of Crohn's disease of the small bowel and colon Providers: Nataliia Rodriguez MD, PhD (Doctor), Bishop Reid RN (Nurse), Reba Francis, Oyster Fisherman (Oyster Fisherman) Referring MD: Nataliia Rodriguez MD, PhD Medicines: [...] patient's family. Procedure Code(s): --- Professional --- 16325, Small intestinal endoscopy, enteroscopy beyond second portion of duodenum, not including ileum; with biopsy, single or multiple Diagnosis Code(s): --- Professional --- K31.89, Other diseases of stomach and duodenum K50.80, Crohn's disease of both small and large intestine without complications R93.3, Abnormal findings on diagnostic imaging of other parts of digestive tract CPT copyright 2020 [employer]. All rights reserved. The codes documented in this report are preliminary and upon fountain operator review may be revised to meet current compliance requirements. MD Nataliia Brower MD, PhD 03/24/2022 9:56:10 AM This report has been signed electronically. Number of Addenda: 0 Note Initiated On: 1/ (more content not included)... LAB, [facility] Radiology Study observation (narrative) [facility] Laboratory - Chemistry and C hemistry - challengeon 12-01-2021 Free T4 [Mass/Vol] 0.84 ng/dL 0.76-1.46 [facility] Work Phone: No Panel Informationon 12-01 Thyroid Stimulating Hormone (TSH) 1.64 uIU/mL 0.358-3.74 [facility] Work Phone: CREAT/GFRon 11-10-2021 Creatinine [Mass/Vol] 0.62 mg/dL 0.50 - 1.20 mg/dL [facility] GFR/1.73 sq M.predicted among non-blacks MDRD (S/P/Bld) [Vol rate/Area] mL/min/{1.73_m2} >=60 mL/min/1.73m 2 [facility] Comment on above: Reported eGFR equati on is based on the CKD-EPI 2009 equation. Interpretation and review of laboratory results Normal [facility] Test performed at address of the patient encounter. [facility] Absolute lymphocyte counton 11-04-2021 Lymphocytes Auto (Unsp spec) [#/Vol] 1.12 10*3/uL 0.83-4.51 [facility] Work Phone: Basophil percentageon 2021 Basophils/100 WBC (Bld) 0.6 % 0-1 [facility] Work Phone: Bilirubin [Mass/Vol] 0.50 mg/dL 0.20-1.00 [facility] Work Phone: Comment on above: For patients on eltr ombopag therapy, use of Dimension [place] TBIL is not recommended. Eosinophils/100 WBC (Bld) 0.7 % 0-5 [facility] Work Phone: Neutrophils (Bld) [#/Vol] 5.2 10*3/uL 2.0-7.7 [facility] Work Phone: Neutrophils/100 WBC (Bld) 75.2 % 47-70 [facility] Work Phone: Protein [Mass/Vol] 8.0 g/dL 6.4-8.2 [facility] Work Phone: [phone] WBC (Bld) [#/Vol] 6.9 10*3/uL 4.4-11.0 [facility] Work Phone: Blood erythrocytes count (nu mber/volume)on 11-04-2021 RBC (Bld) [#/Vol] 4.35 10*6/uL 4.2-5.4 [facility] Work Phone: Blood hemoglobin measurement (mass/volume)on 11-04-2021 Hemoglobin (Bld) [Mass/Vol] 13.5 g/dL 12.0-15.0 [facility] Work Phone: Blood lymphocytes/100 leukoc yteson 11-04-2021 Lymphocytes/100 WBC (Bld) 16.3 % 19-41 [facility] Work Phone: Blood monocytes/100 leukocyt eson 11-04-2021 Monocytes/100 WBC (Bld) 7.1 % 0-10 [facility] Work Phone: Blood platelet mean volumeon 11-04-2021 Platelet mean volume (Bld) [Entitic vol] 10.9 fL 6.2-12.0 [facility] Work Phone: Determination of erythrocyte mean corpuscular volume (MCV)on 11-04-2021 MCV (RBC) [Entitic vol] 92.2 fL 81-99 [facility] [facility] Work Phone: Direct bilirubinon 2 Bilirubin.direct [Mass/Vol] 0.08 mg/dL 0.00-0.30 [facility] Work Phone: Erythrocyte sedimentation ra dolores 11-04-2021 ESR (Bld) [Velocity] 15 mm/h 0-30 [facility]: Hematocrit Auto (Bld) [Volum e fraction]on 11-04-2021 Hematocrit (Bld) [Volume fraction] 40.1 % 37-47 [facility] Work Phone: Laboratory - Chemistry and C hemistry - challengeon 11-04-2021 ALP [Catalytic activity/Vol] 127 U/L 45-117 [facility] Work Phone: ALT [Catalytic activity/Vol] 58 U/L 13-56 [facility] Work Phone: Globulin (S) [Mass/Vol] 4.0 g/dL 2.2-4.2 W [facility] Work Phone: Laboratory - Hematology and Cell countson 11-04-2021 Erythrocyte distribution width (RBC) [Entitic vol] 42.4 fL 35.1-43.9 [facility] Work Phone: Erythrocyte distribution width (RBC) [Ratio] 12.4 % 11.6-14.6 [facility] Work Phone: Immature granulocytes/100 WBC (Bld) 0.100 % 0.0-0.9 [facility] Work Phone: Comment on above: IG% - Immature Granu locytes (promyelocytes, myelocytes and metamyelocytes) > 1% indicates that a LEFT SHIFT is Present. MCH (RBC) [Entitic mass] 31.0 pg 27.0-32.0 [facility] Work Phone: Nucleated RBC/100 WBC (Bld) [Ratio] 0 % 0-5 [facility] Work Phone: MCHC Auto (RBC) [Mass/Vol]on 11-04-2021 MCHC (RBC) [Mass/Vol] 33.7 g/dL 32-36 [facility]: Platelets bldon 11-04-2021 Platelets (Bld) [#/Vol] 229 10*3/uL 150-450 [facility] Work Phone: Serum or plasma C reactive p rotein measurement (mass/volume)on 11-04-2021 CRP [Mass/Vol] 5.08 mg/L 0.0-3.0 [facility] Work Phone: Comment on above: C-Reactive Protein ( CRP) provides useful information for thediagnosis, therapy and monitoring of inflammatory processesand associated diseases. For the evaluation of Relative Riskfor Cardiovascular Disease, a High Sensitivity CRP (HSCRP)should be ordered. Serum or plasma albumin sanrda urement (mass/volume)on 11-04-2021 Albumin [Mass/Vol] 4.0 g/dL 3.2-5.0 [facility] Work Phone: Serum rheumatoid factor dete ctionon 11-04-2021 Rheumatoid factor Ql (S) < 10.0 IU/mL <15 [facility] Work Phone: Thin prep Papanicolaou smear with manual screeningon 11-04-2021 Thin prep Papanicolaou smear with manual screening 42 U/L 15-37 [facility] Work Phone: Basophil percentageon 2021 Bilirubin [Mass/Vol] 0.30 mg/dL 0.20-1.00 [facility] Work Phone: Comment on above: For patients on eltr ombopag therapy, use of Dimension [place] TBIL is not recommended. Chloride [Moles/Vol] 110 mmol/L 98-107 [facility] Work Phone: Glucose [Mass/Vol] 97 mg/dL 74-106 [facility] Work Phone: Potassium [Moles/Vol] 3.7 mmol/L 3.5-5.1 [facility] Work Phone: Protein [Mass/Vol] 7.2 g/dL 6.4-8.2 [facility] Work Phone: Sodium [Moles/Vol] 141 mmol/L 136-145 [facility] Work Phone: Laboratory - Chemistry and C hemistry - challengeon 06-04-2021 ALP [Catalytic activity/Vol] 107 U/L 45-117 [facility] Work Phone: ALT [Catalytic activity/Vol] 51 U/L 13-56 [facility] Work Phone: CO2 [Moles/Vol] 27.0 mmol/L 21.0-32.0 [facility] Work Phone: Globulin (S) [Mass/Vol] 3.6 g/dL 2.2-4.2 [facility] Work Phone: Urea nitrogen/Creatinine [Mass ratio] 14.8 mg/mg 10-20 [facility] Work Phone: No Panel Informationon 06-04 Estimated GFR (MDRD) Amer 106 mL/min >60 [facility] Work Phone: Comment on above: GFR Calc Estimated GFR (MDRD) Non-Af Amer 87 mL/min >60 [facility] Work Phone: Comment on above: Non- GFR Calc Vitamin D 25-Hydroxy 31.4 ng/mL [facility] Work Phone: Comment on above: Vitamin D 25(OH) Sta tus Range Deficiency <20 ng/mL (50nmol/L) Insufficiency 20 - 30 ng/mL (50 - 75 nmol/L) Sufficiency 30 - 100 ng/mL (75 - 250 nmol/L) Toxicity >100 ng/mL (>250 nmol/L) Serum or plasma albumin sandra urement (mass/volume)on 06-04-2021 Albumin [Mass/Vol] 3.6 g/dL 3.2-5.0 [facility] Work Phone: Serum or plasma albumin/glob ulin mass ratioon 06-04-2021 Albumin/Globulin [Mass ratio] 1.0 {ratio} 0.9-2.4 [facility] Work Phone: Serum or plasma calcium sandra urement (mass/volume)on 06-04-2021 Calcium [Mass/Vol] 8.6 mg/dL 8.5-10.1 [facility] Work Phone: Serum or plasma creatinine m easurement (mass/volume)on 06-04-2021 Creatinine [Mass/Vol] 0.74 mg/dL 0.55-1.02 [facility] Work Phone: Comment on above: The validity of the calculated GFR & GFRAA in patients over 70 years has not been determined. Clinical correlation is essential. Serum or plasma urea nitroge n measurement (mass/volume)on 06-04-2021 Urea nitrogen [Mass/Vol] 11 mg/dL 7-18 [facility] Work Phone: Thin prep Papanicolaou smear with manual screeningon 06-04-2021 Thin prep Papanicolaou smear with manual screening 32 U/L 15-37 [facility] Work Phone: Thin prep Papanicolaou smear with manual screening 4 5-15 [facility] Work Phone: Vital Signs Date Time Vital Sign Value Performing Clinician Facility 11-06-2024 14:16-0400 Body height 157.[address] Helen Tay MD Work Phone: [facility] 11-06-2024 14:16-0400 Body mass index (BMI) [Ratio] 21 kg/m2 Dr. Helen Tay MD Work Phone: [facility] 11-06-2024 14:16-0400 Body temperature 98.6 [degF] Dr. Helen Tay MD Work Phone: [facility] 11-06-2024 14:16-0400 Body weight 52.[address] Helen Tay MD Work Phone: [facility] 11-06-2024 14:16-0400 Diastolic blood pressure 72 mm[Hg] Dr. Helen Tay MD Work Phone: [facility] 11-06-2024 14:16-0400 Heart rate 93 /min Dr. Helen Tay MD Work Phone: [facility] 11-06-2024 14:16-0400 Respiratory rate 16 /min Dr. Helen Tay MD Work Phone: [facility] 11-06-2024 14:16-0400 SaO2% (BldA) [Mass fraction] 99 % Dr. Helen Tay MD Work Phone: [facility] 11-06-2024 14:16-0400 Systolic blood pressure 122 mm[Hg] Dr. Helen Tay MD Work Phone: [facility] 09-28-2024 12:21-0400 Body temperature 97.81 [degF] Shreyas Gayle MD Work Phone: [facility] 09-28-2024 12:21-0400 Diastolic blood pressure 66 mm[Hg] Shreyas Gayle MD Work Phone: 8(065)379-916989 [address] 09-28-2024 12:21-0400 Heart rate 73 /min Shreyas Gayle MD Work Phone: 0(047)948-929489 [address] 09-28-2024 12:21-0400 Respiratory rate 16 /min Shreyas Gayle MD Work Phone: 7(580)631-681389 [address] 09-28-2024 12:21-0400 SaO2% (BldA) [Mass fraction] 96 % Shreyas Gayle MD Work Phone: 3(219)441-516389 [address] 09-28-2024 12:21-0400 Systolic blood pressure 109 mm[Hg] Shreyas Gayle MD Work Phone: 5(074)816-783620 [place] [address] 09-24-2024 22:49-0400 Body mass index (BMI) [Ratio] 22.11 kg/m2 Shreyas Gayle MD Work Phone: 3(715)808-486220 [place] [address] 09-24-2024 22:49-0400 Body weight 54.84 kg Shreyas Gayle MD Work Phone: 2(830)460-355420 [place] [address] 09-24-2024 18:36-0400 Body height 157.5 cm Shreyas Gayle MD Work Phone: 7(154)889-021189 [address] 09-24-2024 16:00-0400 Diastolic blood pressure 51 mm[Hg] Dr. Helen Tay MD Work Phone: [facility] 09-24-2024 16:00-0400 Heart rate 82 /min Dr. Helen Tay MD Work Phone: [facility] 09-24-2024 16:00-0400 Respiratory rate 16 /min Dr. Helen Tay MD Work Phone: [facility] 09-24-2024 16:00-0400 SaO2% (BldA) [Mass fraction] 93 % Dr. Helen Tay MD Work Phone: [facility] 09-24-2024 16:00-0400 Systolic blood pressure 96 mm[Hg] Dr. Helen Tay MD Work Phone: [facility] 09-24-2024 14:55-0400 Body temperature 97 [degF] Dr. Helen Tay MD Work Phone: [facility] 09-24-2024 08:11-0400 Body height 157.[address] Helen Tay MD Work Phone: [facility] 09-24-2024 08:11-0400 Body mass index (BMI) [Ratio] 20.7 kg/m2 Dr. Helen Tay MD Work Phone: [facility] 09-24-2024 08:11-0400 Body weight 51.[address] Helen Tay MD Work Phone: [facility] 07-02-2024 08:12-0400 Body height 157.5 cm Nataliia Rodriguez MD Work Phone: [facility] 07-02-2024 08:12-0400 Body mass index (BMI) [Ratio] 22.86 kg/m2 Nataliia Rodriguez MD Work Phone: [facility] 07-02-2024 08:12-0400 Body weight 56.7 kg Nataliia Rodriguez MD Work Phone: [facility] 07-02-2024 08:12-0400 Diastolic blood pressure 61 mm[Hg] Nataliia Rodriguez MD Work Phone: [facility] 07-02-2024 08:12-0400 Systolic blood pressure 112 mm[Hg] Nataliia Rodriguez MD Work Phone: [facility] 01-19-2024 15:46-0500 Body height 157.[address] Helen Tay MD Work Phone: [facility] 01-19-2024 15:43-0500 Body mass index (BMI) [Ratio] 22.6 kg/m2 Dr. Helen Tay MD Work Phone: 7(828)046-499536 [place] [address] 01-19-2024 15:43-0500 Body weight 56.[address] Helen Tay MD Work Phone: 2(074)365-748006 [place] [address] 01-19-2024 15:43-0500 Diastolic blood pressure 71 mm[Hg] Dr. Helen Tay MD Work Phone: 8(385)039-824206 [place] [address] 01-19-2024 15:43-0500 Systolic blood pressure 107 mm[Hg] Dr. Helen Tay MD Work Phone: 7(246)192-251306 [place] [address] 12-30-2022 13:06-0400 Body height 157.[address] Helen Tay Work Phone: 5(539)901-230206 [place] [address] 12-30-2022 13:06-0400 Body mass index (BMI) [Ratio] 21.8 kg/m2 Dr. Helen Tay Work Phone: 7(897)361-120006 [place] [address] 12-30-2022 13:06-0400 Body weight 54.[address] Helen Tay Work Phone: 5(172)551-585606 [place] [address] 12-30-2022 13:06-0400 Diastolic blood pressure 80 mm[Hg] Dr. Helen Tay Work Phone: 3(664)411-895106 [place] [address] 12-30-2022 13:06-0400 Systolic blood pressure 126 mm[Hg] Dr. Helen Tay Work Phone: 6(099)983-533306 [place] [address] 12-14-2022 08:53-0400 Body height 157.[address] Helen Tay Work Phone: 9(018)878-710406 [place] [address] 12-14-2022 08:48-0400 Body mass index (BMI) [Ratio] 22.1 kg/m2 Dr. Helen Tay Work Phone: 3(990)020-245206 [place] [address] 12-14-2022 08:48-0400 Body weight 55.[address] Helen Tay Work Phone: [facility] 12-14-2022 08:48-0400 Diastolic blood pressure 68 mm[Hg] Dr. Helen Tay Work Phone: [facility] 12-14-2022 08:48-0400 Systolic blood pressure 110 mm[Hg] Dr. Helen Tay Work Phone: 0(707)559-241536 [place] [address] 10-08-2022 16:04-0400 Body height 157.48 cm [facility] 07-06-2022 16:37-0400 Body temperature 97 [degF] Dr. Helen Tay Work Phone: 2(106)942-895006 [place] [address] 07-06-2022 16:37-0400 Diastolic blood pressure 61 mm[Hg] Dr. Helen Tay Work Phone: 6(288)620-867506 [place] [address] 07-06-2022 16:37-0400 Heart rate 70 /min Dr. Helen Tay Work Phone: 5(617)668-719006 [place] [address] 07-06-2022 16:37-0400 Respiratory rate 16 /min Dr. Helen Tay Work Phone: 6(735)368-885106 [place] [address] 07-06-2022 16:37-0400 SaO2% (BldA) [Mass fraction] 99 % Dr. Helen Tay Work Phone: 4(714)581-449906 [place] [address] 07-06-2022 16:37-0400 Systolic blood pressure 119 mm[Hg] Dr. Helen Tay Work Phone: 2(182)122-082136 [place] [address] 07-06-2022 16:11-0400 Body height 157.[address] Helen Tay Work Phone: 7(917)608-646706 [place] [address] 07-06-2022 16:11-0400 Body mass index (BMI) [Ratio] 21.2 kg/m2 Dr. Helen Tay Work Phone: 1(191)041-944936 [place] [address] 07-06-2022 16:11-0400 Body weight 52.[address] Helen Tay Work Phone: 0(035)144-622936 [place] [address] 05-28-2022 16:04-0400 Body mass index (BMI) [Ratio] 21.2 kg/m2 Dr. Helen Tay Work Phone: [facility] 05-28-2022 16:04-0400 Body temperature 98.2 [degF] Dr. Helen Tay Work Phone: [facility] 05-28-2022 16:04-0400 Body weight 52.[address] Helen Tay Work Phone: [facility] 05-28-2022 16:04-0400 Diastolic blood pressure 68 mm[Hg] Dr. Helen Tay Work Phone: [facility] 05-28-2022 16:04-0400 Heart rate 71 /min Dr. Helen Tay Work Phone: [facility] 05-28-2022 16:04-0400 Respiratory rate 18 /min Dr. Helen Tay Work Phone: [facility] 05-28-2022 16:04-0400 SaO2% (BldA) [Mass fraction] 98 % Dr. Helen Tay Work Phone: [facility] 05-28-2022 16:04-0400 Systolic blood pressure 106 mm[Hg] Dr. Helen Tay Work Phone: [facility] 12-01-2021 13:43-0400 Body height 157.[address] Helen Tay Work Phone: [facility] Work Phone: 12-01-2021 13:43-0400 Body mass index (BMI) [Ratio] 21.9 kg/m2 Dr. Helen Tay Work Phone: [facility] Work Phone: 12-01-2021 13:43-0400 Body weight 54.[address] Helen Tay Work Phone: [facility] Work Phone: 12-01-2021 13:43-0400 Diastolic blood pressure 77 mm[Hg] Dr. Helen Tay Work Phone: [facility] Work Phone: 12-01-2021 13:43-0400 Systolic blood pressure 117 mm[Hg] Dr. Helen Tay Work Phone: [facility] Work Phone: 11-10-2021 12:39-0400 Diastolic blood pressure 54 mm[Hg] Nataliia Rodriguez MD, PhD Work Phone: 6(105)611-725763 [address] 11-10-2021 12:39-0400 Heart rate 75 /min Nataliia Rodriguez MD, PhD Work Phone: 9(052)793-814219 [place] [address] 11-10-2021 12:39-0400 Systolic blood pressure 110 mm[Hg] Nataliia Rodriguez MD, PhD Work Phone: 6(020)918-955519 [place] [address] 10-29-2021 16:00-0400 Body height 157.5 cm Nataliia Rodriguez MD, PhD Work Phone: 9(928)407-896219 [place] [address] 10-29-2021 16:00-0400 Body mass index (BMI) [Ratio] 21.29 kg/m2 Nataliia Rodriguez MD, PhD Work Phone: 2(338)525-503719 [place] [address] 10-29-2021 16:00-0400 Body temperature 97.2 [degF] Nataliia Rodriguez MD, PhD Work Phone: 2(505)330-416719 [place] [address] 10-29-2021 16:00-0400 Body weight 52.8 kg Nataliia Rodriguez MD, PhD Work Phone: 8(930)059-320019 [place] [address] 10-29-2021 16:00-0400 Diastolic blood pressure 52 mm[Hg] Nataliia Rodriguez MD, PhD Work Phone: 5(192)889-517319 [place] [address] 10-29-2021 16:00-0400 Heart rate 86 /min Nataliia Rodriguez MD, PhD Work Phone: 5(664)035-790119 [place] [address] 10-29-2021 16:00-0400 SaO2% (BldA) [Mass fraction] 98 % Nataliia Rodriguez MD, PhD Work Phone: [facility] 10-29-2021 16:00-0400 Systolic blood pressure 103 mm[Hg] Nataliia Rodriguez MD, PhD Work Phone: [facility] 06-16-2021 15:49-0400 Body temperature 98.6 [degF] Dr. Helen Tay Work Phone: [facility] Work Phone: 06-16-2021 15:49-0400 Diastolic blood pressure 65 mm[Hg] Dr. Helen Tay Work Phone: [facility] Work Phone: 06-16-2021 15:49-0400 Heart rate 78 /min Dr. Helen Tay Work Phone: [facility] Work Phone: 06-16-2021 15:49-0400 Respiratory rate 16 /min Dr. Helen Tay Work Phone: [facility] Work Phone: 06-16-2021 15:49-0400 SaO2% (BldA) [Mass fraction] 98 % Dr. Helen Tay Work Phone: [facility] Work Phone: 06-16-2021 15:49-0400 Systolic blood pressure 106 mm[Hg] Dr. Helen Tay Work Phone: [facility] Work Phone: 06-16-2021 15:12-0400 Body height 157.[address] Helen Tay Work Phone: [facility] Work Phone: 06-16-2021 15:12-0400 Body mass index (BMI) [Ratio] 21.9 kg/m2 Dr. Helen Tay Work Phone: [facility] Work Phone: 06-16-2021 15:12-0400 Body weight 54.[address] Helen Tay Work Phone: [facility] Work Phone: 05-29-2021 16:07-0400 Body height 160.[address] Helen Tay Work Phone: [facility] Work Phone: 05-29-2021 16:07-0400 Body mass index (BMI) [Ratio] 21.6 kg/m2 Dr. Helen Tay Work Phone: [facility] Work Phone: 05-29-2021 16:07-0400 Body temperature 96.1 [degF] Dr. Helen Tay Work Phone: [facility] Work Phone: 05-29-2021 16:07-0400 Body weight 55.[address] Helen Tay Work Phone: [facility] Work Phone: 05-29-2021 16:07-0400 Diastolic blood pressure 80 mm[Hg] Dr. Helen Tay Work Phone: [facility] Work Phone: 05-29-2021 16:07-0400 Heart rate 65 /min Dr. Helen Tay Work Phone: [facility] Work Phone: 05-29-2021 16:07-0400 Respiratory rate 16 /min Dr. Helen Tay Work Phone: [facility] Work Phone: 05-29-2021 16:07-0400 SaO2% (BldA) [Mass fraction] 97 % Dr. Helen Tay Work Phone: [facility] Work Phone: 05-29-2021 16:07-0400 Systolic blood pressure 112 mm[Hg] Dr. Helen Tay Work Phone: [facility] Work Phone: Encounters Encounter Date Encounter Type Care Provider Facility Start: 11-30-2024 ambulatory Brandi Keagan Facility :[facility] Start: 11-06-2024 End: 11-06-[address] Brandi Boogie MD -[facility] Work Phone: Start: 11-06-2024 End: 11-06-[address] Helen Tay MD Work Phone: -[facility] Start: 09-24-2024 End: 09-28-2024 Evaluation and management of inpatient Shreyas Gayle MD Work Phone: [id number] Comment on above: Small bowel obstruct ion Start: 09-24-2024 End: 09-24-2024 Emergency department patient visit Dr. Helen Tay MD Work Phone: -Emergency Department Work Phone: Start: 08-21-2024 End: 08-21-[address] Helen Tay MD Work Phone: -Laboratory [address] Start: 08-21-2024 End: 08-21-[address] Helen Tay MD Work Phone: -Laboratory Lane Work Phone: Start: 08-21-2024 End: 08-21-2024 ambulatory KAMERON PALOMO Facility:[facility] Start: 07-17-2024 End: 07-17-[address] Helen Tay MD Work Phone: -Laboratory Lane Work Phone: Start: 07-17-2024 End: 07-17-2024 ambulatory Helen Tay Facility:[facility] Start: 07-02-2024 ambulatory HELEN TAY Facility: [facility] Start: 07-02-2024 End: 07-02-2024 Subsequent hospital visit by physician Nataliia Rodriguez MD Work Phone: [facility] [place] Comment on above: Arrived Start: 06-07-2024 End: 06-07-[address] Helen Tay MD Work Phone: [facility] Work Phone: Start: 06-07-2024 End: 06-07-[address] Helen Tay MD Work Phone: -Laboratory, Lane Work Phone: Start: 06-07-2024 End: 06-07-2024 ambulatory Helen Tay Facility:[facility] Start: 05-30-2024 ambulatory SELF SELF Facility:[facility] Start: 05-04-2024 End: 05-04-[address] Helen Tay MD Work Phone: [facility] Work Phone: Start: 05-04-2024 End: 05-04-2024 Patient encounter procedure Marilee Capellan DEPLOYMENT TECHNICIAN-C -Laboratory Work Phone: Start: 05-04-2024 End: 05-04-2024 ambulatory Marilee Marilia DEPLOYMENT TECHNICIAN Facility:[facility] Start: 01-19-2024 End: 01-19-2024 Patient encounter procedure Marilee Alaniss DEPLOYMENT TECHNICIAN-C -[facility] Work Phone: Start: 01-19-2024 End: 01-19-2024 ambulatory Helen Tay Facility:[facility] Start: 01-19-2024 End: 01-19-2024 ambulatory Marilee Irving DEPLOYMENT TECHNICIAN Facility:[facility] Start: 12-21-2023 End: 12-21-2023 ambulatory Marilee Irving DEPLOYMENT TECHNICIAN Facility:[facility] Start: 12-21-2023 End: 12-21-2023 ambulatory Marilee Marilia DEPLOYMENT TECHNICIAN Facility:[facility] Start: 03-18-2023 End: 03-18-[address] Helen Tay Work Phone: [facility] Work Phone: Start: 03-18-2023 End: 03-18-[address] Helen Tay Work Phone: [facility] [address] Work Phone: Start: 01-01-2023 End: 01-01-[address] Helen Tay Work Phone: [facility] Work Phone: Start: 01-01-2023 End: 01-01-[address] Helen Tay Work Phone: [facility], [facility] Work Phone: Start: 12-30-2022 End: 12-30-[address] Helen Tay Work Phone: [facility] Work Phone: Start: 12-14-2022 End: 12-14-[address] Helen Tay Work Phone: [facility] Work Phone: Start: 12-14-2022 End: 12-14-[address] Helen Tay Work Phone: [facility] Work Phone: Start: 11-05-2022 End: 11-05-2022 ambulatory [facility] sp[facility] Work Phone: Start: 11-05-2022 End: 11-05-2022 Patient encounter procedure [facility]-Outpatient Breast Imaging Work Phone: Start: 10-08-2022 End: 10-08-2022 ambulatory [facility] Work Phone: Start: 10-08-2022 End: 10-08-2022 Patient encounter procedure [facility]-Outpatient Bone Densitometry Work Phone: Start: 07-06-2022 End: 07-06-[address] Helen Tay Work Phone: [facility] Work Phone: Start: 07-06-2022 End: 07-06-[address] Helen Tay Work Phone: [facility]-Medical Out Start: 05-28-2022 End: 05-28-[address] Helen Tay Work Phone: [facility] Endocrinology Start: 03-24-2022 End: 03-24-2022 Subsequent hospital visit by physician Nataliia Rodriguez MD, PhD Work Phone: [facility] [place] Comment on above: Arrived Start: 12-08-2021 End: 12-08-[address] Helen Tay Work Phone: [facility] Work Phone: Start: 12-08-2021 End: 12-08-[address] Helen Tay Work Phone: [facility] Start: 12-01-2021 End: 12-01-[address] Helen Tay Work Phone: [facility] Work Phone: Start: 12-01-2021 End: 12-01-[address] Helen Tay Work Phone: [facility] Start: 11-10-2021 End: 11-10-2021 Subsequent hospital visit by physician Nataliia Rodriguez MD, PhD Work Phone: Imaging [facility] Comment on above: Arrived Start: 11-04-2021 End: 11-04-2021 ambulatory [facility] Work Phone: Start: 11-04-2021 End: 11-04-2021 Patient encounter procedure [facility] Start: 10-30-2021 End: 10-30-2021 ambulatory [facility] Work Phone: Start: 10-30-2021 End: 10-30-2021 Patient encounter procedure [facility]-Outpatient Breast Imaging Start: 10-29-2021 End: 10-29-2021 Office outpatient visit 25 minutes Nataliia Rodriguez MD, PhD Work Phone: Gastroenterology and Hepatology [facility] Comment on above: Crohn's disease of l arge intestine with complication (Primary Dx); Ileostomy in place; Status post total colectomy; Elevated liver enzymes; H/O resection of liver Start: 06-16-2021 End: 06-16-[address] Helen Tay Work Phone: [facility] Out Start: 06-04-2021 End: 06-04-[address] Helen Tay Work Phone: [facility] Start: 05-29-2021 End: 05-29-[address] Helen Tay Work Phone: [facility] Endocrinology Start: 06-22-2006 End: 06-22-2006 Nursing evaluation of patient and report Marly ([facility]) (Hist [facility] Work Phone: Colorectal Surgery Comment on above: REGIONAL ENTERITIS N OS (Primary Dx) Procedures Date Procedure Procedure Detail Performing Clinician Start: 09-28-2024 Assay of magnesium Rogelio Harrington MD Work Phone: Start: 09-28-2024 C-reactive protein Sav Leiva MD Work Phone: Start: 09-27-2024 Assay of magnesium Rogelio Harrington MD Work Phone: Start: 09-26-2024 Creatinine blood Jolanta Vargas MD Work Phone: Start: 09-26-2024 Radiologic exam abdo men 1 view Dominic Vargas MD Work Phone: Start: 09-26-2024 Assay of magnesium Rogelio Harrington MD Work Phone: Start: 09-26-2024 C-reactive protein Esvin y Davison MD Work Phone: Start: 09-25-2024 Radiologic exam abdo men 1 view Dominic Vargas MD Work Phone: Start: 09-25-2024 Radiologic exam abdo men 1 view Dominic Vargas MD Work Phone: Start: 09-25-2024 Radiologic exam abdo men 1 view Dominic Vargas MD Work Phone: Start: 09-25-2024 Assay of magnesium Rogelio Harrington MD Work Phone: Start: 09-24-2024 Radiologic exam abdo men 1 view Peyman Aponte MD Work Phone: Start: 09-24-2024 End: 09-24-2024 Antibody screen Shreyas Gayle MD Work Phone: Comment on above: @09/24/24 22:33 by B [id number]: History of Inconclusive _ Result Comment: @ 22:33 by [email or web address]: History of Inconclusive _ Performed By: #### P TPTT #### [facility] ([facility] IN[facility] THE [facility]) [address] [place] [address] Start: 09-24-2024 Assay of lactate Janice Rowe MD Work Phone: Start: 09-24-2024 Blood typing serologic abo Yung Harrington MD Work Phone: Start: 09-24-2024 PREPARE TO TRANSFUSE RED BLOOD CELLS Sulma Tong MD Work Phone: Start: 09-24-2024 Assay of lipase Alexand arnaud Gayle MD Work Phone: Start: 09-24-2024 CBC AND ELECTRONIC DIFF Shreyas Gayle MD Work Phone: Start: 09-24-2024 Complete blood count with white cell differential, automated Shreyas Gayle MD Work Phone: Start: 09-24-2024 GOLD TOP TUBE Shreyas Gayle MD Work Phone: Start: 09-24-2024 Hepatic function panel Shreyas Gayle MD Work Phone: Start: 09-24-2024 LAVENDER TOP TUBE Migdalia tala Gayle MD Work Phone: Start: 09-24-2024 LT BLUE TOP TUBE Janice Rowe MD Work Phone: Start: 09-24-2024 MINT GREEN TOP TUBE Alise kyle Gayle MD Work Phone: Start: 09-24-2024 RAINBOW DRAW Shreyas Gayle MD Work Phone: Start: 09-24-2024 Plain X-ray abdomen Dr. Helen Tay MD Work Phone: Start: 09-24-2024 Urnls dip stick/tabl et reagent auto microscopy Dr. Helen Tay MD Work Phone: Start: 09-24-2024 Computed tomography of abdomen and pelvis with intravenous contrast Dr. Helen Tay MD Work Phone: Start: 09-24-[address] Helen Tay MD Work Phone: Start: 08-21-2024 Vitamin D, 25-hydrox y measurement Dr. Helen Tay MD Work Phone: Comment on above: Vitamin D StatusDefi ciency: <20 ng/mL (50nmol/L)Insufficiency: 20-30 ng/mL (50-75 nmol/L)Sufficiency: 30-100 ng/mL (75-250 nmol/L)Toxicity: >100 ng/mL (>250 nmol/L) Start: 06-07-2024 Total iron binding c apacity measurement Dr. Helen Tay MD Work Phone: Start: 01-01-[address] [place] Tay Work Phone: Start: 01-01-2023 US scan of thyroid Dr. Helen Tay Work Phone: Start: 11-05-2022 Screening mammography Start: 10-08-2022 Dual energy X-ray absorptiometry Start: 03-24-2022 PUSH ENTEROSCOPY Nataliia Rodriguez MD, PhD Work Phone: Start: 03-24-2022 ILEOSCOPY Nataliia Rodriguez MD, PhD Work Phone: Start: 12-08-2021 US scan of thyroid Dr. Helen Tay Work Phone: Start: 11-10-2021 Creatinine blood Nataliia Rodriguez MD, PhD Work Phone: Start: 10-30-2021 Screening mammography Start: 03-10-2016 Mammography Marly Fabiola dumont Work Phone: Start: 04-20-2013 Lipid 1996 panel - S soledad or Plasma Nataliia Rodriguez MD, PhD Work Phone: Start: 10-26-2012 Colonoscopy Marly Fabiola dumont Work Phone: Plan of Treatment Date Care Activity Detail Author Start: 10-30-2024 Influenza vaccination O [facility] Start: 10-18-2024 Tetanus vaccination TETANUS [facility] Start: 09-24-2024 End: 09-24-2024 [facility] Start: 09-24-2024 [facility] Start: 11-03-2023 Pneumococcal vaccination PNEUM OCOCCAL VACCINE SERIES (3 of 3 - PCV20 or PCV21) [facility] Start: 10-31-2023 COVID-19 VACCINE ( season) COVID-19 VACCINE ( season) [facility] Start: 07-06-2022 Iv infusion therapy/prophylaxis /dx 1st to 1 hr THER/PROPH/DIAG IV INF INIT [facility] Start: 12-19-2021 Zoster vaccine hzv l fortunato for subcutaneous use ZOSTER (SHINGLES) VACCINE (2 of 2) [facility] Start: 11-10-2021 Subsequent hospital visit by physician 11/10/2021 Hospital Encounter Computerized Tomography Scan Nataliia Rodriguez MD, PhD [address] [place] [address] [facility] Start: 10-30-2021 Influenza vaccination INFLUENZA VACC INE (#1) [facility] Start: 10-29-2021 End: 10-29-2022 C-reactive protein C REACTIVE PROTEIN Lab Routine Crohn's disease of large intestine with complication Ileostomy in place Status post total colectomy Expected: 10/29/2021, Expires: 10/29/2022 [facility] Comment on above: Expected: 10/29/2021 , Expires: 10/29/2022 Start: 10-29-2021 End: 10-29-2022 Complete blood count with white cell differential, automated CBC, EDIF, PLATELET Lab Routine Crohn's disease of large intestine with complication Ileostomy in place Status post total colectomy Expected: 10/29/2021, Expires: 10/29/2022 [facility] Comment on above: Expected: 10/29/2021 , Expires: 10/29/2022 Start: 10-29-2021 End: 10-29-[address] ENTEROGRAPHY Imaging Routine Crohn's disease of large intestine with complication Ileostomy in place Status post total colectomy Expected: 10/29/2021, Expires: 10/29/2022 [facility] Comment on above: Expected: 10/29/2021 , Expires: 10/29/2022 Start: 10-29-2021 End: 10-29-2022 Hepatic function 2000 panel - Serum or Plasma HEPATIC FUNCTION PANEL Lab Routine Crohn's disease of large intestine with complication Ileostomy in place Status post total colectomy Elevated liver enzymes H/O resection of liver Expected: 10/29/2021, Expires: 10/29/2022 [facility] Comment on above: Expected: 10/29/2021 , Expires: 10/29/2022 Start: 10-29-2021 End: 10-29-2022 RHEUMATOID FACTOR RHEUMATOID FACTOR Lab Routine Crohn's disease of large intestine with complication Ileostomy in place Status post total colectomy Expected: 10/29/2021, Expires: 10/29/2022 [facility] Comment on above: Expected: 10/29/2021 , Expires: 10/29/2022 Start: 10-29-2021 End: 10-29-2022 SEDIMENTATION RATE, AUTOMATED SEDIMENTATION RATE, AUTOMATED Lab Routine Crohn's disease of large intestine with complication Ileostomy in place Status post total colectomy Expected: 10/29/2021, Expires: 10/29/2022 [facility] Comment on above: Expected: 10/29/2021 , Expires: 10/29/2022 Start: 06-16-2021 Iv infusion therapy/prophylaxis /dx 1st to 1 hr [facility] Start: 01-22-2021 Screening for malign ant neoplasm of breast MAMMOGRAM SCREENING DISCUSSION [facility] Start: 01-22-2021 Screening mammography MAMMOGRA M SCREENING DISCUSSION [facility] Start: 10-30-2020 Influenza vaccination INFLUENZ A (Season Ended) [facility] Start: 09-19-2020 Colonoscopy COLORECTAL CAN CER SCREENING DISCUSSION [facility] Start: 09-19-2020 Screening for malign ant neoplasm of colon COLORECTAL CANCER SCREENING DISCUSSION [facility] Start: 01-23-2019 HPV TESTING HPV TESTING [facility] Start: 01-23-2019 PAP TESTING PAP TESTING [facility] Start: 2018 Screening for malign ant neoplasm of colon [facility] Start: 2018 SHINGRIX VACCINE (1 of 2) SHINGRIX VACCINE (1 of 2) [facility] Start: 2018 Zoster vaccine hzv l fortunato for subcutaneous use ZOSTER (SHINGLES) VACCINE (1 of 2) [facility] Start: 04-20-2018 Fasting lipid profile LIPID SCREENIN G [facility] Start: 04-20-2018 Lipid panel LIPID SCREENING [facility] Start: 03-10-2017 Mammography MAMMOGRAM [facility] Start: 12-15-2016 LIPID SCREEN LIPID SCREEN [facility] Start: 09-29-2015 DIABETES SCREEN DIABETES SCREEN [facility] Start: 1989 Screening for malign ant neoplasm of cervix CERVICAL CANCER SCREENING DISCUSSION [facility] Start: 12-11-1987 Third diphtheria, tetanus and acellular pertussis (DTaP) vaccination TDAP (ADULT) [facility] Start: 12-11-1987 Urine microalbumin profile DTAP,TDAP,TD (1 - Tdap) [facility] Start: 1986 HEPATITIS C SCREENING HEPATITIS C SC REENING [facility] Start: 1986 HIV SCREENING HIV SCREENING [facility] Start: 1986 Tetanus vaccination TETANUS [facility] Start: 12-11-1983 HIV screening HIV SCREENING DISCUSSION [facility] Start: 1980 Adult depression screening assessment DEPRESSION SCREENING [facility] Start: 1980 COVID-19 VACCINE (1) COVID-19 VACCIN E (1) [facility] Start: 06-10-1969 COVID-19 VACCINE (#1) COVID-19 VACCI NE (#1) [facility] End: 11-10-2021 CT enterography [facility] Comment on above: 1 Occurrences starti ng 11/10/2021 until 11/10/2021 End: 07-02-2024 CT enterography [facility] Comment on above: 1 Occurrences starti ng 07/02/2024 until 07/02/2024 DXA Bone [Mass/Area] Bone density [facility] End: 09-24-2024 LACTATE, BLOOD LACTATE, BLOOD Lab STAT One Time for 1 Occurrences starting 09/24/2024 until 09/24/2024 [facility] Comment on above: One Time for 1 Occur rences starting 09/24/2024 until 09/24/2024 MG Breast - bilatera l Screening [facility] Work Phone: SURG PATH REQUEST [facility] Comment on above: Release Upon Orderin g for 1 Occurrences starting 03/24/2022, 1 completed US Thyroid gland [facility] Work Phone: US Thyroid gland [facility] Vitamin D, 25-hydrox y measurement [facility] Immunizations Immunization Date Immunization Notes Care Provider Fa cilitrell 05-08-[address] Helen Tay MD Work Phone: [facility] 05-01-2022 hepatitis A vaccine, pediatric/adolescent dosage, [address] Helen Tay MD Work Phone: [facility] 10-24-[address] Helen Tay MD Work Phone: [facility] 10-24-2021 zoster vaccine, unspecified formulation Nataliia Rodriguez MD, PhD Work Phone: [facility] 10-17-2021 hepatitis A vaccine, pediatric/adolescent dosage, [address] Helen Tay MD Work Phone: [facility] 02-11-2021 Covid (Moderna) Dr. Helen mcmahon MD Work Phone: [facility] 11-29-2020 influenza, injectabl e, quadrivalent, preservative free Dr. Helen Tay MD Work Phone: [facility] 11-29-2020 influenza virus vacc ine, unspecified formulation Nataliia Rodriguez MD, PhD Work Phone: [facility] 06-06-2020 Covid (Moderna) Dr. Helen mcmahon MD Work Phone: [facility] 05-09-2020 Covid (Moderna) Dr. Helen mcmahon MD Work Phone: [facility] 12-13-2019 influenza, injectabl e, quadrivalent, preservative free Dr. Helen Tay MD Work Phone: [facility] 11-02-2018 hepatitis A vaccine, pediatric/adolescent dosage, [address] Helen Tay MD Work Phone: [facility] 11-02-2018 pneumococcal conjuga te vaccine, [address] Helen Tay MD Work Phone: [facility] 10-18-2014 tetanus toxoid, redu loni diphtheria toxoid, and acellular pertussis vaccine, adsorbed Dr. Helen Tay MD Work Phone: [facility] 06-05-2014 hepatitis B vaccine, adult dosage Dr. Helen Tay MD Work Phone: [facility] 01-08-2014 hepatitis B vaccine, adult dosage Dr. Helen Tay MD Work Phone: [facility] 12-28-2013 influenza, injectabl e, quadrivalent, preservative free Dr. Helen Tay MD Work Phone: [facility] 12-04-2013 hepatitis B vaccine, adult dosage Dr. Helen Tay MD Work Phone: [facility] 12-04-2013 pneumococcal polysaccharide vaccine, [address] Helen Tay MD Work Phone: [facility] Payers Date Payer Category Payer Self-pay [id number] 2020 Managed Care (unspecified) [employer] [id number] 2020 Private Health Insurance [employer] [id number] 2020-Present [address] [place] [address] [id number] 2020 Unknown [id number] 2015 Private Health Insurance [id number] 2002 Unknown [employer] PPO [id number] 2002-2015 PPO [id number] 1968 Unknown [id number] 1968 Unknown [id number] 1968 Unknown [id number] Unknown [id number] Unknown [id number] Unknown [id number] Unknown [id number] Unknown [id number] Unknown [id number] Unknown [id number] Unknown [id number] Unknown [id number] Unknown [id number] Unknown [id number] Social History Date Type Detail Facility Start: 12-24-2005 End: 11-06-2024 Tobacco smoking status MAIS Never smoker [facility] Start: 12-24-2005 End: 07-02-2024 Alcohol intake Current drinker of alcohol (finding) [facility] Start: 1970 Sex Assigned At Not on file [facility] Start: 05-29-2021 End: 12-14-2022 Tobacco smoking status NHIS Unknown if ever smoked [facility] Start: 1970 Sex Assigned At Female W [facility] Start: 04-19-2013 Tobacco use and exposure Smokeless tobacco non-user [facility] Start: 10-29-2021 End: 09-25-2024 Alcohol intake [facility] Start: 06-07-2020 History SDOH Alcohol Comment once or twice a year per [facility] Start: 03-14-2022 End: 03-24-2022 Exposure to SARS-CoV-2 (event) Unable to assess [facility] Start: 02-07-2013 End: 05-18-2024 Sex Female (finding) [facility] Start: 05-30-2024 End: 09-25-2024 Tobacco use panel [facility] Gender identity Identifies as fe male gender (finding) [facility] Start: 05-30-2024 Sexual orientation Heterosexual (fin ding) [facility] Within the past 12 months, did you worry that your food would run out before you got money to buy more? No [facility] Functional Status Date Assessment Result Facility 09-24-2024 Are you deaf, or do you have serious difficulty hearing No 09/24/2024 11:00 PM Little Reyes, OLAF No [facility] 09-24-2024 Are you blind, or do you have serious difficulty seeing, even when wearing glasses No 09/24/2024 11:00 PM Little Reyes, OLAF No [facility] 09-24-2024 Do you have serious difficulty walking or climbing stairs No 09/24/2024 11:00 PM Little Reyes, RN No [facility] 09-24-2024 Do you have difficul ty dressing or bathing No 09/24/2024 11:00 PM Little Reyes, RN No [facility] 09-24-2024 Because of a physica l, mental, or emotional condition, do you have difficulty doing errands alone such as visiting a physician's office or shopping No 09/24/2024 11:00 PM EDT [place], OLAF No [facility] 07-02-2020 Are you deaf, or do you have serious difficulty hearing No 07/02/2020 1:00 PM EDT Jaleel Cervantes, OLAF No [facility] 07-02-2020 Are you blind, or do you have serious difficulty seeing, even when wearing glasses No 07/02/2020 1:00 PM EDT Jaleel Cervantes, RN No [facility] 07-02-2020 Do you have serious difficulty walking or climbing stairs No 07/02/2020 1:00 PM EDT Jaleel Cervantes, RN [facility] 07-02-2020 Do you have difficul ty dressing or bathing No 07/02/2020 1:00 PM EDT Jaleel Cervantes, RN [facility] 07-02-2020 Because of a physica l, mental, or emotional condition, do you have difficulty doing errands alone such as visiting a physician's office or shopping No 07/02/2020 1:00 PM EDT Jaleel Cervantes, OLAF No [facility] Mental Status Date Assessment Result Facility 09-24-2024 Because of a physica l, mental, or emotional condition, do you have serious difficulty concentrating, remembering, or making decisions No 09/24/2024 11:00 PM EDT [place], OLAF No [facility] 07-06-2022 Cognitive function Voice/Name [facility] Work Phone: 06-16-2021 Cognitive function Awake;Alert;A ppropriate; Follows Commands [facility] Work Phone: 07-02-2020 Because of a physica l, mental, or emotional condition, do you have serious difficulty concentrating, remembering, or making decisions No 07/02/2020 1:00 PM EDT Jaleel Cervantes, RN No [facility] Clinical Notes 06-22-2006 to 09-28-2024 Plan of Care - Tiffanie Valentine Mba, RN - 09/28/2024 2:55 PM EDTPlan of Care - Tiffanie Valentine Mba, RN - 09/28/2024 2:55 PM EDTNursing Notes - Tiffanie Valentine Mba, RN - 09/28/2024 2:53 PM EDTDischarge Instructions Note Date & Type Note Facility 09-28-2024 Plan of care note Problem: Adult Inpatient Plan of Care Goal: Plan of Care Review Outcome: Adequate for Discharge Goal: Patient-Specific Goal (Individualized) Outcome: Adequate for Discharge Goal: Absence of Hospital-Acquired Illness or Injury Outcome: Adequate for Discharge Goal: Optimal Comfort and Wellbeing Outcome: Adequate for Discharge Goal: Readiness for Transition of Care Outcome: Adequate for Discharge Problem: Pain Acute Goal: Optimal Pain Control and Function Outcome: Adequate for Discharge Problem: Nausea and Vomiting Goal: Nausea and Vomiting Relief Outcome: Adequate for Discharge Problem: Oral Intake Inadequate Goal: Improved Oral Intake Outcome: Adequate for Discharge Problem: Ileostomy Goal: Effective Bowel Elimination Outcome: Adequate for Discharge Goal: Fluid and Electrolyte Balance Outcome: Adequate for Discharge Goal: Optimal Pain Control and Function Outcome: Adequate for Discharge Goal: Nausea and Vomiting Relief Outcome: Adequate for Discharge Problem: Intestinal Obstruction Goal: Optimal Bowel Function Outcome: Adequate for Discharge Goal: Fluid and Electrolyte Balance Outcome: Adequate for Discharge Goal: Absence of Infection Signs and Symptoms Outcome: Adequate for Discharge Goal: Optimize Nutrition Status Outcome: Adequate for Discharge Goal: Optimal Pain Control and Function Outcome: Adequate for Discharge [facility] 09-28-2024 Miscellaneous Notes Problem: Adult Inpatient Plan of Care Goal: Plan of Care Review Outcome: Adequate for Discharge Goal: Patient-Specific Goal (Individualized) Outcome: Adequate for Discharge Goal: Absence of Hospital-Acquired Illness or Injury Outcome: Adequate for Discharge Goal: Optimal Comfort and Wellbeing Outcome: Adequate for Discharge Goal: Readiness for Transition of Care Outcome: Adequate for Discharge Problem: Pain Acute Goal: Optimal Pain Control and Function Outcome: Adequate for Discharge Problem: Nausea and Vomiting Goal: Nausea and Vomiting Relief Outcome: Adequate for Discharge Problem: Oral Intake Inadequate Goal: Improved Oral Intake Outcome: Adequate for Discharge Problem: Ileostomy Goal: Effective Bowel Elimination Outcome: Adequate for Discharge Goal: Fluid and Electrolyte Balance Outcome: Adequate for Discharge Goal: Optimal Pain Control and Function Outcome: Adequate for Discharge Goal: Nausea and Vomiting Relief Outcome: Adequate for Discharge Problem: Intestinal Obstruction Goal: Optimal Bowel Function Outcome: Adequate for Discharge Goal: Fluid and Electrolyte Balance Outcome: Adequate for Discharge Goal: Absence of Infection Signs and Symptoms Outcome: Adequate for Discharge Goal: Optimize Nutrition Status Outcome: Adequate for Discharge Goal: Optimal Pain Control and Function Outcome: Adequate for Discharge Reviewed AVS with patient and spouse. IV removed. Medications reviewed. Belongings gathered. Tablet returned. Questions encouraged. Patient states they will let us know when they will leave. Patient also states they will not need a wheelchair 09/28/24 1407 Final Discharge Planning Discharge Disposition Home CM/SW AVS Portion Completed Yes Plan Plan Discharge to home. Patient will follow up with Dr. Davison as an outpatient. Patient will arrange for transportation at discharge. No other needs identified. Patient/Family In Agreement With Plan yes Luis Lockhart RN, BSN, ACM Clinical Market Research Senior Project Manager Problem: Adult Inpatient Plan of Care Goal: Plan of Care Review Outcome: Progressing Flowsheets (Taken 09/27/20242116) Progress: improving Plan of Care Reviewed With: patient A dual assessment of skin condition was performed by this automotive service writer and Christy Lui RN. Skin Assessment: Skin within defined limits:Yes Ubaldo Score: 20 LDA Added:No Kelsy Sherman RN Problem: Adult Inpatient Plan of Care Goal: Plan of Care Review Flowsheets (Taken 09/27/2024 0320) Progress: improving Plan of Care Reviewed With: patient Problem: PT - No Therapy Warranted Goals Goal: Current Level of Function - Patient educated on current functional status and educated to alert care team if symptoms or functional status changes in order for new therapy consult to be provided. Patient indicated understanding and agreement. Outcome: Met Problem: OT - No Therapy Warranted Goal: Current Level of Function - Patient educated on current functional status and educated to alert care team if symptoms or functional status changes in order for new therapy consult to be provided. Patient indicated understanding and agreement. Outcome: Met Problem: Adult Inpatient Plan of Care Goal: Plan of Care Review Outcome: Progressing Paged UOP only 200ml for shift. 1012 Gastrografin administered through NG. 1145 Patient had 100 mL emesis and NG was restarted to low continuous suction with 300 mL output. notified. Shilpi Shrestha RN MD notified blood sugar is 68 in morning labs. Do you want to put some dextrose in her fluids? notified her BP is 89/45 (64). looks like she was running soft in the ED as well with systolic's in the 80's-90's. HR 94 and asymptomatic. 500ml bolus given at 4:30am with BP recheck at 6am 82/43(60). Mds at bedside gave verbal order for additional 500ml fluid bolus. Will recheck BP upon completion. Problem: Adult Inpatient Plan of Care Goal: Plan of Care Review Outcome: Progressing Goal: Patient-Specific Goal (Individualized) Outcome: Progressing Goal: Absence of Hospital-Acquired Illness or Injury Outcome: Progressing Goal: Optimal Comfort and Wellbeing Outcome: Progressing Goal: Readiness for Transition of Care Outcome: Progressing Problem: Pain Acute Goal: Optimal Pain Control and Function Outcome: Progressing Intervention: Develop Pain Management Plan Flowsheets (Taken 09/24/2024 2333) Pain Management Interventions: care clustered quiet environment facilitated position adjusted pain medication given Problem: Nausea and Vomiting Goal: Nausea and Vomiting Relief Outcome: Progressing Intervention: Prevent and Manage Nausea and Vomiting Flowsheets Taken 09/24/2024 2333 Fluid/Electrolyte Management: fluids provided Environmental Support: calm environment promoted Taken 09/24/2024 2252 Nausea/Vomiting Interventions: nasogastric tube to suction Problem: Oral Intake Inadequate Goal: Improved Oral Intake Outcome: Progressing Problem: Ileostomy Goal: Effective Bowel Elimination Outcome: Progressing Goal: Fluid and Electrolyte Balance Outcome: Progressing Intervention: Monitor and Manage Fluid and Electrolyte Balance Flowsheets (Taken 09/24/2024 2333) Fluid/Electrolyte Management: fluids provided Goal: Optimal Pain Control and Function Outcome: Progressing Goal: Nausea and Vomiting Relief Outcome: Progressing Problem: Intestinal Obstruction Goal: Optimal Bowel Function Outcome: Progressing Goal: Fluid and Electrolyte Balance Outcome: Progressing Goal: Absence of Infection Signs and Symptoms Outcome: Progressing Goal: Optimize Nutrition Status Outcome: Progressing Goal: Optimal Pain Control and Function Outcome: Progressing Problem: Ileostomy Goal: Optimal Coping Outcome: Completed Goal: Absence of Bleeding Outcome: Completed Goal: Absence of Infection Signs and Symptoms Outcome: Completed Goal: Anesthesia/Sedation Recovery Outcome: Completed Goal: Effective Urinary Elimination Outcome: Completed Goal: Effective Oxygenation and Ventilation Outcome: Completed Goal: Optimal Stoma Healing Outcome: Completed On admission to [facility], from ED a dual RN initial assessment of skin condition was performed by [place] RN and Johnathan Medina RN. Skin Assessment: Skin within defined limits:Yes NGT placed at OSH in place, x-ray to confirm. LDA Added:No [place] RN documented in this encounter [facility] 09-28-2024 Nurse Note Reviewed AVS with patient and spouse. IV removed. Medications reviewed. Belongings gathered. Tablet returned. Questions encouraged. Patient states they will let us know when they will leave. Patient also states they will not need a wheelchair [facility] 09-28-2024 Nurse Note 09/28/24 1407 Final Discharge Planning Discharge Disposition Home CM/SW AVS Portion Completed Yes Plan Plan Discharge to home. Patient will follow up with Dr. Davison as an outpatient. Patient will arrange for transportation at discharge. No other needs identified. Patient/Family In Agreement With Plan yes Luis Lockhart RN, BSN, ACM Clinical Market Research Senior Project Manager [facility] 09-28-2024 History of Presen t illness Narrative Department of Pharmacy Medication Adjustment Note Patient: Gabi Mcnulty Room/Bed: 1042/A The medication(s) below were converted from intravenous to oral administration in accordance with the [facility] P&T IV to PO Conversion Policy. Orders have been updated in [facility]. The patient was eligible for conversion based on the following: solid oral diet ordered. Converted the following medications from IV to PO/Enteral: Previous Medication Order(s): Pantoprazole 40 mg IV every 24 hours New Medication Order(s): Pantoprazole 40 mg PO every 24 hours Please feel free to contact me with any further questions. Name: Nicolette Deutsch RPH Phone: [phone] Date/Time: 09/28/2024 11:15 AM Colorectal Surgery Daily Progress Note Attending: Colin Davison MD Length of Stay: 3 Surgery: None this admission Subjective/Interval events: NGT clamped yesterday, passed clamp test and NGT was removed. She has had sips of water since NGT removed, about 100cc of water overnight. Feels good since having NGT removed. O:BP 114/53 (BP Location: Right arm, BP Position: Lying) Pulse 83 Temp 97.3 F (36.3 C) (Oral) Resp 16 Ht 1.575 m (5' 2) Wt 54.8 kg (120 lb 14.4 oz) SpO2 97% BMI 22.11 kg/m Smoking Status Never 09/26 699 - 09/27 0559 In: 2699 [P.O.:100; I.V.:2038] Out: 1650 [Urine:800] PE: General: Patient laying comfortably in bed, in no acute distress Pulm: Respirations easy and non labored Abd: soft, non-tender, non-distended. Stoma pink and healthy with normal output and gas. Extremities: Minimal peripheral edema Psych: Normal affect, asks appropriate questions Labs: WBC/Hgb/Hct/Plts: 3.41/10.5/32.4/151 (09/28 107) Bun/Creat/Cl/CO2/Glucose: 6/0.58/106/27/116 (09/28 107) Na/K+/Phos/Mg/Ca: 143/3.7/3.7/1.5/-- (09/28 107) A/P: Gabi Mcnulty is a 53 y.o. female with a history of Crohn's disease (diagnosed 2000) status post total abdominal colectomy with end ileostomy in 2019 ([facility]) and completion proctectomy in 2020 ([facility]) and also notably has a history of a partial hepatectomy for focal nodular hyperplasia (2018) who presents with 1-2 days of abdominal pain associated with nausea and vomiting and found to have a small-bowel obstruction on CT abdomen and pelvis at outside hospital. Today's Plan - Continue CLD fluid restricted 500cc, consider advancing in afternoon if tolerating well - Continue steroids Primary Problem/Diagnosis: Small bowel obstruction in the setting of prior total abdominal colectomy and completion proctectomy for crohn's disease Continued Non-operative management for small bowel obstruction Clamp trial this AM CRP trending up, steroids started this AM Drains: NG tube in place, >1L out Wound Care: None PT/OT consulted, Activity as tolerated DVT ppx N/A Acute pain Continue multimodal pain regimen. Oxycodone prn Complexity. Hypomagnesemia - Continue to monitor and replete. Wound Documentation Any conditions listed below are present on admission unless otherwise specified. . CENTRAL LINES: Central Line Indications: No line currently in place Can line/s be removed today? Select all that apply No line in place at this time Dressing/s Clean/Dry/Intact?: Select all that apply No line currently in place Fall Risk: Assessed for patient fall risk and discussed safety measures during rounding. Diet: DIET CLEAR LIQUID No Carbonated Beverages; Fluid Restriction 500mL (All Nursing) DVT prophylaxis: Lovenox, Ambulate daily, SCD's. Harden: N/A Lines: PIV, Ostomy Code status: Full Level of care: Med Surg Planned Discharge date: pending SBO resolution Dispo: Inpatient Patient seen with colorectal team, plan of care discussed, and they are in agreement. Chasity Salcido MD Colorectal Surgery Daily Progress Note Attending: Colin Davison MD Length of Stay: 2 Surgery: None this admission Subjective/Interval events: Had 100 mL emesis after gastrograffin challenge yesterday. NG tube put back to suction, felt better after. Patient doing better this AM, in no acute distress. Complains of some discomfort with the NG, but manageable. >1L ostomy output this AM, reports feeling less bloated than she did yesterday. O:BP 98/54 (BP Location: Right arm, BP Position: Sitting) Pulse 76 Temp 97.3 F (36.3 C) (Oral) Resp 16 Ht 1.575 m (5' 2) Wt 54.8 kg (120 lb 14.4 oz) SpO2 95% BMI 22.11 kg/m Smoking Status Never 09/25 07 - 09/26 658 In: 2148.8 [I.V.:1768.8] Out: 2920 [Urine:400] PE: General: Patient laying comfortably in bed, in no acute distress Pulm: Respirations easy and non labored Abd: soft, non-tender, non-distended. Mildly tender to palpation still, unchanged from before. Ostomy with >1L brown/green stool present. Ostomy remains pink and viable. NG tube in place. Extremities: Minimal peripheral edema Psych: Normal affect, asks appropriate questions Labs: WBC/Hgb/Hct/Plts: 2.80/11.9/36.3/150 (09/26 602) Bun/Creat/Cl/CO2/Glucose: 7/0.57/107/31/112 (09/26 602) Na/K+/Phos/Mg/Ca: 145/3.7/1.3/1.8/-- (09/26 602) A/P: Gabi Mcnulty is a 53 y.o. female with a history of Crohn's disease (diagnosed 2000) status post total abdominal colectomy with end ileostomy in 2019 ([facility]) and completion proctectomy in 2020 ([facility]) and also notably has a history of a partial hepatectomy for focal nodular hyperplasia (2017) who presents with 1-2 days of abdominal pain associated with nausea and vomiting and found to have a small-bowel obstruction on CT abdomen and pelvis at outside hospital. Today's Plan - Clamp trial this AM - Starting steroids today Primary Problem/Diagnosis: Small bowel obstruction in the setting of prior total abdominal colectomy and completion proctectomy for crohn's disease Continued Non-operative management for small bowel obstruction Clamp trial this AM CRP trending up, steroids started this AM Drains: NG tube in place, >1L out Wound Care: None PT/OT consulted, Activity as tolerated DVT ppx N/A Acute pain Continue multimodal pain regimen. Oxycodone prn Complexity. Hypophosphatemia - Continue to monitor and replete. Wound Documentation Any conditions listed below are present on admission unless otherwise specified. . CENTRAL LINES: Central Line Indications: No line currently in place Can line/s be removed today? Select all that apply No line in place at this time Dressing/s Clean/Dry/Intact?: Select all that apply No line currently in place Fall Risk: Assessed for patient fall risk and discussed safety measures during rounding. Diet: DIET NPO with meds DVT prophylaxis: Lovenox, Ambulate daily, SCD's. Harden: N/A Lines: PIV, Ostomy Code status: Full Level of care: Med Surg Planned Discharge date: pending SBO resolution Dispo: Inpatient Patient seen with colorectal team, plan of care discussed, and they are in agreement. Dominic Vargas MD Acute Occupational Therapy Evaluation Prior Gross Functional Mobility: independent Current AM-PAC score(s): CURRENT AM-PAC Activity Raw Score: 24 Based on the above AM-PAC score(s) and OT clinical judgment, discharge destination recommendation is: Home Mobility equipment available at home: none used ADL equipment available at home: none Equipment recommendations for discharge: Equipment issued: Current therapy frequency recommendation(s) in acute: no acute therapy warranted Precautions and Weightbearing Status: OT Existing Precautions/Restrictions: no known precautions/restrictions Lines/Tubes/Drains (Rehab Status): No critical lines at this time Patient Safety Communication Prior to Visit: Nursing Subjective: Patient agreeable to all therapy directed tasks this date Pain: General Pain Documentation (Adult, OB, Peds) Presence of Pain: reports pain/discomfort Pain Location: headache DVPRS (Defense and Veterans Pain Rating Scale) DVPRS: Rest: 6- moderate pain DVPRS: Activity: 6- moderate pain Home Setting Residence: House Lives With: spouse Patient receives help from : none Patient reported support for discharge planning: intermittent supervision First floor setup: bedroom, tub shower Number of stairs in home: 8 Mobility Equipment Available: none used ADL Equipment Available: none Previous Level of Function Gross Functional Mobility: independent Assistive Device: none used Prior level ADL Overview: Independent with all ADLs Dominant Hand: Right Bed Mobility: independent Transfers: independent Stairs: independent Ambulation: independent with all needs Objective/Observation: Vitals/Vitals Responses to Treatment: WNL O2 Device: room air Vision Screen Currently wearing corrective lenses: No Visual Impairments Observed?: No Speech Speech: no gross deficits noted Hearing Hearing: no gross deficits noted Cognition Overall Cognitive Status: Within Functional Limits Arousal/Alertness: Appropriate responses to stimuli Orientation Level: Oriented X4 Following Commands: Follows all commands and directions without difficulty Safety Judgment: Good awareness of safety precautions Awareness of Errors: Good awareness of errors made Deficits: Fully aware of deficits ADLs: ADL Assessment: Independent with all ADLs Eating Assistance: Independent Grooming Assistance: Independent Bathing Assistance: Independent UE Dressing Assistance: Independent LE Dressing Assistance: Independent Toilet Assistance: Independent Extremity Assessments: RUE Assessment RUE Assessment: Within Functional Limits LUE Assessment LUE Assessment: Within Functional Limits Balance: Sitting Balance Static Sitting-Level of Assistance: Independent Dynamic Sitting-Level of Assistance: Independent Standing Balance Static Standing-Level of Assistance: Independent Dynamic Standing-Level of Assistance: Modified independent Neuro: Sensation Overall Sensation: Intact Skin and Edema: Mobility Assessment: Supine to Sit Mobility [place] Level: Supine->Sit: supervision Transfer Assessment: Sit to Stand Transfer [place] Level: Sit->Stand: independent Assistive Device: Sit->Stand: gait belt Skilled Intervention/Details: Sit->Stand: x 1 from EOB, x 1 from toilet Functional Mobility: Functional Mobility [place] Level: Functional Mobility/Gait: modified independence Outcome Score(s): CURRENT [facility] Daily Activity Inpatient Short Form Putting on/Taking Off Lower Body Clothin - No Assistance Bathin - No Assistance Toiletin - No Assistance Putting on/Taking Off Upper Body Clothin - No Assistance Groomin - No Assistance Eatin - No Assistance CURRENT [facility] Activity Raw Score: 24 CURRENT -[facility] Activity Functional Limitation/Modifier: 0.00% Currently Impaired in Daily Activity - Interventions: Assessment & Plan: Gabi Mcnulty is a 53 y.o. female with Crohn's disease (2000) s/p total proctocolectomy with end ileostomy (02/13/2020) due to failed medical therapy s/p proctectomy in 06/2020 who presented with abdominal pain with nausea and vomiting [facility] SBO. and seen for therapy evaluation related to decreased endurance for ADLs. Patient Instruction/Education this session: Learners: Patient Education provided: Activity outside of therapy Teaching method: Audiovisual Learner response: Applies knowledge Learning preferences: Auditory Learning considerations: No barriers/ready to learn Plan for next session: discharge from OT Acute OT Goals Plan of Care by Lincoln Augustin OT at 09/26/2024 8:29 AM Version 1 of 1 Problem: OT - No Therapy Warranted Goal: Current Level of Function - Patient educated on current functional status and educated to alert care team if symptoms or functional status changes in order for new therapy consult to be provided. Patient indicated understanding and agreement. Outcome: Met OT treatment consisted of the following to work and progress towards the above goal(s): OT Evaluation and Treatment Time OT Evaluation (Low) Time Entry: 21 Evaluating Therapist: Lincoln Augustin OT Additional Details: OT Co-Eval/Treatment Information Co-evaluation/co-treatment performed?: Yes, simultaneous billable skilled care was necessary due to medical complexity and functional deficits Other discipline: PT Rationale for need to co-eval/treat: coordination Co-treatment goal focus: endurance OT Evaluation Complexity Occupational Profile and Client History: Low - brief history Assessment of Occupational Performance: Low (1-3 performance deficits) Clinical Decision/Performance Deficits: Low (problem-focused assessments w/limited treatment options) Time In: 0829 Time Out: 0850 Total Visit Time: 21 minutes Total Treatment Time (skilled, billable minutes): 21 minutes PPE used during patient interaction: gloves Patient location at end of session: chair Alarms on at end of session: none Needs in reach. Upon discontinuation of Acute Care Occupational Therapy Services or patient discharge from the hospital this note represents the current Occupational Therapy Discharge Summary. Acute Physical Therapy Evaluation Prior Gross Functional Mobility: independent Current AM-PAC score(s): CURRENT AM-PAC Mobility Raw Score: 23 Based on the above AM-PAC score(s) and PT clinical judgment, patient is a good candidate for discharge to Home Barriers to discharge home: None Mobility equipment available at home: none used ADL equipment available at home: none Equipment needed for discharge: none Current therapy frequency recommendation in acute: PT Therapy Frequency: no acute therapy warranted Precautions and Weightbearing Status: Lines/Tubes/Drains (Rehab Status): (NG tube put back to suction) Patient Safety Communication Prior to Visit: Nursing Subjective: pt. agreed to physical therapy Pain: General Pain Documentation (Adult, OB, Peds) Presence of Pain: reports pain/discomfort Pain Location: headache DVPRS (Defense and Veterans Pain Rating Scale) DVPRS: Rest: 6- moderate pain DVPRS: Activity: 6- moderate pain Home Setting Residence: House Lives With: spouse Patient receives help from : none Patient reported support for discharge planning: intermittent supervision First floor setup: bedroom, tub shower Number of stairs in home: 8 Mobility Equipment Available: none used ADL Equipment Available: none Previous Level of Function Gross Functional Mobility: independent Assistive Device: none used Prior level ADL Overview: Independent with all ADLs Dominant Hand: Right Bed Mobility: independent Transfers: independent Stairs: independent Ambulation: independent with all needs Objective/Observation: Vitals/Vitals Responses to Treatment: WFL O2 Device: room air Cognition Overall Cognitive Status: Within Functional Limits Arousal/Alertness: Appropriate responses to stimuli Orientation Level: Oriented X4 Following Commands: Follows all commands and directions without difficulty Safety Judgment: Good awareness of safety precautions Awareness of Errors: Good awareness of errors made Deficits: Fully aware of deficits Vision Screen Currently wearing corrective lenses: No Extremity Assessments: RLE Assessment RLE Assessment: Within Functional Limits LLE Assessment LLE Assessment: Within Functional Limits Sensation Overall Sensation: Intact Mobility Assessment: Supine to Sit Mobility [place] Level: Supine->Sit: independent Balance: Sitting Balance Static Sitting-Level of Assistance: Independent Dynamic Sitting-Level of Assistance: Independent Standing Balance Static Standing-Level of Assistance: Independent Dynamic Standing-Level of Assistance: Modified independent Transfer Assessment: Sit to Stand Transfer [place] Level: Sit->Stand: independent Stand to Sit Transfer [place] Level: Stand->Sit: independent Bed-Chair Transfer [place] Level: Bed<->Chair: independent Gait/Functional Mobility: Gait Assessment [place] Level: Gait: modified independence Ambulation Distance (Feet): 350 Gait Deviations Identified: decreased lala, decreased gait speed, decreased heel strike, decreased step length, decreased stride length, decreased weight shifting Gait Skilled Rationale: increase step length, increase step width Skilled Intervention/Details - Gait: v/c for upright posture Stairs: Outcome Score(s): CURRENT [facility] Basic Mobility Inpatient Short Form Turning over in bed: 4 - No Assistance Moving from lying on back to sittin - No Assistance Moving to and from bed to chair: 4 - No Assistance Sitting/standing from chair: 4 - No Assistance Walk in hospital room: 4 - No Assistance Climbing 3-5 steps with a railin - A Little Assistance CURRENT [facility] Mobility Raw Score: 23 CURRENT [facility] Mobility Functional Limitation: 11.20% Impaired in Basic Mobility Interventions: Assessment & Plan: Patient was admitted for colorectal surgery and seen for therapy evaluation related to functional mobility. Exam findings include impairments in: Posture, Gait/Locomotion. These impairments contribute to functional limitations including Decreased functional mobility. Current clinical presentation is Stable - unchanging or predictable (Low). Patient history factors impacting Plan Of Care include pmhx. Patient will benefit from skilled physical therapy to address these impairments, functional limitations, and participation restrictions and has good rehab potential to achieve therapy goals. Patient Instruction/Education this session: Learners: Patient Education provided: Role of this discipline Teaching method: Audiovisual Learner response: Applies knowledge Learning preferences: Auditory Plan for next session: discharge Acute PT Goals Plan of Care by Harinder Palacio PT at 09/26/2024 9:29 AM Version 1 of 1 Problem: PT - No Therapy Warranted Goals Goal: Current Level of Function - Patient educated on current functional status and educated to alert care team if symptoms or functional status changes in order for new therapy consult to be provided. Patient indicated understanding and agreement. Outcome: Met PT treatment consisted of the following to progress towards the above goal(s): PT Evaluation and Treatment Time PT Evaluation (Low) Time Entry: 19 Evaluating Therapist: Sundar Dale Additional Details: PT Co-Eval/Treatment Information Co-evaluation/co-treatment performed?: Yes, simultaneous billable skilled care was necessary due to medical complexity and functional deficits Other discipline: OT Rationale for need to co-eval/treat: coordination, postural control Co-treatment goal focus: mobility, endurance, balance Evaluation Complexity Components History: Moderate (1-2 personal factors and/or comorbidities) Body Systems Review: Moderate (Addressing a total of 3 or more elements) Clinical Presentation: Stable - unchanging or predictable (Low) Clinical Decision Making Complexity: Low Time In: 827 Time Out: 0847 Total Visit Time: 19 minutes Total Treatment Time (skilled, billable minutes): 19 minutes PPE used during patient interaction: gloves Patient location at end of session: chair Alarms on at end of session: none altered Needs in reach. Upon discontinuation of Acute Care Physical Therapy Services or patient discharge from the hospital this note represents the current Physical Therapy Discharge Summary. Cosigned by Harinder Palacio PT at 09/26/2024 3:06 PM EDT Associated attestation - Harinder Palacio PT - 09/26/2024 3:06 PM EDT I have read and agreed to the above note. Harinder Palacio PT, DPT License # [id number] Discharge Planning Assessment Is the patient able to participate in the assessment?: Yes Care Management Plan Home. No discharge planning needs identified. Initial Discharge Planning Expected Discharge Disposition: Home Transportation Available for Discharge: Private Vehicle Anticipated DME: none Anticipated Services at Discharge: Outpatient follow up Patient Assessment Completed: Initial Legal Next of Kin Does the patient have a Guardian?: No Spouse: Yes Name and Contact information: Rasheed Mcnulty Spouse [phone] Reviewed and Updated in Demographics? : Yes Advanced Care Planning Has the patient completed Advance Directives?: Completed, Available in Medical Record Reviewed for accuracy with patient?: No Medication Management Does the patient have prescription insurance coverage? : Yes Is the patient on Anticoagulation? : No [id number] [place], [place] [id number] [facility] [phone] [facility] [id number] Living Environment and Support System Is the patient from a facility or alf?: No Living Environment: House Patient Caregiving Responsibilities: Self Patient-identified caregiver/support network: Family Who does the patient identify as a teachable caregiver(s)?: Spouse or Partner Services Does the patient use a home health or hospice agency?: No Current with dialysis?: No Does the patient use any community programs or services?: No Does patient use DME? : none Does the patient use oxygen?: No Does patient use medical supplies? : ostomy/drain supplies How does patient obtain supplies?: supply company Medical Supplier Name and Phone/Fax: Elias Would you like to add additional medical suppliers?: No Anticipated Changes Related to Illness/Injury? : No Initial ADLs Prior to Arrival What is the patient's reported baseline physical functioning prior to this acute illness?: independent What is the patient's reported baseline cognitive functioning prior to this acute illness?: independent Is the patient's baseline functioning changed by this acute illness? : No Concerns with patient being able to care for themselves at home? : No Luis Lockhart RN, BSN, ACM Clinical Market Research Senior Project Manager Colorectal Surgery Daily Progress Note Attending: Colin Davison MD Length of Stay: 1 Surgery: None this admission Subjective/Interval events: Patient doing well this AM, in no acute distress. Notes feeling better with NG tube in place. Complains of mild pain around ostomy site, tolerating well. O:BP 92/52 Pulse 85 Temp 98.4 F (36.9 C) (Oral) Resp 18 Ht 1.575 m (5' 2) Wt 54.8 kg (120 lb 14.4 oz) SpO2 98% BMI 22.11 kg/m Smoking Status Never 09/24 07 - 09/25 0659 In: 2856.1 [I.V.:2766.1] Out: 350 [Urine:200] PE: General: Patient laying comfortably in bed, in no acute distress Pulm: Respirations easy and non labored Abd: soft, non-tender, non-distended. Mildly tender to palpation still, unchanged from before. Ostomy with some brown/green stool present. Ostomy remains pink and viable. NG tube in place. Extremities: Minimal peripheral edema Psych: Normal affect, asks appropriate questions Labs: WBC/Hgb/Hct/Plts: 7.20/12.4/38.6/177 (09/25 140) Bun/Creat/Cl/CO2/Glucose: 20/0.90/108/20/68 (09/25 140) Na/K+/Phos/Mg/Ca: 139/5.0/4.9/2.1/-- (09/25 140) A/P: Gabi Mcnulty is a 53 y.o. female with a history of Crohn's disease (diagnosed 2000) status post total abdominal colectomy with end ileostomy in 2019 ([facility]) and completion proctectomy in 2020 ([facility]) and also notably has a history of a partial hepatectomy for focal nodular hyperplasia (2017) who presents with 1-2 days of abdominal pain associated with nausea and vomiting and found to have a small-bowel obstruction on CT abdomen and pelvis at outside hospital. Today's Plan Primary Problem/Diagnosis: Small bowel obstruction in the setting of prior total abdominal colectomy and completion proctectomy for crohn's disease Non-operative management for small bowel obstruction Gastrografin challenge this AM Complete fluid bolus at bedside Trend CRP Gastroenterology consult for IBD management Drains: NG tube Wound Care: None PT/OT consulted, Activity as tolerated DVT ppx, will complete 14 day total course of Lovenox post discharge Acute pain Continue multimodal pain regimen. Oxycodone prn Complexity. Wound Documentation Any conditions listed below are present on admission unless otherwise specified. . CENTRAL LINES: Central Line Indications: No line currently in place Can line/s be removed today? Select all that apply No line in place at this time Dressing/s Clean/Dry/Intact?: Select all that apply No line currently in place Fall Risk: Assessed for patient fall risk and discussed safety measures during rounding. Diet: DIET NPO with meds DVT prophylaxis: SQH/Lovenox, Ambulate daily, SCD's. Harden: N/A Lines: PIV, Ostomy Code status: Full Level of care: Med Surg Planned Discharge date: pending SBO resolution Dispo: Inpatient Patient seen with colorectal team, plan of care discussed, and they are in agreement. Dominic Vargas MD documented in this encounter [facility] 09-28-2024 Hospital Discharg e instructions Dominic Vargas MD - 09/28/2024 7:47 AM EDT COLORECTAL ADDITIONAL CONTACTS For Concerns During Weekend or Evening Hours: -If you have questions or concerns call and ask the pneumatic hoist operator to page the residential case manager construction worker. Reminder: [employer] messaging goes unmonitored during evenings and weekends. Any concerns or questions during this time, please call using instructions above. Clinic Office Main Number: [phone] ENTEROSTOMAL THERAPY RN + OSTOMY Clinic+ Dominic Vargas MD - 09/28/2024 7:46 AM EDT No activity restrictions Dominic Vargas MD - 09/28/2024 7:46 AM EDT For the next 6 weeks follow the below diet: Low Fiber Diet A diet low in fiber can help keep your stomach and bowels from being irritated. This diet provides foods that are non-irritating and easily digested. If carefully planned, this diet can provide you with most nutrients you need to be healthy. However, over a long period of time, you may find it hard to eat enough fruits and vegetables. Your diet may also be too low in calcium. Talk to your doctor or dietitian about taking a multivitamin or liquid nutritional supplement. Bread Choose breads without seeds or nuts. Foods allowed: Breads, rolls, pancakes, waffles, and crackers made with enriched, refined white flour Soda crackers Howard Toasts Foods to avoid: Bread containing bran or coarse whole grain Rolls, pancakes, waffles, and crackers made with whole grains Cereals, Pasta, Grains, and Potatoes Choose grain foods with less than 2 grams of dietary fiber per serving. Foods allowed: Refined cooked cereal, such as Cream of Rice, Cream of Wheat, grits, strained oatmeal, Malt-O-Meal Dry cereal, such as cornflakes, puffed rice, Rice Krispies, Honey Smacks, Special K White flour White potatoes, without skin, prepared any way, except fried Mashed sweet potatoes, without skin White rice White pasta Foods to avoid: Whole grain or bran cereal, such as shredded wheat, All Bran, Fiber One, Nutri-Grain, and granola Popcorn Fried potatoes or other substitutes not listed as allowed Brown and wild rice Potato skins Whole wheat pasta products Desserts / Sweets Foods allowed: Shane food and sponge cakes Plain cakes with simple frosting Plain cookies Ice cream, sherbet Fruit Whips Gelatin desserts Puddings Custard Sugar Syrup Honey Jelly Molasses Hard candy Foods to avoid: Rich pastries Desserts, which contain nuts, coconut, or fruits that are unapproved All fruit not listed as allowed Jams, preserves, and marmalade Candy with nuts, raisins, or fruits are not allowed Vegetables Foods allowed: Well cooked vegetables Vegetables without skin or seeds Pureed vegetables Vegetable juices Foods to avoid: All raw vegetables, including lettuce Cooked spinach or greens Fruits and Juices Foods allowed: Cooked fruits without skin or seeds Applesauce Pears, peaches Peeled apricots [place] cherries Ripe banana Ripe avocado Fruit juice without pulp Pureed fruits Foods to avoid: Dried fruit Fruit skin and seeds Pineapple juice Meat and Other Protein Foods Foods allowed: Tender beef, rosenbaum, veal, pork Poultry, fish Eggs prepared any way except fried Smooth nut butters (peanut, almond, sunflower seed, etc.) Foods to avoid: Pickled, spiced, smoked meat Shellfish Fried meats, fish, or eggs Tough meats or meats with gristle Sausage Nuts and seeds Beans, peas and lentils Cheese and Milk Products If you are lactose intolerant, avoid milk and foods made with milk. Foods allowed: Cottage cheese Cream cheese Any cheese that has no dried fruits and nuts Yogurt with active cultures Ice cream Note: Include all of these in milk allowance Foods to avoid: Cheese with dried fruits and nuts Yogurt or ice cream with berries, nuts or dried fruits Fats When possible, choose healthier oils like olive or canola oil. Foods allowed: Avocado Butter Cream Margarine Mild salad dressing Vegetable oils Foods to avoid: None Soups Foods allowed: Broth and strained soups made with allowed ingredients Foods to avoid: All other soups Beverages Most people need 8 to 10 cups of fluid each day. If you are lactose intolerant, avoid milk and foods made with milk. Foods allowed: Cow, soy, rice, and almond milk and milk products Choose low fat or fat free milks Coffee Decaffeinated coffee Tea [place] Carbonated beverages Fruit juice (except prune juice) Foods to avoid: All other beverages Miscellaneous Foods allowed: Salt used in moderation Mild spices Gravy Cream sauces Foods to avoid: Rich, highly spiced, or seasoned foods and sauces Fried foods Pickilsa Menendez [employer] 1999 - August 24, 2019, [facility]. This handout is for informational purposes only. Talk with your doctor or healthcare team if you have any questions about your care. For more health information, call the vufind for Health Information at [phone] or email: [email or web address]. Dominic Vargas MD - 09/28/2024 7:46 AM EDT For Concerns During Weekend or Evening Hours: -If you have questions or concerns call and ask the pneumatic hoist operator to have the general surgery chief resident paged. Reminder: [employer] messaging goes unmonitored during evenings and weekends. Any concerns or questions during this time, please call using instructions above. Clinic Office Main Number: [phone] NOTIFY PHYSICIAN: SYMPTOMS WOUND INFECTION - Increase in pain in or around wound - Change in the amount of drainage - Change in the color of drainage - Change in the odor of drainage - Warmth in the tissues around the wound - Red streaks on the skin near the wound - Fever (temperature greater than 101 degrees F) - Incision separates or opens up UNRELIEVED PAIN + - Increased or unrelieved pain NAUSEA/VOMITING + - Nausea and vomiting that continues for more than 24 hours - Not able to keep medicine down - Not able to keep fluids down SYMPTOMS OF DVT + DVT = Deep Vein Thrombus, or Blood Clot -Any Tender, Swollen, or Reddened Areas from Your Groin to Your Heels -Numbness or Tingling In Groin or Calf -The Skin on Your Leg Looks Pale or Blue or It Feels Cold To Touch -Numbness or Tingling In Groin or Calf -Any Shortness of Breath -Chest Pain -Fever or Chills SYMPTOMS OF GI BLEED + Call your doctor or nurse if you have signs of slow blood loss such as: -Black tarry bowel movements -Cold hands and feet -Weakness -Dizzyness Call 911 if you suddenly have signs of blood loss such as: -Vomiting blood -Fast heart rate -Feeling faint or blacking out -Passing bright red blood from your rectum Dominic Vargas MD - 09/28/2024 1:44 PM EDT Ostomy Care Perform ileostomy care as instructed by enterostomal therapist. Ostomy Care Measure your urine and stool each day and add up in a 24 hour period Scenario 1 Urine more than 1200 cc and Stool Less than 1200 cc Keep up the good work. Everything is looking good. Scenario 2 Urine LESS than 1200 cc and Stool less than 1200 cc Your stool output is good but your urine output is low. You are at risk for dehydration. What to do: Drink an extra 1000 cc or four 8-ounce cups of fluid over the next 24 hours. Best to drink sugar free sports drinks like Gatorade or Powerade to replace electrolytes in your body. Keep up your usual eating and drinking and take your medicines as ordered. Scenario 3 Urine more than 1200 cc and Stool MORE than 1200 cc Your urine output is okay but your stool output is high. You are at risk for dehydration. What to do: Start or adjust your Imodium (loperamide). If you are already taking Imodium, increase your dose by 2 tablets (4 mg) in 24 hours. If you are already taking 12 tablets (24 mg) in 24 hours, call the office today. Do not take more than 12 tablets in 24 hours. If you have not been taking Imodium, start taking 1 tablet 3 times a day, for a total of 6 mg a day. Scenario 4 Urine LESS than 1200 cc and Stool MORE than 1200 cc Your urine output is too low and your stool output is too high. You are at HIGH risk for dehydration. What to do: Drink an extra 1000 cc or four 8-ounce cups of fluid over the next 24 hours. Best to drink sugar free sports drinks like Gatorade or Powerade to replace electrolytes in your body. Start or adjust your Imodium (loperamide). If you are already taking Imodium, increase your dose by 2 tablets (4 mg) in 24 hours. If you are already taking 12 tablets (24 mg) in 24 hours, call the office today. Do not take more than 12 tablets in 24 hours. If you have not been taking Imodium, start taking 1 tablet 3 times a day, for a total of 6 mg a day. Use the chart below to keep track of your output of urine and stool. Stool output less than 1200 cc over 24 hours Urine output more than 1200 cc in 24 hours Date Amount Total Date Amount Total Ostomy Supplies Resources If you have trouble getting your ostomy supplies or your health insurance does not cover the cost of your supplies, the following resources may be able to help you: [employer] https://www.BoxTone Search ostomy supplies [employer] https://www.coloplastcare.com/en -[place]/ostomy May provide a 3-month supply of limited ostomy supplies, one time each year. You will need to submit an application. [facility] [address] [place] [address] [facility] [employer] [facility] - Ostomy Support Group [address] [address] An ostomy support group meets on the Wednesday of each month at 7:00 pm. Donated ostomy supplies may be available. Email Micha Gill at [email or web address] for more information [facility] [email or web address] May provide a 3-month supply of limited ostomy supplies, one time each year. Jesenia , option 6 May provide a 3-month supply of ostomy supplies, 2 times a year. You will need to submit an application. The following attachments cannot be sent through Care Everywhere.Bowel Obstruction ([place])documented in this encounter [facility] 09-27-2024 Plan of care note Problem: Adult Inpatient Plan of Care Goal: Plan of Care Review Outcome: Progressing Flowsheets (Taken 09/27/20242116) Progress: improving Plan of Care Reviewed With: patient [facility] 09-27-2024 Nurse Note A dual assessment of skin condition was performed by this automotive service writer and Christy Lui RN. Skin Assessment: Skin within defined limits:Yes Ubaldo Score: 20 LDA Added:No Kelsy Sherman RN [facility] 09-27-2024 Plan of care note Problem: Adult Inpatient Plan of Care Goal: Plan of Care Review Flowsheets (Taken 09/27/2024 0320) Progress: improving Plan of Care Reviewed With: patient [facility] 09-26-2024 Plan of care note Problem: PT - No Therapy Warranted Goals Goal: Current Level of Function - Patient educated on current functional status and educated to alert care team if symptoms or functional status changes in order for new therapy consult to be provided. Patient indicated understanding and agreement. Outcome: Met [facility] 09-26-2024 Plan of care note Problem: OT - No Therapy Warranted Goal: Current Level of Function - Patient educated on current functional status and educated to alert care team if symptoms or functional status changes in order for new therapy consult to be provided. Patient indicated understanding and agreement. Outcome: Met [facility] 09-26-2024 Plan of care note Problem: Adult Inpatient Plan of Care Goal: Plan of Care Review Outcome: Progressing [facility] 09-25-2024 Nurse Note Paged UOP only 200ml for shift. [facility] 09-25-2024 Nurse Note 1012 Gastrografin administered through NG. 1145 Patient had 100 mL emesis and NG was restarted to low continuous suction with 300 mL output. notified. Shilpi Shrestha RN [facility] 09-25-2024 Consult note Associated Order (s): IP CONSULT TO GASTROENTEROLOGY Images from the original note were not included. IBD CONSULT SERVICE -- INITIAL NOTE Reason for Consultation: Help with Crohn's management HISTORY OF PRESENT ILLNESS: Gabi Mcnulty is a 53 y.o. female with Crohn's disease (2000) s/p total proctocolectomy with end ileostomy (02/13/2020) due to failed medical therapy s/p proctectomy in 06/2020 who presented with abdominal pain with nausea and vomiting [facility] SBO. Patient intitially presented to OSH with abdominal pain with imaging demonstrating SBO now s/p NG tube. She reports developing cramping abdominal pain on Wednesday that progressively worsened. This was associated with nausea and eventual emesis. Also notes decreased ostomy output but patient attributes this to poor PO intake. Patient follows with Dr. Rodriguez. Denies diarrhea, hematemesis, CGE, hematochezia, or melena. Denies recent Fever or chills. Previous therapy: Infliximab (2014) Inflectra 06/2017 - 06/2018 Humira (failure) Imuran (intolerant) Budesonide minimally effective Ethotrexate (12/2018, not tolerated) Stelera (06/2018-09/2019) Vedolizumab (2 doses then decided for surgery 2019) Most recent vitals: Afeb, VSS. Pertinent labs: WBC 7.20, Hgb 12.4 (baseline 12-13), PLT 177, INR 1.1. Family history: HTN, CAD, Breast Ca, CRC 50 yo Imagin09/25/2024 Abd XR IMPRESSION: 1. Multiple dilated loops of small bowel, consistent with known small bowel obstruction. The caliber appears similar to prior. 2. Oral contrast is seen within the stomach and small bowel loops, not yet to the level of the ostomy. Progression can be assessed with serial radiographs 07/02/2024 CT Enterography IMPRESSION: 1. Post total proctocolectomy status with [...] focal liver lesions. Portal vein is patent Prior endoscopy: 03/24/2022 Push Enteroscopy Findings: There was no evidence of significant [...] esophagus. - No evidence of active Crohn's disease 03/24/2022 Ileoscopy Findings: Patient is status-post total colectomy with [...] - No evidence of active Crohns' disease. Blood products: None PAST MEDICAL HISTORY: PAST MEDICAL HISTORY Past Medical History: Diagnosis Date Anemia Crohn's disease Liver mass Skin tag of anus PAST SURGICAL HISTORY Past Surgical History: Procedure Laterality Date PROCTECTOMY PERINEAL APPROACH N/A 07/02/2020 Laterality: N/A; Surgeon: Steve Parikh MD; Location: [facility] MAIN OR COLECTOMY TOTAL W/ ILEOSTOMY OR ILEOPROCTOSTOMY LAPAROSCOPIC N/A 02/13/2020 Laterality: N/A; Surgeon: Steve Parikh MD; Location: [facility] MAIN OR COLECTOMY TOTAL W/ ILEOSTOMY OR ILEOPROCTOSTOMY LAPAROSCOPIC N/A 02/13/2020 Laterality: N/A; Surgeon: Steve Parikh MD; Location: [facility] MAIN OR COLONOSCOPY DIAGNOSTIC N/A 09/20/2019 Laterality: N/A; Surgeon: Alejandro Soria MD; Location: [facility] ENDOSCOPY COLONOSCOPY W/ DILATION N/A 12/05/2018 Laterality: N/A; Surgeon: Steve Parikh MD; Location: [facility] ENDOSCOPY RESECTION LIVER TOTAL RIGHT LOBE OPEN Right 03/14/2018 Laterality: Right; Surgeon: Wilfrido Earl MD; [facility]STIC N/A 11/22/2017 Laterality: N/A; Surgeon: Nataliia Rodriguez MD, PhD; Location: [facility] ENDOSCOPY [place] COLONOSCOPY DIAGNOSTIC N/A 12/21/2016 Laterality: N/A; Surgeon: Nataliia Rodriguez MD,PhD; Location: [facility] ENDOSCOPY COLONOSCOPY W/ BX N/A 10/16/2014 Laterality: N/A; Surgeon: NAI Aleman; Location: [facility] ENDOSCOPY COLONOSCOPY W/ ULTRASOUND N/A 10/16/2013 Laterality: N/A; Surgeon: Juan Henderson MD,PhD; Location: [facility] ENDOSCOPY [place] COLCT TOT ABDL W/O PRCTECT W/ILEOST/ILEOPXTS Right 2006 COLONOSCOPY widely patent ileocolonic anastomosis ILEOSTOMY OR JEJUNOSTOMY 05/2008 ileostomy 01/2009 reversal SMALL BOWEL RESECTION WISDOM TEETH EXTRACTION CURRENT MEDICATIONS Acetaminophen 650 mg Oral TID enoxaparin 40 mg Subcutaneous Q24H ALLERGIES Allergies Allergen Reactions Ferumoxytol SOCIAL HISTORY She reports that she has never smoked. She has never used smokeless tobacco. She reports current alcohol use. She reports that she does not use drugs. FAMILY HISTORY Family History Problem Relation Age of Onset Hypertension Mother Heart Disease - Other Father Cancer- Other Maternal Uncle lymphoma/brain cancer Heart Disease - Other Maternal Grandmother Colorectal Cancer Maternal Grandfather 52 Heart Disease - Other Paternal Grandfather Breast Cancer Maternal Aunt Breast Cancer Sister Anemia Neg Hx GI Disease Neg Hx REVIEW OF SYSTEMS: 10-point ROS negative unless otherwise noted in HPI. PHYSICAL EXAM: Temp: [98 F (36.7 C)-98.7 F (37.1 C)] 98.2 F (36.8 C) Pulse (Heart Rate): [85-97] 85 Resp Rate: [16-36] 18 BP: (82-98)/(43-57) 93/52 O2 Sat (%): [94 %-98 %] 98 % Weight: [52.3 kg (115 lb 4.8 oz)-54.8 kg (120 lb 14.4 oz)] 54.8 kg (120 lb 14.4 oz) Wt Readings from Last 3 Encounters: 09/24/24 54.8 kg (120 lb 14.4 oz) 07/02/24 56.7 kg (125 lb) 05/30/24 56.2 kg (124 lb) Gen: AAO x 3, NAD Card: no appreciable JVD Pulm: normal WOB Abd: soft, NT, ND LABS: Reviewed. IMAGING/STUDIES: All relevant imaging and procedures were reviewed. ASSESSMENT: Assessment and Plan: #SBO Patient clinically presenting with SBO and with congruent evidence of SBO on imaging SBO likely 2/2 adhesions Labs wnl - Very low concern that patient is having active Crohn's disease flare - No current indication for steroid treatment - Appreciate ongoing SBO management via primary team Thank you for the consult, GI will sign off. This consult was seen and discussed with Dr. Marcelino, the attending physician. Lanre Peck MD Fellow, Gastroenterology Addendum: I independently saw and examined the patient on 09/25/24. The patient's care was discussed with the GI Fellow. The patient has a history of Crohn's disease, ultimately requiring colectomy and end ileostomy in 2019. She was doing well until shortly prior to admission when she developed abdominal discomfort, diminished ileostomy output. She was initially evaluated at her local hospital with findings concerning for SBO. Currently she has an NG in place (~700 cc bilious drainage). She continues to have scant ileostomy output. She had vomiting earlier, after gastrograffin contrast. On exam, she is comfortable, resting, with NG as above. There is scant apple output in her ileostomy bag. Her stoma was evaluated earlier per surgery and there was no stenosis. Labs are noted above. She had a CTE in 06/2024 that showed adhesions and no evidence of Crohns activity in the small bowel. Overall, her acute presentation seems most consistent with a small bowel obstruction. Her history and recent CTE do not suggest active Crohn's or stricture. Would continue management as per the surgery team. I agree with the findings and plan as outlined above by Dr. Peck. Nissa Marcelino MD Cosigned by Nissa Marcelino MD at 09/26/2024 12:30 AM EDT [facility] Work Phone: 09-25-2024 Consult note Associated Order (s): IP CONSULT TO GASTROENTEROLOGY Images from the original note were not included. IBD CONSULT SERVICE -- INITIAL NOTE Reason for Consultation: Help with Crohn's management HISTORY OF PRESENT ILLNESS: Gabi Mcnulty is a 53 y.o. female with Crohn's disease (2000) s/p total proctocolectomy with end ileostomy (02/13/2020) due to failed medical therapy s/p proctectomy in 06/2020 who presented with abdominal pain with nausea and vomiting fth SBO. Patient intitially presented to OSH with abdominal pain with imaging demonstrating SBO now s/p NG tube. She reports developing cramping abdominal pain on Wednesday that progressively worsened. This was associated with nausea and eventual emesis. Also notes decreased ostomy output but patient attributes this to poor PO intake. Patient follows with Dr. Rodriguez. Denies diarrhea, hematemesis, CGE, hematochezia, or melena. Denies recent Fever or chills. Previous therapy: Infliximab (2013) Inflectra 06/2017 - 06/2018 Humira (failure) Imuran (intolerant) Budesonide minimally effective Ethotrexate (12/2018, not tolerated) Stelera (06/2018-09/2019) Vedolizumab (2 doses then decided for surgery 2019) Most recent vitals: Afeb, VSS. Pertinent labs: WBC 7.20, Hgb 12.4 (baseline 12-13), PLT 177, INR 1.1. Family history: HTN, CAD, Breast Ca, CRC 50 yo Imagin09/25/2024 Abd XR IMPRESSION: 1. Multiple dilated loops of small bowel, consistent with known small bowel obstruction. The caliber appears similar to prior. 2. Oral contrast is seen within the stomach and small bowel loops, not yet to the level of the ostomy. Progression can be assessed with serial radiographs 07/02/2024 CT Enterography IMPRESSION: 1. Post total proctocolectomy status with [...] focal liver lesions. Portal vein is patent Prior endoscopy: 03/24/2022 Push Enteroscopy Findings: There was no evidence of significant [...] esophagus. - No evidence of active Crohn's disease 03/24/2022 Ileoscopy Findings: Patient is status-post total colectomy with [...] - No evidence of active Crohns' disease. Blood products: None PAST MEDICAL HISTORY: PAST MEDICAL HISTORY Past Medical History: Diagnosis Date Anemia Crohn's disease Liver mass Skin tag of anus PAST SURGICAL HISTORY Past Surgical History: Procedure Laterality Date PROCTECTOMY [...] Right; Surgeon: Wilfrido Earl MD; [facility] MAIN OR COLONOSCOPY DIAGNOSTIC N/A 11/22/2017 Laterality: N/A; Surgeon: Nataliia Rodriguez MD, PhD; Location: [facility]OSCOPY [place] COLONOSCOPY DIAGNOSTIC N/A 12/21/2016 Laterality: N/A; Surgeon: Nataliia Rodriguez MD,PhD; [facility] [facility] W/ BX N/A 10/16/2014 Laterality: N/A; Surgeon: NAI Aleman; Location: [facility] COLONOSCOPY W/ ULTRASOUND N/A 10/16/2013 Laterality: N/A; Surgeon: Juan Henderson MD,PhD; Location: [facility]COPY ND COLCT TOT ABDL W/O PRCTECT W/ILEOST/ILEOPXTS Right 2006 COLONOSCOPY widely patent ileocolonic anastomosis ILEOSTOMY OR JEJUNOSTOMY 05/2008 ileostomy 01/2009 reversal SMALL BOWEL RESECTION WISDOM TEETH EXTRACTION CURRENT MEDICATIONS Acetaminophen 650 mg Oral TID enoxaparin 40 mg Subcutaneous Q24H ALLERGIES Allergies Allergen Reactions Ferumoxytol SOCIAL HISTORY She reports that she has never smoked. She has never used smokeless tobacco. She reports current alcohol use. She reports that she does not use drugs. FAMILY HISTORY Family History Problem Relation Age of Onset Hypertension Mother Heart Disease - Other Father Cancer- Other Maternal Uncle lymphoma/brain cancer Heart Disease - Other Maternal Grandmother Colorectal Cancer Maternal Grandfather 52 Heart Disease - Other Paternal Grandfather Breast Cancer Maternal Aunt Breast Cancer Sister Anemia Neg Hx GI Disease Neg Hx REVIEW OF SYSTEMS: 10-point ROS negative unless otherwise noted in HPI. PHYSICAL EXAM: Temp: [98 F (36.7 C)-98.7 F (37.1 C)] 98.2 F (36.8 C) Pulse (Heart Rate): [85-97] 85 Resp Rate: [16-36] 18 BP: (82-98)/(43-57) 93/52 O2 Sat (%): [94 %-98 %] 98 % Weight: [52.3 kg (115 lb 4.8 oz)-54.8 kg (120 lb 14.4 oz)] 54.8 kg (120 lb 14.4 oz) Wt Readings from Last 3 Encounters: 09/24/24 54.8 kg (120 lb 14.4 oz) 07/02/24 56.7 kg (125 lb) 05/30/24 56.2 kg (124 lb) Gen: AAO x 3, NAD Card: no appreciable JVD Pulm: normal WOB Abd: soft, NT, ND LABS: Reviewed. IMAGING/STUDIES: All relevant imaging and procedures were reviewed. ASSESSMENT: Assessment and Plan: #SBO Patient clinically presenting with SBO and with congruent evidence of SBO on imaging SBO likely 2/2 adhesions Labs wnl - Very low concern that patient is having active Crohn's disease flare - No current indication for steroid treatment - Appreciate ongoing SBO management via primary team Thank you for the consult, GI will sign off. This consult was seen and discussed with Dr. Marcelino, the attending physician. aLnre Peck MD Fellow, Gastroenterology Addendum: I independently saw and examined the patient on 09/25/24. The patient's care was discussed with the GI Fellow. The patient has a history of Crohn's disease, ultimately requiring colectomy and end ileostomy in 2019. She was doing well until shortly prior to admission when she developed abdominal discomfort, diminished ileostomy output. She was initially evaluated at her local hospital with findings concerning for SBO. Currently she has an NG in place (~700 cc bilious drainage). She continues to have scant ileostomy output. She had vomiting earlier, after gastrograffin contrast. On exam, she is comfortable, resting, with NG as above. There is scant apple output in her ileostomy bag. Her stoma was evaluated earlier per surgery and there was no stenosis. Labs are noted above. She had a CTE in 06/2024 that showed adhesions and no evidence of Crohns activity in the small bowel. Overall, her acute presentation seems most consistent with a small bowel obstruction. Her history and recent CTE do not suggest active Crohn's or stricture. Would continue management as per the surgery team. I agree with the findings and plan as outlined above by Dr. Peck. Nissa Marcelino MD Cosigned by Nissa Marcelino MD at 09/26/2024 12:30 AM EDT documented in this encounter [facility] 09-25-2024 Nurse Note MD notified blood sugar is 68 in morning labs. Do you want to put some dextrose in her fluids? [facility] 09-25-2024 Nurse Note notified her BP is 89/45 (64). looks like she was running soft in the ED as well with systolic's in the 80's-90's. HR 94 and asymptomatic. 500ml bolus given at 4:30am with BP recheck at 6am 82/43(60). Mds at bedside gave verbal order for additional 500ml fluid bolus. Will recheck BP upon completion. [facility] 09-24-2024 Plan of care note Problem: Adult Inpatient Plan of Care Goal: Plan of Care Review Outcome: Progressing Goal: Patient-Specific Goal (Individualized) Outcome: Progressing Goal: Absence of Hospital-Acquired Illness or Injury Outcome: Progressing Goal: Optimal Comfort and Wellbeing Outcome: Progressing Goal: Readiness for Transition of Care Outcome: Progressing Problem: Pain Acute Goal: Optimal Pain Control and Function Outcome: Progressing Intervention: Develop Pain Management Plan Flowsheets (Taken 09/24/2024 2333) Pain Management Interventions: care clustered quiet environment facilitated position adjusted pain medication given Problem: Nausea and Vomiting Goal: Nausea and Vomiting Relief Outcome: Progressing Intervention: Prevent and Manage Nausea and Vomiting Flowsheets Taken 09/24/2024 2333 Fluid/Electrolyte Management: fluids provided Environmental Support: calm environment promoted Taken 09/24/2024 2252 Nausea/Vomiting Interventions: nasogastric tube to suction Problem: Oral Intake Inadequate Goal: Improved Oral Intake Outcome: Progressing Problem: Ileostomy Goal: Effective Bowel Elimination Outcome: Progressing Goal: Fluid and Electrolyte Balance Outcome: Progressing Intervention: Monitor and Manage Fluid and Electrolyte Balance Flowsheets (Taken 09/24/2024 2333) Fluid/Electrolyte Management: fluids provided Goal: Optimal Pain Control and Function Outcome: Progressing Goal: Nausea and Vomiting Relief Outcome: Progressing Problem: Intestinal Obstruction Goal: Optimal Bowel Function Outcome: Progressing Goal: Fluid and Electrolyte Balance Outcome: Progressing Goal: Absence of Infection Signs and Symptoms Outcome: Progressing Goal: Optimize Nutrition Status Outcome: Progressing Goal: Optimal Pain Control and Function Outcome: Progressing Problem: Ileostomy Goal: Optimal Coping Outcome: Completed Goal: Absence of Bleeding Outcome: Completed Goal: Absence of Infection Signs and Symptoms Outcome: Completed Goal: Anesthesia/Sedation Recovery Outcome: Completed Goal: Effective Urinary Elimination Outcome: Completed Goal: Effective Oxygenation and Ventilation Outcome: Completed Goal: Optimal Stoma Healing Outcome: Completed [facility] 09-24-2024 Nurse Note On admission to [facility], from ED a dual RN initial assessment of skin condition was performed by [place] RN and Johnathan Medina RN. Skin Assessment: Skin within defined limits:Yes NGT placed at OSH in place, x-ray to confirm. LDA Added:No [place] RN [facility] 09-24-2024 Emergency department Note NG tube placed at OSH. No numbers on tube to chart placement. Pt says they used a 14F tube. [facility] 09-24-2024 Emergency department Note NG tube placed at OSH. No numbers on tube to chart placement. Pt says they used a 14F tube. Attempted to call report. RN unavailable at this time. Name and number left for call back. History No chief complaint on file. HPI Gabi Mcnulty is a 53 y.o. female with a history of Crohn's s/p colectomy with ileostomy in 2019 who is presenting as a transfer from [place] ED with a small bowel obstruction. - Has mostly L-sided abdominal pain for the last 2 days. Started as intermittent, became constant. Does not radiate. Had one episode of vomiting today, without hematemesis. - Last bowel movement was 4 days ago. Has not been passing flatus today, does not remember prior days. - Denies fevers, diarrhea, chest pain, shortness of breath, cough, back pain, urinary symptoms. - Went to [facility], where a CT abdomen/pelvis with contrast showed a small bowel obstruction with transition point in mid-gut. NG tube was placed. Pain control with Morphine, nausea controlled with Zofran prior to arrival Past Medical History: Diagnosis Date Anemia Crohn's disease Liver mass Skin tag of anus Past Surgical History: Procedure Laterality Date PROCTECTOMY [...] Right; Surgeon: Wilfrido Earl MD; Location: [facility] COLONOSCOPY DIAGNOSTIC N/A 11/22/2017 Laterality: N/A; Surgeon: Nataliia Rodriguez MD, PhD; Location[facility] COLONOSCOPY DIAGNOSTIC N/A 12/21/2016 Laterality: N/A; Surgeon: Nataliia Rodriguez MD,PhD; [facility] COL[facility]OSCOPY W/ BX N/A 10/16/2014 Laterality: N/A; Surgeon: NAI Aleman; [facility] COLONOSCOPY W/ ULTRASOUND N/A 10/16/2013 Laterality: N/A; Surgeon: Juan Henderson MD,PhD; Location: [facility] [place] COLCT TOT ABDL W/O PRCTECT W/ILEOST/ILEOPXTS Right 2006 COLONOSCOPY widely patent ileocolonic anastomosis ILEOSTOMY OR JEJUNOSTOMY 05/2008 ileostomy 01/2009 reversal SMALL BOWEL RESECTION WISDOM TEETH EXTRACTION Family History Problem Relation Age of Onset Hypertension Mother Heart Disease - Other Father Cancer- Other Maternal Uncle lymphoma/brain cancer Heart Disease - Other Maternal Grandmother Colorectal Cancer Maternal Grandfather 52 Heart Disease - Other Paternal Grandfather Breast Cancer Maternal Aunt Breast Cancer Sister Anemia Neg Hx GI Disease Neg Hx Social History Tobacco Use Smoking status: Never Smokeless tobacco: Never Vaping Use Vaping status: Never Used Substance Use Topics Alcohol use: Yes Alcohol/week: 0.0 standard drinks of alcohol Comment: once or twice a year per Drug use: No Review of Systems negative unless otherwise noted Physical Exam BP 93/55 Pulse 92 Temp 98 F (36.7 C) (Oral) Resp 18 Ht 1.575 m (5' 2) SpO2 96% BMI 22.86 kg/m Smoking Status Never Physical Exam Vitals and nursing note reviewed. Constitutional: General: She is not in acute distress. Appearance: She is normal weight. She is ill-appearing. She is not diaphoretic. HENT: Nose: Comments: NG tube in place with green serous discharge Mouth/Throat: Pharynx: Oropharynx is clear. No posterior oropharyngeal erythema. Eyes: General: No scleral icterus. Extraocular Movements: Extraocular movements intact. Conjunctiva/sclera: Conjunctivae normal. Cardiovascular: Rate and Rhythm: Normal rate and regular rhythm. Pulses: Normal pulses. Heart sounds: Normal heart sounds. No murmur heard. Pulmonary: Effort: Pulmonary effort is normal. No respiratory distress. Breath sounds: Normal breath sounds. No stridor. No wheezing. Abdominal: General: Abdomen is flat. Bowel sounds are decreased. There is no distension. Palpations: Abdomen is soft. There is no hepatomegaly, splenomegaly or mass. Tenderness: There is abdominal tenderness in the right upper quadrant and right lower quadrant. There is no right CVA tenderness, left CVA tenderness, guarding or rebound. Hernia: No hernia is present. Musculoskeletal: General: No swelling or tenderness. Skin: General: Skin is warm and dry. Coloration: Skin is not jaundiced. Neurological: General: No focal deficit present. Mental Status: She is alert and oriented to person, place, and time. ED Course ED Course as of 09/24/242134 Sun Sep 24, 20242131 CBC, EDIF, PLATELET(!) Leukocytosis with L shift 2132 CHEM 6 (LYTES, BUN CREA)(!) Mild hypocarbia Normal anion gap 2133 HEPATIC FUNCTION PANEL WNL including lipase Procedures None Medical Decision Making Amount and/or Complexity of Data Reviewed Independent Historian: EMS External Data Reviewed: labs, radiology and notes. Labs: ordered. Decision-making details documented in ED Course. Risk Prescription drug management. Parenteral controlled substances. Decision regarding hospitalization. Emergency major surgery. Gabi Mcnulty is a 53 y.o. female with a history of Crohn's s/p colectomy with ileostomy in 2019 who is presenting as a transfer from [place] ED with a small bowel obstruction. - Differential: SBO, perforation, internal hernia, bowel ischemia - Workup: CBC, CMP including LFTs and lipase, lactate - Interventions: Place NG to wall suction. Fluid bolus for hypotension. Pain medication was offered and declined at this time, patient received 4 mg Morphine prior to transfer. Consult Colorectal Surgery. - Disposition: Final disposition is pending laboratory results and life skills consultant recommendations but I anticipate admission for likely surgical intervention. This plan was discussed with my attending physician, Shreyas Mc MD. All questions were answered, and the patient was agreeable with this plan. Unless noted in ED course, the patient remained hemodynamically stable with their symptoms well controlled in the department. Scott Villarreal MD Resident 09/25/24 0005 eMERGENCY dEPARTMENT eNCOUnter CHIEF COMPLAINT SBO - Transfer from [facility] --HISTORY OF PRESENT ILLNESS --------- Gabi Mcnulty is a 53 y.o. female who presents for evaluation of abdominal pain. History of Present Illness - location abdomen; diffuse, worse in LQ - onset gradual - better with NG placement at OSH, progressively worsening - quality ache - nonradiating - constant - associated symptoms as above - denies traumatic Injury, fever/chills, chest discomfort, cough/SOB, back pain, bloody, coffee-colored, or bilious emesis, constipation, diarrhea, melena, hematochezia, hematuria, dysuria, frequency, and vaginal bleeding or discharge Per External Document Review: - paper documentation reviewed in workroom with ED & surgery residents - notable for PHYSICAL EXAM VITAL SIGNS: Pulse 86 Resp 16 Ht 1.575 m (5' 2) SpO2 95% BMI 22.86 kg/m Smoking Status Never Physical Exam Vitals reviewed. Constitutional: General: She is not in acute distress. Appearance: She is not ill-appearing or diaphoretic. Comments: Lying reclined in bed, awake, very pleasant, + NG in place HENT: Head: Normocephalic and atraumatic. Eyes: General: No scleral icterus. Conjunctiva/sclera: Conjunctivae normal. Cardiovascular: Rate and Rhythm: Normal rate and regular rhythm. Heart sounds: Normal heart sounds. Comments: 2+ radial and pedal pulses b/l. Pulmonary: Effort: Pulmonary effort is normal. Breath sounds: Normal breath sounds. Comments: Speaking in full sentences on room air. Chest: Chest wall: No tenderness. Abdominal: General: Abdomen is flat. There is no distension. Palpations: Abdomen is soft. There is no mass. Tenderness: There is abdominal tenderness. There is no guarding (mild, diffuse (LQ>UQ)) or rebound. Comments: + multiple abdominal surgical scars + some gas in the ostomy bag with minimal output (recently changed) Genitourinary: Comments: No suprapubic or flank TTP b/l. Skin: General: Skin is warm and dry. Findings: No bruising or rash. Neurological: Mental Status: She is alert. Comments: Awake, oriented. No facial droop. Tongue midline. Speech not dysarthric. ---MEDICAL DECISION MAKING --------- I saw and examined the patient today with the resident and agree with the history, examination and medical decision making noted with the exceptions noted here in my separate documentation. 53 y.o. female hx Crohn's s/p colectomy presenting from OSH for evaluation of abnormal abdomina CT c/f SBO s/p NG placement, who is afebrile, low-normal BP, non-distended abdomen, not c/w acute abdomen. Differential Diagnosis includes life-threatening conditions, but is not limited to: SBO including sequelae such as necrotic bowel, close loop obstruction, electrolyte abnormality. Workup to include: CBC, CMP, lipase, lactate. Did not meet test threshold for repeat CT AP as risks benefit of ionizing radiation favored risk greater than benefit in this patient at this time. Considered other etiologies of hypotension (not anemic at OSH, euvolemic & no chest chest symptoms, no shortness of breath or hypoxia, no fever) and in my clinical judgement did not meet pre-test threshold based upon initial H&P - will continue to reassess throughout ED course. Treatment to include: NPO, maintain NG, IVF & electrolyte repletion PRN. Consults: surgery consulted; pending evaluation & management reccs. Disposition: admit ED Course as of 09/24/24 2223 Sun Sep 24, [id number] White Blood Cell(!): 12.04 Does not meet SIRS criteria. 1933 CARBON DIOXIDE (CO2)(!): 19 Mild NAGMA c/w known SBO. 193 Glucose: 81 Not hypoglycemic. Maintain NPO. 2038 D/w surgery resident - continue NG, continue IVF, admit to colorectal. Medical Decision Making Problems Addressed: Intestinal obstruction, unspecified cause, unspecified whether partial or complete: acute illness or injury that poses a threat to life or bodily functions Amount and/or Complexity of Data Reviewed Independent Historian: Details: Family at bedside External Data Reviewed: labs, radiology and notes. Labs: ordered. Decision-making details documented in ED Course. ECG/medicine tests: ordered and independent interpretation performed. Decision-making details documented in ED Course. Discussion of management or test interpretation with external provider(s): Please see resident note for d/w consulting service re evaluation, management, disposition reccs. Risk Prescription drug management. Decision regarding hospitalization. -IMPRESSION AND DISPOSITION Clinical Impression: Bowel Obstruction Disposition: Admit Shreyas Gayle MD 09/24/24 7:10 PM THIS NOTE MAY BE GENERATED USING ARTIFICIAL INTELLIGENCE AND / OR DICTATION SOFTWARE. PLEASE EXCUSE ANY BREAKER MACHINE TENDER ERRORS. Shreyas Gayle MD 09/24/24 2343 Bed: E041 Expected date: Expected time: Means of arrival: Comments: Ivonne Mcnulty documented in this encounter [facility] 09-24-2024 Emergency department Note Attempted to call report. RN unavailable at this time. Name and number left for call back. [facility] 09-24-2024 Physician Emergency department Note History No chief complaint on file. HPI Gabi Mcnulty is a 53 y.o. female with a history of Crohn's s/p colectomy with ileostomy in 2019 who is presenting as a transfer from [place] ED with a small bowel obstruction. - Has mostly L-sided abdominal pain for the last 2 days. Started as intermittent, became constant. Does not radiate. Had one episode of vomiting today, without hematemesis. - Last bowel movement was 4 days ago. Has not been passing flatus today, does not remember prior days. - Denies fevers, diarrhea, chest pain, shortness of breath, cough, back pain, urinary symptoms. - Went to [facility], where a CT abdomen/pelvis with contrast showed a small bowel obstruction with transition point in mid-gut. NG tube was placed. Pain control with Morphine, nausea controlled with Zofran prior to arrival Past Medical History: Diagnosis Date Anemia Crohn's disease Liver mass Skin tag of anus Past Surgical History: Procedure Laterality Date PROCTECTOMY [...] Right; Surgeon: Wilfrido Earl MD; Location: [facility] MAIN OR COLONOSCOPY DIAGNOSTIC N/A 11/22/2017 Laterality: N/A; Surgeon: Nataliia Rodriguez MD, PhD; Location: [facility] COLONOSCOPY DIAGNOSTIC N/A 12/21/2016 Laterality: N/A; Surgeon: Nataliia Rodriguez MD,PhD; Location: [facility] COLONOSCOPY W/ BX N/A 10/16/2014 Laterality: N/A; Surgeon: NAI Aleman; Location: [facility] COLONOSCOPY W/ ULTRASOUND N/A 10/16/2013 Laterality: N/A; Surgeon: Juan Henderson MD,PhD; Location: [facility]COPY [place] COLCT TOT ABDL W/O PRCTECT W/ILEOST/ILEOPXTS Right 2006 COLONOSCOPY widely patent ileocolonic anastomosis ILEOSTOMY OR JEJUNOSTOMY 05/2008 ileostomy 01/2009 reversal SMALL BOWEL RESECTION WISDOM TEETH EXTRACTION Family History Problem Relation Age of Onset Hypertension Mother Heart Disease - Other Father Cancer- Other Maternal Uncle lymphoma/brain cancer Heart Disease - Other Maternal Grandmother Colorectal Cancer Maternal Grandfather 52 Heart Disease - Other Paternal Grandfather Breast Cancer Maternal Aunt Breast Cancer Sister Anemia Neg Hx GI Disease Neg Hx Social History Tobacco Use Smoking status: Never Smokeless tobacco: Never Vaping Use Vaping status: Never Used Substance Use Topics Alcohol use: Yes Alcohol/week: 0.0 standard drinks of alcohol Comment: once or twice a year per Drug use: No Review of Systems negative unless otherwise noted Physical Exam BP 93/55 Pulse 92 Temp 98 F (36.7 C) (Oral) Resp 18 Ht 1.575 m (5' 2) SpO2 96% BMI 22.86 kg/m Smoking Status Never Physical Exam Vitals and nursing note reviewed. Constitutional: General: She is not in acute distress. Appearance: She is normal weight. She is ill-appearing. She is not diaphoretic. HENT: Nose: Comments: NG tube in place with green serous discharge Mouth/Throat: Pharynx: Oropharynx is clear. No posterior oropharyngeal erythema. Eyes: General: No scleral icterus. Extraocular Movements: Extraocular movements intact. Conjunctiva/sclera: Conjunctivae normal. Cardiovascular: Rate and Rhythm: Normal rate and regular rhythm. Pulses: Normal pulses. Heart sounds: Normal heart sounds. No murmur heard. Pulmonary: Effort: Pulmonary effort is normal. No respiratory distress. Breath sounds: Normal breath sounds. No stridor. No wheezing. Abdominal: General: Abdomen is flat. Bowel sounds are decreased. There is no distension. Palpations: Abdomen is soft. There is no hepatomegaly, splenomegaly or mass. Tenderness: There is abdominal tenderness in the right upper quadrant and right lower quadrant. There is no right CVA tenderness, left CVA tenderness, guarding or rebound. Hernia: No hernia is present. Musculoskeletal: General: No swelling or tenderness. Skin: General: Skin is warm and dry. Coloration: Skin is not jaundiced. Neurological: General: No focal deficit present. Mental Status: She is alert and oriented to person, place, and time. ED Course ED Course as of 09/24/242134 Sun Sep 24, [id number] CBC, EDIF, PLATELET(!) Leukocytosis with L shift 2132 CHEM 6 (LYTES, BUN CREA)(!) Mild hypocarbia Normal anion gap 2133 HEPATIC FUNCTION PANEL WNL including lipase Procedures None Medical Decision Making Amount and/or Complexity of Data Reviewed Independent Historian: EMS External Data Reviewed: labs, radiology and notes. Labs: ordered. Decision-making details documented in ED Course. Risk Prescription drug management. Parenteral controlled substances. Decision regarding hospitalization. Emergency major surgery. Gabi Mcnulty is a 53 y.o. female with a history of Crohn's s/p colectomy with ileostomy in 2019 who is presenting as a transfer from [place] ED with a small bowel obstruction. - Differential: SBO, perforation, internal hernia, bowel ischemia - Workup: CBC, CMP including LFTs and lipase, lactate - Interventions: Place NG to wall suction. Fluid bolus for hypotension. Pain medication was offered and declined at this time, patient received 4 mg Morphine prior to transfer. Consult Colorectal Surgery. - Disposition: Final disposition is pending laboratory results and life skills consultant recommendations but I anticipate admission for likely surgical intervention. This plan was discussed with my attending physician, Shreyas Mc MD. All questions were answered, and the patient was agreeable with this plan. Unless noted in ED course, the patient remained hemodynamically stable with their symptoms well controlled in the department. Scott Villarreal MD Resident 09/25/24 0005 [facility] Work Phone: 09-24-2024 History and physical note COLORECTAL H&P NOTE Patient: Gabi Mcnulty Date: 09/24/2024 8:30 PM Attending Physician: Shreyas Gayle MD HPI: Gabi Mcnulty is a 53 y.o. female with a history of Crohn's disease (diagnosed 2000) status post total abdominal colectomy with end ileostomy in 2019 () and completion proctectomy in 2020 ([facility]) and also notably has a history of a partial hepatectomy for focal nodular hyperplasia (2017) who presents with 1-2 days of abdominal pain associated with nausea and vomiting and found to have a small-bowel obstruction on CT abdomen and pelvis at outside hospital. She has never had a bowel obstruction before. She has had no surgeries since her completion proctectomy in 2020. Her last ileoscopy was in 2022 which showed no signs of active Crohn's disease. She had a CT enterography in the outpatient with Gastroenterology that did not show any evidence of active Crohn's disease. She reports her symptoms came on suddenly about a day and a half ago and describes mid to left abdominal pain. She had 1 episode of emesis at the outside hospital. She started to feel better after the NG tube decompression. Her ostomy output has an more liquid than it usually is for her but she still has filled an ostomy bag over the last day and continues to have output. Denies any hematochezia or melena. Denies any fevers or chills. No chest pain or shortness of breath. Seen presents with soft blood pressures of 90s over 50s although is not noting a tachycardic response; heart rate is in the 80s to 90s. She is afebrile. She is breathing comfortably on room air. Her white blood cell count is 12. Her hemoglobin is 13.9. She has normal electrolytes and liver function tests as well as a normal lipase. There is no lactate drawn in the emergency department Past Medical/Surgical History She has a past medical history of Anemia, Crohn's disease, Liver mass, and Skin tag of anus. She has a past surgical history that includes colonoscopy; small bowel resection; ileostomy or jejunostomy; pr colct tot abdl w/o prctect w/ileost/ileopxts (Right, 2006); colonoscopy w/ ultrasound (N/A, 10/16/2013); colonoscopy w/ bx (N/A, 10/16/2014); colonoscopy diagnostic (N/A, 12/21/2016); wisdom teeth extraction; colonoscopy diagnostic (N/A, 11/22/2017); resection liver total right lobe open (Right, 03/14/2018); colonoscopy w/ dilation (N/A, 12/05/2018); colonoscopy diagnostic (N/A, 09/20/2019); colectomy total w/ ileostomy or ileoproctostomy laparoscopic (N/A, 02/13/2020); colectomy total w/ ileostomy or ileoproctostomy laparoscopic (N/A, 02/13/2020); and proctectomy perineal approach (N/A, 07/02/2020). Family History Her family history includes Breast Cancer in her maternal aunt and sister; Cancer- Other in her maternal uncle; Colorectal Cancer (age of onset: 52) in her maternal grandfather; Heart Disease - Other in her father, maternal grandmother, and paternal grandfather; Hypertension in her mother. Social History She reports that she has never smoked. She has never used smokeless tobacco. She reports current alcohol use. She reports that she does not use drugs. Medications She has a current medication list which includes the following prescription(s): calcium carbonate and ergocalciferol, and the following Facility-Administered Medications: enoxaparin sodium, hydromorphone OR hydromorphone, lactated ringers, lidocaine 1% (pf), melatonin, ondansetron OR ondansetron 4mg/2ml, phenol, prochlorperazine OR prochlorperazine, sodium chloride 0.9%. Allergies/Immunizations Allergies: Ferumoxytol Immunizations: Immunization History Administered Date(s) Administered 8501-2231 COVID-19 monovalent vaccine, mRNA, Moderna, 50 mcg/0.25 mL booster 05/09/2020, 06/06/2020, 02/11/2021 Review of Systems (Positive findings are in bold) Constitutional: fever, chill Skin: rash Cardiovascular: chest pain, palpitations Respiratory: cough, shortness of breath Gastrointestinal: abdominal pain, constipation, diarrhea, nausea, vomiting Genitourinary: dysuria Musculoskeletal: back pain, edema Neurological: dizziness, numbness/tingling, headaches OBJECTIVE: Physical Exam Blood pressure 93/55, pulse 92, temperature 98 F (36.7 C), temperature source Oral, resp. rate 18, height 1.575 m (5' 2), last menstrual period 02/15/2019, SpO2 96%. Constitutional: Lying in bed in no acute distress HEENT: Normocephalic, atraumatic, Neurological: alert, follows commands, moves all extremities to commands, no gross motor or sensory deficits Cardiovascular: Normal rate, HDS. Pulmonary: Respirations easy and regular, no accessory muscle use, room air. GI: Abdomen soft, non-distended, mildly tender to palpation in the mid to left abdomen - no guarding or peritonitis.Digitized stoma easily down to fascia. The ostomy is pink and viable. Stool is brown/green liquid. NG output is bilious. : No suprapubic tenderness with palpation. Musculoskeletal: No deformities noted Integumentary: Skin warm and dry Psych: Normal affect, asks appropriate questions. Assessment and Plan Gabi Mcnulty is a 53 y.o. female with a history of Crohn's disease (diagnosed 2000) status post total abdominal colectomy with end ileostomy in 2019 ([facility]) and [facility] and also notably has a history of a partial hepatectomy for focal nodular hyperplasia (2017) who presents with 1-2 days of abdominal pain associated with nausea and vomiting and found to have a small-bowel obstruction on CT abdomen and pelvis at outside hospital. Impression: Small bowel obstruction in the setting of prior total abdominal colectomy and completion proctectomy for Crohn's disease. This is her 1st instance of bowel obstruction. There are no concerning features at this time to indicate operative management (no pneumatosis, portal venous gas, peritonitis. She is still having ostomy output. Feeling better with NG tube decompression. Labs and vital signs are overall reassuring but does have mild leukocytosis to 12). We will start with nonoperative management for small bowel obstruction. Plan -Admit Colorectal Surgery, Med SurgAlycia -NPO -NG decompression -mIVF -Replace electrolytes prn -Draw lactate and trend if elevated. Plan was discussed with Dr. Tong. Yung Harrington MD General Surgery Cosigned by Colin Davison MD at 09/26/2024 6:14 PM EDT [facility] 09-24-2024 History and physical note COLORECTAL H&P NOTE Patient: aGbi Mcnulty Date: 09/24/2024 8:30 PM Attending Physician: Shreyas Gayle MD HPI: Gabi Mcnulty is a 53 y.o. female with a history of Crohn's disease (diagnosed 2000) status post total abdominal colectomy with end ileostomy in 2019 ([facility]) and completion proctectomy in 2020 ([facility]) and also notably has a history of a partial hepatectomy for focal nodular hyperplasia (2017) who presents with 1-2 days of abdominal pain associated with nausea and vomiting and found to have a small-bowel obstruction on CT abdomen and pelvis at outside hospital. She has never had a bowel obstruction before. She has had no surgeries since her completion proctectomy in 2020. Her last ileoscopy was in 2022 which showed no signs of active Crohn's disease. She had a CT enterography in the outpatient with Gastroenterology that did not show any evidence of active Crohn's disease. She reports her symptoms came on suddenly about a day and a half ago and describes mid to left abdominal pain. She had 1 episode of emesis at the outside hospital. She started to feel better after the NG tube decompression. Her ostomy output has an more liquid than it usually is for her but she still has filled an ostomy bag over the last day and continues to have output. Denies any hematochezia or melena. Denies any fevers or chills. No chest pain or shortness of breath. Seen presents with soft blood pressures of 90s over 50s although is not noting a tachycardic response; heart rate is in the 80s to 90s. She is afebrile. She is breathing comfortably on room air. Her white blood cell count is 12. Her hemoglobin is 13.9. She has normal electrolytes and liver function tests as well as a normal lipase. There is no lactate drawn in the emergency department Past Medical/Surgical History She has a past medical history of Anemia, Crohn's disease, Liver mass, and Skin tag of anus. She has a past surgical history that includes colonoscopy; small bowel resection; ileostomy or jejunostomy; pr colct tot abdl w/o prctect w/ileost/ileopxts (Right, 2006); colonoscopy w/ ultrasound (N/A, 10/16/2013); colonoscopy w/ bx (N/A, 10/16/2014); colonoscopy diagnostic (N/A, 12/21/2016); wisdom teeth extraction; colonoscopy diagnostic (N/A, 11/22/2017); resection liver total right lobe open (Right, 03/14/2018); colonoscopy w/ dilation (N/A, 12/05/2018); colonoscopy diagnostic (N/A, 09/20/2019); colectomy total w/ ileostomy or ileoproctostomy laparoscopic (N/A, 02/13/2020); colectomy total w/ ileostomy or ileoproctostomy laparoscopic (N/A, 02/13/2020); and proctectomy perineal approach (N/A, 07/02/2020). Family History Her family history includes Breast Cancer in her maternal aunt and sister; Cancer- Other in her maternal uncle; Colorectal Cancer (age of onset: 52) in her maternal grandfather; Heart Disease - Other in her father, maternal grandmother, and paternal grandfather; Hypertension in her mother. Social History She reports that she has never smoked. She has never used smokeless tobacco. She reports current alcohol use. She reports that she does not use drugs. Medications She has a current medication list which includes the following prescription(s): calcium carbonate and ergocalciferol, and the following Facility-Administered Medications: enoxaparin sodium, hydromorphone OR hydromorphone, lactated ringers, lidocaine 1% (pf), melatonin, ondansetron OR ondansetron 4mg/2ml, phenol, prochlorperazine OR prochlorperazine, sodium chloride 0.9%. Allergies/Immunizations Allergies: Ferumoxytol Immunizations: Immunization History Administered Date(s) Administered 4714-3387 COVID-19 monovalent vaccine, mRNA, Moderna, 50 mcg/0.25 mL booster 05/09/2020, 06/06/2020, 02/11/2021 Review of Systems (Positive findings are in bold) Constitutional: fever, chill Skin: rash Cardiovascular: chest pain, palpitations Respiratory: cough, shortness of breath Gastrointestinal: abdominal pain, constipation, diarrhea, nausea, vomiting Genitourinary: dysuria Musculoskeletal: back pain, edema Neurological: dizziness, numbness/tingling, headaches OBJECTIVE: Physical Exam Blood pressure 93/55, pulse 92, temperature 98 F (36.7 C), temperature source Oral, resp. rate 18, height 1.575 m (5' 2), last menstrual period 02/15/2019, SpO2 96%. Constitutional: Lying in bed in no acute distress HEENT: Normocephalic, atraumatic, Neurological: alert, follows commands, moves all extremities to commands, no gross motor or sensory deficits Cardiovascular: Normal rate, HDS. Pulmonary: Respirations easy and regular, no accessory muscle use, room air. GI: Abdomen soft, non-distended, mildly tender to palpation in the mid to left abdomen - no guarding or peritonitis.Digitized stoma easily down to fascia. The ostomy is pink and viable. Stool is brown/green liquid. NG output is bilious. : No suprapubic tenderness with palpation. Musculoskeletal: No deformities noted Integumentary: Skin warm and dry Psych: Normal affect, asks appropriate questions. Assessment and Plan Gabi Mcnulty is a 53 y.o. female with a history of Crohn's disease (diagnosed 2000) status post total abdominal colectomy with end ileostomy in 2019 ([facility]) and completion proctectomy in 2020 ([facility]) and also notably has a history of a partial hepatectomy for focal nodular hyperplasia (2017) who presents with 1-2 days of abdominal pain associated with nausea and vomiting and found to have a small-bowel obstruction on CT abdomen and pelvis at outside hospital. Impression: Small bowel obstruction in the setting of prior total abdominal colectomy and completion proctectomy for Crohn's disease. This is her 1st instance of bowel obstruction. There are no concerning features at this time to indicate operative management (no pneumatosis, portal venous gas, peritonitis. She is still having ostomy output. Feeling better with NG tube decompression. Labs and vital signs are overall reassuring but does have mild leukocytosis to 12). We will start with nonoperative management for small bowel obstruction. Plan -Admit Colorectal Surgery, Med Surg, Alycia -NPO -NG decompression -mIVF -Replace electrolytes prn -Draw lactate and trend if elevated. Plan was discussed with Dr. Tong. Yung Harrington MD General Surgery Cosigned by Colin Davison MD at 09/26/2024 6:14 PM EDT documented in this encounter [facility] 09-24-2024 Physician Emergency department Note eMERGENCY dEPARTMENT eNCOUnter CHIEF COMPLAINT SBO - Transfer from OSH --HISTORY OF PRESENT ILLNESS --------- Gabi Mcnulty is a 53 y.o. female who presents for evaluation of abdominal pain. History of Present Illness - location abdomen; diffuse, worse in LQ - onset gradual - better with NG placement at OSH, progressively worsening - quality ache - nonradiating - constant - associated symptoms as above - denies traumatic Injury, fever/chills, chest discomfort, cough/SOB, back pain, bloody, coffee-colored, or bilious emesis, constipation, diarrhea, melena, hematochezia, hematuria, dysuria, frequency, and vaginal bleeding or discharge Per External Document Review: - paper documentation reviewed in workroom with ED & surgery residents - notable for PHYSICAL EXAM VITAL SIGNS: Pulse 86 Resp 16 Ht 1.575 m (5' 2) SpO2 95% BMI 22.86 kg/m Smoking Status Never Physical Exam Vitals reviewed. Constitutional: General: She is not in acute distress. Appearance: She is not ill-appearing or diaphoretic. Comments: Lying reclined in bed, awake, very pleasant, + NG in place HENT: Head: Normocephalic and atraumatic. Eyes: General: No scleral icterus. Conjunctiva/sclera: Conjunctivae normal. Cardiovascular: Rate and Rhythm: Normal rate and regular rhythm. Heart sounds: Normal heart sounds. Comments: 2+ radial and pedal pulses b/l. Pulmonary: Effort: Pulmonary effort is normal. Breath sounds: Normal breath sounds. Comments: Speaking in full sentences on room air. Chest: Chest wall: No tenderness. Abdominal: General: Abdomen is flat. There is no distension. Palpations: Abdomen is soft. There is no mass. Tenderness: There is abdominal tenderness. There is no guarding (mild, diffuse (LQ>UQ)) or rebound. Comments: + multiple abdominal surgical scars + some gas in the ostomy bag with minimal output (recently changed) Genitourinary: Comments: No suprapubic or flank TTP b/l. Skin: General: Skin is warm and dry. Findings: No bruising or rash. Neurological: Mental Status: She is alert. Comments: Awake, oriented. No facial droop. Tongue midline. Speech not dysarthric. ---MEDICAL DECISION MAKING --------- I saw and examined the patient today with the resident and agree with the history, examination and medical decision making noted with the exceptions noted here in my separate documentation. 53 y.o. female hx Crohn's s/p colectomy presenting from OSH for evaluation of abnormal abdomina CT c/f SBO s/p NG placement, who is afebrile, low-normal BP, non-distended abdomen, not c/w acute abdomen. Differential Diagnosis includes life-threatening conditions, but is not limited to: SBO including sequelae such as necrotic bowel, close loop obstruction, electrolyte abnormality. Workup to include: CBC, CMP, lipase, lactate. Did not meet test threshold for repeat CT AP as risks benefit of ionizing radiation favored risk greater than benefit in this patient at this time. Considered other etiologies of hypotension (not anemic at OSH, euvolemic & no chest chest symptoms, no shortness of breath or hypoxia, no fever) and in my clinical judgement did not meet pre-test threshold based upon initial H&P - will continue to reassess throughout ED course. Treatment to include: NPO, maintain NG, IVF & electrolyte repletion PRN. Consults: surgery consulted; pending evaluation & management reccs. Disposition: admit ED Course as of 09/24/242222 Sun Sep 24, 20241933 White Blood Cell(!): 12.04 Does not meet SIRS criteria. 1933 CARBON DIOXIDE (CO2)(!): 19 Mild NAGMA c/w known SBO. 1934 Glucose: 81 Not hypoglycemic. Maintain NPO. 2038 D/w surgery resident - continue NG, continue IVF, admit to colorectal. Medical Decision Making Problems Addressed: Intestinal obstruction, unspecified cause, unspecified whether partial or complete: acute illness or injury that poses a threat to life or bodily functions Amount and/or Complexity of Data Reviewed Independent Historian: Details: Family at bedside External Data Reviewed: labs, radiology and notes. Labs: ordered. Decision-making details documented in ED Course. ECG/medicine tests: ordered and independent interpretation performed. Decision-making details documented in ED Course. Discussion of management or test interpretation with external provider(s): Please see resident note for d/w consulting service re evaluation, management, disposition reccs. Risk Prescription drug management. Decision regarding hospitalization. -IMPRESSION AND DISPOSITION Clinical Impression: Bowel Obstruction Disposition: Admit Shreyas Gayle MD 09/24/24 7:10 PM THIS NOTE MAY BE GENERATED USING ARTIFICIAL INTELLIGENCE AND / OR DICTATION SOFTWARE. PLEASE EXCUSE ANY BREAKER MACHINE TENDER ERRORS. Shreyas Gayle MD 09/24/24 2349 [facility] 09-24-2024 Emergency department Note Bed: E041 Expected date: Expected time: Means of arrival: Comments: Ivonne Mcnulty [facility] 09-24-2024 Radiology Diagnostic study note [facility] Imaging Services [address] [place], [place] [id number] Abdomen Single View (Portable) MR#: [id number] Acct: [id number] Name: GABI MCNULTY Rep #: [id number] : 1970 F 53 From: Dixon Chowdhury MD PCP: Dr. Brandi Boogie MD Status: REG ER Study:Abdomen Single View (Portable) Date of Exam: 09/24/24 Exam# [id number] Ordering Dr: Peyman Sheikh DO PROCEDURE: ABDOMEN SINGLE VIEW (PORTABLE) 09/24/2024 REASON FOR EXAM: NG INSERTION TECHNIQUE: ABDOMEN SINGLE VIEW (PORTABLE) COMPARISON: Same day CT. FINDINGS: Orogastric tube terminates within the distal stomach which is patulous. Partially visualized dilated loops of small bowel. The lungs are clear. RAD/Abdomen Single View (Portable) IMPRESSION: Orogastric tube as above. Reading Location: [facility] CC: Dr. Brandi Boogie MD; Dr. Peyman Sheikh DO ~ In Service Educator: Signed [facility] 09-24-2024 Radiology Diagnostic study note [facility] Imaging Services [address] [place] [address] Abdomen/Pelvis W IV Cont ONLY MR#: [id number] Acct: [id number] Name: GABI MCNULTY Rep #: [id number] : 1970 F 53 From: Dixon Chowdhury MD PCP: Dr. Brandi Boogie MD Status: REG ER Study:Abdomen/Pelvis W IV Cont ONLY Date of E xam: 09/24/24 Exam# [id number] Ordering Dr: Peyman Sheikh DO PROCEDURE: ABDOMEN/PELVIS W IV CONT ONLY 09/24/2024 REASON FOR EXAM: ABDOMINAL PAIN TECHNIQUE: ABDOMEN/PELVIS W IV CONT ONLY Coronal and Sagittal reconstruction series were provided. CONTRAST: Isovue 370 VOLUME: 96 mL One or more dose reduction techniques were used (e.g., Automated exposure control, adjustment of the mA and/or kV according to patient size, use of iterative reconstruction technique. RADIATION DOSE SUMMARY: CTDlvol: 53 mGy DLP: 315 mGycm COMPARISON: None. FINDINGS: Right lower quadrant ileostomy. Dilated loops of small bowel with a transition point in the mid abdomen indicating a bowel obstruction. Colectomy. No suspicious lymphadenopathy. The liver, spleen, adrenals are unremarkable. The gallbladder is not well visualized and may be absent. Symmetric enhancement of the bilateral kidneys. The uterus is unremarkable. CT/Abdomen/Pelvis W IV Cont ONLY IMPRESSION: Small-bowel obstruction. Reading Location: [id number] CC: Dr. Brandi Boogie MD; Dr. Peyman Sheikh DO ~ In Service Educator: Signed [facility] 01-19-2024 Evaluation note Diagnosis Onset Date Resolution Atrophic vaginitis acute Novemb 2023 3:41pm Climacteric acute December 3:41pm Family history of breast cancer in sister acute January 19, 2024 3:41pm Lichen sclerosus acute January 19, 2024 3:41pm [facility] Work Phone: [phone]) 180-796001-24-2023 Note* Nursing Notes - Edenilson Reid RN - 03/24/2022 9:04 AM EST Vital signs and patient assessments documented per anesthesia. [facility]01-24-2023 Miscellaneous Notes* Nursing Notes - Edenilson Reid RN - 03/24/2022 9:04 AM EST Vital signs and patient assessments documented per anesthesia. [facility] History and physical note* Nataliia Rodriguez MD, PhD - 03/24/2022 8:45 AM EST ENDOSCOPIC PREPROCEDURE HISTORY AND PHYSICAL HISTORY OF PRESENT ILLNESS: Gabi Mcnulty is a 51 y.o. female seen in the pre-procedure area at [facility]. The indication for endoscopic evaluation [...] Laterality: N/A; Surgeon: Alejandro Soria MD; Location: [facility] COLONOSCOPY W/ DILATION N/A 12/05/2018 Laterality: N/A; Surgeon: Steve Parikh MD; Location: [facility] RESECTION LIVER TOTAL RIGHT LOBE OPEN Right 03/14/2018 Laterality: Right; Surgeon: Wilfrido Earl MD; [facility] DIAGNOSTIC N/A 11/22/2017 Laterality: N/A; Surgeon: Nataliia Rodriguez MD, PhD; Location: [facility] [place] COLONOSCOPY DIAGNOSTIC N/A 12/21/2016 Laterality: N/A; Surgeon: Nataliia Rodriguez MD,PhD; Location: [facility] COLONOSCOPY W/ BX N/A 10/16/2014 Laterality: N/A; Surgeon: NAI Aleman; Location: [facility] COLONOSCOPY W/ ULTRASOUND N/A 10/16/2013 Laterality: N/A; Surgeon: Juan Henderson MD,PhD; Location: [facility] [place] REMOVAL COLON/ILEOSTOMY Right 2007 COLONOSCOPY widely patent ileocolonic anastomosis ILEOSTOMY OR [...] Monitored Anesthesia Care. Nataliia Rodriguez MD, PhD [facility]01-24-2023 History and physical note* Nataliia Rodriguez MD, PhD - 03/24/2022 8:45 AM EST ENDOSCOPIC PREPROCEDURE HISTORY AND PHYSICAL HISTORY OF PRESENT ILLNESS: Gabi Mcnulty is a 51 y.o. female seen in the pre-procedure area at [facility]. The indication for endoscopic evaluation [...] Laterality: Right; Surgeon: Wilfrido Earl MD; [facility]STIC N/A 11/22/2017 Laterality: N/A; Surgeon: Nataliia Rodriguez MD, PhD; Location: [facility] [place] COLONOSCOPY DIAGNOSTIC N/A 12/21/2016 Laterality: N/A; Surgeon: Nataliia Rodriguez MD,PhD; Location: [facility] COLONOSCOPY W/ BX N/A 10/16/2014 Laterality: N/A; Surgeon: NAI Aleman; Location: [facility] COLONOSCOPY W/ ULTRASOUND N/A 10/16/2013 Laterality: N/A; Surgeon: Juan Henderson MD,PhD; Location: [facility] [place] REMOVAL COLON/ILEOSTOMY Right 2007 COLONOSCOPY widely patent ileocolonic anastomosis ILEOSTOMY OR [...] Nataliia Rodriguez MD, PhD [facility] Nurse Note* Gretel Mcdowell RN - 03/24/2022 [...] where family assumed responsibility. [facility] Nurse Surgical operation note* Gretel Mcdowell RN - 03/24/2022 8:45 AM EST 1000- Notified Dr. Luz of hypotension. Dr. Luz will put In orders. [facility]01-24-2023 Nurse Surgical operation note* Gretel Mcdowell RN - 03/24/2022 8:45 AM EST 1020- Dr. Luz stated patient stable to go home with current vital signs. Vital signs stable. [facility]01-24-2023 Nurse Surgical operation note* Gretel Mcdowell RN - 03/24/2022 8:45 AM EST 1027 Discharge report given to and reviewed with patient and . All questions answered. Patient was alert x4 upon discharge. Patient denied needing assistance with getting dressed. Patient escorted to lobby where family assumed responsibility. [facility] History of Present illness Narrative* Nataliia Rodriguez MD, PhD - 10/29/2021 4:00 PM EDT [facility] Division of Gastroenterology, Hepatology, and Nutrition Hepatology Clinic Patient Visit -Referring Provider for today's consult: Helen Tay MD -Primary Care Provider: Helen Tay HISTORY OF PRESENT ILLNESS: Gabi Mcnulty is a 50 y.o. female who presents to the [facility] today 10/29/2021 for follow up. 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 [facility] Diagnosis Regional enteritis of unspecified site- Primary documented in [facility]* Diagnosis Onset Date Resolution Status Osteopenia determined by x-ray chronic [facility] Work Phone: Evaluation note* Diagnosis Crohn's disease of large intestine with complication- Primary Regional enteritis of large intestine Ileostomy in place Ileostomy status Status post total colectomy Elevated liver enzymes Nonspecific elevation of levels of transaminase or lactic acid dehydrogenase (LDH) H/O resection of liver Personal history of surgery to other organs [facility] [place] [facility] assessment information available [facility] Work Phone: Evaluation note* Diagnosis Crohn's disease of large intestine with complication Regional enteritis of large intestine Ileostomy in place Ileostomy status Status post total colectomy documented in this encounter [facility] [place] [facility]* Diagnosis Onset Date Resolution Status Enlarged thyroid acute Encounter for routine gynecological examination noneactive [facility] Work Phone: Evaluation note* Diagnosis Abnormal CT scan, gastrointestinal tract Nonspecific (abnormal) findings on radiological and other examination of gastrointestinal tract Crohn's disease of both small and large intestine with other complication documented in this encounter [facility] [place] [facility]* Diagnosis Crohn's disease of both small and large intestine with other complication [facility] [place] [facility]* Diagnosis Onset Date Resolution Status Thyroid nodule acute Osteopenia determined by x-ray chronic [facility] Work Phone: Evaluation note* Diagnosis Onset Date Resolution Status Atrophic vaginitis acute Postmenopausal bleeding acut e Thyroid nodule acute Encounter for routine gynecological examination noneactive Elevated liver enzymes nonea ctive [facility] Work Phone: Evaluation note* Diagnosis Onset Date Resolution Status Atrophic vaginitis acute Postmenopausal bleeding acut e Thyroid nodule acute Encounter for routine gynecological examination noneactive Elevated liver enzymes nonea ctive Atrophic vaginitis acute Postmenopausal bleeding acut e Stenosis, cervix acute [facility] Work Phone: Evaluation note* Diagnosis Crohn's disease [...] to other organs [facility] Diagnosis Small bowel obstruction- Primary Unspecified intestinal obstruction Intestinal obstruction, unspecified cause, unspecified whether partial or complete documented in this [facility]* Diagnosis Onset Date Resolution Status Admit Date Crohns disease chronic November 06, 2024 1:51pm Establishing care with new doctor, encounter for noneactive November 06, 2024 1:51pm [facility] Work Phone: Restig for referral (narrative)No reason for referral information availableWUniversity [facility] Work Phone: Reason for referral (narrative)* (Routine) - New Request Specialty Diagnoses / Procedures Referred By Contac t Referred To Contact Procedures C REACTIVE PROTEIN C REACTIVE PROTEIN Colin Davison MD [address] [place] [address] Phone: tel: fax: Referral ID Status Reason Start Date Expiration Date V isits Requested Visits Authorized [id number] New Request 09/26/2024 10/21/2025 1 1 * (Routine) Specialty Diagnoses / Procedures Referred By Contac t Referred To Contact [address] [place] [address] Referral ID Status Reason Start Date Expiration Date Visits Re quested Visits Authorized * (Routine) Specialty Diagnoses / Procedures Referred By Contac t Referred To Contact [address] [place] [address] Referral ID Status Reason Start Date Expiration Date Visits Re quested Visits Authorized * Unlisted Procedure Code (Routine) - New Request Specialty Diagnoses / Procedures Referred By Contac t Referred To Contact Procedures PLATELET MONITORING PER PROTOCOL Sulma Tong MD [address] [facility] [address] [place] [address] Phone: tel: fax: Referral ID Status Reason Start Date Expiration Date V isits Requested Visits Authorized [id number] New Request 09/24/2024 10/19/2025 1 1 * Unlisted Procedure Code (Routine) - New Request Specialty Diagnoses / Procedures Referred By Contac t Referred To Contact Procedures DVT/VTE RISK ASSESSMENT Sulma Tong MD [address] [address] Phone: tel: fax: Referral ID Status Reason Start Date Expiration Date V isits Requested Visits Authorized [id number] New Request 09/24/2024 10/19/2025 1 [facility] MRI/CAT Scan (Routine) - Closed Specialty Diagnoses / Procedures Referred By Contac t Referred To Contact Diagnoses Crohn's disease of both small and large intestine with other complication Status post total colectomy Ileostomy in place Elevated alkaline phosphatase level Elevated liver enzymes H/O resection of liver Procedures CT ENTEROGRAPHY CHG CT ABDOMEN & PELVIS W/CONTRAST MATERIAL Nataliia Rodriguez MD [address] [facility] [address] [place] [address] Phone: tel: fax: Referral ID Status Reason Start Date Expiration Date Visits Re quested Visits Authorized [id number] Closed 06/14/2024 07/09/2025 1 1 [facility] for visit Narrative* Auth/Cert Specialty Diagnoses / Procedures Referred By Contac t Referred To Contact Diagnoses Small bowel obstruction Crohn's Disease [facility] [address] [place] [address] [facility] [address] [place] [address] Referral ID Status Reason Start Date Expiration Date Visits Re quested Visits Authorized [id number] 1 1 [facility] Advance Directives No Advanced Directives Records FoundDocuments on File Type Date Recorded Patient Traveling Missionary Expl anation Advance Directive(s) Advance Directive Response Recorded Date/ Time Living Will Yes June 19, 2014 9:27pm Power of Oyster Fisherman Yes June 19 9:27pm Documents on File Type Date Recorded Patient Traveling Missionary Expl anation HealthCare Power of Oyster Fisherman 03/14/2012 Advance Directives/Living Will 03/14/2012 12:00 AM [...] Yes June 19, 2014 8:27pm Power of Oyster Fisherman Yes June 19 8:27pm Advance Directive Response Recorded Date/ Time Living Will No October 02, 2023 12:53pm Do you have a Healthcare Power of Oyster Fisherman? No October 02, 2023 12:53pm Date Activated Date Inactivated Comments 02/13/2020 7:29 PM Date Activated Date Inactivated Comments 03/14/2018 5:33 PM 02/13/2020 7:29 PM Advance Directive Response Recorded Date/ Time Do you have a Healthcare Power of Oyster Fisherman? Yes September 24, 2024 8:27am Date Activated Date Inactivated Comments 09/24/2024 8:29 PM Date Activated Date Inactivated Comments 02/13/2020 7:29 PM 09/24/2024 8:29 PM Date Activated Date Inactivated Comments 03/14/2018 5:33 PM 02/13/2020 7:29 PM Chief Complaint and Reason for Visit Chief Complaint 1 Y FU- THYROID Reason for Visit Osteopenia determine d by x-ray Chief Complaint 1 Y FU- THYROID RECLAST Reason for Visit Osteopenia determine d by x-ray Chief Complaint SCREENING Chief Complaint SCREENING Annual (WEB DEVELOPMENT MANAGER) Reason for Visit Enlarged thyroid Encounter for routine gynecological examination Chief Complaint SCREENING Annual (WEB DEVELOPMENT MANAGER) ENLARGED THYROID Reason for Visit Enlarged thyroid Encounter for routine gynecological examination Chief Complaint 1 Y FU RECLAST Reason for Visit Thyroid nodule Osteopenia determined by x-ray Chief Complaint RECLAST SCREENING Chief Complaint SCREENING SCREENING Chief Complaint SCREENING SCREENING Annual (WEB DEVELOPMENT MANAGER) Reason for Visit Atrophic vaginitis Postmenopausal bleeding Thyroid nodule Encounter for routine gynecological examination Elevated liver enzymes Chief Complaint SCREENING SCREENING 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 PMB; ENLARGED THYROID Reason for Visit Atrophic vaginitis Postmenopausal bleeding Thyroid nodule Encounter for routine gynecological examination Elevated liver enzymes Atrophic vaginitis Postmenopausal bleeding Stenosis, cervix Chief Complaint 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 PMB; ENLARGED THYROID Reason for Visit [...] 3:41pm Lichen sclerosus January 19, 2024 3:41pm Chief Complaint Admit Date possible blocked stoma September 24, 2024 8 :11am Chief Complaint Admit Date possible blocked stoma September 24, 2024 8 :11am EST CARE November 06, 2024 1:51pm Reason for Visit Admit Date Crohns disease November 06, 2024 1:51pm Establishing care with new doctorosvaldo November 06, 2024 1:51pm Family History No Family History Records Found Relationship Condition Age at Onset Recorded Date/T ayanna father Cardiac disease Unknown aunt Malignant neoplasm of breast 60 sister Malignant neoplasm of breast 50 grandmother Diabetes mellitus Unknown Relationship Condition Age at Onset Recorded Date/T ayanna father Cardiac disease Unknown Atrial fibrillation Unknown Cardiomegaly Unknown aunt Malignant neoplasm of breast 60 sister Malignant neoplasm of breast 50 Not Specified Diabetes mellitus Unknown Arthritis Unknown Cerebrovascular accident (CVA) Unknown Not Specified Malignant neoplasm of colon Unknown uncle Malignant neoplasm of vertebral column Un known Malignant neoplasm of brain Unknown Reason for Referral Specialty Diagnoses / Procedures Referred By Bj t Referred To Contact Diagnoses Crohn's disease of large intestine with complication Ileostomy in place Status post total colectomy Procedures CT ENTEROGRAPHY CHG CT SCAN,ABDOMENT AND PELVIS,W CONTRAST Nataliia Rodriguez MD, PhD [address] [place] [address] Referral ID Status Reason Start Date Expiration Date V isits Requested Visits Authorized [id number] New Request 10/29/2021 11/23/2022 1 1 Referral ID Status Reason Start Date Expiration Date Visits Re quested Visits Authorized [id number] Closed 10/29/2021 11/23/2022 1 1 Specialty Diagnoses / Procedures Referred By Contac t Referred To Contact Diagnoses Abnormal CT scan, gastrointestinal tract Crohn's disease of both small and large intestine with other complication Procedures PUSH ENTEROSCOPY ND ENDOSCOPY UPPER SMALL INTESTINE Nataliia Rodriguez MD, PhD [address] [place] [address] Referral ID Status Reason Start Date Expiration Date Visits Re quested Visits Authorized [id number] Closed 11/14/2021 12/09/2022 1 1 Specialty Diagnoses / Procedures Referred By Contac t Referred To Contact Diagnoses Crohn's disease of both small and large intestine with other complication Procedures ILEOSCOPY ND ENTEROSC >2ND PRTN W/ILEUM W/WO COLLJ SPEC SPX Nataliia Rodriguez MD, PhD [address] [place] [address] Referral ID Status Reason Start Date Expiration Date Visits Re quested Visits Authorized [id number] Closed 11/15/2021 2022 1 1 Summary Purpose Additional Source Comments Source Comments (unrecognize d section and content) In the event this informatio n is protected by the Federal Confidentiality of Alcohol and Drug Abuse Patient Records regulations: The Federal rules restrict any use of the information to criminally investigate or prosecute any alcohol or drug abuse patient.[facility] Goals (unrecognized section and content) Goals may [...] Disease Specialty Diagnoses / Procedures Referred By Contac t Referred To Contact Diagnoses Crohn's disease of large intestine with complication Ileostomy in place Status post total colectomy Procedures CT ENTEROGRAPHY CHG CT SCAN,ABDOMENT AND PELVIS,W CONTRAST Nataliia Rodriguez MD, PhD [address] [place] [address] Referral ID Status Reason Start Date Expiration Date Visits Re quested Visits Authorized [id number] Closed 10/29/2021 11/23/2022 1 1 Specialty Diagnoses / Procedures Referred By Contac t Referred To Contact Diagnoses Abnormal CT scan, gastrointestinal tract Crohn's disease of both small and large intestine with other complication Procedures PUSH ENTEROSCOPY ND ENDOSCOPY UPPER SMALL INTESTINE Nataliia Rodriguez MD, PhD [address] [place] [address] Referral ID Status Reason Start Date Expiration Date Visits Re quested Visits Authorized [id number] Closed 11/14/2021 12/09/2022 1 1 Specialty Diagnoses / Procedures Referred By Contac t Referred To Contact Diagnoses Crohn's disease of both small and large intestine with other complication Procedures ILEOSCOPY ND ENTEROSC >2ND PRTN W/ILEUM W/WO COLLJ SPEC SPX Nataliia Rodriguez MD, PhD [address] [place] [address] Referral ID Status Reason Start Date Expiration Date Visits Re quested Visits Authorized [id number] Closed 11/15/2021 2022 1 1 Care Teams (unrecognized sec tion and content) Sewer Separation Designer Relationship Specialty Start Date End Date Helen Tay MD [address] [place] [id number] PCP - General Family Medicine 04/12/13 Sewer Separation Designer Relationship Specialty Start Date End Date Helen Tay MD [address] [place] [address] PCP - General Family Medicine 04/12/13 Sewer Separation Designer Relationship Specialty Start Date End Date Helen Tay MD [address] [place] [address] PCP - General Family Medicine 04/12/13 Sewer Separation Designer Relationship Specialty Start Date End Date Helen Tay MD [address] [place] [address] PCP - General Family Medicine 04/12/13 Team Status: Active Member Role Status Dates Dr. Helen Tay MD Family Provider Active Dr. Helen Tay MD Primary Care Provider Active Team Status: Inactive Member Role Status Dates Dr. Helen Tay MD Primary Care Provider, Referrin g Provider Active Dr. Alexandro Llanos MD Attending Provider Active Team Status: Inactive Member Role Status Dates Dr. Helen Tay MD Primary Care Provider Active Dr. Alexandro Llanos MD Attending Provider, Referring Provi steve Active Team Status: Inactive Member Role Status Dates Dr. Helen Tay MD Primary Care Provider Active Dr. Josr Sylvester MD Attending Provider, Referri ng Provider Active NA, LI Other Provider Active Team Status: Inactive Member Role Status Dates Dr. Helen Tay MD Primary Care Provider Active Marilee Capellan DEPLOYMENT TECHNICIAN, DEPLOYMENT TECHNICIAN-C Attending Provider, Referring Provider Active Team Status: Inactive Member Role Status Dates Dr. Helen Tay MD Primary Care Provider, Referrin g Provider Active Marilee Capellan DEPLOYMENT TECHNICIAN, DEPLOYMENT TECHNICIAN-C Attending Provider Active Team Status: Inactive Member Role Status Dates Dr. Helen Tay MD Primary Care Provider Active TIRSO GOMEZ Attending Provider Active Team Status: Inactive Member Role Status Dates Dr. Helen Tay MD Primary Care Provider Active Start: January 19, 2024 End: January 19, 2024 Dr. Helen Tay MD Referring Provider Active Start: January 19, 2024 End: January 19, 2024 Marilee Capellan DEPLOYMENT TECHNICIAN, DEPLOYMENT TECHNICIAN-C Attending Provider Active Start: January 19, 2024 End: January 19, 2024 Team Status: Inactive Member Role Status Dates Dr. Helen Tay MD Primary Care Provider Active Start: January 19, 2024 End: January 19, 2024 Marilee Capellan DEPLOYMENT TECHNICIAN, DEPLOYMENT TECHNICIAN-C Attending Provider Active Start: January 19, 2024 End: January 19, 2024 Marilee Capellan DEPLOYMENT TECHNICIAN, DEPLOYMENT TECHNICIAN-C Referring Provider Active Start: January 19, 2024 End: January 19, 2024 Team Status: Inactive Member Role Status Dates Dr. Helen Tay MD Primary Care Provider Active Start: May 04, 2024 End: May 04, 2024 Marilee Capellan DEPLOYMENT TECHNICIAN, DEPLOYMENT TECHNICIAN-C Attending Provider Active Start: May 04, 2024 End: May 04, 2024 Marilee Capellan DEPLOYMENT TECHNICIAN, DEPLOYMENT TECHNICIAN-C Referring Provider Active Start: May 04, 2024 End: May 04, 2024 Team Status: Active Member Role Status Dates Dr. Helen Tay MD Primary Care Provider Active Team Status: Inactive Member Role Status Dates Dr. Helen Tay MD Primary Care Provider Active Start: June 07, 2024 End: June 07, 2024 NATIRSO Attending Provider Active Start: [facility] 2024 End: June 07, 2024 NA, LI Referring Provider Active Start: [facility] 2024 End: June 07, 2024 Sewer Separation Designer Relationship Specialty Start Date End Date Helen Tay MD PCP - General Family Medicine 04/12/13 Team Status: Active Member Role/Relationship Status Dates Dr. Brandi Boogie MD Primary Care Provider Active Team Status: Inactive Member Role/Relationship Status Dates Dr. Helen Tay MD Primary Care Provider Active Start: May 04, 2024 End: May 04, 2024 Marilee Capellan DEPLOYMENT TECHNICIAN, DEPLOYMENT TECHNICIAN-C Attending Provider Active Start: May 04, 2024 End: May 04, 2024 Marilee Capellan DEPLOYMENT TECHNICIAN, DEPLOYMENT TECHNICIAN-C Referring Provider Active Start: May 04, 2024 End: May 04, 2024 Team Status: Inactive Member Role/Relationship Status Dates Dr. Helen Tay MD Primary Care Provider Active Start: June 07, 2024 End: June 07, 2024 NA, LI Attending Provider Active Start: [facility] 2024 End: June 07, 2024 NA, LI Referring Provider Active Start: [facility] 2024 End: June 07, 2024 Team Status: Inactive Member Role/Relationship Status Dates Dr. Helen Tay MD Primary Care Provider Active Start: July 17, 2024 End: July 17, 2024 NA, LI Attending Provider Active Start: [facility] 2024 End: July 17, 2024 NA, LI Referring Provider Active Start: [facility] 2024 End: July 17, 2024 Team Status: Inactive Member Role/Relationship Status Dates NA, LI Attending Provider Active Start: [facility] 2024 End: August 21, 2024 NA, LI Referring Provider Active Start: [facility] 2024 End: August 21, 2024 Dr. Brandi Boogie MD Primary Care Provider Active Start: August 21, 2024 End: August 21, 2024 Team Status: Inactive Member Role/Relationship Status Dates Dr. Helen Tay MD Primary Care Provider Active Start: June 07, 2024 End: June 07, 2024 NA, LI Attending Provider Active Start: [facility] 2024 End: June 07, 2024 NA, LI Referring Provider Active Start: [facility] 2024 End: June 07, 2024 Team Status: Inactive Member Role/Relationship Status Dates Dr. Helen Tay MD Primary Care Provider Active Start: July 17, 2024 End: July 17, 2024 NA, LI Attending Provider Active Start: 2024 End: July 17, 2024 NA, LI Referring Provider Active Start: 2024 End: July 17, 2024 Team Status: Inactive Member Role/Relationship Status Dates NA, LI Attending Provider Active Start: 2024 End: August 21, 2024 NA, LI Referring Provider Active Start: 2024 End: August 21, 2024 Dr. Brandi Boogie MD Primary Care Provider Active Start: August 21, 2024 End: August 21, 2024 Team Status: Inactive Member Role/Relationship Status Dates Dr. Brandi Boogie MD Primary Care Provider Active Start: September 24, 2024 End: September 24, 2024 Dr. Peyman Sheikh , Emergency Provider Active Start: September 24, 2024 End: September 24, 2024 Sewer Separation Designer Relationship Specialty Start Date End Date Helen Tay MD PCP - General Family Medicine 04/12/13 Team Status: Inactive Member Role/Relationship Status Dates Dr. Helen Tay MD Primary Care Provider Active Start: July 17, 2024 End: July 17, 2024 NA, LI Attending Provider Active Start: 2024 End: July 17, 2024 NA, LI Referring Provider Active Start: 2024 End: July 17, 2024 Team Status: Inactive Member Role/Relationship Status Dates NA, LI Attending Provider Active Start: 2024 End: August 21, 2024 NA, LI Referring Provider Active Start: 2024 End: August 21, 2024 Dr. Brandi Boogie MD Primary Care Provider Active Start: August 21, 2024 End: August 21, 2024 Team Status: Inactive Member Role/Relationship Status Dates Dr. Brandi Boogie MD Primary Care Provider Active Start: September 24, 2024 End: September 24, 2024 Dr. Peyman Sheikh DO Attending Provider Active Start: September 24, 2024 End: September 24, 2024 Dr. Peyman Sheikh DO Emergency Provider Active Start: September 24, 2024 End: September 24, 2024 Team Status: Inactive Member Role/Relationship Status Dates Dr. Helen Tay MD Referring Provider Active Start: November 06, 2024 End: November 06, 2024 Dr. Brandi Boogie MD Primary Care Provider Active Start: November 06, 2024 End: November 06, 2024 Dr. Brandi Boogie MD Attending Provider Active Start: November 06, 2024 End: November 06, 2024 Scheduled Active and Recently Administ ered Medications (unrecognized section and content) Medication Order 09/26/2024 09/27/2024 09/28/2024 Acetaminophen (TYLENOL) tablet 650 mg 650 mg, Oral, 3 TIMES DAILY, First dose (after last modification) on Wed09/25/24 at 0430, Until Discontinued, Maximum dose of acetaminophen is 4000 mg from all sources in 24 hours. 0945 (Given - Provider: Ally Bach RN)1551 (Given - Provider: Ally Bach RN)211 (Given - Provider: Najma Armstrong RN) 0851 (Given - Provider: Kelsy Sherman RN)1349 (Given - Provider: Kelsy Sherman RN)2056 (Given - Provider: Najma Armstrong RN) 0759 (Given - Provider: Tiffanie Valentine Mba, RN)1326 (Given - Provider: Tiffanie Valentine Mba, RN) Enoxaparin Sodium (LOVENOX) injection 40 mg 40 mg, Subcutaneous, EVERY 24 HOURS, First dose on Wed09/24/24 at 2230, Until Discontinued, For SUBCUTANEOUS route ONLY: alternate injection sites between left and right abdominal wall, pinching location and avoiding area around navel. If unable to use abdominal sites, may use the front or side of thighs., Indications: DVT/PE prophylaxis 2112 (Given - Provider: Najma Armstrong RN) 2056 (Given - Provider: Najma Armstrong RN) Magnesium sulfate 4 g in sterile water 50 ml premix IVPB (COMPLETED) 4 g, Intravenous, Administer over 4 Hours, ONCE, 1 dose, On Wed09/27/24 at 0515 0612 ($$New Bag$$ - Provider: Najma Armstrong RN)1023 (Stopped - Provider: Kelsy Sherman RN) methylPREDNISolone sodium succinate (SOLU-MEDROL) injection 40 mg (CANCELED) 40 mg, Intravenous, DAILY, First dose on Wed09/26/24 at 0900, Until Discontinued 0944 (Given - Provider: Ally Bach RN) 1000 (Given - Provider: Kelsy Sherman RN) 0759 (Given - Provider: Tiffanie Valentine Mba, RN) Pantoprazole (PROTONIX) injection 40 mg (CANCELED) 40 mg, Intravenous, DAILY, First dose on Wed09/27/24 at 0900, Until Discontinued, Dilute each 40 mg vial with 10 mL of NS. All bolus doses, whether 40 mg or 80 mg, should be administered over at least two minutes., Indications: Inpt Stress Ulcer Prophylaxis 1001 (Given - Provider: Kelsy Sherman RN) 0759 (Given - Provider: Tiffanie Valentine Mba, RN) Pantoprazole (PROTONIX) tablet DR 40 mg 40 mg, Oral, DAILY, First dose on Wed09/29/24 at 0900, Until Discontinued, Swallow whole; do not crush or chew., Indications: Inpt Stress Ulcer Prophylaxis Potassium chloride (K-DUR) tablet ER 40 mEq (COMPLETED) 40 mEq, Oral, ONCE, 1 dose, On Wed09/27/24 at 0515 0608 (Given - Provider: Najma Armstrong RN) Potassium phosphates 15 mmol in Sodium chloride 0.9%, with overfill 280 mL (total volume) IVPB (COMPLETED) 15 mmol, Intravenous, Administer over 2 Hours, EVERY 2 HOURS, 2 doses, First dose on Wed09/26/24 at 0900, Last dose on Wed09/26/24 at 1100 1033 ($$New Bag$$ - Provider: Ally Bach RN)1253 ($$New Bag$$ - Provider: Ally Bach RN)1831 (Stopped - Provider: Ally Bach RN) Potassium phosphates 15 mmol in Sodium chloride 0.9%, with overfill 280 mL (total volume) IVPB (COMPLETED) 15 mmol, Intravenous, Administer over 2 Hours, ONCE, 1 dose, On Wed09/28/24 at [phone] ($$New Bag$$ - Provider: Najma Armstrong RN)0604 (Paused - Provider: Tiffanie Valentine Mba, RN)0606 (Restarted - Provider: Tiffanie Valentine Mba, RN)0808 (Stopped - Provider: Tiffanie Valentine Mba, RN) Continuous Medication Order 09/26/2024 09/27/2024 09/28/2024 Dextrose 5% and lactated ringers IV solution (CANCELED) Intravenous, at 75 mL/hr, CONTINUOUS, Starting on Wed09/25/24 at 0400, Until Wed09/27/24 at 1404 0327 (Rate/Dose Verify - Provider: Najma Armstrong RN)1254 (Rate/Dose Verify - Provider: Ally Bach, RN)1550 (Rate/Dose Change - Provider: Ally Bach RN)1839 (Stopped - Provider: Najma Armstrong RN)1840 ($$New Bag$$ - Provider: Ally Bach RN)2348 (Rate/Dose Verify - Provider: Najma Armstrong RN) 0056 (Paused - Provider: Najma Armstrong RN)0100 (Restarted - Provider: Najma Armstrong RN)0514 (Rate/Dose Verify - Provider: Najma Armstrong RN)0931 (Stopped - Provider: Kelsy Sherman RN) PRN Medication Order 09/26/2024 09/27/2024 09/28/2024 HYDROmorphone (DILAUDID) injection 0.2 mg(Linked Group 1) 0.2 mg, Intravenous, EVERY 3 HOURS NEEDED, Starting on Wed09/24/24 at 2027, Until Wed09/28/24 at 1707, Severe Pain, Use as initial dose. Higher dose may be administered if lower dose was previously documented as ineffective and did not result in adverse effects (RR<10, decrease in level of consciousness). For severe pain IF patient unable to tolerate PO. HYDROmorphone (DILAUDID) injection 0.5 mg(Linked Group 1) 0.5 mg, Intravenous, EVERY 3 HOURS NEEDED, Starting on 09/24/24 at 2027, Until [place] 09/28/24 at 1707, Severe Pain, Higher dose may be administered if lower dose was previously documented as ineffective and did not result in adverse effects (RR<10, decrease in level of consciousness). Decrease back to lower dose if patient has adverse effects, or no PRN used in previous 12 hours. For severe pain IF patient unable to tolerate PO. Melatonin tablet 6 mg 6 mg, Oral, DAILY AT BEDTIME NEEDED, Starting on Wed09/24/24 at 2028, Until [place] 09/28/24 at 170, Insomnia Ondansetron (ZOFRAN) tablet 4 mg(Linked Group 2) 4 mg, Oral, EVERY 6 HOURS NEEDED, Starting on Wed09/24/24 at 2026, Until [place] 09/28/24 at 170, Nausea / Vomiting, 1st Line Nausea / Vomiting Ondansetron 4mg/2ml (ZOFRAN) injection 4 mg(Linked Group 2) 4 mg, Intravenous, EVERY 6 HOURS NEEDED, Starting on Wed09/24/24 at 2026, Until [place] 09/28/24 at 170, Nausea / Vomiting, 1st Line Nausea / Vomiting, If patient is unable to tolerate PO. Phenol (CHLORASEPTIC) 1.4 % oral spray 1 spray 1 spray, Mouth/Throat, NEEDED, Starting on Wed09/24/24 at 2026, Until [place] 09/28/24 at 170, Sore Throat, Patient may self-administer. Prochlorperazine (COMPAZINE) injection 5 mg(Linked Group 3) 5 mg, Intravenous, EVERY 6 HOURS NEEDED, Starting on Wed09/24/24 at 2026, Until [place] 09/28/24 at 170, Refractory Nausea Vomiting, If unrelieved by Ondansetron. Administer IV if patient is unable to tolerate PO. Maximum 40mg/day. For IV route: Give undiluted by slow IV push at a rate of 5 mg/min Prochlorperazine (COMPAZINE) tablet 5 mg(Linked Group 3) 5 mg, Oral, EVERY 6 HOURS NEEDED, Starting on Wed09/24/24 at 2026, Until [place] 09/28/24 at 170, Refractory Nausea Vomiting, If unrelieved by Ondansetron. Sodium chloride 0.9% IV solution 250 mL Intravenous, at 20 mL/hr, NEEDED, Starting on 09/24/24 at 2026, Until [place] 09/28/24 at 170, Carrier Fluid - See Admin. Inst, 250mL 0.9NS to be used as carrier fluid for intermittent small volume or piggyback medication administration as needed. Infusion rate of the carrier fluid should be set at 20 mL/hr unless the rate as the intermittent medication is less than 20 mL/hr. For intermittent medications with a rate less than 20 mL/hr set the carrier fluid at that rate of the intermittent or piggy back medication. Linked Groups Order Group 1: HYDROmorphone (DILAUDID) injection 0.2 mgJump to med 0.2 mg, Intravenous, EVERY 3 HOURS NEEDED, Starting on Wed09/24/24 at 2027, Until Wed09/28/24 at 170, Severe Pain, Use as initial dose. Higher dose may be administered if lower dose was previously documented as ineffective and did not result in adverse effects (RR<10, decrease in level of consciousness). For severe pain IF patient unable to tolerate PO. Or HYDROmorphone (DILAUDID) injection 0.5 mgJump to med 0.5 mg, Intravenous, EVERY 3 HOURS NEEDED, Starting on Wed09/24/24 at 2027, Until Wed09/28/24 at 170, Severe Pain, Higher dose may be administered if lower dose was previously documented as ineffective and did not result in adverse effects (RR<10, decrease in level of consciousness). Decrease back to lower dose if patient has adverse effects, or no PRN used in previous 12 hours. For severe pain IF patient unable to tolerate PO. Group 2: Ondansetron (ZOFRAN) tablet 4 mgJump to med 4 mg, Oral, EVERY 6 HOURS NEEDED, Starting on Wed09/24/24 at 2026, Until Wed09/28/24 at 170, Nausea / Vomiting, 1st Line Nausea / Vomiting Or Ondansetron 4mg/2ml (ZOFRAN) injection 4 mgJump to med 4 mg, Intravenous, EVERY 6 HOURS NEEDED, Starting on Wed09/24/24 at 2026, Until Wed09/28/24 at 170, Nausea / Vomiting, 1st Line Nausea / Vomiting, If patient is unable to tolerate PO. Group 3: Prochlorperazine (COMPAZINE) tablet 5 mgJump to med 5 mg, Oral, EVERY 6 HOURS NEEDED, Starting on Wed09/24/24 at 2026, Until [place] 7/31/25 at 1707, Refractory Nausea Vomiting, If unrelieved by Ondansetron. Or Prochlorperazine (COMPAZINE) injection 5 mgJump to med 5 mg, Intravenous, EVERY 6 HOURS NEEDED, Starting on 09/24/24 at 2026, Until [place] 09/28/24 at 170, Refractory Nausea Vomiting, If unrelieved by Ondansetron. Administer IV if patient is unable to tolerate PO. Maximum 40mg/day. For IV route: Give undiluted by slow IV push at a rate of 5 mg/min INFORMATION SOURCE (unrecogn ized section and content) DATE CREATED AUTHOR 10/02/2024 [facility] DATE CREATED AUTHOR AUTHOR'S ORGANIZ ATION 11/11/2024 [facility] FOR RECORDS PERTAINING TO PATIENTS WHO ARE [...] BE BASED ON THE PRIMARY CLINICAL RECORDS. [employer] provides no warranty or guarantee of the accuracy or completeness of information in this document.
[2024-11-24 10:39] LABS: Cholesterol 212 mg/dL (<=200); Low Density Lipoprotein Calc. 93 mg/dL; Triglycerides 135 mg/dL; Very Low Density Lipoprotein 27 mg/dL (5-40); cholesterol:hdl ratio screen 2.30
[2024-11-28 19:08] LABS: Anti-Chromatin <0.2 AI (0.0-0.9); Anti-Jo <0.2 AI (0.0-0.9); Anti-dsDNA Ab <1 IU/mL (0-9); SJOGREN'S Anti-SS-A test < 0.2 AI (0.0-0.9); SJOGREN'S Anti-SS-B test < 0.2 AI (0.0-0.9)
== END | disposition home or self-care (01) ==
LOC: MTLAB 07:25
PROVIDERS: PCP Internal Medicine; Referring Provider Internal Medicine; Visit Provider Internal Medicine
DX: K50.813 Crohn's disease of both small and large intestine with fistula (principal); Z13.6 Encounter for screening for cardiovascular disorders
CPT/HCPCS: 36415; 80061; 86038; 86225; 86235

== ENCOUNTER → 2024-11-30 | Outpatient (CLI) | payer OTHER, SELFPAY ==
--- NOTE | 2024-11-30 16:30 | BD_ITS ---
PROCEDURE: DEXA BONE DENSITY STUDY 11/30/2024 REASON FOR EXAM: OSTEOPENIA F, age 53 y/o . Patient is postmenopausal.. TECHNIQUE: Procedure Code: BDDBD Modality: DX Procedure: DEXA BONE DENSITY STUDY COMPARISON: DEXA examination dated 10/08/2022 FINDINGS: BMD and T-SCORES Lumbar spine: 0.807 g/cm2, T-score -2.2 Levels: L1 through L4 Change from prior: There has been a decrease in the bone mineral density of the lumbar spine by 1.9% since the prior study dated 10/08/2022. Left femoral neck: 0.628 g/cm2, T-score -2.0 Left total hip: 0.688 g/cm2, T-score -2.1 Change from prior: There has been a significant decrease in the bone mineral density of the left hip by 5.1% since the prior study dated 10/08/2022. Right femoral neck: 0.621 g/cm2, T-score -2.1 Right total hip: 0.695 g/cm2, T-score -2.0 Change from prior: There has been a decrease in the bone mineral density of the right hip by 2.9% since the prior study dated 10/08/2022 The World Health Organization has defined the following categories based on bone density: Normal bone density: T-score equal to or greater than -1.0 Osteopenia: T-score between -1.0 and -2.5 Osteoporosis: T-score equal to or less than -2.5 FRAX (or Comparable) Fracture Risk Assessment: 10 Year Probability of Fracture: Major Osteoporotic Fracture: 12% Hip Fracture: 1.8% (Note: FRAX is not to be reported in setting of normal range bone density, osteoporosis on DEXA, known history of osteoporosis, prior osteoporotic hip or vertebral fracture, or for any patient undergoing pharmacological treatment for bone loss.) The National Osteoporosis Foundation (NOF) recommends pharmacological treatment for patients with a FRAX 10-year risk of 3% or higher for a hip fracture, or 20% or higher for a major osteoporotic fracture, to prevent osteoporosis and reduce fracture risk. The patient does meet the pharmacological treatment recommendations for prevention of osteoporosis. BD/Dexa Bone Density Study IMPRESSION: OSTEOPENIA. Recommend follow-up as clinically warranted. Reading Location: [id number]
== END | disposition home or self-care (01) ==
LOC: OPBD 16:27
PROVIDERS: PCP Internal Medicine; Referring Provider Internal Medicine; Visit Provider Internal Medicine
DX: M85.80 Other specified disorders of bone density and structure, unspecified site (principal); Z78.0 Asymptomatic menopausal state
CPT/HCPCS: 77080

== ENCOUNTER → 2024-12-21 | Outpatient (CLI) | payer OTHER, SELFPAY | END | disposition home or self-care (01) | LOC: OPBI 15:10 | PROVIDERS: PCP Internal Medicine; Referring Provider Nurse Practitioner Women's Health; Visit Provider Nurse Practitioner Women's Health | DX: Z12.31 Encounter for screening mammogram for malignant neoplasm of breast (principal); Z80.3 Family history of malignant neoplasm of breast | CPT/HCPCS: 77063; 77067 ==